=== PATIENT | male | born 1945 | race Caucasian/White ===

== ENCOUNTER 2023-09-03 15:01 | Outpatient (CLI) | payer MEDICARE, SELFPAY | END 2023-09-03 15:02 | disposition home or self-care (01) | PROVIDERS: PCP Family Medicine; Visit Provider Family Medicine | DX: Z00.00 Encounter for general adult medical examination without abnormal findings (principal); I10 Essential (primary) hypertension; E78.00 Pure hypercholesterolemia, unspecified; E03.9 Hypothyroidism, unspecified; N18.30 Chronic kidney disease, stage 3 unspecified; E11.9 Type 2 diabetes mellitus without complications | CPT/HCPCS: 80053; 80061; 82043; 82570; 84443 ==

== ENCOUNTER 2023-09-17 14:21 | Outpatient (CLI) | payer MEDICARE, SELFPAY | END 2023-09-17 14:22 | disposition home or self-care (01) | LOC: WOUND 14:21 | PROVIDERS: PCP Family Medicine; Visit Provider Nurse Practitioner Family | DX: E11.621 Type 2 diabetes mellitus with foot ulcer (principal); L97.512 Non-pressure chronic ulcer of other part of right foot with fat layer exposed; I83.018 Varicose veins of right lower extremity with ulcer other part of lower leg; L97.812 Non-pressure chronic ulcer of other part of right lower leg with fat layer exposed; L97.818 Non-pressure chronic ulcer of other part of right lower leg with other specified severity; I83.028 Varicose veins of left lower extremity with ulcer other part of lower leg; L97.828 Non-pressure chronic ulcer of other part of left lower leg with other specified severity; Z79.4 Long term (current) use of insulin; Z79.84 Long term (current) use of oral hypoglycemic drugs | CPT/HCPCS: 11042; 97602; 99213 ==

== ENCOUNTER 2023-09-20 11:29 | Outpatient (CLI) | payer MEDICARE, SELFPAY | END 2023-09-20 11:30 | disposition home or self-care (01) | LOC: WOUND 11:29 | PROVIDERS: PCP Family Medicine; Visit Provider Nurse Practitioner Family | DX: I87.333 Chronic venous hypertension (idiopathic) with ulcer and inflammation of bilateral lower extremity (principal); L97.818 Non-pressure chronic ulcer of other part of right lower leg with other specified severity; L97.828 Non-pressure chronic ulcer of other part of left lower leg with other specified severity | CPT/HCPCS: 29581 ==

== ENCOUNTER 2023-09-24 08:20 | Outpatient (CLI) | payer MEDICARE, SELFPAY | END 2023-09-24 08:21 | disposition home or self-care (01) | LOC: WOUND 08:20 | PROVIDERS: PCP Family Medicine; Visit Provider Nurse Practitioner Family | DX: E11.621 Type 2 diabetes mellitus with foot ulcer (principal); L97.512 Non-pressure chronic ulcer of other part of right foot with fat layer exposed; I87.333 Chronic venous hypertension (idiopathic) with ulcer and inflammation of bilateral lower extremity; L97.322 Non-pressure chronic ulcer of left ankle with fat layer exposed; L97.812 Non-pressure chronic ulcer of other part of right lower leg with fat layer exposed; Z79.4 Long term (current) use of insulin; Z79.84 Long term (current) use of oral hypoglycemic drugs | CPT/HCPCS: 11042 ==

== ENCOUNTER 2023-10-01 10:29 | Outpatient (CLI) | payer MEDICARE, SELFPAY | END 2023-10-01 10:30 | disposition home or self-care (01) | LOC: WOUND 10:29 | PROVIDERS: PCP Family Medicine; Visit Provider Nurse Practitioner Family | DX: E11.621 Type 2 diabetes mellitus with foot ulcer (principal); L97.512 Non-pressure chronic ulcer of other part of right foot with fat layer exposed; I87.333 Chronic venous hypertension (idiopathic) with ulcer and inflammation of bilateral lower extremity; L97.812 Non-pressure chronic ulcer of other part of right lower leg with fat layer exposed; L97.828 Non-pressure chronic ulcer of other part of left lower leg with other specified severity; L97.322 Non-pressure chronic ulcer of left ankle with fat layer exposed; L97.818 Non-pressure chronic ulcer of other part of right lower leg with other specified severity; Z79.4 Long term (current) use of insulin; Z79.84 Long term (current) use of oral hypoglycemic drugs | CPT/HCPCS: 11042; 97602 ==

== ENCOUNTER 2023-10-05 10:33 | Emergency (ER) | payer MEDICARE, SELFPAY ==
[2023-10-05] VITALS (19 sets, daily range): BP systolic 136–156; BP diastolic 60–69; PULSE 68–82; RESP 18; TEMP 37.1; O2SAT 94–99
--- NOTE | 2023-10-05 11:17 | CRLHL7_ITS ---
For Patients: As a result of the Century Cures Act, medical imaging exams and procedure reports are released immediately into your electronic medical record. You may view this report before your referring provider. If you have questions, please contact your health care provider. Examination: CTA chest - pulmonary embolism protocol Indication: Shortness of breath. COVID-19 positive. Technique: PE protocol chest CTA. 95 mL contrast. Coronal and sagittal reformations. 2D and 3D MIP images for post-processing were performed and interpreted on an independent scanner and 3D images were permanently archived. Comparison: None available Findings: No pulmonary embolism. Normal caliber main pulmonary artery. Normal heart size. Coronary artery calcifications. No pericardial effusion. Normal course and caliber of thoracic aorta. Multiple small mediastinal lymph nodes are noted which are generally not in enlarged by CT size criteria. A 1.1 cm right paratracheal lymph node maintains normal lymph node morphology with prominent fatty hilum. No axillary or supraclavicular lymphadenopathy.. Normal esophagus. Visualized portions of thyroid unremarkable. No pneumothorax or pleural effusion. Prominent interstitial opacities are noted most prominently in the lung bases likely pulmonary edema. No alveolar opacities. No pulmonary nodules. Limited arterial phase images of upper abdomen are unremarkable. No acute or aggressive appearing osseous lesions. Impression: 1. Bilateral interstitial pulmonary opacities, greatest in the lung bases. This is likely due to pulmonary edema. Atypical pneumonia could have this appearance in appropriate clinical context. 2. No pulmonary embolism. Please note that all CT scans at this facility use dose modulation, iterative reconstruction, and/or weight-based dosing when appropriate to reduce radiation dose to as low as reasonably achievable. Dictated by Willi Miller MD @ 10/05/2023 1:38:02 PM (Electronically Signed)
--- NOTE | 2023-10-05 11:48 | ED.GENADULT ---
HPI - General Adult General Date Seen: 10/05/23 Chief complaint: Weakness Stated complaint: COVID+, trouble breathing Time Seen by Provider: 10/05/23 11:00 Source: patient Mode of arrival: ambulatory Limitations: no limitations History of Present Illness HPI narrative: Patient is a 78-year-old male with a history of chronic kidney disease diabetes, paroxysmal AFib of rivaroxaban, presenting to the emergency department for weakness and shortness of breath. He states he started to feel weak 2 days ago and had episode of dizziness a cause in the fall down. His tried to stop him from falling but she was unable to. States he landed on his butt. Does not think he hit his head. Denies headaches, vision changes, numbness. Has not had any more episodes of dizziness since that 1 time. States he has had COVID twice before he has states the symptoms feel very similar. He has not needed to be hospitalized. Denies fevers, chest pain, abdominal pain, diarrhea, constipation. Does state he feels short of breath. He took 2 COVID test at home and both came back positive. He also states he has been very itchy the past 2 days and has been bruising where he has been itching. Patient also admits to falling 3 weeks ago but states that is due to him losing his balance when he was picking up a yeimy. He hurt his shoulder and ribs at that time but has had full range of motion of his shoulder. Related Data Home Medications Medication Instructions Recorded Confirmed allopurinol 100 mg tablet 100 mg PO QDAY 09/03/23 09/30/23 alprazolam 0.5 mg tablet 0.5 mg PO QDAY PRN 09/03/23 09/30/23 amiodarone 200 mg tablet 200 mg PO QDAY 09/03/23 09/30/23 cinnamon bark 500 mg capsule 500 mg PO QDAY 09/03/23 09/30/23 (Cinnamon) metformin 1,000 mg tablet 1,000 mg PO QDAY 09/03/23 09/30/23 [id number] 300 mcg-K 60 1 tab PO QDAY 09/03/23 09/30/23 mcg-lycop 600 mcg-lutein 300 mcg tablet (Centrum Silver Men) saw palmetto 450 mg capsule 450 mg PO QDAY 09/03/23 09/30/23 furosemide 20 mg tablet 40 mg PO 3XW 09/30/23 potassium chloride 20 mEq 20 meq PO QDAY 09/30/23 09/30/23 tablet,extended release Previous Rx's Medication Instructions Recorded atorvastatin 10 mg tablet 10 mg PO QDAY #90 tabs 09/04/23 gabapentin 600 mg tablet 600 mg PO TID #270 tabs 09/04/23 glipizide 5 mg tablet 5 mg PO BID #180 tabs 09/04/23 insulin glargine 100 unit/mL (3 20 unit (0.2 mL) subcut QDAY #15 mL 09/04/23 mL) subcutaneous pen (Lantus Solostar U-100 Insulin) levothyroxine 100 mcg tablet 100 mcg PO QDAY #90 tabs 09/04/23 (Synthroid) metoprolol succinate 100 mg 100 mg PO QDAY #90 tabs 09/04/23 tablet,extended release 24 hr rivaroxaban 20 mg tablet (Xarelto) 20 mg PO QDAY #90 tabs 09/04/23 tamsulosin 0.4 mg capsule 0.4 mg PO .QOD #90 caps 09/04/23 azithromycin 250 mg tablet See Rx Instructions PO .COMPLEX #6 10/05/23 tabs nirmatrelvir 300 mg (150 mg See Rx Instructions PO .COMPLEX 10/05/23 x2)-ritonavir 100 mg tablet,dose #30 ea pack (Paxlovid) Allergies Allergy/AdvReac Type Severity Reaction Status Date / Time finasteride Allergy Unknown Rash Verified 09/30/23 14:31 hydrochlorothiazide Allergy Unknown Unknown Verified 09/30/23 14:31 penicillin G Allergy Unknown Unknown Verified 09/30/23 14:31 Sulfa (Sulfonamide Allergy Unknown Unknown Verified 09/30/23 14:31 Antibiotics) tetracycline Allergy Unknown Unknown Verified 09/30/23 14:31 amlodipine AdvReac Unknown Unknown Verified 09/30/23 14:31 erythromycin base AdvReac Unknown Unknown Verified 09/30/23 14:31 hydrocodone AdvReac Unknown Disorientat Verified 09/30/23 14:31 ion lisinopril AdvReac Unknown Cough Verified 09/30/23 14:31 Review of Systems Status of ROS: Reports: 10 or more systems reviewed and unremarkable except as noted in History and below [facility] Medical History Normal nuclear stress test Chronic right shoulder pain ?M25.511 - Pain in right shoulder (ICD-10) ?G89.29 - Other chronic pain (ICD-10) [place] (obstructive sleep apnea) ?G47.33 - Obstructive sleep apnea (adult) (pediatric) (ICD-10) Acquired plantar keratoderma ?L85.1 - Acquired keratosis [keratoderma] palmaris et plantaris (ICD-10) Chronic low back pain ?M54.50 - Low back pain, unspecified (ICD-10) ?G89.29 - Other chronic pain (ICD-10) Diabetic neuropathy ?E11.40 - Type 2 diabetes mellitus with diabetic neuropathy, unspecified (ICD-10) Hypercholesterolemia ?E78.00 - Pure hypercholesterolemia, unspecified (ICD-10) Stasis dermatitis of both legs ?I87.2 - Venous insufficiency (chronic) (peripheral) (ICD-10) Large cavernous hemangioma ?D18.00 - Hemangioma unspecified site (ICD-10) Type 2 diabetes mellitus ?E11.9 - Type 2 diabetes mellitus without complications (ICD-10) Paroxysmal atrial fibrillation ?I48.0 - Paroxysmal atrial fibrillation (ICD-10) BPH (benign prostatic hyperplasia) ?N40.0 - Benign prostatic hyperplasia without lower urinary tract symptoms (ICD-10) Anticoagulated ?Z79.01 - terminal superintendent (current) use of anticoagulants (ICD-10) Essential hypertension ?I10 - Essential (primary) hypertension (ICD-10) CKD (chronic kidney disease) stage 3, GFR 30-59 ml/min ?N18.30 - Chronic kidney disease, stage 3 unspecified (ICD-10) Chronic pruritic rash in adult ?L29.8 - Other pruritus (ICD-10) Hypothyroidism ?E03.9 - Hypothyroidism, unspecified (ICD-10) Surgical History History of cardioversion (~01/2023) ?Z92.89 - Personal history of other medical treatment (ICD-10) History of cataract surgery ?Z98.49 - Cataract extraction status, unspecified eye (ICD-10) History of ventral hernia repair (1993) ?Z98.890 - Other specified postprocedural states (ICD-10) ?Z87.19 - Personal history of other diseases of the digestive system (ICD-10) History of bilateral total hip arthroplasty (~2014) ?Z96.643 - Presence of artificial hip joint, bilateral (ICD-10) History of repair of left rotator cuff (1996) ?Z98.890 - Other specified postprocedural states (ICD-10) History of varicose veins (01/22/23) ?Z86.79 - Personal history of other diseases of the circulatory system (ICD-10) History of foot surgery (1967) ?Z98.890 - Other specified postprocedural states (ICD-10) Family History Maternal Grandmother Stroke, Onset Age: 47 Uncle Prostate cancer, Onset Age: 74 Mother Liver disease Social History Narrative: , 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, 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 Lifetime nonsmoker 2 alcoholic drinks a week Does not exercise What is your current living situation?: I presently have a place to live Problems where you live: no known problems In the past 12 months, utilities in danger of being shut off: no In past 12 months, lack of transportation kept you from medical appts, meetings, work, or getting things needed for daily living: no In the past 12 mos, have been you worried that your food would run out before you had money to buy more?: never true In the past 12 mos, the food you bought just didn't last and you didn't have money to buy more?: never true How often does anyone, including family, friends and others, physically hurt you: never How often does anyone, including family, friends and others, insult or talk down to you: never How often does anyone, including family, friends and others, threaten you with harm: never How often does anyone, including family, friends and others, scream or curse at you: never Little interest or pleasure in doing things: not at all Feeling down, depressed, or hopeless: not at all Exam Narrative: Exam Narrative: Const: Well-nourished, Well-developed, in mild distress Eyes: PERRL, no conjunctival injection, and symmetrical lids HENT: Atraumatic external nose and ears. Moist mucous membranes. Neck: Symmetric, trachea midline, No thyromegaly. CVS: RRR, No murmurs or gallops. Peripheral pulses 2+ and equal in all extremities RESP: Unlabored respiratory effort. Clear to auscultation bilaterally. GI: Nontender/Nondistended, No rebound or guarding. MSK:Extremities w/o deformity, Normal Active ROM. Tenderness to right shoulder over the long head of the biceps Skin: Warm, Dry. No rashes or lesions. Neuro: Normal Muscle tone, No focal neurological deficits. Psych: Awake, Alert, & Oriented x3. Appropriate mood and affect. Const: Vital Signs, click to edit/add: Vital Signs - 24 hr 10/05/23 10:48 10/05/23 11:12 10/05/23 11:15 Temperature 98.8 F Pulse Rate 81 81 Pulse Rate [Pulse Oximeter] 82 Respiratory Rate 18 Blood Pressure Blood Pressure [Ri ght Upper Arm] 156/61 H Pulse Oximetry 99 98 98 Oxygen Delivery Me thod Room Air 10/05/23 11:30 10/05/23 11:45 10/05/23 12:00 Temperature Pulse Rate 77 73 71 Pulse Rate [Pulse Oximeter] Respiratory Rate 18 Blood Pressure Blood Pressure [Ri ght Upper Arm] Pulse Oximetry 97 95 98 Oxygen Delivery Me thod Room Air 10/05/23 12:15 10/05/23 12:20 10/05/23 12:31 Temperature Pulse Rate 73 Pulse Rate [Pulse Oximeter] Respiratory Rate 18 18 Blood Pressure 142/63 H 139/62 Blood Pressure [Ri ght Upper Arm] Pulse Oximetry 96 Oxygen Delivery Me thod Room Air Room Air 10/05/23 13:27 10/05/23 13:28 10/05/23 13:30 Temperature Pulse Rate 74 72 74 Pulse Rate [Pulse Oximeter] Respiratory Rate 18 Blood Pressure 136/60 Blood Pressure [Ri ght Upper Arm] Pulse Oximetry 97 96 96 Oxygen Delivery Me thod Room Air Course Vital Signs Vital signs: Initial Vital Signs Temperature 98.8 F 10/05/23 10:48 Temperature Source Temporal Artery Scan 10/05/23 10:48 Pulse Rate 82 10/05/23 10:48 Respiratory Rate 18 10/05/23 10:48 Blood Pressure 156/61 H 10/05/23 10:48 Blood Pressure Mean 92 10/05/23 10:48 Pulse Oximetry 99 10/05/23 10:48 Oxygen Delivery Method Room Air 10/05/23 10:48 Vital Signs Temperature 98.8 F 10/05/23 10:48 Pulse Rate 82 10/05/23 10:48 Respiratory Rate 18 10/05/23 10:48 Blood Pressure 156/61 H 10/05/23 10:48 Pulse Oximetry 99 10/05/23 10:48 Oxygen Delivery Method Room Air 10/05/23 10:48 Temperature 98.8 F 10/05/23 10:48 Pulse Rate 74 10/05/23 13:30 Respiratory Rate 18 10/05/23 13:28 Blood Pressure 136/60 10/05/23 13:28 Pulse Oximetry 96 10/05/23 13:30 Oxygen Delivery Method Room Air 10/05/23 13:28 Medical Decision Making MDM Narrative Medical decision making narrative: Patient is 78-year-old male presenting emergency department for shortness of breath and COVID. His symptoms might all be secondary to COVID but with his history there is concern for pulmonary embolism. I do not believe a D-dimer would be useful concerned he does have COVID routine the elevates the D-dimer. I plan on doing a CT of his chest and UA to look for signs of pneumonia cell would to start with a CTA. Patient has no history of heart disease but does have risk factors so I will check him out for acute coronary syndrome. Seems unlikely to be pneumothorax. CMP, CBC, troponin, EKG all ordered. Lab work all returned showing no concerning abnormalities. EKG showed no concerning findings. Vital signs stayed stable throughout his time emergency department. CTA of the chest showed likely pulmonary edema but cannot rule out atypical infiltrates for pneumonia. He has no history of heart failure wide with his otherwise appears seems most likely to be pulmonary edema but will treat him prophylactically with azithromycin for atypicals. Patient be discharged on paxlovid. Family is agreeable to this plan. Patient does take amiodarone, Xarelto, atorvastatin, tamsulosin and alprazolam. He can hold the atorvastatin and tamsulosin. The amiodarone and rivaroxaban and I for his paroxysmal AFib. I will have him take these doses had half dose or every other day whichever the family prefers Lab Data Labs: Lab Results 10/05/23 Range/Units 12:05 WBC 5.55 (4.50-11.00) K/uL RBC 3.36 L (4.30-5.90) m/uL Hgb 11.1 L (13.5-17.5) gm/dL Hct 33.5 L (37.0-53.0) % MCV 100 (80-100) fL MCH 33 (26-34) pg MCHC 33 (32-36) gm/dL RDW Coeff of [place] 12.8 (11.5-15.5) % Plt Count 255 (140-440) K/uL Neut % (Auto) 63.0 (42.0-72.0) % Lymph % (Auto) 13.9 L (20-44) % [place] % (Auto) 21.8 H (0.0-11.0) % Eos % (Auto) 0.5 (0.0-7.0) % Baso % (Auto) 0.4 (0.0-3.0) % Neut # (Auto) 3.50 (1.7-7.0) K/uL Lymph # (Auto) 0.80 L (0.90-2.90) K/uL [place] # (Auto) 1.20 H (0.00-0.90) K/UL Eos # (Auto) 0.03 (0.00-0.50) K/uL Baso # (Auto) 0.02 (0.00-0.30) K/uL Abs Immat Gran (auto) 0.02 (0.00-0.30) K/uL Imm/Tot Granulo (auto) 0.4 % Sodium 136 (135-149) mmol/L Potassium 4.2 (3.6-5.1) mmol/L Chloride 107 (96-114) mmol/L Carbon Dioxide 22 (20-32) mmol/L Anion Gap 7 (7-15) mEq/L BUN 28 (7-30) mg/dL Creatinine 1.8 H (0.5-1.5) mg/dL Estimated Creat Clear 35.44 Estimated GFR 38 ml/min Glucose 273 H (60-115) mg/dL Calcium 8.5 (8.4-10.6) mg/dL Total Bilirubin 0.3 (0.1-1.5) mg/dL AST 40 H (12-35) U/L ALT 21 (4-50) U/L Alkaline Phosphatase 110 (40-150) U/L Troponin I 0.04 (0.01-0.04) ng/mL Total Protein 6.4 (6.0-8.3) g/dL Albumin 3.2 L (3.3-5.0) g/dL ECG Data Attestation: I personally reviewed and interpreted this ECG as follows: Prior ECG tracings: not available for review Interpretation: Normal sinus rhythm with a rate of 73 beats per minute, right bundle branch block, normal intervals, normal axis, no ST or T-wave abnormalities. Discharge Plan Discharge Clinical Impression: COVID Patient Disposition: Home, Self-Care Condition: Stable Instructions: COVID-19 (Coronavirus Disease 2019) (ED) Additional Instructions: Do not take your atorvastatin or tamsulosin while you're taking Paxlovid. For the amiodarone and Xarelto you can take either half dose or every other day while you are taking Paxlovid. With the Xanax it can increase the amount of time it is in your body and strengths are recommend trying not to take this while on the paxlovid, but if he does take it try half the dose. CTs shows what appears to be a small amount of fluid in your lungs which is not overly concerning but we cannot definitively rule out infection so I will start you on azithromycin. Prescriptions: New Paxlovid 300 mg (150 mg x 2)-100 mg tablets,dose pack See Rx Instructions .ROUTE .COMPLEX Qty: 30 0RF Rx Instructions: take TWO 150 mg tablets of nirmatrelvir with ONE 100 mg tablet of ritonavir twice daily for 5 days azithromycin 250 mg tablet See Rx Instructions .ROUTE .COMPLEX Qty: 6 0RF Rx Instructions: For 250 mg dose pack: take 500 mg today (day 1), then 250 mg for 4 days (days 2-5) No Action allopurinol 100 mg tablet 100 mg PO QDAY alprazolam 0.5 mg tablet 0.5 mg PO QDAY PRN metformin 1,000 mg tablet 1,000 mg PO QDAY amiodarone 200 mg tablet 200 mg PO QDAY Centrum Silver Men [phone] mcg tablet 1 tab PO QDAY saw palmetto 450 mg capsule 450 mg PO QDAY Rx Instructions: give with food (meal/snack) cinnamon bark [Cinnamon] 500 mg capsule 500 mg PO QDAY potassium chloride 20 mEq tablet extended release 20 meq PO QDAY furosemide 20 mg tablet 40 mg PO 3XW insulin glargine [Lantus Solostar U-100 Insulin] 100 unit/mL (3 mL) insulin pen 20 unit subcut QDAY Qty: 15 3RF levothyroxine [Synthroid] 100 mcg tablet 100 mcg PO QDAY Qty: 90 3RF glipizide 5 mg tablet 5 mg PO BID Qty: 180 0RF gabapentin 600 mg tablet 600 mg PO TID Qty: 270 3RF atorvastatin 10 mg tablet 10 mg PO QDAY Qty: 90 3RF metoprolol succinate 100 mg tablet extended release 24 hr 100 mg PO QDAY Qty: 90 3RF Xarelto 20 mg tablet 20 mg PO QDAY Qty: 90 3RF Rx Instructions: must administer with evening meal tamsulosin 0.4 mg capsule 0.4 mg PO .QOD Qty: 90 1RF Follow Up/Referrals: Christin Kelsey MD [Primary Care Provider] - Stand Alone Forms: MyHealth Info Instructions
[2023-10-05 12:14] LABS: Basophils Absolute Auto 0.02 K/uL (0.00-0.30); Basophils Percent Auto 0.4 % (0.0-3.0); Eosinophils Absolute Auto 0.03 K/uL (0.00-0.50); Eosinophils Percent Auto 0.5 % (0.0-7.0); Hematocrit 33.5 % (37.0-53.0); Hemoglobin* 11.1 gm/dL (13.5-17.5); Immature Granulocytes Abs Auto 0.02 K/uL (0.00-0.30); Immature Granulocytes Pct Auto 0.4 %; Lymphocytes Percent Auto 13.9 % (20-44); Mean Corpuscular HGB Conc 33 gm/dL (32-36); Mean Corpuscular Hemoglobin 33 pg (26-34); Mean Corpuscular Volume 100 fL (80-100); Monocytes Percent Auto 21.8 % (0.0-11.0); Platelet Count* 255 K/uL (140-440); RDW Coefficient of Variation % 12.8 % (11.5-15.5); Red Blood Count 3.36 m/uL (4.30-5.90); White Blood Count* 5.55 K/uL (4.50-11.00)
[2023-10-05 12:16] LABS: Slide Review Reflex No
[2023-10-05 12:27] LABS: Albumin* 3.2 g/dL (3.3-5.0); Chloride* 107 mmol/L (96-114)
[2023-10-05 12:28] LABS: Potassium* 4.2 mmol/L (3.6-5.1); Sodium* 136 mmol/L (135-149)
[2023-10-05 12:30] LABS: Anion Gap 7 mEq/L (7-15); Aspartate Amino Transferase* 40 U/L (12-35); Bilirubin Total* 0.3 mg/dL (0.1-1.5); Carbon Dioxide* 22 mmol/L (20-32); Creatinine* 1.8 mg/dL (0.5-1.5); Est. Creatinine Clearance* 35.44; Estimated Glomerular Filt Rate 38 ml/min; Total Protein* 6.4 g/dL (6.0-8.3)
[2023-10-05 12:31] LABS: Alanine Aminotransferase* 21 U/L (4-50); Alkaline Phosphatase* 110 U/L (40-150); Blood Urea Nitrogen* 28 mg/dL (7-30); Calcium* 8.5 mg/dL (8.4-10.6); Glucose* 273 mg/dL (60-115)
[2023-10-05 12:42] LABS: Troponin I* 0.04 ng/mL (0.01-0.04)
--- NOTE | 2023-10-05 16:45 | ED.NURSE ---
Patient requested the prescriptions be phoned into [facility] and this was completed.
== END 2023-10-05 15:04 | disposition home or self-care (01) ==
PROVIDERS: Emergency Provider Student in an Organized Health Care Education/Training Program; PCP Family Medicine
DX: U07.1 COVID-19 (principal)
CPT/HCPCS: 36415; 71275; 80053; 84484; 85025; 93005; 95992; 99283; 99284; 99285; Q9967

== ENCOUNTER 2023-10-10 07:59 | Outpatient (CLI) | payer MEDICARE, SELFPAY | END 2023-10-10 08:00 | disposition home or self-care (01) | PROVIDERS: PCP Family Medicine; Visit Provider Nurse Practitioner Family | DX: E11.621 Type 2 diabetes mellitus with foot ulcer (principal); L97.512 Non-pressure chronic ulcer of other part of right foot with fat layer exposed; I87.333 Chronic venous hypertension (idiopathic) with ulcer and inflammation of bilateral lower extremity; L97.812 Non-pressure chronic ulcer of other part of right lower leg with fat layer exposed; L97.322 Non-pressure chronic ulcer of left ankle with fat layer exposed; Z79.4 Long term (current) use of insulin; Z79.84 Long term (current) use of oral hypoglycemic drugs | CPT/HCPCS: 11042; 97597 ==

== ENCOUNTER 2023-10-22 09:28 | Outpatient (CLI) | payer MEDICARE, SELFPAY | END 2023-10-22 09:29 | disposition home or self-care (01) | LOC: WOUND 09:28 | PROVIDERS: PCP Family Medicine; Visit Provider Physician Assistant | DX: E11.621 Type 2 diabetes mellitus with foot ulcer (principal); L97.512 Non-pressure chronic ulcer of other part of right foot with fat layer exposed; I87.333 Chronic venous hypertension (idiopathic) with ulcer and inflammation of bilateral lower extremity; L97.812 Non-pressure chronic ulcer of other part of right lower leg with fat layer exposed; L97.321 Non-pressure chronic ulcer of left ankle limited to breakdown of skin; Z79.4 Long term (current) use of insulin; Z79.84 Long term (current) use of oral hypoglycemic drugs | CPT/HCPCS: 97597 ==

== ENCOUNTER 2023-10-28 08:00 | Outpatient (CLI) | payer MEDICARE, SELFPAY ==
--- NOTE | 2023-10-28 08:15 | CRLHL7_ITS ---
For Patients: As a result of the Century Cures Act, medical imaging exams and procedure reports are released immediately into your electronic medical record. You may view this report before your referring provider. If you have questions, please contact your health care provider. INDICATION: Chronic kidney disease, stage IIIB. COMPARISON: None available. TECHNIQUE: Renal duplex ultrasound examination with 2D and spectral analysis and color Doppler imaging. FINDINGS: The right kidney measures 11.2 x 6.0 x 4.8 cm, and the left kidney measures 10.6 x 5.5 x 4.5 cm. Normal renal cortical thickness. No hydronephrosis. There is a cyst in the right kidney measuring 2 cm. There are two right-sided renal arteries, and one left seen. The peak systolic velocity was within normal limits (less than 200 cm/second). On the right, within artery labeled #1 the peak systolic velocity was 92.6 cm/second, and the artery labeled #2 has a peak systolic velocity of 118.2 cm/second. Within the left renal artery, the peak systolic velocity was recorded proximally, measuring 113.6 cm/second. Renal artery ratios were normal (less than 3.5), recorded at 1.24 on the right and 1.19 on the left with an aortic velocity recorded at 95.3 cm/second. Acceleration times were recorded in the main renal arteries at 0.1. Resistive indices increased bilaterally, recorded at 0.9, 0.8, and 0.7 on the right within the superior, mid, and inferior pole. On the left they were recorded at 0.8 uniformly. The bilateral renal veins were patent. IMPRESSION: No sonographic evidence for renal artery stenosis. Dictated by Wang Lopez MD @ 10/29/2023 6:05:14 PM (Electronically Signed)
== END 2023-10-28 08:01 | disposition home or self-care (01) ==
PROVIDERS: PCP Family Medicine; Visit Provider Internal Medicine Nephrology
DX: N18.32 Chronic kidney disease, stage 3b (principal); I10 Essential (primary) hypertension
CPT/HCPCS: 76775; 93975

== ENCOUNTER 2023-10-29 09:24 | Outpatient (CLI) | payer MEDICARE, SELFPAY | END 2023-10-29 09:25 | disposition home or self-care (01) | LOC: WOUND 09:24 | PROVIDERS: PCP Family Medicine; Visit Provider Nurse Practitioner Family | DX: I87.333 Chronic venous hypertension (idiopathic) with ulcer and inflammation of bilateral lower extremity (principal); L97.812 Non-pressure chronic ulcer of other part of right lower leg with fat layer exposed; L97.322 Non-pressure chronic ulcer of left ankle with fat layer exposed | CPT/HCPCS: 11042; 97597 ==

== ENCOUNTER 2023-11-05 09:30 | Outpatient (CLI) | payer MEDICARE, SELFPAY ==
--- OUTSIDE RECORDS SUMMARY | 2023-11-05 09:32 | XMS_ITS ---
Author Name Unknown Organization [facility] Address [address] [place] [address] Care Team Providers Care Embedded Software Architect Name Role Phone Unavailable Unavailable Unavailable Surgery Details Not on file Complications Check Surgery Details section. Procedure Estimated Blood Loss Check Surgery Details section. Procedure Findings Check Surgery Details section. Procedure Specimens Taken Check Surgery Details section.
--- OUTSIDE RECORDS SUMMARY | 2023-11-05 09:32 | XMS_ITS | Encounter Summary ---
Author Name Unknown Organization [facility] Address [address] [place] [address] Care Team Providers Care Pediatric Care Coordinator Name Role Phone Unavailable Primary Care Provider Unavailabl e Reason for Visit * Appointment Request (Routine) - Closed Specialty Diagnoses / Procedures Referred By Mireya garza Referred To Contact Nephrology and Hypertension Christin Kelsey M.D. [address] [place] [address] Referral ID Status Reason Start Date Expiration Date Visits Re quested Visits Authorized [id number] Closed 09/05/2023 09/04/2024 1 1 Encounter Details Date Type Department Care Team (Latest Contact Info) Description 09/30/2023 2:30 PM ELECTRICAL PLUMBING SUPERVISOR External Outreach Division of Nephrology and Hypertension in [place], [place] [address] [place] [address] Humberto Cho Jr., D.O. [address] [place] [address] Chronic Kidney Disease (CKD), Stage 3b Glomerular Filtration Rate (GFR) 30 To 44 (HCC) (Primary Dx); Hypertensive Chronic Kidney Disease (CKD) Stage 3b Glomerular Filtration Rate (GFR) 30 To 44 (HCC); Diabetes Mellitus Type 2 (HCC); Hyperparathyroidism Renal Secondary (HCC); Atrial Fibrillation Paroxysmal (HCC); Apnea Sleep Obstructive; Anticoagulant Therapy Social History Tobacco Use Types Packs/Day Years Used Date Smoking Tobacco: Never Assessed Nutrition Answer Date Recorded Nutrition: EVOO Fat Source Unknown 09/05 Nutrition: Servings of Fruits/Vegetables per Day Not on file 09/05/2023 Dental Answer Date Recorded Dental: Regular Dentist Unknown 09/05/20 Sex and Gender Information Value Date Recorded Sex Assigned at Not on file Gender Identity Not on file Sexual Orientation Not on file documented as of this encounter Last Filed Vital Signs Vital Sign Reading Time Taken Comments Blood Pressure 160/70 09/30/2023 2:41 PM ELECTRICAL PLUMBING SUPERVISOR Pulse 92 09/30/2023 2:41 PM ELECTRICAL PLUMBING SUPERVISOR Temperature - - Respiratory Rate - - Oxygen Saturation - - Inhaled Oxygen Concentration - - Weight 99.3 kg (218 lb 14.7 oz) 09/30/2023 2:41 PM ELECTRICAL PLUMBING SUPERVISOR Height 179 cm (5' 10.47) 09/30/2023 2:41 PM ELECTRICAL PLUMBING SUPERVISOR Body Mass Index 30.99 09/30/2023 2:41 PM ELECTRICAL PLUMBING SUPERVISOR documented in this encounter Progress Notes * Humberto Cho Jr., D.O. - 09/30/2023 2:30 PM CST Referring Provider: DR Low Roth SUBJECTIVE REASON FOR VISIT [place] [facility] Full consultation management regards elevated serum creatinine level, hypertension diabetes, proteinuria HISTORY OF PRESENT ILLNESS Mr. Damon is a 78 y.o. male who presents with a 20 year history of diabetes, hypertension and a noted and known history of CKD, who has just moved to [place] approximately 5 weeks ago. 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 He feels well in all respects, is struggling a bit with unpacking and setting up their new home here in [place]. He had a long-term physician for many years, and we are waiting some of the outside records to arrive. I appreciate his past medical history is also significant for paroxysmal atrial fibrillation, for which he is on amiodarone, beta blockade and is orally anticoagulated with Xarelto. He is history of gout, without recent flare on allopurinol, severe DJD, status post bilateral hip replacements, but no NSAID use. He has BPH but currently no issues with outlet obstruction, and is on Flomax and saw palmetto. He has never had renal masses that he is aware of, no gross hematuria, no stone disease, buthe is unaware of ever having had renal imaging. We will be orchestrating this. He is no familial history of renal diseases or disorders, and does not have issues with nocturia, urgency frequency, and has never had renal infections. He is unaware of ever having connective tissuedisorders, specifically unusual rashes, no history of cancer, no history of unexplained constitutional illnesses, rheumatic or scarlet fever in his youth. He has microalbuminuria on his most recent set of labs at 1090 milligrams/gram. He has no fevers nochills no bone pain, no issues with neuropathy, or speech/tongue issues. His blood pressure at home has been in the 140s over 70s and has been as such for many years. Developed a cough with lisinopril. Been struggling a bit with lower extremity wounds, these are on the background of weeping bilaterallower extremities which have been thought to be on the background of venous insufficiency. Uses furosemide 20 mg orally daily with a potassium supplement. His other antihypertensive agent is a beta parrish in the form of metoprolol 100 mg orally daily. He avoid sodium generally, only adding sodium to his eggs which she has rarely. He has been free of hypoglycemic events recently, but his hemoglobin A1c is well above target at 8.4% on the background of his moving home recently. Past medical history is extensive: 1. Diabetes mellitus type 2 2. Hypertension 3. CKD stage IIIB 4. Hyperuricemia and gout 5. Obstructive sleep apnea 6. Hyperlipidemia 7. Chronic venous stasis ulcers and lower extremity venous insufficiency 8. Hypothyroidism 9. Paroxysmal atrial fibrillation 10. Orally anticoagulated on Xarelto 11. BPH with obstruction 12. History of hypokalemia Current Outpatient Medications: allopurinol 100 mg oral capsule, 100 mg daily., Disp: , Rfl: ALPRAZolam (XANAX) 0.5 mg tablet, Take 1 tablet (0.5 mg total) by mouth at bedtime as needed for anxiety., Disp: , Rfl: amiodarone (PACERONE) 200 mg tablet, Take 1 tablet (200 mg total) by mouth daily., Disp: , Rfl: atorvastatin (LIPITOR) 10 mg tablet, Take 1 tablet (10 mg total) by mouth daily., Disp: , Rfl: furosemide (LASIX) 20 mg tablet, Take 1 tablet (20 mg total) by mouth as directed. 40 mg on MWF, 20mg other days, Disp: 130 tablet, Rfl: 3 gabapentin (NEURONTIN) 600 mg tablet, Take 1 tablet (600 mg total) by mouth 3 (three) times a day.,Disp: , Rfl: glipiZIDE (GLUCOTROL XL) 5 mg 24 hr tablet, Take 5 mg by mouth daily with breakfast., Disp: , Rfl: insulin glargine (Lantus Solostar U-100 Insulin) 100 unit/mL (3 mL) injection, Inject 20 Units under the skin at bedtime. Pharmacy select brand per patient insurance/preference., Disp: , Rfl: metFORMIN (GLUCOPHAGE) 1,000 mg tablet, Take 0.5 tablets (500 mg total) by mouth 2 (two) times a day with meals., Disp: , Rfl: metoprolol succinate (TOPROL-XL) 100 mg 24 hr tablet, Take 0.5 tablets (50 mg total) by mouth daily. Do not crush or chew., Disp: , Rfl: potassium chloride (KLORCON/K-TAB) 10 mEq ER tablet, Take 1 tablet (10 mEq total) by mouth as directed. Do not crush or chew. 2 on MWF, 1 rest of days, Disp: 130 tablet, Rfl: 3 rivaroxaban (XARELTO) 20 mg tablet, Take 1 tablet (20 mg total) by mouth daily with dinner., Disp: 90 tablet, Rfl: 3 tamsulosin (FLOMAX) 0.4 mg 24 hr capsule, Take 1 capsule (0.4 mg total) by mouth daily., Disp: , Rfl: REVIEW OF SYSTEMS All other systems reviewed and are negative. OBJECTIVE BP 160/70 Pulse 92 Ht 179 cm Wt 99.3 kg BMI 30.99 kg/m?? PHYSICAL EXAMINATION General: Awake alert oriented HEENT: BAHMAN, EOMI, Mucous membranes moist, no oral lesions Neck: No Masses, No Bruits Lungs: Clear to ascultation Heart: Regular Rate and Rhythm, No ectopy Murmurs or rubs, increased S1 Abdomen: Soft, Non-tender Extremities: Bilateral lower extremities with velcro compression devices and pitting right ankle edema below the devices Neuro: Cranial Nerves intact, Gait is normal, strength grossly normal Skin: no suspicious lesions identified, multiple ecchymoses Psychiatric: Normal affect DIAGNOSTICS Note serum creatinine 1.9 mg/dL, hemoglobin A1c 8.4%, hemoglobin 12.5 grams/deciliter microalbumin to creatinine ratio 1090 milligrams/gram ASSESSMENT / PLAN #1 Chronic Kidney Disease (CKD), Stage 3b Glomerular Filtration Rate (GFR) 30 To 44 (HCC) Certainly this is associated with diabetic and hypertension issues, and with his microalbuminuria is tempting to assume this to be diabetic nephropathy. We will need to investigate a bit further with a urinalysis beyond simple microalbumin assessment, as well as a renal ultrasound to check the architecture of his kidneys. Also outside records will becrucial in order that we can determine the trajectory of his creatinine over time. Going forward: 1. Renal ultrasound with Dopplers of his arteries 2. Urinalysis 3. Check paraprotein studies 4. Goal blood pressure less than 130s over 80s 5. Goal glycosylated hemoglobin less than 8% 6. No NSAIDs or Diallo 2 inhibitors 7. Stay adherent with his CPAP I will see him back in 2 months. #2 Hypertensive Chronic Kidney Disease (CKD) Stage 3b Glomerular Filtration Rate (GFR) 30 To 44 (HCC) He seems to be meeting goal correction values, I have encouraged him to monitor his pressure at home and bring these in in a written form. Also discussed adherence to CPAP regimen, increasing his furosemide slightly to: 1. Furosemide 40 mg on Fridays 2. Furosemide 20 mg on the remaining day of the week 3. He will increase his potassium supplements to 20 mEq on the days that he is using 40 mg of furosemide. #3 Diabetes Mellitus Type 2 (HCC) He will be working harder at his diet, and better glycemic control. #4 Hyperparathyroidism Renal Secondary (HCC) We will monitor PTH vitamin-D levels calcium and phosphorus. #5 Atrial Fibrillation Paroxysmal (HCC) Heart rate well controlled, his rhythm seemed normal clinically today, he is on oral anticoagulation. #6 Apnea Sleep Obstructive Encouraged adherence with his CPAP regimen #7 Anticoagulant Therapy Continue on his Xarelto Total time: 1 hour 5 minutes Counseling Time: 50 minutes Humberto Cho Jr., D.O. TRICAL PLUMBING SUPERVISOR documented in this encounter Plan of Treatment Not on file documented as of this encounter Visit Diagnoses Diagnosis Chronic Kidney Disease (CKD), Stage 3b Glomerular Filtration Rate (GFR) 30 To 44 (HCC)- Primary Hypertensive Chronic Kidney Disease (CKD) Stage 3b Glomerular Filtration Rate (GFR) 30 To 44 (HCC) Diabetes Mellitus Type 2 (HCC) Hyperparathyroidism Renal Secondary (HCC) Atrial Fibrillation Paroxysmal (HCC) Apnea Sleep Obstructive Anticoagulant Therapy documented in this encounter
--- OUTSIDE RECORDS SUMMARY | 2023-11-05 09:32 | XMS_ITS | Clinical Summary ---
Author Name Unknown Organization [facility] Address [address] [place] [address] Care Team Providers Care Supervisor Extrusion Name Role Phone Unavailable Primary Care Provider Unavailabl e Source Comments Patient records contain information from all sites at [facility]. For routine questions regarding patient records, call [phone] during business hours, M-F 8:00 AM - 5:00 PM Central Time. Record requests for emergency care only can be directed to [phone] at any time.[facility] Allergies Active Allergy Reactions Criticality Noted Date Comments Amlodipine Edema, suggestive of allergic reaction, i.e., lip, tongue, or throat swelling High 09/30/2023 Erythromycin Base Rash 09/30/2023 Finasteride Rash 09/30/2023 Lisinopril Cough 09/30/2023 Penicillin GI intolerance 09/30/2023 Sulfa (Sulfonamide Antibiotics) Rash 09/30/2023 Tetracycline Rash 09/30/2023 Medications Medication Sig Dispensed Refills Start Date End Date Status rivaroxaban (XARELTO) 20 mg tablet Take 1 tablet (20 mg total) by mouth daily with dinner. 90 tablet 3 09/30/2023 09/29/2024 Active furosemide (LASIX) 20 mg tablet Take 1 tablet (20 mg total) by mouth as directed. 40 mg on MWF, 20 mg other days 130 tablet 3 09/30/2023 09/29/2024 Active potassium chloride (KLORCON/K-TAB) 10 mEq ER tablet Take 1 tablet (10 mEq total) by mouth as directed. Do not crush or chew. 2 on MWF, 1 rest of days 130 tablet 3 09/30/2023 Active allopurinol 100 mg oral capsule 100 mg daily. 0 Active glipiZIDE (GLUCOTROL XL) 5 mg 24 hr tablet Take 5 mg by mouth daily with breakfast. 0 Active tamsulosin (FLOMAX) 0.4 mg 24 hr capsule Take 1 capsule (0.4 mg total) by mouth daily. 0 09/30/2023 Active metoprolol succinate (TOPROL-XL) 100 mg 24 hr tablet Take 0.5 tablets (50 mg total) by mouth daily. Do not crush or chew. 0 09/30/2023 09/29/2024 Active metFORMIN (GLUCOPHAGE) 1,000 mg tablet Take 0.5 tablets (500 mg total) by mouth 2 (two) times a day with meals. 0 09/30/2023 Active gabapentin (NEURONTIN) 600 mg tablet Take 1 tablet (600 mg total) by mouth 3 (three) times a day. 0 09/30/2023 Active amiodarone (PACERONE) 200 mg tablet Take 1 tablet (200 mg total) by mouth daily. 0 09/30/2023 Active atorvastatin (LIPITOR) 10 mg tablet Take 1 tablet (10 mg total) by mouth daily. 0 09/30/2023 Active ALPRAZolam (XANAX) 0.5 mg tablet Take 1 tablet (0.5 mg total) by mouth at bedtime as needed for anxiety. 0 09/30/2023 Active insulin glargine (Lantus Solostar U-100 Insulin) 100 unit/mL (3 mL) injection Inject 20 Units under the skin at bedtime. Pharmacy select brand per patient insurance/prefer ence. 0 09/30/2023 Active Active Problems Problem Noted Date Diagnosed Date Hypertensive Chronic Kidney Disease (CKD) Stage 3b Glomerular Filtration Rate (GFR) 30 To 44 09/30/2023 Chronic Kidney Disease (CKD) , Stage 3b Glomerular Filtration Rate (GFR) 30 To 44 09/30/2023 Diabetes Mellitus Type 2 09/30/2023 Proteinuria 09/30/2023 Hyperparathyroidism Renal Secondary 09/30/2023 Anemia 09/30/2023 Gout 09/30/2023 Apnea Sleep Obstructive 09/30/2023 Atrial Fibrillation Paroxysmal 09/30/2023 Anticoagulant Therapy 09/30/2023 Hypothyroidism Acquired 09/30/2023 Hyperplasia Prostate Benign Localized Without Ob struction 09/30/2023 Encounters Date Type Department Care Team Description 09/30/2023 2:30 PM PILLOWCASE MAKER External Outreach Division of Nephrology and Hypertension in [place], [place] [address] [place] [address] Humberto Cho Jr., D.O. Chronic Kidney Disease (CKD), Stage 3b Glomerular Filtration Rate (GFR) 30 To 44 (HCC) (Primary Dx); Hypertensive Chronic Kidney Disease (CKD) Stage 3b Glomerular Filtration Rate (GFR) 30 To 44 (HCC); Diabetes Mellitus Type 2 (HCC); Hyperparathyroidism Renal Secondary (HCC); Atrial Fibrillation Paroxysmal (HCC); Apnea Sleep Obstructive; Anticoagulant Therapy from Last 3 Months Social History Tobacco Use Types Packs/Day Years [...] on file Sexual Orientation Not on file Last Filed Vital Signs Vital Sign Reading Time Taken Comments Blood Pressure 160/70 09/30/2023 2:41 PM PILLOWCASE MAKER Pulse 92 09/30/2023 2:41 PM PILLOWCASE MAKER Temperature - - Respiratory Rate - - Oxygen Saturation - - Inhaled Oxygen Concentration - - Weight 99.3 kg (218 lb 14.7 oz) 09/30/2023 2:41 PM PILLOWCASE MAKER Height 179 cm (5' 10.47) 09/30/2023 2:41 PM PILLOWCASE MAKER Body Mass Index 30.99 09/30/2023 2:41 PM PILLOWCASE MAKER Plan of Treatment Health Maintenance Due Date Last Done Comments Creatinine Level (Kidney Fun ction Test) 1944 Diabetic Office Visit with Foot Exam 1944 Dilated Eye Exam 1944 Hemoglobin A1C 1944 Hepatitis C Screening 1944 Potassium Level 1944 Sodium Level 1944 Urine Albumin 1944 Zoster Vaccines (2 of 3) 06/05/2016 04/10/2016 COVID-19 Vaccine ( season) 2023 07/20/2022, 01/04/2021, 12/14/2020 Depression Screening (Annual PHQ-2) 10/21/2023 Fall Risk Screen (Annual) 10/21/2023 Office Visit for Blood Press ure Check / Re-check 12/30/2023 09/30/2023 DTaP,Tdap,and Td Vaccines (2 - Td or Tdap) 02/12/2026 02/13/2016 Pneumococcal vaccine (65+ years) Completed 08/14/20 17, 11/30/2014 Influenza Vaccine Completed 10/18/2023, 07/20/2022
--- OUTSIDE RECORDS SUMMARY | 2023-11-05 09:32 | XMS_ITS | Referral Summary ---
Author Name Unknown Organization [facility] Address [address] [place] [address] Care Team Providers Care Rail Loader Name Role Phone Unavailable Primary Care Provider Unavailabl e Source Comments Patient records contain information from all sites at [facility]. For routine questions regarding patient records, call [phone] during business hours, M-F 8:00 AM - 5:00 PM Central Time. Record requests for emergency care only can be directed to [phone] at any time.[facility] Encounters Date Type Department Care Team Description 09/30/2023 2:30 PM FISHING TOOL SUPERVISOR External Outreach Division of Nephrology and Hypertension in [place], [place] [address] [place] [address] Humberto Cho Jr., D.O. Chronic Kidney Disease (CKD), Stage 3b Glomerular Filtration Rate (GFR) 30 To 44 (HCC) (Primary Dx); Hypertensive Chronic Kidney Disease (CKD) Stage 3b Glomerular Filtration Rate (GFR) 30 To 44 (HCC); Diabetes Mellitus Type 2 (HCC); Hyperparathyroidism Renal Secondary (HCC); Atrial Fibrillation Paroxysmal (HCC); Apnea Sleep Obstructive; Anticoagulant Therapy from Last 3 Months Allergies Active Allergy Reactions Criticality Noted Date [...] Prostate Benign Localized Without Ob struction 09/30/2023 Social History Tobacco Use Types Packs/Day Years [...] Comments Blood Pressure 160/70 09/30/2023 2:41 PM FISHING TOOL SUPERVISOR Pulse 92 09/30/2023 2:41 PM FISHING TOOL SUPERVISOR Temperature - - Respiratory Rate - - Oxygen Saturation - - Inhaled Oxygen Concentration - - Weight 99.3 kg (218 lb 14.7 oz) 09/30/2023 2:41 PM FISHING TOOL SUPERVISOR Height 179 cm (5' 10.47) 09/30/2023 2:41 PM FISHING TOOL SUPERVISOR Body Mass Index 30.99 09/30/2023 2:41 PM FISHING TOOL SUPERVISOR Plan of Treatment Not on file
== END 2023-11-05 09:31 | disposition home or self-care (01) ==
PROVIDERS: PCP Family Medicine; Visit Provider Nurse Practitioner Family
DX: I87.333 Chronic venous hypertension (idiopathic) with ulcer and inflammation of bilateral lower extremity (principal); E11.622 Type 2 diabetes mellitus with other skin ulcer; L97.322 Non-pressure chronic ulcer of left ankle with fat layer exposed; L97.812 Non-pressure chronic ulcer of other part of right lower leg with fat layer exposed; Z79.4 Long term (current) use of insulin; Z79.84 Long term (current) use of oral hypoglycemic drugs
CPT/HCPCS: 11042; 97597

== ENCOUNTER 2023-11-12 09:29 | Outpatient (CLI) | payer MEDICARE, SELFPAY ==
--- OUTSIDE RECORDS SUMMARY | 2023-11-12 09:38 | XMS_ITS | Clinical Summary ---
Author Name Unknown Organization [facility] Address [address] [place] [address] Care Team Providers Care Advertising Account Executive Name Role Phone Unavailable Primary Care Provider Unavailabl e Source Comments Patient records contain information from all sites at [facility]. For routine questions regarding patient records, call [phone] during business hours, M-F 8:00 AM - 5:00 PM Central Time. Record requests for emergency care only can be directed to [phone] at any time.[facility] Allergies Active Allergy Reactions Criticality Noted Date [...] Department Care Team Description 09/30/2023 2:30 PM ELECTRIC RAZOR ASSEMBLER External Outreach Division of Nephrology and Hypertension in [place], [place] [address] [place] [address] Humberto Cho Jr., D.O. Chronic Kidney Disease [...] Comments Blood Pressure 160/70 09/30/2023 2:41 PM ELECTRIC RAZOR ASSEMBLER Pulse 92 09/30/2023 2:41 PM ELECTRIC RAZOR ASSEMBLER Temperature - - Respiratory Rate - - Oxygen Saturation - - Inhaled Oxygen Concentration - - Weight 99.3 kg (218 lb 14.7 oz) 09/30/2023 2:41 PM ELECTRIC RAZOR ASSEMBLER Height 179 cm (5' 10.47) 09/30/2023 2:41 PM ELECTRIC RAZOR ASSEMBLER Body Mass Index 30.99 09/30/2023 2:41 PM ELECTRIC RAZOR ASSEMBLER Plan of Treatment Health Maintenance Due Date [...]
--- OUTSIDE RECORDS SUMMARY | 2023-11-12 09:39 | XMS_ITS | Encounter Summary ---
Author Name Unknown Organization [facility] Address [address] [place] [address] Care Team Providers Care Installer Inspector Final Name Role Phone Unavailable Primary Care Provider Unavailabl e Reason for Visit * Appointment Request (Routine) - Closed Specialty Diagnoses / Procedures Referred By Mireya garza Referred To Contact Nephrology and Hypertension Christin Kelsey M.D. [address] [place] [address] Referral ID Status Reason Start Date Expiration Date Visits Re quested Visits Authorized [id number] Closed 09/05/2023 09/04/2024 1 1 Encounter Details Date Type Department Care Team (Latest Contact Info) Description 09/30/2023 2:30 PM DATA COLLECTION SPECIALIST External Outreach Division of Nephrology and Hypertension in [place], [place] [address] [place] [address] Humberto Cho Jr., D.O. [address] [place] [address] Chronic Kidney Disease (CKD), Stage 3b Glomerular [...] Comments Blood Pressure 160/70 09/30/2023 2:41 PM DATA COLLECTION SPECIALIST Pulse 92 09/30/2023 2:41 PM DATA COLLECTION SPECIALIST Temperature - - Respiratory Rate - - Oxygen Saturation - - Inhaled Oxygen Concentration - - Weight 99.3 kg (218 lb 14.7 oz) 09/30/2023 2:41 PM DATA COLLECTION SPECIALIST Height 179 cm (5' 10.47) 09/30/2023 2:41 PM DATA COLLECTION SPECIALIST Body Mass Index 30.99 09/30/2023 2:41 PM DATA COLLECTION SPECIALIST documented in this encounter Progress Notes * Humberto Cho Jr., D.O. - 09/30/2023 2:30 PM CST Referring Provider: DR Low Roth SUBJECTIVE REASON FOR VISIT [place] [facility] Full consultation management regards elevated serum creatinine level, hypertension diabetes, proteinuria HISTORY OF PRESENT ILLNESS Mr. Damon is a 78 y.o. male who presents with a 20 year history of diabetes, hypertension and a noted and known history of CKD, who has just moved to [place] approximately 5 weeks ago. 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 He feels well in all respects, is struggling a bit with unpacking and setting up their new home here in [place]. He had a long-term physician for many [...] Time: 50 minutes Humberto Cho Jr., D.O. COLLECTION SPECIALIST documented in this encounter Plan of Treatment [...]
--- OUTSIDE RECORDS SUMMARY | 2023-11-12 09:39 | XMS_ITS ---
Author Name Unknown Organization [facility] Address [address] [place] [address] Care Team Providers Care Parliamentary Counsel Name Role Phone Unavailable Unavailable Unavailable Surgery Details Not on file Complications Check Surgery Details section. Procedure Estimated Blood Loss Check Surgery Details section. Procedure Findings Check Surgery Details section. Procedure Specimens Taken Check Surgery Details section.
--- OUTSIDE RECORDS SUMMARY | 2023-11-12 09:39 | XMS_ITS | Referral Summary ---
Author Name Unknown Organization [facility] Address [address] [place] [address] Care Team Providers Care Machine Maintenance Technician Name Role Phone Unavailable Primary Care Provider Unavailabl e Source Comments Patient records contain information from all sites at [facility]. For routine questions regarding patient records, call [phone] during business hours, M-F 8:00 AM - 5:00 PM Central Time. Record requests for emergency care only can be directed to [phone] at any time.[facility] Encounters Date Type Department Care Team Description 09/30/2023 2:30 PM AIR BRAKE RIGGER External Outreach Division of Nephrology and Hypertension in [place], [place] [address] [place] [address] Humberto Cho Jr., D.O. Chronic Kidney Disease [...] Comments Blood Pressure 160/70 09/30/2023 2:41 PM AIR BRAKE RIGGER Pulse 92 09/30/2023 2:41 PM AIR BRAKE RIGGER Temperature - - Respiratory Rate - - Oxygen Saturation - - Inhaled Oxygen Concentration - - Weight 99.3 kg (218 lb 14.7 oz) 09/30/2023 2:41 PM AIR BRAKE RIGGER Height 179 cm (5' 10.47) 09/30/2023 2:41 PM AIR BRAKE RIGGER Body Mass Index 30.99 09/30/2023 2:41 PM AIR BRAKE RIGGER Plan of Treatment Not on file
== END 2023-11-12 09:30 | disposition home or self-care (01) ==
LOC: WOUND 09:30
PROVIDERS: PCP Family Medicine; Visit Provider Nurse Practitioner Family
DX: I87.333 Chronic venous hypertension (idiopathic) with ulcer and inflammation of bilateral lower extremity (principal); E11.622 Type 2 diabetes mellitus with other skin ulcer; L97.322 Non-pressure chronic ulcer of left ankle with fat layer exposed; L97.812 Non-pressure chronic ulcer of other part of right lower leg with fat layer exposed; E11.22 Type 2 diabetes mellitus with diabetic chronic kidney disease; I12.9 Hypertensive chronic kidney disease with stage 1 through stage 4 chronic kidney disease, or unspecified chronic kidney disease; N18.32 Chronic kidney disease, stage 3b; Z79.4 Long term (current) use of insulin; Z79.84 Long term (current) use of oral hypoglycemic drugs
CPT/HCPCS: 11042; 80069; 82043; 82306; 82310; 82570; 82728; 83520; 83540; 83550; 83970; 84165; 84550; 86140; 86334; 87086; 97597

== ENCOUNTER 2023-11-19 08:57 | Outpatient (CLI) | payer MEDICARE, SELFPAY ==
--- OUTSIDE RECORDS SUMMARY | 2023-11-19 09:17 | XMS_ITS | Clinical Summary ---
Author Name Unknown Organization [facility] Address [address] [place] [address] Care Team Providers Care Coal Screener Name Role Phone Unavailable Primary Care Provider Unavailabl e Source Comments Patient records contain information from all sites at [facility]. For routine questions regarding patient records, call [phone] during business hours, M-F 8:00 AM - 5:00 PM Central Time. Record requests for emergency care only can be directed to [phone] at any time.[facility] Allergies Active Allergy Reactions Criticality Noted Date [...] Encounters Date Type Department Care Team Description 11/18/2023 4:00 PM TRANSMITTER ENGINEER IN CHARGE External Outreach Division of Nephrology and Hypertension in [place], [place] [address] [place] [address] Humberto Cho Jr., D.O. Chronic Kidney Disease (CKD), Stage 3b Glomerular Filtration Rate (GFR) 30 To 44 (HCC) (Primary Dx); Hypertensive Chronic Kidney Disease (CKD) Stage 3b Glomerular Filtration Rate (GFR) 30 To 44 (HCC); Diabetes Mellitus Type 2 (HCC); Hyperparathyroidism Renal Secondary (HCC); Proteinuria; Atrial Fibrillation Paroxysmal (HCC); Apnea Sleep Obstructive 09/30/2023 2:30 PM TRANSMITTER ENGINEER IN CHARGE External Outreach Division of Nephrology and Hypertension in [place], [place] [address] [place] [address] Humberto Cho Jr., D.O. Chronic Kidney Disease [...] Date Recorded Dental: Regular Dentist Unknown 09/05/20 23 Sex and Gender Information Value Date Recorded Sex Assigned at Not on file Gender Identity Not on file Sexual Orientation Not on file Last Filed Vital Signs Vital Sign Reading Time Taken Comments Blood Pressure 140/84 11/18/2023 4:02 PM TRANSMITTER ENGINEER IN CHARGE Pulse 61 11/18/2023 4:02 PM TRANSMITTER ENGINEER IN CHARGE Temperature - - Respiratory Rate - - Oxygen Saturation - - Inhaled Oxygen Concentration - - Weight 95.3 kg (210 lb 1.6 oz) 11/18/2023 4:02 P M TRANSMITTER ENGINEER IN CHARGE Height 175.2 cm (5' 8.98) 11/18/2023 4:02 PM CS T Body Mass Index 31.05 11/18/2023 4:02 PM TRANSMITTER ENGINEER IN CHARGE Plan of Treatment Health Maintenance Due Date Last Done Comments Creatinine Level (Kidney Fun ction Test) 1944 Diabetic Office Visit with Foot Exam 1944 Dilated Eye Exam 1944 Hemoglobin A1C 1944 Hepatitis C Screening 1944 Potassium Level 1944 Sodium Level 1944 Urine Albumin 1944 Hepatitis B Vaccines (1 of 3 - Risk 3-dose series) 2004 Zoster Vaccines (2 of 3) 06/05/2016 04/10/2016 COVID-19 Vaccine (4 - season) 2023 07/20/2022, 01/04/2021, 12/14/2020 Depression Screening (Annual PHQ-2) 10/21/2023 Fall Risk Screen (Annual) 10/21/2023 Office Visit for Blood Press ure Check / Re-check 02/17/2024 11/18/2023 DTaP,Tdap,and Td Vaccines (2 - Td or Tdap) 02/12/2026 02/13/2016 Pneumococcal vaccine (65+ years) Completed 08/14/20, 11/30/2014 Influenza Vaccine Completed 10/18/2023, 07/20/2022
--- OUTSIDE RECORDS SUMMARY | 2023-11-19 09:17 | XMS_ITS ---
Author Name Unknown Organization [facility] Address [address] [place] [address] Care Team Providers Care Daycare Assistant Name Role Phone Unavailable Unavailable Unavailable Surgery Details Not on file Complications Check Surgery Details section. Procedure Estimated Blood Loss Check Surgery Details section. Procedure Findings Check Surgery Details section. Procedure Specimens Taken Check Surgery Details section.
--- OUTSIDE RECORDS SUMMARY | 2023-11-19 09:17 | XMS_ITS | Encounter Summary ---
Author Name Unknown Organization [facility] Address [address] [place] [address] Care Team Providers Care Toolroom Clerk Name Role Phone Unavailable Primary Care Provider Unavailabl e Reason for Visit * Appointment Request (Routine) - Closed Specialty Diagnoses / Procedures Referred By Contekaterina t Referred To Contact Nephrology and Hypertension Referral ID Status Reason Start Date Expiration Date Visits Re quested Visits Authorized [id number] Closed 11/08/2023 11/07/2024 1 1 Encounter Details Date Type Department Care Team (Latest Contact Info) Description 11/18/2023 4:00 PM UTILITY OPERATOR External Outreach Division of Nephrology and Hypertension in [place], [place] [address] [place] [address] Humberto Cho Jr., D.O. [address] [place] [address] Chronic Kidney Disease (CKD), Stage 3b Glomerular Filtration Rate (GFR) 30 To 44 (HCC) (Primary Dx); Hypertensive Chronic Kidney Disease (CKD) Stage 3b Glomerular Filtration Rate (GFR) 30 To 44 (HCC); Diabetes Mellitus Type 2 (HCC); Hyperparathyroidism Renal Secondary (HCC); Proteinuria; Atrial Fibrillation Paroxysmal (HCC); Apnea Sleep Obstructive Social History Tobacco Use Types Packs/Day Years [...] Comments Blood Pressure 140/84 11/18/2023 4:02 PM UTILITY OPERATOR Pulse 61 11/18/2023 4:02 PM UTILITY OPERATOR Temperature - - Respiratory Rate - - Oxygen Saturation - - Inhaled Oxygen Concentration - - Weight 95.3 kg (210 lb 1.6 oz) 11/18/2023 4:02 P M UTILITY OPERATOR Height 175.2 cm (5' 8.98) 11/18/2023 4:02 PM CS T Body Mass Index 31.05 11/18/2023 4:02 PM UTILITY OPERATOR documented in this encounter Plan of Treatment Not on file documented as of this encounter Visit Diagnoses Diagnosis Chronic Kidney Disease (CKD), Stage 3b Glomerular Filtration Rate (GFR) 30 To 44 (HCC)- Primary Hypertensive Chronic Kidney Disease (CKD) Stage 3b Glomerular Filtration Rate (GFR) 30 To 44 (HCC) Diabetes Mellitus Type 2 (HCC) Hyperparathyroidism Renal Secondary (HCC) Proteinuria Atrial Fibrillation Paroxysmal (HCC) Apnea Sleep Obstructive documented in this encounter
--- OUTSIDE RECORDS SUMMARY | 2023-11-19 09:17 | XMS_ITS | Referral Summary ---
Author Name Unknown Organization [facility] Address [address] [place] [address] Care Team Providers Care Oracle Ebs Architect Name Role Phone Unavailable Primary Care Provider Unavailabl e Source Comments Patient records contain information from all sites at [facility]. For routine questions regarding patient records, call [phone] during business hours, M-F 8:00 AM - 5:00 PM Central Time. Record requests for emergency care only can be directed to [phone] at any time.[facility] Encounters Date Type Department Care Team Description 11/18/2023 4:00 PM STEREOTYPE FINISHER External Outreach Division of Nephrology and Hypertension in [place], [place] [address] [place] [phone] Humberto Cho Jr., D.O. Chronic Kidney Disease (CKD), Stage 3b Glomerular Filtration Rate (GFR) 30 To 44 (HCC) (Primary Dx); Hypertensive Chronic Kidney Disease (CKD) Stage 3b Glomerular Filtration Rate (GFR) 30 To 44 (HCC); Diabetes Mellitus Type 2 (HCC); Hyperparathyroidism Renal Secondary (HCC); Proteinuria; Atrial Fibrillation Paroxysmal (HCC); Apnea Sleep Obstructive 09/30/2023 2:30 PM STEREOTYPE FINISHER External Outreach Division of Nephrology and Hypertension in [place], [place] [address] [place] [address] Humberto Cho Jr., D.O. Chronic Kidney Disease [...] Comments Blood Pressure 140/84 11/18/2023 4:02 PM STEREOTYPE FINISHER Pulse 61 11/18/2023 4:02 PM STEREOTYPE FINISHER Temperature - - Respiratory Rate - - Oxygen Saturation - - Inhaled Oxygen Concentration - - Weight 95.3 kg (210 lb 1.6 oz) 11/18/2023 4:02 P M STEREOTYPE FINISHER Height 175.2 cm (5' 8.98) 11/18/2023 4:02 PM CS T Body Mass Index 31.05 11/18/2023 4:02 PM STEREOTYPE FINISHER Plan of Treatment Not on file
--- OUTSIDE RECORDS SUMMARY | 2023-11-19 09:17 | XMS_ITS | Encounter Summary ---
Author Name Unknown Organization [facility] Address [address] [place] [address] Care Team Providers Care Manager Of International Name Role Phone Unavailable Primary Care Provider Unavailabl e Reason for Visit * Appointment Request (Routine) - Closed Specialty Diagnoses / Procedures Referred By Mireya garza Referred To Contact Nephrology and Hypertension Christin Kelsey M.D. [address] [place] [address] Referral ID Status Reason Start Date Expiration Date Visits Re quested Visits Authorized [id number] Closed 09/05/2023 09/04/2024 1 1 Encounter Details Date Type Department Care Team (Latest Contact Info) Description 09/30/2023 2:30 PM SOCIAL WORK MANAGER External Outreach Division of Nephrology and Hypertension in [place], [place] [address] [place] [address] Humberto Cho Jr., D.O. [address] [place] [address] Chronic Kidney Disease (CKD), Stage 3b Glomerular [...] Comments Blood Pressure 160/70 09/30/2023 2:41 PM SOCIAL WORK MANAGER Pulse 92 09/30/2023 2:41 PM SOCIAL WORK MANAGER Temperature - - Respiratory Rate - - Oxygen Saturation - - Inhaled Oxygen Concentration - - Weight 99.3 kg (218 lb 14.7 oz) 09/30/2023 2:41 PM SOCIAL WORK MANAGER Height 179 cm (5' 10.47) 09/30/2023 2:41 PM SOCIAL WORK MANAGER Body Mass Index 30.99 09/30/2023 2:41 PM SOCIAL WORK MANAGER documented in this encounter Progress Notes * Humberto Cho Jr., D.O. - 09/30/2023 2:30 PM CST Referring Provider: DR Low Roth SUBJECTIVE REASON FOR VISIT [place] out reach CKD [facility] Full consultation management regards elevated serum creatinine level, hypertension diabetes, proteinuria HISTORY OF PRESENT ILLNESS Mr. Damon is a 78 y.o. male who presents with a 20 year history of diabetes, hypertension and a noted and known history of CKD, who has just moved to [place] approximately 5 weeks ago. 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 He feels well in all respects, is struggling a bit with unpacking and setting up their new home here in [place]. He had a long-term physician for many [...] Time: 50 minutes Humberto Cho Jr., D.O. AL WORK MANAGER documented in this encounter Plan of Treatment [...]
== END 2023-11-19 08:58 | disposition home or self-care (01) ==
LOC: WOUND 08:57
PROVIDERS: PCP Family Medicine; Visit Provider Physician Assistant
DX: I87.333 Chronic venous hypertension (idiopathic) with ulcer and inflammation of bilateral lower extremity (principal); E11.622 Type 2 diabetes mellitus with other skin ulcer; L97.812 Non-pressure chronic ulcer of other part of right lower leg with fat layer exposed; L97.321 Non-pressure chronic ulcer of left ankle limited to breakdown of skin; Z79.4 Long term (current) use of insulin; Z79.84 Long term (current) use of oral hypoglycemic drugs
CPT/HCPCS: 97597

== ENCOUNTER 2023-11-26 09:28 | Outpatient (CLI) | payer MEDICARE, SELFPAY ==
--- OUTSIDE RECORDS SUMMARY | 2023-11-26 09:30 | XMS_ITS | Encounter Summary ---
Author Name Unknown Organization [facility] Address [address] [place] [address] Care Team Providers Care Asset Protection Professional Name Role Phone Unavailable Primary Care Provider Unavailabl e Reason for Visit * Appointment Request (Routine) - Closed Specialty Diagnoses / Procedures Referred By Contekaterina t Referred To Contact Nephrology and Hypertension Referral ID Status Reason Start Date Expiration Date Visits Re quested Visits Authorized [id number] Closed 11/08/2023 11/07/2024 1 1 Encounter Details Date Type Department Care Team (Latest Contact Info) Description 11/18/2023 4:00 PM CENTRAL SUPPLY TECH External Outreach Division of Nephrology and Hypertension in [place], [place] [address] [place] [address] Humberto Cho Jr., D.O. [address] [place] [address] Chronic Kidney Disease (CKD), Stage 3b Glomerular [...] Comments Blood Pressure 140/84 11/18/2023 4:02 PM CENTRAL SUPPLY TECH Pulse 61 11/18/2023 4:02 PM CENTRAL SUPPLY TECH Temperature - - Respiratory Rate - - Oxygen Saturation - - Inhaled Oxygen Concentration - - Weight 95.3 kg (210 lb 1.6 oz) 11/18/2023 4:02 P M CENTRAL SUPPLY TECH Height 175.2 cm (5' 8.98) 11/18/2023 4:02 PM CS T Body Mass Index 31.05 11/18/2023 4:02 PM CENTRAL SUPPLY TECH documented in this encounter Progress Notes * Humberto Cho Jr., D.Darya. - 11/18/2023 4:00 PM CST Referring Provider: No primary care provider on file. SUBJECTIVE REASON FOR VISIT [place] out reach CKD Follow-up regards CKD stage IIIB, with diabetes mellitus, hypertension atrial fibrillation HISTORY OF PRESENT ILLNESS Mr. Damon is a 78 y.o. male who presents with the above matters after moving to [facility] from [place]. We reviewed his testing. His renal architecture appears normal, he does have 2 right-sided renal arteries, no renal artery stenosis. While he does have an elevated kappa to light chain ratio is slightly elevated light chains, there is no distinct abnormal pattern with respect to his immunoelectrophoresis or serum protein el ectrophoresis. Note that he has a slight improvement in his serum creatinine to 1.6 mg/dL from his previous 1.8 mg/dL. He is fatigued, feels cold much of the time, and is complaining of right hip and low back pain. These are chronic issues, he is seen orthopedist in the past, and I have let him know that it would be a challenge to do surgery. I asked if he might bring this up with his primary care provider, regarding referral to the spine center. He is making some progress with his lower extremities, the weeping has essentially ceased on his left leg, his right leg is still weeping. He has a lesion on the right sherman which is stable. The lesion on his left lateral malleolus has almost closed. Appreciate that with the increased dose of furosemide, he is lost 12.2 lb since our last visit. He is recuperating also from another episode of COVID, presented to the emergency room on the 05 of October and was found to be COVID-19 positive. We discussed many issues today including his atrial fibrillation, refreshing his memory on the physiologic issues there, and matters respecting his renal dysfunction and diabetes, which is still lessthan optimally controlled. History reviewed. No pertinent past medical history. Current Outpatient Medications: allopurinol 100 mg oral [...] by mouth as directed. 40 mg on MW, 20mg other days, Disp: 130 tablet, Rfl: [...] systems reviewed and are negative. OBJECTIVE BP 140/84 Pulse 61 Ht 175.2 cm Wt 95.3 kg BMI 31.05 kg/m?? PHYSICAL EXAMINATION General: Awake alert oriented HEENT: BAHMAN, EOMI, Mucous membranes moist, no oral lesions Neck: No Masses, No Bruits Lungs: Clear to ascultation Heart: Regular Rate and Rhythm, No ectopy Murmurs or rubs Abdomen: Soft, Non-tender Extremities: No cyanosis, No clubbing: No edema Neuro: Cranial Nerves intact, Gait is normal, strength grossly normal Skin: no suspicious lesions identified Psychiatric: Normal affect DIAGNOSTICS Note hemoglobin A1c last checked in August at 8.4%, microalbumin to creatinine ratio 2000 milligrams/gram, no monoclonal protein abnormalities, hemoglobin 11.7 normal iron stores ASSESSMENT / PLAN #1 Chronic Kidney Disease (CKD), Stage 3b Glomerular Filtration Rate (GFR) 30 To 44 ([facility]) This is secondary to diabetic hypertensive and perhaps ischemic nephrosclerosis. Going forward: 1. Goal glycosylated hemoglobin above 6.5 but below 7.5% 2. Goal blood pressure less than 140s systolic 3. No NSAIDs or Diallo 2 inhibitors 4. Stay well hydrated 5. I will see him back in 6 months to review his progress. #2 Hypertensive Chronic Kidney Disease (CKD) Stage 3b Glomerular Filtration Rate (GFR) 30 To 44 ([facility]) Goal blood pressures as mentioned above, encouraged him to be quite careful with sodium intake, keeping his daily intake of sodium less than 3000 mg per day. Will continue on his CPAP He will continue to avoid alcohol He will continue to stay as active as possible given his degenerative joint issues and what sounds like sciatica. #3 Diabetes Mellitus Type 2 ([facility]) Glycemic control we will continue to improve as he settles in his new home, we discussed this matter. #4 Hyperparathyroidism Renal Secondary ([facility]) His PTH is 91, acceptable, given his renal dysfunction, note his serum calcium level is appropriateat 9.1. His vitamin-D levels are acceptable no need for changes to his regimen at this point. #5 Proteinuria This is albuminuria and secondary to his diabetes mellitus most likely. #6 Atrial Fibrillation Paroxysmal ([facility]) Encouraged him to stay on Xarelto, his amiodarone, and beta blockade. We discussed the pathophysiology of atrial fibrillation. #7 Apnea Sleep Obstructive Encouraged him to stay on his CPAP. #8 Severe right buttock and low back/proximal leg pain He is status post BETO on the right, and additionally has demonstrated foraminal stenosis on outsidestudies. He would likely benefit from a referral to the spine center. Total time: 50 minute Counseling Time: 40 minutes Humberto Cho Jr., D.O. RAL SUPPLY TECH documented in this encounter Plan of Treatment [...]
--- OUTSIDE RECORDS SUMMARY | 2023-11-26 09:30 | XMS_ITS | Referral Summary ---
Author Name Unknown Organization [facility] Address [address] [place] [address] Care Team Providers Care Coordinator Skill Training Program Name Role Phone Unavailable Primary Care Provider Unavailabl e Source Comments Patient records contain information from all sites at [facility]. For routine questions regarding patient records, call [phone] during business hours, M-F 8:00 AM - 5:00 PM Central Time. Record requests for emergency care only can be directed to [phone] at any time.[facility] Encounters Date Type Department Care Team Description 11/18/2023 4:00 PM ROTOR COIL TAPER External Outreach Division of Nephrology and Hypertension in [place], [place] [address] [place] [phone] Humberto Cho Jr., D.O. Chronic Kidney Disease (CKD), Stage 3b Glomerular Filtration Rate (GFR) 30 To 44 (HCC) (Primary Dx); Hypertensive Chronic Kidney Disease (CKD) Stage 3b Glomerular Filtration Rate (GFR) 30 To 44 (HCC); Diabetes Mellitus Type 2 (HCC); Hyperparathyroidism Renal Secondary (HCC); Proteinuria; Atrial Fibrillation Paroxysmal (HCC); Apnea Sleep Obstructive 09/30/2023 2:30 PM ROTOR COIL TAPER External Outreach Division of Nephrology and Hypertension in [place], [place] [address] [place] [address] Humberto Cho Jr., D.O. Chronic Kidney Disease [...] Comments Blood Pressure 140/84 11/18/2023 4:02 PM ROTOR COIL TAPER Pulse 61 11/18/2023 4:02 PM ROTOR COIL TAPER Temperature - - Respiratory Rate - - Oxygen Saturation - - Inhaled Oxygen Concentration - - Weight 95.3 kg (210 lb 1.6 oz) 11/18/2023 4:02 P M ROTOR COIL TAPER Height 175.2 cm (5' 8.98) 11/18/2023 4:02 PM CS T Body Mass Index 31.05 11/18/2023 4:02 PM ROTOR COIL TAPER Plan of Treatment Not on file
--- OUTSIDE RECORDS SUMMARY | 2023-11-26 09:30 | XMS_ITS | Encounter Summary ---
Author Name Unknown Organization [facility] Address [address] [place] [address] Care Team Providers Care Carton Forming Machine Adjuster Name Role Phone Unavailable Primary Care Provider Unavailabl e Reason for Visit * Appointment Request (Routine) - Closed Specialty Diagnoses / Procedures Referred By Mireya garza Referred To Contact Nephrology and Hypertension Christin Kelsey M.D. [address] [place] [address] Referral ID Status Reason Start Date Expiration Date Visits Re quested Visits Authorized [id number] Closed 09/05/2023 09/04/2024 1 1 Encounter Details Date Type Department Care Team (Latest Contact Info) Description 09/30/2023 2:30 PM DUMPSTER OPERATOR External Outreach Division of Nephrology and Hypertension in [place], [place] [address] [place] [address] Humberto Cho Jr., D.O. [address] [place] [address] Chronic Kidney Disease (CKD), Stage 3b Glomerular [...] Comments Blood Pressure 160/70 09/30/2023 2:41 PM DUMPSTER OPERATOR Pulse 92 09/30/2023 2:41 PM DUMPSTER OPERATOR Temperature - - Respiratory Rate - - Oxygen Saturation - - Inhaled Oxygen Concentration - - Weight 99.3 kg (218 lb 14.7 oz) 09/30/2023 2:41 PM DUMPSTER OPERATOR Height 179 cm (5' 10.47) 09/30/2023 2:41 PM DUMPSTER OPERATOR Body Mass Index 30.99 09/30/2023 2:41 PM DUMPSTER OPERATOR documented in this encounter Progress Notes * Humberto Cho Jr., D.O. - 09/30/2023 2:30 PM CST Referring Provider: DR Low Roth SUBJECTIVE REASON FOR VISIT [place] [facility] Full consultation management regards elevated serum creatinine level, hypertension diabetes, proteinuria HISTORY OF PRESENT ILLNESS Mr. Damon is a 78 y.o. male who presents with a 20 year history of diabetes, hypertension and a noted and known history of CKD, who has just moved to [place] approximately 5 weeks ago. 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 He feels well in all respects, is struggling a bit with unpacking and setting up their new home here in [place]. He had a long-term physician for many [...] Time: 50 minutes Humberto Cho Jr., D.O. STER OPERATOR documented in this encounter Plan of [...]
--- OUTSIDE RECORDS SUMMARY | 2023-11-26 09:30 | XMS_ITS ---
Author Name Unknown Organization [facility] Address [address] [place] [address] Care Team Providers Care Return Agent Airport Name Role Phone Unavailable Unavailable Unavailable Surgery Details Not on file Complications Check Surgery Details section. Procedure Estimated Blood Loss Check Surgery Details section. Procedure Findings Check Surgery Details section. Procedure Specimens Taken Check Surgery Details section.
--- OUTSIDE RECORDS SUMMARY | 2023-11-26 09:30 | XMS_ITS | Clinical Summary ---
Author Name Unknown Organization [facility] Address [address] [place] [address] Care Team Providers Care Pet Care Associate Name Role Phone Unavailable Primary Care Provider Unavailabl e Source Comments Patient records contain information from all sites at [facility]. For routine questions regarding patient records, call [phone] during business hours, M-F 8:00 AM - 5:00 PM Central Time. Record requests for emergency care only can be directed to [phone] at any time.[facility] Allergies Active Allergy Reactions Criticality Noted [...] Department Care Team Description 11/18/2023 4:00 PM ENTRY LEVEL ELECTRICAL ENGINEER External Outreach Division of Nephrology and Hypertension in [place], [place] [address] [place] [address] Humberto Cho Jr., D.O. Chronic Kidney Disease (CKD), Stage 3b Glomerular Filtration Rate (GFR) 30 To 44 (HCC) (Primary Dx); Hypertensive Chronic Kidney Disease (CKD) Stage 3b Glomerular Filtration Rate (GFR) 30 To 44 (HCC); Diabetes Mellitus Type 2 (HCC); Hyperparathyroidism Renal Secondary (HCC); Proteinuria; Atrial Fibrillation Paroxysmal (HCC); Apnea Sleep Obstructive 09/30/2023 2:30 PM ENTRY LEVEL ELECTRICAL ENGINEER External Outreach Division of Nephrology and Hypertension in [place], [place] [address] [place] [address] Humberto Cho Jr., D.O. Chronic Kidney Disease [...] Comments Blood Pressure 140/84 11/18/2023 4:02 PM ENTRY LEVEL ELECTRICAL ENGINEER Pulse 61 11/18/2023 4:02 PM ENTRY LEVEL ELECTRICAL ENGINEER Temperature - - Respiratory Rate - - Oxygen Saturation - - Inhaled Oxygen Concentration - - Weight 95.3 kg (210 lb 1.6 oz) 11/18/2023 4:02 P M ENTRY LEVEL ELECTRICAL ENGINEER Height 175.2 cm (5' 8.98) 11/18/2023 4:02 PM CS T Body Mass Index 31.05 11/18/2023 4:02 PM ENTRY LEVEL ELECTRICAL ENGINEER Plan of Treatment Health Maintenance Due Date [...] Completed 08/14/20, 11/30/2014 Influenza Vaccine Completed 10/18/2023, , 07/20/2022
== END 2023-11-26 09:29 | disposition home or self-care (01) ==
LOC: WOUND 09:28
PROVIDERS: PCP Family Medicine; Visit Provider Nurse Practitioner Family
DX: E11.622 Type 2 diabetes mellitus with other skin ulcer (principal); I87.331 Chronic venous hypertension (idiopathic) with ulcer and inflammation of right lower extremity; L97.812 Non-pressure chronic ulcer of other part of right lower leg with fat layer exposed; Z79.4 Long term (current) use of insulin; Z79.84 Long term (current) use of oral hypoglycemic drugs
CPT/HCPCS: 97597

== ENCOUNTER 2023-12-03 09:28 | Outpatient (CLI) | payer MEDICARE, SELFPAY ==
--- OUTSIDE RECORDS SUMMARY | 2023-12-03 09:30 | XMS_ITS ---
Author Name Unknown Organization [facility] Address [address] [place] [address] Care Team Providers Care Track Superintendent Name Role Phone Unavailable Unavailable Unavailable Surgery Details Not on file Complications Check Surgery Details section. Procedure Estimated Blood Loss Check Surgery Details section. Procedure Findings Check Surgery Details section. Procedure Specimens Taken Check Surgery Details section.
--- OUTSIDE RECORDS SUMMARY | 2023-12-03 09:30 | XMS_ITS | Clinical Summary ---
Author Name Unknown Organization [facility] Address [address] [place] [address] Care Team Providers Care Hearing Aid Fitter Name Role Phone Unavailable Primary Care Provider Unavailabl e Source Comments Patient records contain information from all sites at [facility]. For routine questions regarding patient records, call [phone] during business hours, M-F 8:00 AM - 5:00 PM Central Time. Record requests for emergency care only can be directed to [phone] at any time.[facility] Allergies Active Allergy Reactions Criticality Noted [...] Department Care Team Description 11/18/2023 4:00 PM FLOWER ARRANGER External Outreach Division of Nephrology and Hypertension in [place], [place] [address] [place] [address] Humberto Cho Jr., D.O. Chronic Kidney Disease (CKD), Stage 3b Glomerular Filtration Rate (GFR) 30 To 44 (HCC) (Primary Dx); Hypertensive Chronic Kidney Disease (CKD) Stage 3b Glomerular Filtration Rate (GFR) 30 To 44 (HCC); Diabetes Mellitus Type 2 (HCC); Hyperparathyroidism Renal Secondary (HCC); Proteinuria; Atrial Fibrillation Paroxysmal (HCC); Apnea Sleep Obstructive 09/30/2023 2:30 PM FLOWER ARRANGER External Outreach Division of Nephrology and Hypertension in [place], [place] [address] [place] [address] Humberto Cho Jr., D.O. Chronic Kidney Disease [...] Comments Blood Pressure 140/84 11/18/2023 4:02 PM FLOWER ARRANGER Pulse 61 11/18/2023 4:02 PM FLOWER ARRANGER Temperature - - Respiratory Rate - - Oxygen Saturation - - Inhaled Oxygen Concentration - - Weight 95.3 kg (210 lb 1.6 oz) 11/18/2023 4:02 P M FLOWER ARRANGER Height 175.2 cm (5' 8.98) 11/18/2023 4:02 PM CS T Body Mass Index 31.05 11/18/2023 4:02 PM FLOWER ARRANGER Plan of Treatment Health Maintenance Due Date [...]
--- OUTSIDE RECORDS SUMMARY | 2023-12-03 09:30 | XMS_ITS | Referral Summary ---
Author Name Unknown Organization [facility] Address [address] [place] [address] Care Team Providers Care Chairman & Ceo Name Role Phone Unavailable Primary Care Provider Unavailabl e Source Comments Patient records contain information from all sites at [facility]. For routine questions regarding patient records, call [phone] during business hours, M-F 8:00 AM - 5:00 PM Central Time. Record requests for emergency care only can be directed to [phone] at any time.[facility] Encounters Date Type Department Care Team Description 11/18/2023 4:00 PM BUDGET CONTROLLER External Outreach Division of Nephrology and Hypertension in [place], [place] [address] [place] [address] Humberto Cho Jr., D.O. Chronic Kidney Disease (CKD), Stage 3b Glomerular Filtration Rate (GFR) 30 To 44 (HCC) (Primary Dx); Hypertensive Chronic Kidney Disease (CKD) Stage 3b Glomerular Filtration Rate (GFR) 30 To 44 (HCC); Diabetes Mellitus Type 2 (HCC); Hyperparathyroidism Renal Secondary (HCC); Proteinuria; Atrial Fibrillation Paroxysmal (HCC); Apnea Sleep Obstructive 09/30/2023 2:30 PM BUDGET CONTROLLER External Outreach Division of Nephrology and Hypertension in [place], [place] [address] [place] [address] Humberto Cho Jr., D.O. Chronic Kidney Disease [...] Comments Blood Pressure 140/84 11/18/2023 4:02 PM BUDGET CONTROLLER Pulse 61 11/18/2023 4:02 PM BUDGET CONTROLLER Temperature - - Respiratory Rate - - Oxygen Saturation - - Inhaled Oxygen Concentration - - Weight 95.3 kg (210 lb 1.6 oz) 11/18/2023 4:02 P M BUDGET CONTROLLER Height 175.2 cm (5' 8.98) 11/18/2023 4:02 PM CS T Body Mass Index 31.05 11/18/2023 4:02 PM BUDGET CONTROLLER Plan of Treatment Not on file
--- OUTSIDE RECORDS SUMMARY | 2023-12-03 09:30 | XMS_ITS | Encounter Summary ---
Author Name Unknown Organization [facility] Address [address] [place] [address] Care Team Providers Care Newcomer Hostess Name Role Phone Unavailable Primary Care Provider Unavailabl e Reason for Visit * Appointment Request (Routine) - Closed Specialty Diagnoses / Procedures Referred By Mireya garza Referred To Contact Nephrology and Hypertension Christin Kelsey M.D. [address] [place] [address] Referral ID Status Reason Start Date Expiration Date Visits Re quested Visits Authorized [id number] Closed 09/05/2023 09/04/2024 1 1 Encounter Details Date Type Department Care Team (Latest Contact Info) Description 09/30/2023 2:30 PM FOOD VENDOR External Outreach Division of Nephrology and Hypertension in [place], [place] [address] [place] [address] Humberto Cho Jr., D.O. [address] [place] [address] Chronic Kidney Disease (CKD), Stage 3b Glomerular [...] Comments Blood Pressure 160/70 09/30/2023 2:41 PM FOOD VENDOR Pulse 92 09/30/2023 2:41 PM FOOD VENDOR Temperature - - Respiratory Rate - - Oxygen Saturation - - Inhaled Oxygen Concentration - - Weight 99.3 kg (218 lb 14.7 oz) 09/30/2023 2:41 PM FOOD VENDOR Height 179 cm (5' 10.47) 09/30/2023 2:41 PM FOOD VENDOR Body Mass Index 30.99 09/30/2023 2:41 PM FOOD VENDOR documented in this encounter Progress Notes * Humberto Cho Jr., D.O. - 09/30/2023 2:30 PM CST Referring Provider: DR Low Roth SUBJECTIVE REASON FOR VISIT [place] [facility] Full consultation management regards elevated serum creatinine level, hypertension diabetes, proteinuria HISTORY OF PRESENT ILLNESS Mr. Damon is a 78 y.o. male who presents with a 20 year history of diabetes, hypertension and a noted and known history of CKD, who has just moved to [place] approximately 5 weeks ago. 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 He feels well in all respects, is struggling a bit with unpacking and setting up their new home here in [place]. He had a long-term physician for many [...] Time: 50 minutes Humberto Cho Jr., D.O. VENDOR documented in this encounter Plan of Treatment [...]
--- OUTSIDE RECORDS SUMMARY | 2023-12-03 09:30 | XMS_ITS | Encounter Summary ---
Author Name Unknown Organization [facility] Address [address] [place] [address] Care Team Providers Care Cardiograph Operator Name Role Phone Unavailable Primary Care Provider Unavailabl e Reason for Visit * Appointment Request (Routine) - Closed Specialty Diagnoses / Procedures Referred By Contekaterina t Referred To Contact Nephrology and Hypertension Referral ID Status Reason Start Date Expiration Date Visits Re quested Visits Authorized [id number] Closed 11/08/2023 11/07/2024 1 1 Encounter Details Date Type Department Care Team (Latest Contact Info) Description 11/18/2023 4:00 PM CONFERENCE SPECIALIST External Outreach Division of Nephrology and Hypertension in [place], [place] [address] [place] [address] Humberto Cho Jr., D.O. [address] [place] [address] Chronic Kidney Disease (CKD), Stage 3b Glomerular [...] Comments Blood Pressure 140/84 11/18/2023 4:02 PM CONFERENCE SPECIALIST Pulse 61 11/18/2023 4:02 PM CONFERENCE SPECIALIST Temperature - - Respiratory Rate - - Oxygen Saturation - - Inhaled Oxygen Concentration - - Weight 95.3 kg (210 lb 1.6 oz) 11/18/2023 4:02 P M CONFERENCE SPECIALIST Height 175.2 cm (5' 8.98) 11/18/2023 4:02 PM CS T Body Mass Index 31.05 11/18/2023 4:02 PM CONFERENCE SPECIALIST documented in this encounter Progress Notes * Humberto Cho Jr., D.Darya. - 11/18/2023 4:00 PM CST Referring Provider: No primary care provider on file. SUBJECTIVE REASON FOR VISIT [place] out reach CKD Follow-up regards CKD stage IIIB, with diabetes mellitus, hypertension atrial fibrillation HISTORY OF PRESENT ILLNESS Mr. Damon is a 78 y.o. male who presents with the above matters after moving to [facility] from [place]. We reviewed his testing. His renal architecture [...] Glomerular Filtration Rate (GFR) 30 To 44 ([facility]) This is secondary to diabetic hypertensive and [...] Glomerular Filtration Rate (GFR) 30 To 44 ([facility]) Goal blood pressures as mentioned above, encouraged him to be quite careful with sodium intake, keeping his daily intake of sodium less than 3000 mg per day. Will continue on his CPAP He will continue to avoid alcohol He will continue to stay as active as possible given his degenerative joint issues and what sounds like sciatica. #3 Diabetes Mellitus Type 2 ([facility]) Glycemic control we will continue to improve as he settles in his new home, we discussed this matter. #4 Hyperparathyroidism Renal Secondary ([facility]) His PTH is 91, acceptable, given his renal dysfunction, note his serum calcium level is appropriateat 9.1. His vitamin-D levels are acceptable no need for changes to his regimen at this point. #5 Proteinuria This is albuminuria and secondary to his diabetes mellitus most likely. #6 Atrial Fibrillation Paroxysmal ([facility]) Encouraged him to stay on Xarelto, his [...] Time: 40 minutes Humberto Cho Jr., D.O. ERENCE SPECIALIST documented in this encounter Plan of [...]
== END 2023-12-03 09:29 | disposition home or self-care (01) ==
LOC: WOUND 09:28
PROVIDERS: PCP Family Medicine; Visit Provider Physician Assistant
DX: I87.331 Chronic venous hypertension (idiopathic) with ulcer and inflammation of right lower extremity (principal); E11.622 Type 2 diabetes mellitus with other skin ulcer; L97.812 Non-pressure chronic ulcer of other part of right lower leg with fat layer exposed; L97.322 Non-pressure chronic ulcer of left ankle with fat layer exposed; Z79.4 Long term (current) use of insulin; Z79.84 Long term (current) use of oral hypoglycemic drugs
CPT/HCPCS: 97597

== ENCOUNTER 2023-12-10 08:06 | Outpatient (CLI) | payer MEDICARE, SELFPAY ==
--- OUTSIDE RECORDS SUMMARY | 2023-12-10 08:08 | XMS_ITS | Clinical Summary ---
Author Name Unknown Organization [facility] Address [address] [place] [address] Care Team Providers Care Route Driver Coin Machines Name Role Phone Unavailable Primary Care Provider Unavailabl e Source Comments Patient records contain information from all sites at [facility]. For routine questions regarding patient records, call [phone] during business hours, M-F 8:00 AM - 5:00 PM Central Time. Record requests for emergency care only can be directed to [phone] at any time.[facility] Allergies Active Allergy Reactions Criticality Noted Date [...] Department Care Team Description 11/18/2023 4:00 PM COMPRESSED GAS TESTER External Outreach Division of Nephrology and Hypertension in [place], [place] [address] [place] [address] Humberto Cho Jr., D.O. Chronic Kidney Disease (CKD), Stage 3b Glomerular Filtration Rate (GFR) 30 To 44 (HCC) (Primary Dx); Hypertensive Chronic Kidney Disease (CKD) Stage 3b Glomerular Filtration Rate (GFR) 30 To 44 (HCC); Diabetes Mellitus Type 2 (HCC); Hyperparathyroidism Renal Secondary (HCC); Proteinuria; Atrial Fibrillation Paroxysmal (HCC); Apnea Sleep Obstructive 09/30/2023 2:30 PM COMPRESSED GAS TESTER External Outreach Division of Nephrology and Hypertension in [place], [place] [address] [place] [address] Humberto Cho Jr., D.O. Chronic Kidney Disease [...] Comments Blood Pressure 140/84 11/18/2023 4:02 PM COMPRESSED GAS TESTER Pulse 61 11/18/2023 4:02 PM COMPRESSED GAS TESTER Temperature - - Respiratory Rate - - Oxygen Saturation - - Inhaled Oxygen Concentration - - Weight 95.3 kg (210 lb 1.6 oz) 11/18/2023 4:02 P M COMPRESSED GAS TESTER Height 175.2 cm (5' 8.98) 11/18/2023 4:02 PM CS T Body Mass Index 31.05 11/18/2023 4:02 PM COMPRESSED GAS TESTER Plan of Treatment Health Maintenance Due Date [...]
--- OUTSIDE RECORDS SUMMARY | 2023-12-10 08:08 | XMS_ITS | Encounter Summary ---
Author Name Unknown Organization [facility] Address [address] [place] [address] Care Team Providers Care Door Repairer Bus Name Role Phone Unavailable Primary Care Provider Unavailabl e Reason for Visit * Appointment Request (Routine) - Closed Specialty Diagnoses / Procedures Referred By Mireya garza Referred To Contact Nephrology and Hypertension Christin Kelsey M.D. [address] [place] [address] Referral ID Status Reason Start Date Expiration Date Visits Re quested Visits Authorized [id number] Closed 09/05/2023 09/04/2024 1 1 Encounter Details Date Type Department Care Team (Latest Contact Info) Description 09/30/2023 2:30 PM PHYSICIAN External Outreach Division of Nephrology and Hypertension in [place], [place] [address] [place] [address] Humberto Cho Jr., D.O. [address] [place] [address] Chronic Kidney Disease (CKD), Stage 3b Glomerular [...] Comments Blood Pressure 160/70 09/30/2023 2:41 PM PHYSICIAN Pulse 92 09/30/2023 2:41 PM PHYSICIAN Temperature - - Respiratory Rate - - Oxygen Saturation - - Inhaled Oxygen Concentration - - Weight 99.3 kg (218 lb 14.7 oz) 09/30/2023 2:41 PM PHYSICIAN Height 179 cm (5' 10.47) 09/30/2023 2:41 PM PHYSICIAN Body Mass Index 30.99 09/30/2023 2:41 PM PHYSICIAN documented in this encounter Progress Notes * Humberto Cho Jr., D.O. - 09/30/2023 2:30 PM CST Referring Provider: DR Low Roth SUBJECTIVE REASON FOR VISIT [place] out reach [facility] Full consultation management regards elevated serum creatinine level, hypertension diabetes, proteinuria HISTORY OF PRESENT ILLNESS Mr. Damon is a 78 y.o. male who presents with a 20 year history of diabetes, hypertension and a noted and known history of CKD, who has just moved to [place] approximately 5 weeks ago. 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 He feels well in all respects, is struggling a bit with unpacking and setting up their new home here in [place]. He had a long-term physician for many [...] Time: 50 minutes Humberto Cho Jr., D.O. ICIAN documented in this encounter Plan of Treatment [...]
--- OUTSIDE RECORDS SUMMARY | 2023-12-10 08:08 | XMS_ITS | Encounter Summary ---
Author Name Unknown Organization [facility] Address [address] [place] [address] Care Team Providers Care Cloth Shrinking Supervisor Name Role Phone Unavailable Primary Care Provider Unavailabl e Reason for Visit * Appointment Request (Routine) - Closed Specialty Diagnoses / Procedures Referred By Contekaterina t Referred To Contact Nephrology and Hypertension Referral ID Status Reason Start Date Expiration Date Visits Re quested Visits Authorized [id number] Closed 11/08/2023 11/07/2024 1 1 Encounter Details Date Type Department Care Team (Latest Contact Info) Description 11/18/2023 4:00 PM CONTINUITY PERSON External Outreach Division of Nephrology and Hypertension in [place], [place] [address] [place] [address] Humberto Cho Jr., D.O. [address] [place] [address] Chronic Kidney Disease (CKD), Stage 3b Glomerular [...] Comments Blood Pressure 140/84 11/18/2023 4:02 PM CONTINUITY PERSON Pulse 61 11/18/2023 4:02 PM CONTINUITY PERSON Temperature - - Respiratory Rate - - Oxygen Saturation - - Inhaled Oxygen Concentration - - Weight 95.3 kg (210 lb 1.6 oz) 11/18/2023 4:02 P M CONTINUITY PERSON Height 175.2 cm (5' 8.98) 11/18/2023 4:02 PM CS T Body Mass Index 31.05 11/18/2023 4:02 PM CONTINUITY PERSON documented in this encounter Progress Notes * Humberto Cho Jr., D.Darya. - 11/18/2023 4:00 PM CST Referring Provider: No primary care provider on file. SUBJECTIVE REASON FOR VISIT [place] out reach CKD Follow-up regards CKD stage IIIB, with diabetes mellitus, hypertension atrial fibrillation HISTORY OF PRESENT ILLNESS Mr. Damon is a 78 y.o. male who presents with the above matters after moving to [facility] from [place]. We reviewed his testing. His renal architecture [...] Glomerular Filtration Rate (GFR) 30 To 44 ([facility]) This is secondary to diabetic hypertensive [...] Glomerular Filtration Rate (GFR) 30 To 44 ([facility]) Goal blood pressures as mentioned above, encouraged him to be quite careful with sodium intake, keeping his daily intake of sodium less than 3000 mg per day. Will continue on his CPAP He will continue to avoid alcohol He will continue to stay as active as possible given his degenerative joint issues and what sounds like sciatica. #3 Diabetes Mellitus Type 2 ([facility]) Glycemic control we will continue to improve as he settles in his new home, we discussed this matter. #4 Hyperparathyroidism Renal Secondary ([facility]) His PTH is 91, acceptable, given his renal dysfunction, note his serum calcium level is appropriateat 9.1. His vitamin-D levels are acceptable no need for changes to his regimen at this point. #5 Proteinuria This is albuminuria and secondary to his diabetes mellitus most likely. #6 Atrial Fibrillation Paroxysmal ([facility]) Encouraged him to stay on Xarelto, [...] Time: 40 minutes Humberto Cho Jr., D.O. INUITY PERSON documented in this encounter Plan of Treatment [...]
--- OUTSIDE RECORDS SUMMARY | 2023-12-10 08:08 | XMS_ITS ---
Author Name Unknown Organization [facility] Address [address] [place] [address] Care Team Providers Care Materials Scheduler Name Role Phone Unavailable Unavailable Unavailable Surgery Details Not on file Complications Check Surgery Details section. Procedure Estimated Blood Loss Check Surgery Details section. Procedure Findings Check Surgery Details section. Procedure Specimens Taken Check Surgery Details section.
--- OUTSIDE RECORDS SUMMARY | 2023-12-10 08:08 | XMS_ITS | Referral Summary ---
Author Name Unknown Organization [facility] Address [address] [place] [address] Care Team Providers Care Electrical Project Manager Name Role Phone Unavailable Primary Care Provider Unavailabl e Source Comments Patient records contain information from all sites at [facility]. For routine questions regarding patient records, call [phone] during business hours, M-F 8:00 AM - 5:00 PM Central Time. Record requests for emergency care only can be directed to [phone] at any time.[facility] Encounters Date Type Department Care Team Description 11/18/2023 4:00 PM REJECT OPENER External Outreach Division of Nephrology and Hypertension in [place], [place] [address] [place] [address] Humberto Cho Jr., D.O. Chronic Kidney Disease (CKD), Stage 3b Glomerular Filtration Rate (GFR) 30 To 44 (HCC) (Primary Dx); Hypertensive Chronic Kidney Disease (CKD) Stage 3b Glomerular Filtration Rate (GFR) 30 To 44 (HCC); Diabetes Mellitus Type 2 (HCC); Hyperparathyroidism Renal Secondary (HCC); Proteinuria; Atrial Fibrillation Paroxysmal (HCC); Apnea Sleep Obstructive 09/30/2023 2:30 PM REJECT OPENER External Outreach Division of Nephrology and Hypertension in [place], [place] [address] [place] [address] Humberto Cho Jr., D.O. Chronic Kidney Disease [...] Comments Blood Pressure 140/84 11/18/2023 4:02 PM REJECT OPENER Pulse 61 11/18/2023 4:02 PM REJECT OPENER Temperature - - Respiratory Rate - - Oxygen Saturation - - Inhaled Oxygen Concentration - - Weight 95.3 kg (210 lb 1.6 oz) 11/18/2023 4:02 P M REJECT OPENER Height 175.2 cm (5' 8.98) 11/18/2023 4:02 PM CS T Body Mass Index 31.05 11/18/2023 4:02 PM REJECT OPENER Plan of Treatment Not on file
== END 2023-12-10 08:07 | disposition home or self-care (01) ==
LOC: WOUND 08:06
PROVIDERS: PCP Family Medicine; Visit Provider Nurse Practitioner Family
DX: I87.311 Chronic venous hypertension (idiopathic) with ulcer of right lower extremity (principal); E11.622 Type 2 diabetes mellitus with other skin ulcer; L97.812 Non-pressure chronic ulcer of other part of right lower leg with fat layer exposed; Z79.4 Long term (current) use of insulin; Z79.84 Long term (current) use of oral hypoglycemic drugs
CPT/HCPCS: 97597

== ENCOUNTER 2023-12-17 09:32 | Outpatient (CLI) | payer MEDICARE, SELFPAY | END 2023-12-17 09:33 | disposition home or self-care (01) | LOC: WOUND 09:33 | PROVIDERS: PCP Family Medicine; Visit Provider Physician Assistant | DX: I87.331 Chronic venous hypertension (idiopathic) with ulcer and inflammation of right lower extremity (principal); E11.622 Type 2 diabetes mellitus with other skin ulcer; L97.812 Non-pressure chronic ulcer of other part of right lower leg with fat layer exposed; Z79.4 Long term (current) use of insulin; Z79.84 Long term (current) use of oral hypoglycemic drugs | CPT/HCPCS: 97597 ==

== ENCOUNTER 2023-12-24 09:29 | Outpatient (CLI) | payer MEDICARE, SELFPAY | END 2023-12-24 09:30 | disposition home or self-care (01) | LOC: WOUND 09:29 | PROVIDERS: PCP Family Medicine; Visit Provider Nurse Practitioner Family | DX: I87.311 Chronic venous hypertension (idiopathic) with ulcer of right lower extremity (principal); L97.812 Non-pressure chronic ulcer of other part of right lower leg with fat layer exposed | CPT/HCPCS: 97597 ==

== ENCOUNTER 2023-12-31 09:29 | Outpatient (CLI) | payer MEDICARE, SELFPAY | END 2023-12-31 09:30 | disposition home or self-care (01) | PROVIDERS: PCP Family Medicine; Visit Provider Nurse Practitioner Family | DX: I87.311 Chronic venous hypertension (idiopathic) with ulcer of right lower extremity (principal); E11.622 Type 2 diabetes mellitus with other skin ulcer; L97.812 Non-pressure chronic ulcer of other part of right lower leg with fat layer exposed; I89.0 Lymphedema, not elsewhere classified; Z79.4 Long term (current) use of insulin; Z79.84 Long term (current) use of oral hypoglycemic drugs | CPT/HCPCS: 97597; G0463 ==

== ENCOUNTER 2024-01-07 07:28 | Outpatient (CLI) | payer MEDICARE, SELFPAY | END 2024-01-07 07:29 | disposition home or self-care (01) | LOC: INJ CL 07:29 | PROVIDERS: PCP Family Medicine; Visit Provider Family Medicine | DX: M54.16 Radiculopathy, lumbar region (principal); M48.062 Spinal stenosis, lumbar region with neurogenic claudication | CPT/HCPCS: 64483; 97597; J1100; Q9966 ==

== ENCOUNTER 2024-01-07 09:08 | Outpatient (CLI) | payer MEDICARE, SELFPAY | END 2024-01-07 09:09 | disposition home or self-care (01) | LOC: WOUND 09:08 | PROVIDERS: PCP Family Medicine; Visit Provider Nurse Practitioner Family | DX: I87.331 Chronic venous hypertension (idiopathic) with ulcer and inflammation of right lower extremity (principal); E11.622 Type 2 diabetes mellitus with other skin ulcer; L97.812 Non-pressure chronic ulcer of other part of right lower leg with fat layer exposed; L97.212 Non-pressure chronic ulcer of right calf with fat layer exposed; Z79.4 Long term (current) use of insulin; Z79.84 Long term (current) use of oral hypoglycemic drugs | CPT/HCPCS: 97597 ==

== ENCOUNTER 2024-01-14 09:30 | Outpatient (CLI) | payer MEDICARE, SELFPAY | END 2024-01-14 09:31 | disposition home or self-care (01) | LOC: WOUND 09:30 | PROVIDERS: PCP Family Medicine; Visit Provider Physician Assistant | DX: I87.311 Chronic venous hypertension (idiopathic) with ulcer of right lower extremity (principal); E11.622 Type 2 diabetes mellitus with other skin ulcer; L97.812 Non-pressure chronic ulcer of other part of right lower leg with fat layer exposed; I89.0 Lymphedema, not elsewhere classified; Z79.4 Long term (current) use of insulin; Z79.84 Long term (current) use of oral hypoglycemic drugs | CPT/HCPCS: 97597 ==

== ENCOUNTER 2024-01-21 09:26 | Outpatient (CLI) | payer MEDICARE, SELFPAY | END 2024-01-21 09:27 | disposition home or self-care (01) | LOC: WOUND 09:26 | PROVIDERS: PCP Family Medicine; Visit Provider Nurse Practitioner Family | DX: I87.311 Chronic venous hypertension (idiopathic) with ulcer of right lower extremity (principal); E11.622 Type 2 diabetes mellitus with other skin ulcer; L97.812 Non-pressure chronic ulcer of other part of right lower leg with fat layer exposed; I89.0 Lymphedema, not elsewhere classified; Z79.4 Long term (current) use of insulin; Z79.84 Long term (current) use of oral hypoglycemic drugs | CPT/HCPCS: G0463 ==

== ENCOUNTER 2024-01-22 08:30 | Outpatient (RCR) | payer MEDICARE, SELFPAY ==
--- NOTE | 2024-01-08 13:26 | PT.OPEX ---
PT [facility] PT [facility] Outpatient Eval Start: 01/08/24 07:21 Freq: Status: Active Protocol: Document 01/08/24 07:22 CRP (Rec: 01/08/24 13:25 CRP [id number]) E-signed By Lorenzo Hannah PT Physical Therapy Outpatient Evaluation Insurance Information Recert Due Date 04/07/24 Insurance Name Medicare B Medical Diagnosis Low back pain Other chronic pain Referring MD Dr Kelsey Subjective Subjective Pt reports five years of low back pain and pain down R thigh to the knee. Has also had issues of numbness below both knees. The numbness has been going on for several years. Has weakness into both legs. Secondary to weakness and numbness he is also having issues with falling. Has fallen 3-4 times since Aug 12. The leg weakness has been progressing over the last year . Pt had an injection yesterday. Feels he has had significant improvement. Pt reports that back pain is not intense and the R thigh pain would tend to come on as sharp bursts of pain. When up standing and walking his weakness into the legs would increase. Current Work Status Retired Objective Other/Pertinent Objective Gait - shows path deviation. Inconsistent foot placement. Trunk ROM - flex min dec, bilat SB mod dec. Hip AROM flex to 95 deg bilat Knee ROM WNL bilat MMT - Hip flex R 3+/5, L 4-/5, Ext 4-/5 bilat, Abd 4-/5 bilat Functional Test Performed & Score Tinetti Score 19/28 which puts him at moderate risk for falls. Assessment Assessment/Impression Pt presents to the clinic with long standing issues of low back pain and low back related leg pain with weakness. Pts signs and sxs are consistent with DDD resulting in lumbar stenosis with LE symptoms. Pt shows decreased trunk ROM, decreased bilat hip ROM, pain with functional mobility, core /LE weakness and balance deficits placing him at moderate risk for falls. Skilled PT is necessary to incorporate ther ex, nm yosi, manual therapy and education to decrease pain and improve functional mobility. Primary Functional Limitations Standing sit to stand strength Walking Lifting Bending Plan of Care Rehabilitation Potential Good Physical Therapy Goals 1. Pt will be independent with HEP in 6 weeks. 2. Pt will go sit to stand without pain or need to push with arms in 8 weeks. 3. Pt will walk greater than 10 minutes without needing to sit in 12 weeks. Coordination/Communication With Referral Source Treatment Plan/Direct Interventions Joint Mobilization,Manual Therapy,Neuromuscular Re-ed, Self-Care/Home Management, Therapeutic Activities, Therapeutic Exercises Frequency/Duration 1-2x/wk for 12 weeks Patient Will Be Discharged From Therapy Completion of LTG(s),Skills Plateau,Independent w/HEP, Independently Progressing Evaluation Billing Untimed Code Treatment Minutes 30 Complexity Moderate Certification Information Initial Certification Date 01/08/24 Ending Certification Date 04/07/24 Provider Signature Shows Agreement With POC & Medical Necessity Physician Signature & Date Requested Please Sign/Date Here Physician Comment/Change : Physician NPI Number #
== END 2024-05-21 23:59 | disposition home or self-care (01) ==
PROVIDERS: PCP Family Medicine; Visit Provider Family Medicine
DX: M54.50 Low back pain, unspecified (principal); G89.29 Other chronic pain; Z51.89 Encounter for other specified aftercare
CPT/HCPCS: 72141; 97110; 97162

== ENCOUNTER 2024-01-27 08:06 | Outpatient (CLI) | payer MEDICARE, SELFPAY ==
--- OUTSIDE RECORDS SUMMARY | 2024-01-31 10:06 | XMS_ITS | Clinical Summary ---
Author Name Unknown Organization [facility] Address [address] [place] [address] Care Team Providers Care Accounting Officer Name Role Phone Unavailable Primary Care Provider Unavailabl e Source Comments Patient records contain information from all sites at [facility]. For routine questions regarding patient records, call [phone] during business hours, M-F 8:00 AM - 5:00 PM Central Time. Record requests for emergency care only can be directed to [phone] at any time.[facility] Allergies Active [...] Department Care Team Description 11/18/2023 4:00 PM COMFORT ADVISOR External Outreach Division of Nephrology and Hypertension in [place], [place] [address] [place] [address] Humberto Cho Jr., D.O. Chronic Kidney Disease (CKD), Stage 3b Glomerular Filtration Rate (GFR) 30 To 44 (HCC) (Primary Dx); Hypertensive Chronic Kidney Disease (CKD) Stage 3b Glomerular Filtration Rate (GFR) 30 To 44 (HCC); Diabetes Mellitus Type 2 (HCC); Hyperparathyroidism Renal Secondary (HCC); Proteinuria; Atrial Fibrillation Paroxysmal (HCC); Apnea Sleep Obstructive from Last 3 Months Social History Tobacco [...] Comments Blood Pressure 140/84 11/18/2023 4:02 PM COMFORT ADVISOR Pulse 61 11/18/2023 4:02 PM COMFORT ADVISOR Temperature - - Respiratory Rate - - Oxygen Saturation - - Inhaled Oxygen Concentration - - Weight 95.3 kg (210 lb 1.6 oz) 11/18/2023 4:02 P M COMFORT ADVISOR Height 175.2 cm (5' 8.98) 11/18/2023 4:02 PM CS T Body Mass Index 31.05 11/18/2023 4:02 PM COMFORT ADVISOR Plan of Treatment Health Maintenance Due Date [...] 08/14/20 17, 11/30/2014 Influenza Vaccine Completed 10/18/2023, , 07/20/2022
--- OUTSIDE RECORDS SUMMARY | 2024-01-31 10:06 | XMS_ITS | Clinical Summary ---
Author Name Unknown Organization [facility] Address [place], [place] [address] Care Team Providers Care Insurance Account Representative Name Role Phone Christin Kelsey MD Primary Care Provider + Encounters Date Type Department Care Team Description 01/30/2024 3:00 PM CDT Office Visit [facility] [address] [place] [address] Familia Cuellar MD Arrived 01/30/2024 [facility]phone [facility] [address] [place] [address] Dr Siddiqui [facility] [place] [address] Familia Cuellar MD Health Maintenance Update 01/07/2024 8:00 AM CDT Office Visit [facility] [address] [place] [address] Jb Tapia MD Procedure (Bilateral L5-S1 TFESI) 01/03/2024 Orders Only [facility] Staff, Other Clinical 1 scan: (1-Ord) [facility] 01/01/2024 Transcribe Orders [facility] [address] [place] [address] Jb Tapia MD 12/31/2023 Transcribe Orders [facility] [address] [place] [address] Erasmo Medina MD from Last 3 Months Social History Tobacco Use Types Packs/Day Years Used Date Smoking Tobacco: Never Assessed Social Connections Answer Date Recorded Frequency of Communication with Friends and Fami ly Not on file 01/07/2024 Sex and Gender Information Value Date Recorded Sex Assigned at Not on file Gender Identity Not on file Sexual Orientation Not on file Plan of Treatment Health Maintenance Due Date Last Done Comments Tdap 1955 Depression screening for age 12+ 1956 BMI (ht and wt on same day) for age 18+ 1962 Hepatitis C screening for age 18-79 1962 Tetanus booster 1964 Zoster (shingles) series for age 50+ (1 of 2) 06/03/19 94 Medicare Wellness for age 65+ 2009 Pneumococcal series for age 65+ (1 of 1 - PCV) 009 COVID-19 vaccine series ( - season) 3 Influenza for age 65+ 06/21/2024 Procedures Procedure Name Priority Date/Time Associated Diagnosis Comments AMB EPIDURAL STEROID INJECTION Routine 01/07/2024 12:00 AM CDT Lumbar stenosis with neurogenic claudication SCAN CORRESP-IMAGING 01/01/2024 12:14 PM CDT from Last 3 Months Results * AMB EPIDURAL STEROID INJECTION (01/07/2024 12:00 AM CDT) Jb Tapia MD NEUROLOGY ORD * SCAN CORRESP-IMAGING (01/01/2024 12:14 PM CDT) Anatomical Region Laterality Modality Other Narrative 01/01/2024 12:14 PM CDT Ordered by an unspecified provider. Other Clinical Staff OTHER from Last 3 Months Care Teams Insurance Account Representative Relationship Specialty Start Date End Date Hernberg, Christin Tita, MD [address] [place] [address] PCP - General Family Practice 11/14/23
--- OUTSIDE RECORDS SUMMARY | 2024-01-31 10:06 | XMS_ITS | Referral Summary ---
Author Name Unknown Organization [facility] Address [address] [place] [address] Care Team Providers Care Front End Specialist Name Role Phone Unavailable Primary Care Provider Unavailabl e Source Comments Patient records contain information from all sites at [facility]. For routine questions regarding patient records, call [phone] during business hours, M-F 8:00 AM - 5:00 PM Central Time. Record requests for emergency care only can be directed to [phone] at any time.[facility] Encounters Date Type Department Care Team Description 11/18/2023 4:00 PM TIN STACKER External Outreach Division of Nephrology and Hypertension in [place], [place] [address] [place] [address] Humberto Cho Jr., D.O. Chronic Kidney Disease (CKD), Stage 3b Glomerular Filtration Rate (GFR) 30 To 44 (HCC) (Primary Dx); Hypertensive Chronic Kidney Disease (CKD) Stage 3b Glomerular Filtration Rate (GFR) 30 To 44 (HCC); Diabetes Mellitus Type 2 (HCC); Hyperparathyroidism Renal Secondary (HCC); Proteinuria; Atrial Fibrillation Paroxysmal (HCC); Apnea Sleep Obstructive from Last 3 Months Allergies Active Allergy [...] Comments Blood Pressure 140/84 11/18/2023 4:02 PM TIN STACKER Pulse 61 11/18/2023 4:02 PM TIN STACKER Temperature - - Respiratory Rate - - Oxygen Saturation - - Inhaled Oxygen Concentration - - Weight 95.3 kg (210 lb 1.6 oz) 11/18/2023 4:02 P M TIN STACKER Height 175.2 cm (5' 8.98) 11/18/2023 4:02 PM CS T Body Mass Index 31.05 11/18/2023 4:02 PM TIN STACKER Plan of Treatment Not on file
--- OUTSIDE RECORDS SUMMARY | 2024-01-31 10:06 | XMS_ITS | Encounter Summary ---
Author Name Unknown Organization [facility] Address [address] [place] [address] Care Team Providers Care Poultry Service Technician Name Role Phone Unavailable Primary Care Provider Unavailabl e Reason for Visit * Appointment Request (Routine) - Closed Specialty Diagnoses / Procedures Referred By Contekaterina t Referred To Contact Nephrology and Hypertension Referral ID Status Reason Start Date Expiration Date Visits Re quested Visits Authorized [id number] Closed 11/08/2023 11/07/2024 1 1 Encounter Details Date Type Department Care Team (Latest Contact Info) Description 11/18/2023 4:00 PM DETECTIVE SUPERVISOR External Outreach Division of Nephrology and Hypertension in [place], [place] [address] [place] [address] Humberto Cho Jr., D.O. [address] [place] [address] Chronic Kidney Disease (CKD), Stage 3b Glomerular [...] Comments Blood Pressure 140/84 11/18/2023 4:02 PM DETECTIVE SUPERVISOR Pulse 61 11/18/2023 4:02 PM DETECTIVE SUPERVISOR Temperature - - Respiratory Rate - - Oxygen Saturation - - Inhaled Oxygen Concentration - - Weight 95.3 kg (210 lb 1.6 oz) 11/18/2023 4:02 P M DETECTIVE SUPERVISOR Height 175.2 cm (5' 8.98) 11/18/2023 4:02 PM CS T Body Mass Index 31.05 11/18/2023 4:02 PM DETECTIVE SUPERVISOR documented in this encounter Progress Notes * Humberto Cho Jr., D.Darya. - 11/18/2023 4:00 PM CST Referring Provider: No primary care provider on file. SUBJECTIVE REASON FOR VISIT [place] out reach CKD Follow-up regards CKD stage IIIB, with diabetes mellitus, hypertension atrial fibrillation HISTORY OF PRESENT ILLNESS Mr. Damon is a 78 y.o. male who presents with the above matters after moving to [facility] from [place]. We reviewed his testing. His renal architecture [...] Rate (GFR) 30 To 44 ([facility]) This is secondary to diabetic [...] Rate (GFR) 30 To 44 ([facility]) Goal blood pressures as mentioned [...] #3 Diabetes Mellitus Type 2 ([facility]) Glycemic control we will continue to improve as he settles in his new home, we discussed this matter. #4 Hyperparathyroidism Renal Secondary ([facility]) His PTH is 91, acceptable, given his renal dysfunction, note his serum calcium level is appropriateat 9.1. His vitamin-D levels are acceptable no need for changes to his regimen at this point. #5 Proteinuria This is albuminuria and secondary to his diabetes mellitus most likely. #6 Atrial Fibrillation Paroxysmal ([facility]) Encouraged him to stay on [...] Time: 40 minutes Humberto Cho Jr., D.O. CTIVE SUPERVISOR documented in this encounter Plan of [...]
--- OUTSIDE RECORDS SUMMARY | 2024-01-31 10:06 | XMS_ITS ---
Author Name Unknown Organization [facility] Address [address] [place] [address] Care Team Providers Care Power Plant Manager Name Role Phone Unavailable Unavailable Unavailable Surgery Details Not on file Complications Check Surgery Details section. Procedure Estimated Blood Loss Check Surgery Details section. Procedure Findings Check Surgery Details section. Procedure Specimens Taken Check Surgery Details section.
== END 2024-01-27 08:07 | disposition home or self-care (01) ==
LOC: NFLDREF 01-31 10:04
PROVIDERS: PCP Family Medicine; Referring Provider Family Medicine; Visit Provider Family Medicine
DX: E03.9 Hypothyroidism, unspecified (principal); E11.22 Type 2 diabetes mellitus with diabetic chronic kidney disease; N18.30 Chronic kidney disease, stage 3 unspecified
CPT/HCPCS: 80053; 84443

== ENCOUNTER 2024-03-10 10:30 | Outpatient (CLI) | payer MEDICARE, SELFPAY ==
--- OUTSIDE RECORDS SUMMARY | 2024-03-10 10:32 | XMS_ITS | Clinical Summary ---
Author Name Unknown Organization [facility] Address [address] [place] [address] Care Team Providers Care Vertical Punch Operator Name Role Phone Unavailable Primary Care Provider Unavailabl e Source Comments Patient records contain information from all sites at [facility]. For routine questions regarding patient records, call [phone] during business hours, M-F 8:00 AM - 5:00 PM Central Time. Record requests for emergency care only can be directed to [phone] at any time.[facility] Allergies Active Allergy Reactions Criticality Noted Date [...] 100 mg oral capsule 100 mg daily. Active glipiZIDE (GLUCOTROL XL) 5 mg 24 hr tablet Take 5 mg by mouth daily with breakfast. Active tamsulosin (FLOMAX) 0.4 mg 24 hr capsule Take 1 capsule (0.4 mg total) by mouth daily. 09/30/2023 Active metoprolol succinate (TOPROL-XL) 100 mg 24 hr tablet Take 0.5 tablets (50 mg total) by mouth daily. Do not crush or chew. 09/30/2023 09/29/2024 Active metFORMIN (GLUCOPHAGE) 1,000 mg tablet Take 0.5 tablets (500 mg total) by mouth 2 (two) times a day with meals. 09/30/2023 Active gabapentin (NEURONTIN) 600 mg tablet Take 1 tablet (600 mg total) by mouth 3 (three) times a day. 09/30/2023 Active amiodarone (PACERONE) 200 mg tablet Take 1 tablet (200 mg total) by mouth daily. 09/30/2023 Active atorvastatin (LIPITOR) 10 mg tablet Take 1 tablet (10 mg total) by mouth daily. 09/30/2023 Active ALPRAZolam (XANAX) 0.5 mg tablet Take 1 tablet (0.5 mg total) by mouth at bedtime as needed for anxiety. 09/30/2023 Active insulin glargine (Lantus Solostar U-100 Insulin) 100 unit/mL (3 mL) injection Inject 20 Units under the skin at bedtime. Pharmacy select brand per patient insurance/prefer ence. 09/30/2023 Active Active Problems Problem Noted Date [...] Comments Blood Pressure 140/84 11/18/2023 4:02 PM DECKHAND FISHING VESSEL Pulse 61 11/18/2023 4:02 PM DECKHAND FISHING VESSEL Temperature - - Respiratory Rate - - Oxygen Saturation - - Inhaled Oxygen Concentration - - Weight 95.3 kg (210 lb 1.6 oz) 11/18/2023 4:02 P M DECKHAND FISHING VESSEL Height 175.2 cm (5' 8.98) 11/18/2023 4:02 PM CS T Body Mass Index 31.05 11/18/2023 4:02 PM DECKHAND FISHING VESSEL Plan of Treatment Health Maintenance Due Date [...] of 3) 06/05/2016 04/10/2016 COVID-19 Vaccine ( - season) 2023 07/20/2022, 01/04/2021, 12/14/2020 Depression Screening (Annual PHQ-2) 10/21/2023 Fall Risk Screen (Annual) 10/21/2023 Office Visit for Blood Press ure Check / Re-check 02/17/2024 11/18/2023 DTaP,Tdap,and Td Vaccines (2 - Td or Tdap) 02/12/2026 02/13/2016 Pneumococcal vaccine (65+ years) Completed 08/14/20 17, 11/30/2014 Influenza Vaccine Completed 10/18/2023, , 07/20/2022
--- OUTSIDE RECORDS SUMMARY | 2024-03-10 10:32 | XMS_ITS | Referral Summary ---
Author Name Unknown Organization [facility] Address [address] [place] [address] Care Team Providers Care Qa Specialist Name Role Phone Unavailable Primary Care Provider Unavailabl e Source Comments Patient records contain information from all sites at [facility]. For routine questions regarding patient records, call [phone] during business hours, M-F 8:00 AM - 5:00 PM Central Time. Record requests for emergency care only can be directed to [phone] at any time.[facility] Allergies Active Allergy Reactions Criticality Noted Date [...] Comments Blood Pressure 140/84 11/18/2023 4:02 PM TIMBER MANAGEMENT TECHNICIAN Pulse 61 11/18/2023 4:02 PM TIMBER MANAGEMENT TECHNICIAN Temperature - - Respiratory Rate - - Oxygen Saturation - - Inhaled Oxygen Concentration - - Weight 95.3 kg (210 lb 1.6 oz) 11/18/2023 4:02 P M TIMBER MANAGEMENT TECHNICIAN Height 175.2 cm (5' 8.98) 11/18/2023 4:02 PM CS T Body Mass Index 31.05 11/18/2023 4:02 PM TIMBER MANAGEMENT TECHNICIAN Plan of Treatment Not on file
--- OUTSIDE RECORDS SUMMARY | 2024-03-10 10:32 | XMS_ITS | Clinical Summary ---
Author Name Unknown Organization [facility] Address [place], [place] [address] Care Team Providers Care Senior Boiler Operator Name Role Phone Christin Kelsey MD Primary Care Provider + Encounters Date Type Department Care Team Description 01/30/2024 3:00 PM CDT Office Visit [facility] [address] [place] [address] Familia Cuellar MD 01/30/[address] Siddiqui [address] [place] [address] Familia Cuellar MD Health Maintenance Update 01/07/2024 8:00 AM CDT Office Visit [facility] [address] [place] [address] Jb Tapia MD Procedure (Bilateral L5-S1 TFESI) 01/03/2024 Orders Only [facility] Staff, Other Clinical 1 scan: (1-Ord) [facility] 01/01/2024 Transcribe Orders [place] [address] [place] [address] Jb Tapia MD 12/31/[address] [facility] Medical Imaging [address] [place] [address] Erasmo Medina MD from Last 3 Months [...] OTHER from Last 3 Months Care Teams Senior Boiler Operator Relationship Specialty Start Date End Date Christin Kelsey MD [address] [place] [address] PCP - General Family Practice 11/14/23
--- OUTSIDE RECORDS SUMMARY | 2024-03-10 10:32 | XMS_ITS ---
Author Name Unknown Organization [facility] Address [address] [place] [address] Care Team Providers Care Occupational Therapy Assist Name Role Phone Unavailable Unavailable Unavailable Surgery Details Not on file Complications Check Surgery Details section. Procedure Estimated Blood Loss Check Surgery Details section. Procedure Findings Check Surgery Details section. Procedure Specimens Taken Check Surgery Details section.
== END 2024-03-10 10:31 | disposition home or self-care (01) ==
LOC: WOUND 10:30
PROVIDERS: PCP Family Medicine; Visit Provider Nurse Practitioner Family
DX: E11.622 Type 2 diabetes mellitus with other skin ulcer (principal); L97.218 Non-pressure chronic ulcer of right calf with other specified severity; I89.0 Lymphedema, not elsewhere classified; Z79.4 Long term (current) use of insulin; Z79.84 Long term (current) use of oral hypoglycemic drugs
CPT/HCPCS: G0463

== ENCOUNTER 2024-03-20 08:51 | Outpatient (CLI) | payer MEDICARE, SELFPAY ==
--- OUTSIDE RECORDS SUMMARY | 2024-03-20 08:53 | XMS_ITS | Referral Summary ---
Author Organization [facility] Address [address] [place] [address] Care Team Providers Care Technical System Analyst Name Role Phone Unavailable Primary Care Provider Unavailabl e Source Comments Patient records contain information from all sites at [facility]. For routine questions regarding patient records, call [phone] during business hours, M-F 8:00 AM - 5:00 PM Central Time. Record requests for emergency care only can be directed to [phone] at any time.[facility] Allergies Active Allergy Reactions Criticality [...] Comments Blood Pressure 140/84 11/18/2023 4:02 PM GIN POLE OPERATOR Pulse 61 11/18/2023 4:02 PM GIN POLE OPERATOR Temperature - - Respiratory Rate - - Oxygen Saturation - - Inhaled Oxygen Concentration - - Weight 95.3 kg (210 lb 1.6 oz) 11/18/2023 4:02 P M GIN POLE OPERATOR Height 175.2 cm (5' 8.98) 11/18/2023 4:02 PM CS T Body Mass Index 31.05 11/18/2023 4:02 PM GIN POLE OPERATOR Plan of Treatment Not on file
--- OUTSIDE RECORDS SUMMARY | 2024-03-20 08:53 | XMS_ITS | Clinical Summary ---
Author Organization [facility] Address [place], [place] [address] Care Team Providers Care Flattening Press Operator Name Role Phone Christin Kelsey MD Primary Care Provider + Encounters Date Type Department Care Team Description 01/30/2024 3:00 PM CDT Office Visit [facility] [address] [place] [address] Familia Cuellar MD 01/30/[address] Siddiqui [address] [place] [address] Familia Cuellar MD Health Maintenance Update 01/07/2024 8:00 AM CDT Office Visit [facility] [address] [place] [address] Jb Tapia MD Procedure (Bilateral L5-S1 TFESI) 01/03/2024 Orders Only [facility] Staff, Other Clinical 1 scan: (1-Ord) [facility] 01/01/2024 Transcribe Orders [facility] [address] [place] [address] Jb Tapia MD 12/31/2023 Transcribe Orders [facility] [address] [place] [address] Erasmo Medina MD from Last 3 Months Social History Tobacco Use Types Packs/Day Years Used Date Smoking Tobacco: Never Assessed Social Connections Answer Date Recorded Frequency of Communication with Friends and Fami ly Not on file 01/07/2024 Sex and Gender Information Value Date Recorded Sex Assigned at Not on file Gender Identity Not on file Sexual Orientation Not on file Plan of Treatment Upcoming Encounters Date Type Department Care Team (Late st Contact Info) Description 03/20/2024 9:00 AM CDT Ancillary Procedure [facility] & [address] [address] Health Maintenance Due Date Last Done Comments [...] PCV) 009 COVID-19 vaccine series ( - 2022- season) Influenza for age 65+ 06/21/2024 Procedures Procedure [...] OTHER from Last 3 Months Care Teams Flattening Press Operator Relationship Specialty Start Date End Date Christin Kelsey MD [address] [place] [address] PCP - General Family Practice 11/14/23
--- OUTSIDE RECORDS SUMMARY | 2024-03-20 08:53 | XMS_ITS ---
Author Organization [facility] Address [address] [place] [address] Care Team Providers Care Gastrointestinal Technician Name Role Phone Unavailable Unavailable Unavailable Surgery Details Not on file Complications Check Surgery Details section. Procedure Estimated Blood Loss Check Surgery Details section. Procedure Findings Check Surgery Details section. Procedure Specimens Taken Check Surgery Details section.
--- OUTSIDE RECORDS SUMMARY | 2024-03-20 08:53 | XMS_ITS | Clinical Summary ---
Author Organization [facility] Address [address] [place] [address] Care Team Providers Care Knotter Hand Name Role Phone Unavailable Primary Care Provider Unavailabl e Source Comments Patient records contain information from all sites at [facility]. For routine questions regarding patient records, call [phone] during business hours, M-F 8:00 AM - 5:00 PM Central Time. Record requests for emergency care only can be directed to [phone] at any time.[facility] Allergies Active Allergy Reactions Criticality Noted [...] Comments Blood Pressure 140/84 11/18/2023 4:[address] Pulse 61 11/18/2023 4:[address] Temperature - - Respiratory Rate - - Oxygen Saturation - - Inhaled Oxygen Concentration - - Weight 95.3 kg (210 lb 1.6 oz) 11/18/2023 4:02 P M MANA[address] HIG[address] Height 175.2 cm (5' 8.98) 11/18/2023 4:02 PM CS T Body Mass Index 31.05 11/18/2023 4:02 [address] Plan of Treatment Health Maintenance Due Date [...]
[2024-03-20] MEDS: PERFLUTREN LIPID MICROSPHERES 2 ML VIAL IV (09:45)
--- NOTE | 2024-03-20 09:50 | PC.NURSE ---
20G IV placed in left AC. Definity per EMAR. IV removed intact.
== END 2024-03-20 08:52 | disposition home or self-care (01) ==
LOC: RAD 08:52
PROVIDERS: PCP Family Medicine; Visit Provider Internal Medicine
DX: I48.0 Paroxysmal atrial fibrillation (principal); I51.7 Cardiomegaly; I35.1 Nonrheumatic aortic (valve) insufficiency; I34.0 Nonrheumatic mitral (valve) insufficiency
CPT/HCPCS: 93306; Q9957

== ENCOUNTER 2024-05-25 09:00 | Outpatient (CLI) | payer MEDICARE, SELFPAY ==
--- OUTSIDE RECORDS SUMMARY | 2024-05-26 14:47 | XMS_ITS | Encounter Summary ---
Author Organization [facility] Address [address] [place] [address] Care Team Providers Care Health Support Specialist Name Role Phone Unavailable Primary Care Provider Unavailabl e Reason for Referral * Outpatient (Routine) - Authorized Specialty Diagnoses / Procedures Referred By Contac t Referred To Contact Diagnoses Pain Low Back Unspecified Procedures DX Lumbar Spine 4+ Views Emerald Hand APRN, C.N.PLex, Maximo.N.P., M.S.N. [address] [place] [phone] [facility] Referral ID Status Reason Start Date Expiration Date V isits Requested Visits Authorized [id number] Authorized 05/14/2024 05/14/2025 1 1 * Outpatient (Routine) - Authorized Specialty Diagnoses / Procedures Referred By Contac t Referred To Contact Diagnoses Pain Low Back Unspecified Procedures DX Entire Spine Scoliosis 2-3 Views Emerald Hand APRN, C.N.P., D.N.P., M.S.N. [address] [place] [phone] [facility] Referral ID Status Reason Start Date Expiration Date V isits Requested Visits Authorized [id number] Authorized 05/14/2024 05/14/2025 1 1 Encounter Details Date Type Department Care Team (Late st Contact Info) Description 05/14/2024 Orders Only Department of Neurologic Surgery in [place], [place] [address] [place] [phone] Emerald Hand APRN, C.N.P., D.N.P., M.S.N. [address] [place] [phone] Pain Low Back Unspecified (Primary Dx) Social History Tobacco Use Types Packs/Day Years [...] on file documented as of this encounter Plan of Treatment Upcoming Encounters Date Type Department Care Team (Latest Contact Info) Description 08/03/2024 7:00 AM CDT Appointment Department of Radiology, [facility] in [place], [place] [address] [place] [address] Emerald Hand APRN, C.N.P., D.N.P., M.S.N. [address] [place] [phone] 08/03/2024 7:15 AM CDT Appointment Department of Radiology, [facility], in [place], [place] [address] [place] [address] Emerald Hand APRN, C.N.P., D.N.P., M.S.N. [address] [place] [phone] 08/03/2024 9:00 AM CDT Comprehensive Visit Department of Spine in [place], [place] [address] [place] [phone] Mike Quintero D.O. [address] [place] [phone] 08/03/2024 1:00 PM CDT Comprehensive Visit Department of Orthopedic Surgery in [place], [place] [address] [place] [phone] Oneal Garcia M.D. [address] [place] [phone] 08/04/2024 8:00 AM CDT Comprehensive Visit Division of Endocrinology in [place], [place] [address] [place] [phone] 08/04/2024 10:00 AM CDT Clinical Support Department of Nutrition and Diabetes Education in [place], [place] [address] [place] [phone] Tita Doherty M.S.N., R.N., [facility] [address] [place] [phone] Scheduled Orders Name Type Priority Associated Diagnoses Orde r Schedule DX Entire Spine Scoliosis 2-3 Views Imaging RAD - Routine (most inpatients and all outpatients) Pain Low Back Unspecified Expected: 05/14/2024 (Approximate), Expires: 05/14/2025 DX Lumbar Spine 4+ Views Imaging RAD - Routine (most inpatients and all outpatients) Pain Low Back Unspecified Expected: 05/14/2024 (Approximate), Expires: 05/14/2025 documented as of this encounter Visit Diagnoses Diagnosis Pain Low Back Unspecified- Primary documented in this encounter
--- OUTSIDE RECORDS SUMMARY | 2024-05-26 14:47 | XMS_ITS ---
Author Organization [facility] Address [address] [place] [address] Care Team Providers Care Bindery Operator Name Role Phone Unavailable Unavailable Unavailable Surgery Details Not on file Complications Check Surgery Details section. Procedure Estimated Blood Loss Check Surgery Details section. Procedure Findings Check Surgery Details section. Procedure Specimens Taken Check Surgery Details section.
--- OUTSIDE RECORDS SUMMARY | 2024-05-26 14:47 | XMS_ITS | Encounter Summary ---
Author Organization [facility] Address [address] [place] [address] Care Team Providers Care Child Watch Attendant Name Role Phone Unavailable Primary Care Provider Unavailabl e Encounter Details Date Type Department Care Team ( Contact Info) Description 04/28/2024 Clinical Communication Department of Spine in [place], [place] [address] [place] [phone] Prescheduling, Provider Social History Tobacco Use Types Packs/Day Years [...] on file documented as of this encounter Miscellaneous Notes * Telephone Encounter - Ofelia Bueno L.P.N. - 04/28/2024 12:23 PM CDT [facility] Question Set documented in this encounter Plan of Treatment Upcoming Encounters Date Type Department Care Team (Latest Contact Info) Description 08/03/2024 7:00 AM CDT Appointment Department of Radiology, [facility], in [place], [place] [address] [place] [phone] Emerald Hand APRN, C.N.P., D.N.P., M.S.N. [address] [place] [phone] 08/03/2024 7:15 AM CDT Appointment Department of Radiology, [facility], in [place], [place] [address] [place] [phone] Emerald Hand APRN, C.N.P., D.N.P., M.S.N. [address] [place] [phone] 08/03/2024 9:00 AM CDT Comprehensive Visit Department of Spine in [place], [place] [address] [place] [address] Mike Quintero D.O. [address] [place] [phone] 08/03/2024 1:00 PM CDT Comprehensive Visit Department of Orthopedic Surgery in [place], [place] [address] [place] [phone] Oneal Garcia M.D. [address] [place] [phone] 08/04/2024 8:00 AM CDT Comprehensive Visit Division of Endocrinology in [place], [place] [address] [place] [phone] 08/04/2024 10:00 AM CDT Clinical Support Department of Nutrition and Diabetes Education in [place], [place] [address] [place] [address] Tita Doherty M.S.N., R.N., [facility] [address] [place] [phone] documented as of this encounter Visit Diagnoses Not on filedocumented in this encounter
--- OUTSIDE RECORDS SUMMARY | 2024-05-26 14:47 | XMS_ITS | Clinical Summary ---
Author Organization [facility] Address [address] [place] [address] Care Team Providers Care Ethylene Plant Operator Name Role Phone Unavailable Primary Care Provider Unavailabl e Source Comments Patient records contain information from all sites at [facility]. For routine questions regarding patient records, call [phone] during business hours, M-F 8:00 AM - 5:00 PM Central Time. Record requests for emergency care only can be directed to [phone] at any time.[facility] Allergies Active Allergy Reactions Criticality Noted Date [...] daily with dinner. 90 tablet 3 09/30/2023 4 Active furosemide (LASIX) 20 mg tablet Take 1 tablet (20 mg total) by mouth as directed. 40 mg on MWF, 20 mg other days 130 tablet 3 09/30/2023 4 Active potassium chloride (KLORCON/K-TAB) 10 mEq ER [...] mg total) by mouth daily. 09/30/2023 Active gabapentin (NEURONTIN) 600 mg tablet [...] at bedtime. Pharmacy select brand per patient insurance/pre ference. 09/30/2023 Active metFORMIN (Glucophage) 1,000 mg tablet Take 0.5 tablets (500 mg total) by mouth 2 (two) times a day with meals. 90 tablet 3 05/05/2024 5 Active metoprolol succinate (Toprol XL) 50 mg 24 hr tablet Take 0.5 tablets (25 mg total) by mouth daily. Do not crush or chew. 05/11/2024 5 Active losartan (Cozaar) 25 mg tablet Take 1 tablet (25 mg total) by mouth daily. 90 tablet 3 05/11/2024 5 Active metoprolol succinate (TOPROL-XL) 100 mg 24 hr tablet Take 0.5 tablets (50 mg total) by mouth daily. Do not crush or chew. 09/30/2023 4 Discontinued metFORMIN (GLUCOPHAGE) 1,000 mg tablet Take 0.5 tablets (500 mg total) by mouth 2 (two) times a day with meals. 09/30/2023 4 Discontinued(Helen petra) Active Problems Problem Noted Date Diagnosed Date Pain Back Lumbar 05/11/2024 Hypertensive Chronic Kidney Disease With Stage 1 Through Stage 4 Chronic Kidney Disease, Or Unspecified Chronic Kidney Disease 09/30/2023 Chronic Kidney Disease (CKD) , Stage 3b Glomerular Filtration Rate (GFR) 30 To 44 09/30/2023 Diabetes Mellitus Type 2 09/30/2023 Proteinuria 09/30/2023 Hyperparathyroidism Renal Secondary 09/30/2023 Anemia 09/30/2023 Gout 09/30/2023 Apnea Sleep Obstructive 09/30/2023 Atrial Fibrillation Paroxysmal 09/30/2023 Anticoagulant Therapy 09/30/2023 Hypothyroidism Acquired 09/30/2023 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 Pain Low Back Unspecified (Primary Dx) 05/11/2024 2:30 PM CDT External Outreach Division of Nephrology and Hypertension in [place], [place] [address] [place] [address] Humberto Cho Jr., Maximo.O. Chronic Kidney Disease (CKD), Stage 3b Glomerular Filtration Rate (GFR) 30 To 44 (HCC) (Primary Dx); Hypertensive Chronic Kidney Disease (CKD) Stage 3b Glomerular Filtration Rate (GFR) 30 To 44; Diabetes Mellitus Type 2 (HCC); Atrial Fibrillation Paroxysmal (HCC); Hyperparathyroidism Renal Secondary (HCC); Apnea Sleep Obstructive; Pain Back Lumbar 05/06/2024 Clinical Communication Department of Spine in [place], [place] [address] [place] [address] Provider, Unknown 05/01/2024 Refill Division of Nephrology and Hypertension in [place], [place] [address] [place] [address] Humberto Cho Jr., D.O. Med Refill 04/28/2024 Clinical Communication Department of Spine in [place], [place] [address] [place] [address] Prescheduling, Provider 04/28/2024 Orders Only Division of Endocrinology in [place], [place] [address] [place] [address] [facility], Provider Type 2 diabetes mellitus from Last 3 Months Social History Tobacco [...] Sign Reading Time Taken Comments Blood Pressure 180/80 05/11/2024 3:21 PM CDT Pulse 52 05/11/2024 3:21 PM CDT Temperature - - Respiratory Rate - - Oxygen Saturation - - Inhaled Oxygen Concentration - - Weight 94.5 kg (208 lb 5.4 oz) 05/11/2024 3:21 P M CDT Height 175.2 cm (5' 8.98) 05/11/2024 3:21 PM CD T Body Mass Index 30.79 05/11/2024 3:21 PM CDT Plan of Treatment Upcoming Encounters Date Type Department Care Team (Latest Contact Info) Description 08/03/2024 7:00 AM CDT Appointment Department of Radiology, [facility] in [place], [place] [address] [place] [address] Emerald Hand APRN, C.N.P., D.N.P., M.S.N. [address] [place] [phone] 08/03/2024 7:15 AM CDT Appointment Department of Radiology, [facility], in [place], [place] [address] [place] [address] Emerald Hand APRN, C.N.P., D.N.P., M.S.N. [address] [place] [phone] 08/03/2024 9:00 AM CDT Comprehensive Visit Department of Spine in [place], [place] [address] [place] [phone] Mike Quintero D.O. [address] [place] [phone] 08/03/2024 1:00 PM CDT Comprehensive Visit Department of Orthopedic Surgery in [place], [place] [address] [place] [phone] Oneal Garcia M.D. [address] [place] [phone] 08/04/2024 8:00 AM CDT Comprehensive Visit Division of Endocrinology in [place], [place] [address] [place] [phone] 08/04/2024 10:00 AM CDT Clinical Support Department of Nutrition and Diabetes Education in [place], [place] [address] [place] [phone] Tita Doherty M.S.N., R.N., [facility] [address] [place] [phone] Health Maintenance Due Date Last Done Comments Creatinine Level (Kidney Fun ction Test) 1945 Diabetic Office Visit with F oot Exam 1945 Dilated Eye Exam 1945 Hemoglobin A1C 1945 Hepatitis C Screening 1945 Potassium Level 1945 Sodium Level 1945 Urine Albumin 1945 Hepatitis B Vaccines (1 of 3 - Risk 3-dose series) 2004 Zoster Vaccines (2 of 3) 06/05/2016 04/10/2016 COVID-19 Vaccine (4 - 2022-2 4 season) 2023 07/20/2022, 01/04/2021, 12/14/2020 Depression Screening (Annual PHQ-2) 10/21/2023 Fall Risk Screen (Annual) 10/21/2023 Influenza Vaccine (#1) 2024 3, 07/20/2022, 08/17/2020, Additional history exists Office Visit for Blood Press ure Check / Re-check 08/11/2024 05/11/2024 DTaP,Tdap,and Td Vaccines (2 - Td or Tdap) 02/12/2026 02/13/2016 Pneumococcal vaccine (65+ years) Completed 08/14/20 17, 11/30/2014 Procedures Procedure Name Priority Date/Time Associated Diagnosis Comments OUTSIDE MR NEURO Routine 04/13/2024 8:35 PM CDT OUTSIDE MR BODY Routine 04/13/2024 8:05 PM CDT from Last 3 Months Results * MR Lumbar WO(Unpaired)-Outside MR Neuro (04/13/2024 8:35 PM CDT) Narrative [facility]IM[facility] - 05/05/2024 2:51 PM CDT This order has been created and auto-finalized to support the import of outside images. If available, original interpretation can be found on the Media Tab in Chart Review, in Document Viewer, as an image in QREADS or as an Addendum. If a re-interpretation or overread is required please follow defined workflow.?? Provider Not In System IMG MRI PROCEDURE S Performing Organization Address [facility] de Phone Number [facility]IMS NA * MR Pelvis WO (Bone)(Unpaired)-Outside MR Body (04/13/2024 8:05 PM CDT) Narrative [facility] - 05/05/2024 2:51 PM CDT This order has been created and auto-finalized to support the import of outside images. If available, original interpretation can be found on the Media Tab in Chart Review, in Document Viewer, as an image in QREADS or as an Addendum. If a re-interpretation or overread is required please follow defined workflow.?? Provider Not In System IMG MRI PROCEDURE S Performing Organization Address [facility] Co de Phone Number [facility]IMS NA from Last 3 Months
--- OUTSIDE RECORDS SUMMARY | 2024-05-26 14:47 | XMS_ITS | Encounter Summary ---
Author Organization [facility] Address [address] [place] [address] Care Team Providers Care Venetian Blind Machine Operator Name Role Phone Unavailable Primary Care Provider Unavailabl e Reason for Visit * Reason Comments Med Refill Encounter Details Date Type Department Care Team ( Contact Info) Description 05/01/2024 Refill Division of Nephrology and Hypertension in [place], [place] [address] [place] [phone] Humberto Cho Jr., D.OLex [address] [place] [phone] Med Refill Social History Tobacco Use Types Packs/Day Years [...] 7:00 AM CDT Appointment Department of Radiology, [facility], in [place], [place] [address] [place] [phone] Emerald Hand, CHRISTELLE, C.N.P., D.N.P., M.S.N. [address] [place] [phone] 08/03/2024 7:15 AM CDT Appointment Department of Radiology, [facility], in [place], [place] [address] [place] [phone] Emerald Hand APRN, C.N.P., D.N.P., M.S.N. [address] [place] [phone] 08/03/2024 9:00 AM CDT Comprehensive Visit Department of Spine in [place], [place] [address] [place] [phone] Mike Quintero D.O. [address] [place] [phone] 08/03/2024 1:00 PM CDT Comprehensive Visit Department of Orthopedic Surgery in [place], [place] [address] [place] [phone] Oneal Garcia M.D. [address] [place] [phone] 08/04/2024 8:00 AM CDT Comprehensive Visit Division of Endocrinology in [place], [place] [address] [place] [phone] 08/04/2024 10:00 AM CDT Clinical Support Department of Nutrition and Diabetes Education in [place], [place] [address] [place] [phone] Tita Doherty M.S.N., R.N., [facility][NOTE 2] [address] [place] [phone] documented as of this encounter Visit Diagnoses Not on filedocumented in this encounter
--- OUTSIDE RECORDS SUMMARY | 2024-05-26 14:47 | XMS_ITS | Clinical Summary ---
Author Organization [facility] Address [place], [place] [address] Care Team Providers Care Field Horticultural Specialty Grower Name Role Phone Christin Kelsey MD Primary Care Provider + Encounters Date Type Department Care Team Description 05/15/2024 Transcribe Orders [facility] [address] [place] [address] Jb Tapia MD 05/14/2024 Telephone [facility] [place] [address] [facility] [address] [place] [phone] Carlos Marroquin MD Questions (APPOINTMENT ) 04/13/2024 Orders Only [facility] Scanner 1 scan: (1-Ord) CDI, LUMBAR SPINE WO CONTRAST, 04/13/2024 03/25/2024 [facility] [address] [place] [address] [address] [place] [address] Dom Armstrong MD Results 03/20/2024 9:00 AM CDT Ancillary Procedure [facility] [address] [place] [address] from Last 3 Months Social History Tobacco [...] Care Team (Late st Contact Info) Description 05/27/2024 11:00 AM CDT Office Visit [facility] [address] [place] [phone] Carlos Marroquin MD [address] [facility] [place] [address] 06/05/2024 7:45 AM CDT Procedure Only [facility] [address] [place] [address] Jb Tapia MD [address] [place] [address] Health Maintenance Due Date Last Done Comments [...] Procedure Name Priority Date/Time Associated Diagnosis Comments SCAN-MRI INTERPRETATION 04/13/2024 12:00 AM CDT ECHO TTE COMPLETE W CONTRAST Routine 03/20/2024 9:58 AM CDT Paroxysmal atrial fibrillation (HC) from Last 3 Months Results * SCAN-MRI INTERPRETATION (04/13/2024 12:00 AM CDT) Anatomical Region Laterality Modality Other Scanner OTHER * ECHO TTE COMPLETE W CONTRAST (03/20/2024 9:58 AM CDT) AORTIC VALVE MEAN PG 6 mmHg EJECTION FRACTION 71 % LVEDD 4.4 cm Anatomical Region Laterality Modality Ultrasound 03/20/2024 8:59 AM CDT Narrative 03/20/2024 11:40 AM CDT ECHOCARDIOGRAM GUDELIA BRAGG ? Accession#: ?? [id number] : ?1945 78 years Study Date: ?? 03/20/2024 8:59:03 AM Gender: M ?BP: ? 176/76 mmHg Height: 180.00 cm ?BSA: ?2.10 m? ? ? Weight: 90.00 kg ? Tech: ? MJW ? Referring MD: DOM ARMSTRONG Site: ? [facility] Reading Location: Mobile-OP Patient Location: Outpatient. Procedure: 2D w/ Contrast, Color Doppler and Spectral Doppler. Indication for study: Paroxysmal A Fib Cardiac Rhythm: Regular.Study quality: Fair. Imaging limitations: This study was subject to imaging limitations due to a prominent lung artifact. Final Impressions: 1. Normal left ventricular size, mildly increased wall thickness, normal global systolic function, calculated EF of 71 %. 2. Right ventricular cavity size is normal, global systolic RV function is normal. 3. Severely enlarged left atrium. 4. The aortic valve is sclerotic, no stenosis and trivial regurgitation. 5. The mitral valve is sclerotic and moderate mitral annular calcification (posterior), trace mitral regurgitation. 6. The aortic sinus is dilated with a maximal diameter of 4.0 cm. 7. No pericardial effusion. Chamber Sizes and Function Normal left ventricular size, mildly increased wall thickness, normal global systolic function, calculated EF of 71 %. Left atrial size is severely enlarged. Right ventricular cavity size is normal, global systolic RV function is normal. RV wall thickness is normal. The right atrium is normal. Right atrial volume index is 23 ml/m? ? ?. Right atrial area is 18 cm? ? ?. The pulmonary artery is of normal size and origin. The sinus of Valsalva is dilated. The ascending aorta is normal sized. Valves, RV Pressures and Diastolic Function The aortic valve is sclerotic, no stenosis and trivial regurgitation. The mitral valve is sclerotic and moderate mitral annular calcification (posterior), trace mitral regurgitation. Diastolic function assessment not performed. The tricuspid valve is normal in structure. Tricuspid regurgitation is trace regurgitation. The pulmonic valve is normal. Trace pulmonary regurgitation. Masses, Effusion, Shunts There is no pericardial effusion. The inferior vena cava is normal sized, respiratory size variation greater than 50%. Interatrial septum is not well visualized. MEASUREMENTS AND CALCULATIONS 2-D Measurements and LV Function: LVID (d) 4.4 cm Planimetered EF 71 % LVID (s) 3.2 cm LV FS% (2D) ? 27 % IVS (d) ??1.4 cm LVOT diameter ?? 2.5 cm LVPW (d) 1.4 cm HR ?72 bpm Ao Sinus 4.0 cm LA Vol index ?66 ml/m2 Asc Ao ?? 3.3 cm RA Vol index ?23 ml/m2 LA ? 4.0 cm RA area ? 18 cm?RV Max 4C (d) ?? 3.4 cm Diastology: Mitral ?Tissue Doppler E Peak 1.4 m/s ??e', Septum ? 0.05 m/s A Peak 1.1 m/s ??e', Lateral ?0.05 m/s E/A ?1.2 ?E/e' Average ?? 26.48 DT ? 243 msec Aortic Valve: Vmax ? 1.6 m/s ??KIERAN (V) ?? 4.00 cm? ? ? VTI ?0.32 m ?? KIERAN (I) ?? 4.37 cm? ? ? LVOT V max 1.3 m/s ??Max PG ?10 mmHg LVOT VTI ?? 0.28 m ?? Mean PG ?? 6 mmHg SV ? 140 ml ?? Dim Index 0.86 SV index ?? 67 ml/m? ? ? CO ?10.1 l/min ?CI ?4.8 l/min/m? ? ? Mitral Valve: MVA ? 3.1 cm? ? ? MV P 1/2 ??70 msec MV Mean G 3 mmHg MV VTI ?0.39 m Tricuspid Valve and estimated PA pressures: TAPSE 2.4 cm . This study was interpreted by an [facility] accredited facility. CC: [facility] ([facility]) [facility]. ??Final ?? Procedure Note Riana Diaz, [facility] - 03/20/2024 ECHOCARDIOGRAM GUDELIA BRAGG : 1945 78 years Study Date: 03/20/2024 8:59:03 AM Gender: M BP: 176/76 mmHg Height: 180.00 cm BSA: 2.10 m? ? ? Weight: 90.00 kg Tech: ANGELA Referring MD: DOM ARMSTRONG Site: [facility] Reading Location: Mobile-OP Patient Location: Outpatient. Procedure: 2D w/ Contrast, Color Doppler and Spectral Doppler. Indication for study: Paroxysmal A Fib Cardiac Rhythm: Regular.Study quality: Fair. Imaging limitations: This study was subject to imaging limitations due toa prominent lung artifact. Final Impressions: 1. Normal left ventricular size, mildly increased wall thickness, normalglobal systolic function, calculated EF of 71 %. 2. Right ventricular cavity size is normal, global systolic RV functionis normal. 3. Severely enlarged left atrium. 4. The aortic valve is sclerotic, no stenosis and trivialregurgitation. 5. The mitral valve is sclerotic and moderate mitral annularcalcification (posterior), trace mitral regurgitation. 6. The aortic sinus is dilated with a maximal diameter of 4.0 cm. 7. No pericardial effusion. Chamber Sizes and Function Normal left ventricular size, mildly increased wall thickness, normalglobal systolic function, calculated EF of 71 %. Left atrial size isseverely enlarged. Right ventricular cavity size is normal, globalsystolic RV function is normal. RV wall thickness is normal. The rightatrium is normal. Right atrial volume index is 23 ml/m? ? ?. Right atrialarea is 18 cm? ? ?. The pulmonary artery is of normal size and origin. Thesinus of Valsalva is dilated. The ascending aorta is normal sized. Valves, RV Pressures and Diastolic Function The aortic valve is sclerotic, no stenosis and trivial regurgitation. Themitral valve is sclerotic and moderate mitral annular calcification(posterior), trace mitral regurgitation. Diastolic function assessment notperformed. The tricuspid valve is normal in structure. Tricuspidregurgitation is trace regurgitation. The pulmonic valve is normal. Tracepulmonary regurgitation. Masses, Effusion, Shunts There is no pericardial effusion. The inferior vena cava is normal sized,respiratory size variation greater than 50%. Interatrial septum is notwell visualized. MEASUREMENTS AND CALCULATIONS 2-D Measurements and LV Function: LVID (d) 4.4 cm Planimetered EF 71 % LVID (s) 3.2 cm LV FS% (2D) 27 % IVS (d) 1.4 cm LVOT diameter 2.5 cm LVPW (d) 1.4 cm HR 72 bpm Ao Sinus 4.0 cm LA Vol index 66 ml/m2 Asc Ao 3.3 cm RA Vol index 23 ml/m2 LA 4.0 cm RA area 18 cm? ? ? RV Max 4C (d) 3.4 cm Diastology: Mitral Tissue Doppler E Peak 1.4 m/s e', Septum 0.05 m/s A Peak 1.1 m/s e', Lateral 0.05 m/s E/A 1.2 E/e' Average 26.48 DT 243 msec Aortic Valve: Vmax 1.6 m/s KIERAN (V) 4.00 cm? ? ? VTI 0.32 m KIERAN (I) 4.37 cm? ? ? LVOT V max 1.3 m/s Max PG 10 mmHg LVOT VTI 0.28 m Mean PG 6 mmHg SV 140 ml Dim Index 0.86 SV index 67 ml/m? ? ? CO 10.1 l/min CI 4.8 l/min/m? ? ? Mitral Valve: MVA 3.1 cm? ? ? MV P 1/2 70 msec MV Mean G 3 mmHg MV VTI 0.39 m Tricuspid Valve and estimated PA pressures: TAPSE 2.4 cm . This study was interpreted by an [facility] accredited facility. CC: [facility] (med records) [facility]. Final Dom Armstrong MD ECHO ORD from Last 3 Months Care Teams Field Horticultural Specialty Grower Relationship Specialty Start Date End Date Christin Kelsey MD [address] [facility] [place] [address] PCP - General Family Practice 11/14/23
--- OUTSIDE RECORDS SUMMARY | 2024-05-26 14:47 | XMS_ITS | Referral Summary ---
Author Organization [facility] Address [address] [place] [address] Care Team Providers Care Specimen Accessioner Name Role Phone Unavailable Primary Care Provider Unavailabl e Source Comments Patient records contain information from all sites at [facility]. For routine questions regarding patient records, call [phone] during business hours, M-F 8:00 AM - 5:00 PM Central Time. Record requests for emergency care only can be directed to [phone] at any time.[facility] Encounters Date Type Department Care Team Description 05/14/2024 Orders Only Department of Neurologic Surgery in [place], [place] [address] [place] [phone] Emerald Hand, CHRISTELLE, C.N.P., D.N.P., M.S.N. Pain Low Back Unspecified (Primary Dx) 05/11/2024 2:30 PM CDT External Outreach Division of Nephrology and Hypertension in [place], [place] [address] [place] [phone] Humberto Cho Jr., D.O. Chronic Kidney Disease (CKD), Stage 3b Glomerular Filtration Rate (GFR) 30 To 44 (HCC) (Primary Dx); Hypertensive Chronic Kidney Disease (CKD) Stage 3b Glomerular Filtration Rate (GFR) 30 To 44; Diabetes Mellitus Type 2 (HCC); Atrial Fibrillation Paroxysmal (HCC); Hyperparathyroidism Renal Secondary (HCC); Apnea Sleep Obstructive; Pain Back Lumbar 05/06/2024 Clinical Communication Department of Spine in [place], [place] [address] [place] [phone] Provider, Unknown 05/01/2024 Refill Division of Nephrology and Hypertension in [place], [place] [address] [place] [phone] Humberto Cho Jr., SkyeO. Med Refill 04/28/2024 Clinical Communication Department of Spine in [place], [place] [address] [place] [phone] Prescheduling, Provider 04/28/2024 Orders Only Division of Endocrinology in [place], [place] [address] [place] [phone] [facility], Provider Type 2 diabetes mellitus from Last 3 Months Allergies Active Allergy [...] a day with meals. 09/30/2023 4 Discontinued(Helen lambert) Active Problems Problem Noted Date Diagnosed Date [...] 7:00 AM CDT Appointment Department of Radiology, [facility] in [place], [place] [address] [place] [phone] Emerald Hand APRN, C.N.P., D.N.P., M.S.N. [address] [place] [phone] 08/03/2024 7:15 AM CDT Appointment Department of Radiology, [facility], in [place], [place] [address] [place] [address] Emerald Hand APRN, C.N.P., D.N.P., M.S.N. [address] [place] [phone] 08/03/2024 9:00 AM CDT Comprehensive Visit Department of Spine in [place], [place] [address] [place] [phone] Mike Quintero D.O. [address] [place] [phone] 08/03/2024 1:00 PM CDT Comprehensive Visit Department of Orthopedic Surgery in [place], [place] [address] [place] [phone] Oneal Garcia M.D. [address] [place] [phone] 08/04/2024 8:00 AM CDT Comprehensive Visit Division of Endocrinology in [place], [place] [address] [place] [phone] 08/04/2024 10:00 AM CDT Clinical Support Department of Nutrition and Diabetes Education in [place], [place] [address] [place] [phone] Tita Doherty M.S.N., R.N., [facility][NOTE 3] [address] [place] [phone] Procedures Procedure Name Priority Date/Time Associated Diagnosis [...] Not In System IMG MRI PROCEDURE S IIMS NA * MR Pelvis WO (Bone)(Unpaired)-Outside [...] Not In System IMG MRI PROCEDURE S IIMS NA from Last 3 Months
--- OUTSIDE RECORDS SUMMARY | 2024-05-26 14:47 | XMS_ITS | Encounter Summary ---
Author Organization [facility] Address [address] [place] [address] Care Team Providers Care Laborer [employer] Name Role Phone Unavailable Primary Care Provider Unavailabl e Encounter Details Date Type Department Care Team (Late st Contact Info) Description 04/28/2024 Orders Only Division of Endocrinology in [place], [place] [address] [place] [phone] [facility], Provider Type 2 diabetes mellitus Social History Tobacco Use Types Packs/Day Years [...] 7:00 AM CDT Appointment Department of Radiology, [facility], in [place], [place] [address] [place] [phone] Emerald Hand APRN, C.N.P., D.N.P., M.S.N. [address] [place] [phone] 08/03/2024 7:15 AM CDT Appointment Department of Radiology, [facility], in [place], [place] [address] [place] [phone] Emerald Hand APRN, C.N.P., D.N.P., M.S.N. [address] [place] [phone] 08/03/2024 9:00 AM CDT Comprehensive Visit Department of Spine in [place], [place] [address] [place] [phone] Mike Quintero D.O. [address] [place] [phone] 08/03/2024 1:00 PM CDT Comprehensive Visit Department of Orthopedic Surgery in [place], [place] [address] [place] [address] Oneal Garcia M.D. [address] [place] [phone] 08/04/2024 8:00 AM CDT Comprehensive Visit Division of Endocrinology in [place], [place] [address] [place] [address] 08/04/2024 10:00 AM CDT Clinical Support Department of Nutrition and Diabetes Education in [place], [place] [address] [place] [phone] Tita Doherty M.S.N., R.N., [facility] [address] [place] [phone] documented as of this encounter Visit Diagnoses Diagnosis Type 2 diabetes mellitus documented in this encounter
--- OUTSIDE RECORDS SUMMARY | 2024-05-26 14:47 | XMS_ITS | Encounter Summary ---
Author Organization [facility] Address [address] [place] [address] Care Team Providers Care High Risk Case Manager Name Role Phone Unavailable Primary Care Provider Unavailabl e Reason for Visit * Appointment Request (Routine) - Closed Specialty Diagnoses / Procedures Referred By Mireya garza Referred To Contact Nephrology and Hypertension Referral ID Status Reason Start Date Expiration Date Visits Re quested Visits Authorized [id number] Closed 04/03/2024 04/03/2025 1 1 Encounter Details Date Type Department Care Team (Latest Contact Info) Description 05/11/2024 2:30 PM CDT External Outreach Division of Nephrology and Hypertension in [place], [place] [address] [place] [address] Humberto Cho Jr., D.O. [address] [place] [phone] Chronic Kidney Disease (CKD), Stage 3b Glomerular Filtration Rate (GFR) 30 To 44 (HCC) (Primary Dx); Hypertensive Chronic Kidney Disease (CKD) Stage 3b Glomerular Filtration Rate (GFR) 30 To 44; Diabetes Mellitus Type 2 (HCC); Atrial Fibrillation Paroxysmal (HCC); Hyperparathyroidism Renal Secondary (HCC); Apnea Sleep Obstructive; Pain Back Lumbar Social History Tobacco Use Types Packs/Day Years [...] Mass Index 30.79 05/11/2024 3:21 PM CDT documented in this encounter Progress Notes * Humberto Cho Jr., D.O. - 05/11/2024 2:30 PM CDT Referring Provider: Dr. Castillo SUBJECTIVE REASON FOR VISIT [place] out reach CKD Clinic Follow-up regards CKD, on the background of nephrosclerosis. HISTORY OF PRESENT ILLNESS Mr. Damon is a 78 y.o. male who presents with CKD Reverend returns. He has been visiting with several specialists, including radiation oncology, and Dermatology. Since our last visit his lower extremity edema has abated he no longer has the upper extremity rash. Appreciate his blood pressures are well above target, with blood pressures today in clinic in the 200 systolic over 80s without change despite and 1/2 hour plus visit. He is not checking his blood pressures regularly at home and I encouraged him to do so. He has not had any lower extremity swellingno chest pain no shortness of breath no cerebrovascular symptoms. Appreciate the given his bradycardia his metoprolol was decreased, he is insisting that he is now down to 25 mg per day. The chart seems to suggest that he is on 50 mg per day. He does not recall an allergic reaction to losartan, but does recall an adverse response to lisinopril. I note that his hydrochlorothiazide was stopped, and a loop diuretic was substituted, on the background of what he felt was an allergic reaction to the hydrochlorothiazide. It is unclear at this point whether he is actually taking his potassium supplements or not, but his chemistries appear acceptable. He is somewhat fatigued of seeing physicians right now, but generally is doing relatively well, I note that his creatinine has improved to 1.7 mg/dL. He is quite frustrated by his low back pain, which keeps him awake at night. He needs to sleep onlyin 1 position, on his right shoulder and this is extremely painful for him as well. He is catching his foot in fact describes a fall when he was unable to lift his foot and caught it on the sidewalk.He is being evaluated for spine center appointment. The pain is quite severe, has not impact his bowel or bladder function, does increase with cough and strain. He was seeing a spine center in the [facility] who mentioned that he has spondylolisthesis, and severe spinal stenosis. Past medical history is significant for hypertension, CKD, severe DJD, diabetes mellitus type 2 Current Outpatient Medications: metoprolol succinate (Toprol XL) 50 mg 24 hr tablet, Take 0.5 tablets (25 mg total) by mouth daily.Do not crush or chew., Disp: , Rfl: allopurinol 100 mg oral capsule, 100 mg [...] brand per patient insurance/preference., Disp: , Rfl: losartan (Cozaar) 25 mg tablet, Take 1 tablet (25 mg total) by mouth daily., Disp: 90 tablet, Rfl: 3 metFORMIN (Glucophage) 1,000 mg tablet, Take 0.5 tablets (500 mg total) by mouth 2 (two) times a day with meals., Disp: 90 tablet, Rfl: 3 potassium chloride (KLORCON/K-TAB) 10 mEq ER tablet, [...] systems reviewed and are negative. OBJECTIVE BP (!) 180/80 Pulse (!) 52 Ht 175.2 cm Wt 94.5 kg BMI 30.79 kg/m?? PHYSICAL EXAMINATION General: Awake alert oriented [...] suspicious lesions identified Psychiatric: Normal affect DIAGNOSTICS Creatinine 1.7 mg/dL February 25 12/10/2023 ASSESSMENT / PLAN #1 Chronic Kidney Disease (CKD), Stage 3b Glomerular Filtration Rate (GFR) 30 To 44 ([facility]) His GFR has remained relatively stable, and seems to be on the background of hypertensive and diabetic nephrosclerosis. Going forward: 1. Goal blood pressures less than 130s over 80s 2. Towards this, I have asked him to check his blood pressure at home. 3. I will arrange for him to initiate losartan 25 mg orally daily, I have sent this prescription in, I will make sure we check blood work in 2 weeks here in [place], to evaluate any change in his serum creatinine 4. Low-sodium diet less than 2000 mg sodium per day 5. No NSAIDs or Diallo 2 inhibitors 6. Goal glycosylated hemoglobin less than 8% 7. Return to clinic in 6 months. #2 Hypertensive Chronic Kidney Disease (CKD) Stage 3b Glomerular Filtration Rate (GFR) 30 To 44 Goal blood pressures have certainly not been achieved, I will be adding losartan back to his regimen. He has had interactions in the past with certain medications, as well as allergies and rash. I am concerned regards the effect to effective circulating volume, and the potential for decrease in renal reserve with losartan and we will arrange for renal panel in 2 weeks following the initiation of losartan. Otherwise: 1. Low-salt diet less than 2000 mg sodium per day 2. No NSAIDs or Diallo 2 inhibitors 3. Continue to focus on pain management. #3 Diabetes Mellitus Type 2 (HCC) His glycosylated hemoglobin 6 0.9% I congratulated him. #4 Atrial Fibrillation Paroxysmal (HCC) He continues on beta blockade, with a heart rate in the 50s, and antiplatelet therapy. #5 Hyperparathyroidism Renal Secondary (HCC) PTH is acceptable #6 Apnea Sleep Obstructive He is adherent to his regimen #7 Pain Back Lumbar He has been told that his spinal stenosis and I am encouraging him to continue pursuing a spine center appointment he may benefit from surgery. Total time: 45 minutes Counseling Time: 30 minutes Humberto Cho Jr., D.O. documented in this encounter Plan of Treatment Upcoming Encounters Date Type Department Care Team (Latest Contact Info) Description 08/03/2024 7:00 AM CDT Appointment Department of Radiology, [facility], in [place], [place] [address] [place] [phone] Emerald Hand APRN, C.N.P., Maximo.N.P., M.S.N. [address] [place] [phone] 08/03/2024 7:15 AM CDT Appointment Department of Radiology, [facility], in [place], [place] [address] [place] [phone] Emerald Hand APRN, C.N.P., D.N.P., M.S.N. [address] [place] [phone] 08/03/2024 9:00 AM CDT Comprehensive Visit Department of Spine in [place], [place] [address] [place] [phone] Mike Quintero D.O. [address] [place] [phone] 08/03/2024 1:00 PM CDT Comprehensive Visit Department of Orthopedic Surgery in [place], [place] [address] [place] [phone] Oneal Garcia M.D. [address] [place] [phone] 08/04/2024 8:00 AM CDT Comprehensive Visit Division of Endocrinology in [place], [place] [address] [place] [phone] 08/04/2024 10:00 AM CDT Clinical Support Department of Nutrition and Diabetes Education in [place], [place] [address] [place] [phone] Tita Doherty M.S.N., R.N., [facility] [address] [place] [phone] documented as of this encounter Visit Diagnoses Diagnosis Chronic Kidney Disease (CKD), Stage 3b Glomerular Filtration Rate (GFR) 30 To 44 (HCC)- Primary Hypertensive Chronic Kidney Disease (CKD) Stage 3b Glomerular Filtration Rate (GFR) 30 To 44 Diabetes Mellitus Type 2 (HCC) Atrial Fibrillation Paroxysmal (HCC) Hyperparathyroidism Renal Secondary (HCC) Apnea Sleep Obstructive Pain Back Lumbar documented in this encounter
--- OUTSIDE RECORDS SUMMARY | 2024-05-26 14:47 | XMS_ITS | Encounter Summary ---
Author Organization [facility] Address [address] [place] [address] Care Team Providers Care Residential Program Worker Name Role Phone Unavailable Primary Care Provider Unavailabl e Encounter Details Date Type Department Care Team (Late st Contact Info) Description 05/06/2024 Clinical Communication Department of Spine in [place], [place] [address] [place] [phone] Provider, Unknown Social History Tobacco Use Types Packs/Day Years [...] 7:00 AM CDT Appointment Department of Radiology, [facility], in [place], [place] [address] [place] [phone] Emerald Hand APRN, C.N.P., D.N.P., M.S.N. [address] [place] [phone] 08/03/2024 7:15 AM CDT Appointment Department of Radiology, [facility], in [place], [place] [address] [place] [phone] Emerlad Hand APRN, C.N.P., D.N.P., M.S.N. [address] [place] [phone] 08/03/2024 9:00 AM CDT Comprehensive Visit Department of Spine in [place], [place] [address] [place] [address] Mike Quintero D.O. [address] [place] [phone] 08/03/2024 1:00 PM CDT Comprehensive Visit Department of Orthopedic Surgery in [place], [place] [address] [place] [address] Oneal Garcia M.D. [address] [place] [phone] 08/04/2024 8:00 AM CDT Comprehensive Visit Division of Endocrinology in [place], [place] [address] [place] [address] 08/04/2024 10:00 AM CDT Clinical Support Department of Nutrition and Diabetes Education in [place], [place] [address] [place] [address] Tita Doherty M.S.N., R.N., [facility] [address] [place] [phone] documented as of this encounter Visit Diagnoses Not on filedocumented in this encounter
== END 2024-05-25 09:01 | disposition home or self-care (01) ==
LOC: NFLDREF 05-26 14:43
PROVIDERS: PCP Family Medicine; Referring Provider Family Medicine; Visit Provider Internal Medicine Nephrology
DX: N18.32 Chronic kidney disease, stage 3b (principal)
CPT/HCPCS: 80069

== ENCOUNTER 2024-07-23 14:34 | Outpatient (CLI) | payer MEDICARE, SELFPAY ==
--- OUTSIDE RECORDS SUMMARY | 2024-07-23 14:38 | XMS_ITS ---
Author Organization [facility] Address [address] [place] [address] Care Team Providers Care Air [employer] Professionals Name Role Phone Unavailable Unavailable Unavailable Surgery Details Not on file Complications Check Surgery Details section. Procedure Estimated Blood Loss Check Surgery Details section. Procedure Findings Check Surgery Details section. Procedure Specimens Taken Check Surgery Details section.
--- OUTSIDE RECORDS SUMMARY | 2024-07-23 14:38 | XMS_ITS | Encounter Summary ---
Author Organization [facility] Address [address] [place] [phone] Care Team Providers Care Steam Hand Name Role Phone Unavailable Primary Care Provider Unavailabl e Encounter Details Date Type Department Care Team (Latest Contact Info) Description 07/22/2024 11:45 AM CDT Clinical Communication Virtual Review in [place], [place] 200 [place] [address] Social History Tobacco Use Types Packs/Day Years Used Date Smoking Tobacco: Never Smokeless Tobacco: Never Dental Answer Date Recorded Dental: Regular Dentist Unknown 09/05/20 23 Sex and Gender Information Value Date Recorded Sex Assigned at Not on file Gender Identity Not on file Sexual Orientation Not on file documented as of this encounter Plan of Treatment Upcoming Encounters Date Type Department Care Team (Latest Contact Info) Description 08/03/2024 7:00 AM CDT Appointment Department of Radiology, [facility], in [place], [place] [address] [place] [phone] Emerald Hand APRN, C.N.P., D.N.P., M.S.N. 08/03/2024 7:15 AM CDT Appointment Department of Radiology, [facility], in [place], [place] [address] [place] [phone] Emerald Hand APRN, C.N.P., D.N.P., M.S.N. 08/03/2024 9:00 AM CDT Comprehensive Visit Department of Spine in [address] [phone] Mike Quintero D.O. [address] [place] [phone] 08/03/2024 1:00 PM CDT Comprehensive Visit Department of Orthopedic Surgery in [place], [place] [address] [place] [phone] Oneal Garcia M.D. [address] [place] [phone] 08/04/2024 8:00 AM CDT Comprehensive Visit Division of Endocrinology in [place], [place] [address] [place] [phone] 08/04/2024 10:00 AM CDT Clinical Support Department of Nutrition and Diabetes Education in [place], [place] [address] [place] [phone] Tita Doherty M.S.N., R.N., [facility] [address] [place] [phone] documented as of this encounter Visit Diagnoses Not on filedocumented in this encounter
--- OUTSIDE RECORDS SUMMARY | 2024-07-23 14:38 | XMS_ITS | Clinical Summary ---
Author Organization [facility] Address [address] [place] [address] Care Team Providers Care Electrical Transmission Engineer Name Role Phone Unavailable Primary Care Provider Unavailabl e Source Comments Patient records contain information from all sites at [facility]. For routine questions regarding patient records, call [phone] during business hours, M-F 8:00 AM - 5:00 PM Central Time. Record requests for emergency care only can be directed to [phone] at any time.[facility] Allergies Active Allergy Reactions Criticality Noted Date Comments Amlodipine Edema, suggestive of allergic reaction, i.e., lip, tongue, or throat swelling,Edema (Reselect Reaction),Other (see comments) High 09/30/2023 Bumetanide Rash 07/21/2024 Erythromycin Base Rash,Other (see comments) 08/2023 Finasteride Rash 09/30/2023 Furosemide Rash 07/21/2024 Hydrocodone Other (see comments) 12/11/2023 Lisinopril Cough 09/30/2023 Sulfa (Sulfonamide Antibiotics) Rash,Other (see comments) 09/30/2023 Tetracycline Rash,Other (see comments) 09/30/20 23 Medications Medication Sig Dispensed Refills Start Date End Date Status rivaroxaban (XARELTO) 20 mg tablet Take 1 tablet (20 mg total) by mouth daily with dinner. 90 tablet 3 09/30/2023 Active potassium chloride (KLORCON/K-TAB) 10 mEq ER [...] at bedtime. Pharmacy select brand per patient insurance/prefere nce. 09/30/2023 Active Additional Information Patient taking differently:20 Units subcutaneousDaily, Pharmacy select brand per patient insurance/preference., Reported on 07/22/2024 metFORMIN (Glucophage) 1,000 mg tablet Take 0.5 tablets (500 mg total) by mouth 2 (two) times a day with meals. 90 tablet 3 05/05/2024 Active metoprolol succinate (Toprol XL) 50 mg 24 hr tablet Take 0.5 tablets (25 mg total) by mouth daily. Do not crush or chew. 05/11/2024 Active losartan (Cozaar) 25 mg tablet Take 1 tablet (25 mg total) by mouth daily. 90 tablet 3 05/11/2024 5 Active allopurinoL (Zyloprim) 100 mg tablet Take 100 mg by mouth daily. 04/15/2024 Active Accu-Chek Barbara Plus test strp use to test once daily 06/27/2024 Active levothyroxine 100 mcg tablet Take 100 mcg by mouth daily. Active cinnamon bark 500 mg capsule Take 500 mg by mouth daily. 09/03/2023 Active jh-zhh-xshet-K1- lycopen-lutein (Centrum Silver Men) 305-07-488-300 mcg tablet Take 1 tablet by mouth daily. 09/03/2023 Active furosemide (LASIX) 20 mg tablet Take 1 tablet (20 mg total) by mouth as directed. 40 mg on MWF, 20 mg other days 130 tablet 3 09/30/2023 4 Discontinue d(Alternate therapy) Active Problems Problem Noted Date Diagnosed Date [...] Encounters Date Type Department Care Team Description 07/22/2024 11:45 AM CDT Clinical Communication Virtual Review in [place], [place] [address] [place] [address] 07/21/2024 Documentation Division of Nephrology and Hypertension in [place], [place] [address] [place] [phone] Humberto Cho Jr., D.O. 07/21/2024 Orders Only Division of Nephrology and Hypertension in [place], [place] [address] [place] [phone] Humberto Cho Jr., D.O. 05/14/2024 Orders Only Department of Neurologic Surgery in [place], [place] [address] [place] [phone] Emerald Hand APRN, C.N.P., D.N.P., M.S.N. Pain Low Back Unspecified (Primary Dx) 05/11/2024 2:30 PM CDT External Outreach Division of Nephrology and Hypertension in [place], [place] [address] [place] [phone] Humberto Cho Jr., D.O. Chronic Kidney Disease (CKD), Stage 3b Glomerular Filtration Rate (GFR) 30 To 44 (HCC) (Primary Dx); Hypertensive Chronic Kidney Disease (CKD) Stage 3b Glomerular Filtration Rate (GFR) 30 To 44; Diabetes Mellitus Type 2 (HCC); Atrial Fibrillation Paroxysmal (HCC); Hyperparathyroidism Renal Secondary (HCC); Apnea Sleep Obstructive; Pain Back Lumbar 05/06/2024 Clinical Communication Department of Spine in [place], [place] [address] [place] [address] Provider, Unknown 05/01/2024 Refill Division of Nephrology and Hypertension in [place], [place] [address] [place] [phone] Humberto Cho Jr., D.OLex Med Refill 04/28/2024 Clinical Communication Department of Spine in [place], [place] [address] [place] [phone] Prescheduling, Provider 04/28/2024 Orders Only Division of Endocrinology in [place], [place] [address] [place] [phone] [facility], Provider, M.B., Ph.D. Type 2 diabetes mellitus from Last 3 [...] AM CDT Appointment Department of Radiology, [facility], in [place], [place] [address] [place] [address] Emerald Hand APRN, C.N.Jacquelyn, Maximo.N.P., M.S.N. 08/03/2024 7:15 AM CDT Appointment Department of Radiology, [facility], in [place], [place] [address] [place] [address] Emerald Hand APRN, C.N.Jacquelyn, Maximo.N.P., M.S.N. 08/03/2024 9:00 AM CDT Comprehensive Visit Department of Spine in [place], [place] [address] [place] [phone] Mike Quintero D.O. [address] [place] [phone] 08/03/2024 1:00 PM CDT Comprehensive Visit Department of Orthopedic Surgery in [place], [place] [address] [place] [phone] Oneal Garica M.D. [address] [place] [phone] 08/04/2024 8:00 AM CDT Comprehensive Visit Division of Endocrinology in [place], [place] [address] [place] [phone] 08/04/2024 10:00 AM CDT Clinical Support Department of Nutrition and Diabetes Education in [place], [place] [address] [place] [phone] Tita Doherty M.S.N., R.N., [facility] [address] [place] [phone] Health Maintenance Due Date Last Done Comments Creatinine Level (Kidney Fun ction Test) 1944 Diabetic Office Visit with F oot Exam 1944 Dilated Eye Exam 1944 Hemoglobin A1C 1944 Potassium Level 1944 Sodium Level 1944 Thyroid Stimulating Hormone (TSH) test for thyroid function 1944 Urine Albumin 1944 Hepatitis B Vaccines (1 of 3 - Risk 3-dose series) 2004 Zoster Vaccines (2 of 3) 06/05/2016 04/10/2016 RSV vaccine - (32-3 6 weeks) or 60+ years (1 - 1-dose 75+ series) 2019 Depression Screening (Annual PHQ-2) 10/21/2023 Fall Risk Screen (Annual) 10/21/2023 COVID-19 Vaccine (4 - 2023-2 5 season) 2024 07/20/2022, 01/04/2021, 12/14/2020 Influenza Vaccine (#1) 2024 , 07/20/2022, 08/17/2020, Additional history exists Office Visit for Blood Press ure Check / Re-check 08/11/2024 05/11/2024 DTaP,Tdap,and Td Vaccines (2 - Td or Tdap) 02/12/2026 02/13/2016 Pneumococcal vaccine (65+ years) Completed 08/14/20 17, 11/30/2014 Medical Devices Implanted Type Area Family Resource Management Professor Device Identifier Shelf Expiration Date Model / Serial / Lot Hip Implant Hip Implant Bilateral : Hip
--- OUTSIDE RECORDS SUMMARY | 2024-07-23 14:38 | XMS_ITS | Referral Summary ---
Author Organization [facility] Address [address] [place] [address] Care Team Providers Care Dietary Aid Name Role Phone Unavailable Primary Care Provider Unavailabl e Source Comments Patient records contain information from all sites at [facility]. For routine questions regarding patient records, call [phone] during business hours, M-F 8:00 AM - 5:00 PM Central Time. Record requests for emergency care only can be directed to [phone] at any time.[facility] Encounters Date Type Department Care Team Description 07/22/2024 11:45 AM CDT Clinical Communication Virtual Review in [place], [place] 200 [place] [address] 07/21/2024 Documentation Division of Nephrology and Hypertension in [place], [place] [address] [place] [phone] Humberto Cho Jr., D.O. 07/21/2024 Orders Only Division of Nephrology and Hypertension in [address] [phone] Humberto Cho Jr., D.O. 05/14/2024 Orders Only Department of Neurologic Surgery in [address] [phone] Emerald Hand APRN, C.N.P., D.N.P., M.S.N. Pain Low Back Unspecified (Primary Dx) 05/11/2024 2:30 PM CDT External Outreach Division of Nephrology and Hypertension in [place], [place] [address] [place] [phone] Humberto Cho Jr., D.O. Chronic Kidney Disease (CKD), Stage 3b Glomerular Filtration Rate (GFR) 30 To 44 (HCC) (Primary Dx); Hypertensive Chronic Kidney Disease (CKD) Stage 3b Glomerular Filtration Rate (GFR) 30 To 44; Diabetes Mellitus Type 2 (HCC); Atrial Fibrillation Paroxysmal (HCC); Hyperparathyroidism Renal Secondary (HCC); Apnea Sleep Obstructive; Pain Back Lumbar 05/06/2024 Clinical Communication Department of Spine in [place], [place] [address] [place] [address] Provider, Unknown 05/01/2024 Refill Division of Nephrology and Hypertension in [place], [place] [address] [place] [address] Humberto Cho Jr., D.O. Med Refill 04/28/2024 Clinical Communication Department of Spine in [place], [place] [address] [place] [phone] Prescheduling, Provider 04/28/2024 Orders Only Division of Endocrinology in [place], [place] [address] [place] [address] [facility], Provider, MAyush., Ph.D. Type 2 diabetes mellitus from Last [...] dinner. 90 tablet 3 09/30/2023 4 Active potassium chloride [...] 500 mg by mouth daily. 09/03/2023 Active bf-ghl-sazgk-K1- lycopen-lutein (Centrum Silver Men) 167-36-862-300 mcg tablet Take 1 tablet by mouth daily. 09/03/2023 Active furosemide (LASIX) 20 mg tablet Take 1 tablet (20 mg total) by mouth as directed. 40 mg on MWF, 20 mg other days 130 tablet 3 09/30/2023 Discontinue d(Alternate therapy) Active Problems Problem Noted [...] 7:00 AM CDT Appointment Department of Radiology, [facility], in [place], [place] [address] [place] [address] Emerald Hand APRN, C.NSamantha, Maximo.N.P., M.S.N. 08/03/2024 7:15 AM CDT Appointment Department of Radiology, [facility], in [place], [place] [address] [place] [address] Emerald Hand APRN, C.N.P., Maximo.N.P., M.S.N. 08/03/2024 9:00 AM CDT Comprehensive Visit Department of Spine in [place], [place] [address] [place] [phone] Mike Quintero D.O. [address] [place] [phone] 08/03/2024 1:00 PM CDT Comprehensive Visit Department of Orthopedic Surgery in [place], [place] [address] [place] [phone] Oneal Garcia M.D. [address] [place] [phone] 08/04/2024 8:00 AM CDT Comprehensive Visit Division of Endocrinology in [place], [place] [address] [place] [phone] 08/04/2024 10:00 AM CDT Clinical Support Department of Nutrition and Diabetes Education in [place], [place] [address] [place] [phone] Tita Doherty M.S.N., R.N., [facility] [address] [place] [phone] Medical Devices Implanted Type Area Cloth Bolt Bander Device Identifier Shelf Expiration Date Model / Serial / Lot Hip Implant Hip Implant Bilateral : Hip
--- OUTSIDE RECORDS SUMMARY | 2024-07-23 14:38 | XMS_ITS | Encounter Summary ---
Author Organization [facility] Address [address] [place] [address] Care Team Providers Care Commissary Officer Name Role Phone Unavailable Primary Care Provider Unavailabl e Encounter Details Date Type Department Care Team (Late st Contact Info) Description 07/21/2024 Documentation Division of Nephrology and Hypertension in [place], [place] [address] [place] [address] Humberto Cho Jr., D.O. [address] [place] [address] Social History Tobacco Use Types Packs/Day Years Used Date Smoking Tobacco: Never Assessed Dental Answer Date Recorded Dental: Regular Dentist Unknown 09/05/20 23 Sex and Gender Information Value Date Recorded Sex Assigned at Not on file Gender Identity Not on file Sexual Orientation Not on file documented as of this encounter Progress Notes * Humberto Cho Jr., D.O. - 07/21/2024 10:50 AM CDT Care coordination- email from [facility] Thanks Please ask him to stop the diuretic (Bumetanide). As all diuretics available have small ammounts ofsulfa (except ethacrinic acid- which is not avalable), it seems we will not be able to use these. I'll need to see him, I hope there is upcomming appt.? One consideration to puit in the chart is to consider aldactone 25 mg per day. I will need to see him prior to this being sent in. Thanks RCA documented in this encounter Plan of Treatment Upcoming Encounters Date Type Department Care Team (Latest Contact Info) Description 08/03/2024 7:00 AM CDT Appointment Department of Radiology, [facility], in [place], [place] [address] [place] [phone] Emerald Hand APRN, C.NSamantha, Maximo.N.P., M.S.N. 08/03/2024 7:15 AM CDT Appointment Department of Radiology, [facility], in [place], [place] [address] [place] [phone] Emerald Hand APRN, C.N.Santiago., Maximo.N.P., M.S.N. 08/03/2024 9:00 AM CDT Comprehensive Visit Department of Spine in [place], [place] [address] [place] [phone] Mike Quintero D.O. [address] [place] [phone] 08/03/2024 1:00 PM CDT Comprehensive Visit Department of Orthopedic Surgery in [place], [place] [address] [place] [address] Oneal Garcia M.D. [address] [place] [phone] 08/04/2024 8:00 AM CDT Comprehensive Visit Division of Endocrinology in [place], [place] [address] [place] [phone] 08/04/2024 10:00 AM CDT Clinical Support Department of Nutrition and Diabetes Education in [place], [place] [address] [place] [phone] Tita Doherty M.S.N., R.N., [facility] [address] [place] [phone] documented as of this encounter Visit Diagnoses Not on filedocumented in this encounter
--- OUTSIDE RECORDS SUMMARY | 2024-07-23 14:38 | XMS_ITS | Clinical Summary ---
Author Organization [facility] Address [place], [place] [address] Care Team Providers Care Sewer Pipe Sorter Name Role Phone Christin Kelsey MD Primary Care Provider + Allergies Active Allergy Reactions Criticality Noted Date Comments Amlodipine Edema High 09/30/2023 Erythromycin Base Rash 09/30/2023 Finasteride Rash 09/30/2023 Lisinopril Cough 09/30/2023 Penicillins GI Upset 09/30/2023 Sulfa (Sulfonamide Antibiotics) Rash 09/20 Tetracycline Rash 09/30/2023 Medications Medication Sig Dispensed Refills Start Date End Date Status allopurinoL (ZYLOPRIM) 100 mg tablet Take 100 mg by mouth once daily. 04/15/2024 Active ALPRAZolam (XANAX) 0.5 mg tablet Take 0.5 mg by mouth once daily if needed. 09/30/2023 Active amiodarone (CORDARONE) 200 mg tablet Take 200 mg by mouth once daily. Active atorvastatin (LIPITOR) 10 mg tablet Take 10 mg by mouth once daily. Active gabapentin (NEURONTIN) 600 mg tablet TAKE 1 TABLET BY MOUTH THREE TIMES A DAY Active glipiZIDE (GLUCOTROL) 5 mg tablet Take 5 mg by mouth. 04/27/2024 Activ e Lantus Solostar U-100 Insulin 100 unit/mL (3 mL) pen INJECT 22 UNIT (0.22 ML) SUBCUTANEOUSLY EVERY DAY Active levothyroxine (SYNTHROID) 100 mcg tablet Take 100 mcg by mouth once daily. 10/22/2023 Active losartan (COZAAR) 25 mg tablet Take 25 mg by mouth. 05/11/2024 05/11/2025 Ac tive metFORMIN (GLUCOPHAGE) 1,000 mg tablet Take 500 mg by mouth. 05/05/2024 Active metoprolol succinate (TOPROL XL) 50 mg sustained-release tablet Take 25 mg by mouth. 05/11/2024 05/11/2025 Acti ve BD Lalita 2nd Gen Pen Needle 32 gauge x 5/32 (disposable insulin pen needle) USE TO ADMINISTER INSULIN DAILY 03/10/2024 Active BD Insulin Pen Needle UF 31 gauge x 5/16 (disposable insulin pen needle) USE DIRECTED ONCE A DAY 08/21/2023 Active Xarelto 20 mg tablet TAKE ONE TABLET BY MOUTH DAILY WITH DINNER Active tamsulosin (FLOMAX) 0.4 mg capsule Take 0.4 mg by mouth. Act zeferino Active Problems No known active problems Encounters Date Type Department Care Team Description 06/05/2024 7:45 AM CDT Procedure Only [facility] [address] [place] [address] Jb Tapia MD Procedure (USGI for Rt Hip by Jose Wyatt... 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) 05/27/2024 Travel 05/15/2024 Transcribe Orders [facility] [address] [place] [address] Jb Tapia MD 05/14/2024 Telephone [facility] [address] [facility] [address] [place] [phone] Carlos Marroquin MD Questions (APPOINTMENT ) from Last 3 Months Social History Tobacco Use Types Packs/Day Years Used Date Smoking Tobacco: Never Smokeless Tobacco: Never Tobacco Cessation:Counseling Given: Yes Social Connections Answer Date Recorded Frequency of Communication with Friends and Fami ly Not on file 01/07/2024 Sex and Gender Information Value Date Recorded Sex Assigned at Not on file Gender Identity Not on file Sexual Orientation Not on file Obstetrics History Last Filed Vital Signs Vital Sign Reading Time Taken Comments Blood Pressure 191/62 06/05/2024 7:59 AM CDT Pulse 56 06/05/2024 7:59 AM CDT Temperature 36.5 ??C (97.7 ??F) 06/05/2024 7:59 AM CD T Respiratory Rate - - Oxygen Saturation 99% 06/05/2024 7:59 AM CDT Inhaled Oxygen Concentration - - Weight - - Height - - Body Mass Index - - Plan of Treatment Health Maintenance Due Date Last Done Comments Tdap 1955 Depression screening for age 12+ 1956 BMI (ht and wt on same day) for age 18+ 1962 Tetanus booster 1964 Zoster (shingles) series for age 50+ (1 of 2) 06/03/19 94 Medicare Wellness for age 65+ 2009 Pneumococcal series for age 65+ (1 of 1 - PCV) 009 RSV vaccine for adults or pr egnancy (1 - 1-dose 75+ series) 2019 COVID-19 vaccine series ( season) 4 Influenza for age 65+ 06/21/2024 Procedures Procedure Name Priority Date/Time Associated Diagnosis Comments BEDSIDE US STUDY ARCHIVE Routine 06/05/2024 11:09 AM CDT Trochanteric bursitis of right hip XR PELVIS 1 VIEW AP AND HIP 2 VIEW BILATERAL Routine 05/27/2024 11:34 AM CDT Right hip pain from Last 3 Months Results * BEDSIDE US STUDY ARCHIVE (06/05/2024 11:09 AM CDT) Narrative Margaret Gamble - 06/05/2024 11:09 AM CDT The patient was seen for ultrasound guided injection by Dr. Jb Tapia. Ultrasound was not used for diagnostic purposes, but to guide the needle placement and document the position of the injection. ?? See patient's EPIC encounter for the detail of the procedure; see MAKAYLA for saved images of the injection. Jb Tapia MD PROCEDURE ORD * XR PELVIS 1 VIEW AP AND HIP 2 VIEW BILATERAL (05/27/2024 11:34 AM CDT) Anatomical Region Laterality Modality HIPS, HIPL, HIPR, Pelvis Compute d Radiography Impressions 05/31/2024 8:47 AM CDT Stable bilateral total hip arthroplasty without complication (DOS: 1999, 2003) All services were personally performed by Carlos Marroquin MD. Documentation performed by Trinidad Mckoy, MS, LAT, ATC based on my observation of services performed and provider statements to me. Carlos Marroquin MD 05/27/2024 Narrative 05/31/2024 8:47 AM CDT This radiology exam was performed at [place] and interpreted by Carlos Marroquin MD HISTORY: A 78 y.o. year - old male with history of bilateral total hip arthroplasty TECHNIQUE: Three views of the bilateral hip were obtained today including: low AP pelvis, AP bilateral hip with marker ball, and frog leg lateral views. FINDINGS: Bilateral total hip arthroplasty in acceptable alignment. No change in position as compared to previous films with no obvious evidence of loosening. Good jainism of leg length, hip center and offset. No evidence of acute fracture or dislocation. Carlos ROBERTSONIN G from Last 3 Months Care Teams Sewer Pipe Sorter Relationship Specialty Start Date End Date Christin Kelsey MD [address] [facility] [place] [address] PCP - General Family Practice 11/14/23
--- OUTSIDE RECORDS SUMMARY | 2024-07-23 14:39 | XMS_ITS | Encounter Summary ---
Author Organization [facility] Address [address] [place] [address] Care Team Providers Care Automotive Parts Counter Person Name Role Phone Unavailable Primary Care Provider Unavailabl e Encounter Details Date Type Department Care Team (Late st Contact Info) Description 04/28/2024 Clinical Communication Department of Spine in [place], [place] [address] [place] [phone] Prescheduling, Provider Social History Tobacco Use Types [...] 7:00 AM CDT Appointment Department of Radiology, [facility], in [place], [place] [address] [place] [phone] Emerald Hand, CHRISTELLE, C.N.P., D.N.P., M.S.N. 08/03/2024 7:15 AM CDT Appointment Department of Radiology, [facility], in [place], [place] [address] [place] [phone] Emerald Hand APRN, C.NLexP., Maximo.N.P., M.S.N. 08/03/2024 9:00 AM CDT Comprehensive Visit Department of Spine in [place], [place] [address] [place] [phone] Mike Quintero D.O. [address] [place] [phone] 08/03/2024 1:00 PM CDT Comprehensive Visit Department of Orthopedic Surgery in [place], [place] [address] [place] [phone] Oneal Garcia M.D. [address] [place] [phone] 08/04/2024 8:00 AM CDT Comprehensive Visit Division of Endocrinology in [place], [place] [address] [place] [phone] 08/04/2024 10:00 AM CDT Clinical Support Department of Nutrition and Diabetes Education in [place], [place] [address] [place] [phone] Tita Doherty M.S.N., R.N., [facility] [address] [place] [phone] documented as of this encounter Visit Diagnoses Not on filedocumented in this encounter
--- OUTSIDE RECORDS SUMMARY | 2024-07-23 14:39 | XMS_ITS | Encounter Summary ---
Author Organization [facility] Address [address] [place] [address] Care Team Providers Care Alberene Stone Setter Name Role Phone Unavailable Primary Care Provider Unavailabl e Encounter Details Date Type Department Care Team (Late st Contact Info) Description 05/06/2024 Clinical Communication Department of Spine in [place], [place] [address] [place] [phone] Provider, Unknown Social History Tobacco Use Types [...] 7:00 AM CDT Appointment Department of Radiology, [facility] in [place], [place] [address] [place] [phone] Emerald Hand APRN, C.N.P., D.N.P., M.S.N. 08/03/2024 7:15 AM CDT Appointment Department of Radiology, [facility], in [place], [place] [address] [place] [phone] Emerald Hand APRN, C.N.P., D.N.P., M.S.N. 08/03/2024 9:00 AM CDT Comprehensive Visit Department of Spine in [place], [place] [address] [place] [phone] Mike Quintero D.O. [address] [place] [phone] 08/03/2024 1:00 PM CDT Comprehensive Visit Department of Orthopedic Surgery in [place], [place] [address] [place] [address] Oneal Garcia M.D. [address] [place] [phone] 08/04/2024 8:00 AM CDT Comprehensive Visit Division of Endocrinology in [place], [place] [address] [place] [phone] 08/04/2024 10:00 AM CDT Clinical Support Department of Nutrition and Diabetes Education in [place], [place] [address] [place] [phone] Tita Doherty M.S.N., R.N., [facility] [address] [place] [phone] documented as of this encounter Visit Diagnoses Not on filedocumented in this encounter
--- OUTSIDE RECORDS SUMMARY | 2024-07-23 14:39 | XMS_ITS | Encounter Summary ---
Author Organization [facility] Address [address] [place] [address] Care Team Providers Care Manager Environmental Name Role Phone Unavailable Primary Care Provider Unavailabl e Reason for Visit * Reason Comments Med Refill Encounter Details Date Type Department Care Team (Late Contact Info) Description 05/01/2024 Refill Division of Nephrology and Hypertension in [place], [place] [address] [place] [phone] Humberto Cho Jr., D.O. [address] [place] [phone] Med Refill Social History Tobacco Use Types [...] 7:00 AM CDT Appointment Department of Radiology, [facility], in [place], [place] [address] [place] [phone] Emerald Hand APRN, C.N.P., D.N.P., M.S.N. 08/03/2024 7:15 AM CDT Appointment Department of Radiology, [facility], in [place], [place] [address] [place] [phone] Emerald Hand APRN, C.N.P., D.N.P., M.S.N. 08/03/2024 9:00 AM CDT Comprehensive Visit Department of Spine in [place], [place] [address] [place] [phone] Mike Quintero D.O. [address] [place] [address] [phone] 08/03/2024 1:00 PM CDT Comprehensive Visit Department of Orthopedic Surgery in [place], [place] [address] [place] [phone] Oneal Garcia M.D. [address] [place] [phone] 08/04/2024 8:00 AM CDT Comprehensive Visit Division of Endocrinology in [place], [place] [address] [place] [phone] 08/04/2024 10:00 AM CDT Clinical Support Department of Nutrition and Diabetes Education in [place], [place] [address] [place] [phone] Tita Doherty M.S.N., R.N., [facility] [address] [place] [address] [phone] documented as of this encounter Visit Diagnoses Not on filedocumented in this encounter
--- OUTSIDE RECORDS SUMMARY | 2024-07-23 14:39 | XMS_ITS | Encounter Summary ---
Author Organization [facility] Address [address] [place] [address] Care Team Providers Care Dry House Attendant Name Role Phone Unavailable Primary Care Provider Unavailabl e Encounter Details Date Type Department Care Team (Late st Contact Info) Description 04/28/2024 Orders Only Division of Endocrinology in [place], [place] [address] [place] [phone] [facility], Provider, MLulú, Ph.D. Type 2 diabetes mellitus Social History Tobacco [...] 7:00 AM CDT Appointment Department of Radiology, [facility], in [place], [place] [address] [place] [address] Emerald Hand APRN, C.N.P., D.N.P., M.S.N. 08/03/2024 7:15 AM CDT Appointment Department of Radiology, [facility], in [place], [place] [address] [place] [address] Emerald Hand APRN, C.N.P., D.N.P., M.S.N. 08/03/2024 9:00 AM CDT Comprehensive Visit Department of Spine in [place], [place] [address] [place] [address] Mike Quintero D.O. [address] [place] [address] 08/03/2024 1:00 PM CDT Comprehensive Visit Department of Orthopedic Surgery in [place], [place] [address] [place] [phone] Oneal Garcia M.D. [address] [place] [address] 08/04/2024 8:00 AM CDT Comprehensive Visit Division of Endocrinology in [place], [place] [address] [place] [phone] 08/04/2024 10:00 AM CDT Clinical Support Department of Nutrition and Diabetes Education in [place], [place] [address] [place] [phone] Tita Doherty M.S.N., R.N., [facility] [address] [place] [phone] documented as of this encounter Visit Diagnoses Diagnosis Type 2 diabetes mellitus documented in this encounter
--- OUTSIDE RECORDS SUMMARY | 2024-07-23 14:39 | XMS_ITS | Encounter Summary ---
Author Organization [facility] Address [address] [place] [address] Care Team Providers Care Machine Molder Name Role Phone Unavailable Primary Care Provider Unavailabl e Encounter Details Date Type Department Care Team (Late st Contact Info) Description 07/21/2024 Orders Only Division of Nephrology and Hypertension in [place], [place] [address] [place] [phone] Humberto Cho Jr., D.OLex [address] [place] [phone] Social History Tobacco Use Types Packs/Day Years [...] 7:00 AM CDT Appointment Department of Radiology, [facility], in [place], [place] [address] [place] [phone] Emerald Hand APRN, C.N.P., D.N.P., M.S.N. 08/03/2024 7:15 AM CDT Appointment Department of Radiology, [facility], in [place], [place] [address] [place] [phone] Emerald Hand APRN, C.N.P., D.N.P., M.S.N. 08/03/2024 9:00 AM CDT Comprehensive Visit Department of Spine in [place], [place] [address] [place] [phone] Mike Quintero D.O. [address] [place] [phone] 08/03/2024 1:00 PM CDT Comprehensive Visit Department of Orthopedic Surgery in [place], [place] [address] [place] [phone] Oneal Garcia M.D. [address] [place] [phone] 08/04/2024 8:00 AM CDT Comprehensive Visit Division of Endocrinology in [place], [place] [address] [place] [phone] 08/04/2024 10:00 AM CDT Clinical Support Department of Nutrition and Diabetes Education in [place], [place] [address] [place] [phone] Tita Doherty M.S.N., R.N., [facility][NOTE 3] [address] [place] [phone] documented as of this encounter Visit Diagnoses Not on filedocumented in this encounter
--- OUTSIDE RECORDS SUMMARY | 2024-07-23 14:39 | XMS_ITS | Encounter Summary ---
Author Organization [facility] Address [address] [place] [address] Care Team Providers Care Paper Sorter And Counter Name Role Phone Unavailable Primary Care Provider Unavailabl e Reason for Visit * Appointment Request (Routine) - Closed Specialty Diagnoses / Procedures Referred By Mireya garza Referred To Contact Nephrology and Hypertension Referral ID Status Reason Start Date Expiration Date Visits Re quested Visits Authorized [id number] Closed 04/03/2024 04/03/2025 1 1 Encounter Details Date Type Department Care Team (Latest Contact Info) Description 05/11/2024 2:30 PM CDT External Outreach Division of Nephrology and Hypertension in [place], [place] [address] [place] [address] Humberto Cho Jr., D.O. [address] [place] [phone] Chronic Kidney Disease (CKD), Stage 3b Glomerular [...] Provider: Dr. Castillo SUBJECTIVE REASON FOR VISIT [place] out reach CKD Clinic Follow-up regards CKD, [...] was seeing a spine center in the [facility] who mentioned that he has spondylolisthesis, and [...] Psychiatric: Normal affect DIAGNOSTICS Creatinine 1.7 mg/dL Feb 26 2024 ASSESSMENT / PLAN #1 Chronic Kidney Disease (CKD), Stage 3b Glomerular Filtration Rate (GFR) 30 To 44 (HCC) His GFR has remained relatively stable, and [...] blood work in 2 weeks here in [place], to evaluate any change in his serum [...] Mellitus Type 2 (HCC) His glycosylated hemoglobin 6.9% I congratulated him. #4 Atrial Fibrillation Paroxysmal [...] 7:00 AM CDT Appointment Department of Radiology, [facility], in [place], [place] [address] [place] [address] Emerald Hand APRN, Elliott.N.P., D.N.P., M.S.N. 08/03/2024 7:15 AM CDT Appointment Department of Radiology, [facility], in [place], [place] [address] [place] [address] Emerald Hand APRN C.N.P., D.N.P., M.S.N. 08/03/2024 9:00 AM CDT Comprehensive Visit Department of Spine in [place], [place] [address] [place] [phone] Mike Quintero D.O. [address] [place] [phone] 08/03/2024 1:00 PM CDT Comprehensive Visit Department of Orthopedic Surgery in [place], [place] [address] [place] [address] Oneal Garcia M.D. [address] [place] [address] 08/04/2024 8:00 AM CDT Comprehensive Visit Division of Endocrinology in [place], [place] [address] [place] [phone] 08/04/2024 10:00 AM CDT Clinical Support Department of Nutrition and Diabetes Education in [place], [place] [address] [place] [address] Tita Doherty M.S.N., R.N., [facility] [address] [place] [phone] documented as of this encounter Visit Diagnoses [...]
--- OUTSIDE RECORDS SUMMARY | 2024-07-23 14:39 | XMS_ITS | Encounter Summary ---
Author Organization [facility] Address [address] [place] [address] Care Team Providers Care Geology Technician Name Role Phone Unavailable Primary Care Provider Unavailabl e Reason for Referral * Outpatient (Routine) - Authorized Specialty Diagnoses / Procedures Referred By Contac t Referred To Contact Diagnoses Pain Low Back Unspecified Procedures DX Lumbar Spine 4+ Views Emerald Hand APRN, C.N.PLex, D.N.P., M.S.N. [facility] Referral ID Status Reason Start Date Expiration Date V isits Requested Visits Authorized [id number] Authorized 05/14/2024 05/14/2025 1 1 * Outpatient (Routine) - Authorized Specialty Diagnoses / Procedures Referred By Contac t Referred To Contact Diagnoses Pain Low Back Unspecified Procedures DX Entire Spine Scoliosis 2-3 Views Emerald Hand APRN C.N.P., D.N.P., M.S.N. [facility] Referral ID Status Reason Start Date Expiration Date V isits Requested Visits Authorized [id number] Authorized 05/14/2024 05/14/2025 1 1 Encounter Details Date Type Department Care Team (Late st Contact Info) Description 05/14/2024 Orders Only Department of Neurologic Surgery in [place], [place] [address] [place] [phone] Emerald Hand APRN, C.N.Jacquelyn, Maximo.N.P., M.S.N. Pain Low Back Unspecified (Primary Dx) Social [...] 7:00 AM CDT Appointment Department of Radiology, [facility] in [place], [place] [address] [place] [phone] Emerald Hand APRN, C.N.Jacquelyn, Maximo.N.P., M.S.N. 08/03/2024 7:15 AM CDT Appointment Department of Radiology, [facility], in [address] [phone] Emerald Hand APRN, C.N.Santiago., Maximo.N.P., M.S.N. 08/03/2024 9:00 AM CDT Comprehensive Visit Department of Spine in [address] [phone] Mike Quintero D.O. [address] [place] [phone] 08/03/2024 1:00 PM CDT Comprehensive Visit Department of Orthopedic Surgery in [address] [phone] Oneal Garcia M.D. [address] [place] [phone] 08/04/2024 8:00 AM CDT Comprehensive Visit Division of Endocrinology in [place], [place] [address] [place] [address] 08/04/2024 10:00 AM CDT Clinical Support Department of Nutrition and Diabetes Education in [place], [place] [address] [place] [address] Tita Doherty M.SUrsula., R.N., [facility] [address] [place] [address] Scheduled Orders Name Type Priority Associated Diagnoses [...]
== END 2024-07-23 14:35 | disposition home or self-care (01) ==
PROVIDERS: PCP Family Medicine; Visit Provider Family Medicine
DX: L03.90 Cellulitis, unspecified (principal); N18.32 Chronic kidney disease, stage 3b; E03.9 Hypothyroidism, unspecified; I10 Essential (primary) hypertension; R60.0 Localized edema; Z79.01 Long term (current) use of anticoagulants
CPT/HCPCS: 80053; 84439; 84443

== ENCOUNTER 2024-07-27 08:18 | Outpatient (CLI) | payer MEDICARE, SELFPAY ==
--- OUTSIDE RECORDS SUMMARY | 2024-07-27 08:22 | XMS_ITS | Clinical Summary ---
Author Organization [facility] Address [address] [place] [address] Care Team Providers Care Entry Level Mechanical Engineer Name Role Phone Unavailable Primary Care Provider Unavailabl e Source Comments Patient records contain information from all sites at [facility]. For routine questions regarding patient records, call [phone] during business hours, M-F 8:00 AM - 5:00 PM Central Time. Record requests for emergency care only can be directed to [phone] at any time.[facility] Allergies Active Allergy Reactions Criticality Noted [...] 500 mg by mouth daily. 09/03/2023 Active ni-sxy-sydqq-K1- lycopen-lutein (Centrum Silver Men) 571-89-310-300 mcg tablet Take 1 tablet by mouth [...] AM CDT Clinical Communication Virtual Review in [place], [place] [address] [place] [address] 07/21/2024 Documentation Division of Nephrology and Hypertension in [place], [place] [address] [place] [phone] Humberto Cho Jr., D.O. 07/21/2024 Orders Only Division of Nephrology and Hypertension in [place], [place] [address] [place] [phone] Humberto Cho Jr., D.O. 05/14/2024 Orders Only Department of Neurologic Surgery in [place], [place] [address] [place] [phone] Emerald Hand APRN, C.N.P., D.N.P., M.S.N. Pain Low Back Unspecified (Primary Dx) 05/11/2024 2:30 PM CDT External Outreach Division of Nephrology and Hypertension in [place], [place] [address] [place] [phone] Humberto Cho Jr., D.O. Chronic Kidney Disease (CKD), Stage 3b Glomerular Filtration Rate (GFR) 30 To 44 (HCC) (Primary Dx); Hypertensive Chronic Kidney Disease (CKD) Stage 3b Glomerular Filtration Rate (GFR) 30 To 44; Diabetes Mellitus Type 2 (HCC); Atrial Fibrillation Paroxysmal (HCC); Hyperparathyroidism Renal Secondary (HCC); Apnea Sleep Obstructive; Pain Back Lumbar 05/06/2024 Clinical Communication Department of Spine in [place], [place] [address] [place] [address] Provider, Unknown 05/01/2024 Refill Division of Nephrology and Hypertension in [place], [place] [address] [place] [phone] Humberto Cho Jr., D.OLex Med Refill 04/28/2024 Clinical Communication Department of Spine in [place], [place] [address] [place] [phone] Prescheduling, Provider 04/28/2024 Orders Only Division of Endocrinology in [place], [place] [address] [place] [phone] [facility], Provider, M.B., Ph.D. Type 2 diabetes mellitus [...] 7:00 AM CDT Appointment Department of Radiology, [facility], in [place], [place] [address] [place] [address] Emerald Hand APRN, C.N.Jacquelyn, Maximo.N.P., M.S.N. 08/03/2024 7:15 AM CDT Appointment Department of Radiology, [facility], in [place], [place] [address] [place] [address] Emerald Hand APRN, C.N.Jacquelyn, Maximo.N.P., M.S.N. 08/03/2024 9:00 AM CDT Comprehensive Visit Department of Spine in [place], [place] [address] [place] [phone] Mike Quintero D.O. [address] [place] [phone] 08/03/2024 1:00 PM CDT Comprehensive Visit Department of Orthopedic Surgery in [place], [place] [address] [place] [phone] Oneal Garcia M.D. [address] [place] [phone] 08/04/2024 8:00 AM CDT Comprehensive Visit Division of Endocrinology in [place], [place] [address] [place] [phone] 08/04/2024 10:00 AM CDT Clinical Support Department of Nutrition and Diabetes Education in [place], [place] [address] [place] [phone] Tita Doherty M.S.N., R.N., [facility] [address] [place] [phone] Health Maintenance Due Date Last Done Comments [...] 17, 11/30/2014 Medical Devices Implanted Type Area Thermo Processor Device Identifier Shelf Expiration Date Model / Serial / Lot Hip Implant Hip Implant Bilateral : Hip
--- OUTSIDE RECORDS SUMMARY | 2024-07-27 08:22 | XMS_ITS | Clinical Summary ---
Author Organization [employer] [facility] Address [place], [place] [address] Care Team Providers Care Typecasting Machine Operator Name Role Phone Christin Kelsey MD [...] Description 06/05/2024 7:45 AM CDT Procedure Only [facility] [address] [place] [address] Jb Tapia MD Procedure (USGI for Rt Hip by Jose Wyatt... 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 [address] [place] [phone] Carlos Marroquin MD Questions (APPOINTMENT ) from [...] CDT This radiology exam was performed at [place] and interpreted by Carlos Marroquin MD HISTORY: [...] with no obvious evidence of loosening. Good anabaptist of leg length, hip center and offset. No evidence of acute fracture or dislocation. Carlos ROBERTSONIN G from Last 3 Months Care Teams Typecasting Machine Operator Relationship Specialty Start Date End Date Christin Kelsey MD [address] [facility] [place] [address] PCP - General Family Practice 11/14/23
--- OUTSIDE RECORDS SUMMARY | 2024-07-27 08:23 | XMS_ITS | Encounter Summary ---
Author Organization [facility] Address [address] [place] [address] Care Team Providers Care Director Broadcast Name Role Phone Unavailable Primary Care Provider Unavailabl e Encounter Details Date Type Department Care Team (Late st Contact Info) Description 05/06/2024 Clinical Communication Department of Spine in [place], [place] [address] [place] [phone] Provider, Unknown Social History Tobacco Use Types [...] 7:00 AM CDT Appointment Department of Radiology, [facility] in [place], [place] [address] [place] [phone] Emerald Hand APRN, C.N.P., D.N.P., M.S.N. 08/03/2024 7:15 AM CDT Appointment Department of Radiology, [facility], in [place], [place] [address] [place] [phone] Emerald Hand APRN, C.N.P., D.N.P., M.S.N. 08/03/2024 9:00 AM CDT Comprehensive Visit Department of Spine in [place], [place] [address] [place] [phone] Mike Quintero D.O. [address] [place] [address] 08/03/2024 1:00 PM CDT Comprehensive Visit Department of Orthopedic Surgery in [place], [place] [address] [place] [address] Oneal Garcia M.D. [address] [place] [phone] 08/04/2024 8:00 AM CDT Comprehensive Visit Division of Endocrinology in [place], [place] [address] [place] [address] 08/04/2024 10:00 AM CDT Clinical Support Department of Nutrition and Diabetes Education in [place], [place] [address] [place] [phone] Tita Doherty M.S.N., R.N., [facility] [address] [place] [phone] documented as of this encounter Visit Diagnoses Not on filedocumented in this encounter
--- OUTSIDE RECORDS SUMMARY | 2024-07-27 08:23 | XMS_ITS | Encounter Summary ---
Author Organization [facility] Address [address] [place] [address] Care Team Providers Care Library Specialist Name Role Phone Unavailable Primary Care Provider Unavailabl e Reason for Visit * Appointment Request (Routine) - Closed Specialty Diagnoses / Procedures Referred By Mireya garza Referred To Contact Nephrology and Hypertension Referral ID Status Reason Start Date Expiration Date Visits Re quested Visits Authorized [id number] Closed 04/03/2024 04/03/2025 1 1 Encounter Details Date Type Department Care Team (Latest Contact Info) Description 05/11/2024 2:30 PM CDT External Outreach Division of Nephrology and Hypertension in [place], [place] [address] [place] [address] Humberto Cho Jr., D.O. [address] [place] [phone] Chronic Kidney Disease (CKD), Stage 3b Glomerular [...] Provider: Dr. Castillo SUBJECTIVE REASON FOR VISIT [place] out reach CKD Clinic Follow-up regards CKD, [...] was seeing a spine center in the [facility] who mentioned that he has spondylolisthesis, and [...] blood work in 2 weeks here in [place], to evaluate any change in his serum [...] 7:00 AM CDT Appointment Department of Radiology, [facility], in [place], [place] [address] [place] [address] Emerald Hand APRN, Elliott.N.P., D.N.P., M.S.N. 08/03/2024 7:15 AM CDT Appointment Department of Radiology, [facility], in [place], [place] [address] [place] [address] Emerald Hand APRN C.N.P., D.N.P., M.S.N. 08/03/2024 9:00 AM CDT Comprehensive Visit Department of Spine in [place], [place] [address] [place] [phone] Mike Quintero D.O. [address] [place] [phone] 08/03/2024 1:00 PM CDT Comprehensive Visit Department of Orthopedic Surgery in [place], [place] [address] [place] [address] Oneal Garcia M.D. [address] [place] [address] 08/04/2024 8:00 AM CDT Comprehensive Visit Division of Endocrinology in [place], [place] [address] [place] [phone] 08/04/2024 10:00 AM CDT Clinical Support Department of Nutrition and Diabetes Education in [place], [place] [address] [place] [address] Tita Doherty M.S.N., R.N., [facility] [address] [place] [phone] documented as of this encounter Visit Diagnoses [...]
--- OUTSIDE RECORDS SUMMARY | 2024-07-27 08:23 | XMS_ITS | Referral Summary ---
Author Organization [facility] Address [address] [place] [address] Care Team Providers Care Human Resource Assistant Name Role Phone Unavailable Primary Care Provider Unavailabl e Source Comments Patient records contain information from all sites at [facility]. For routine questions regarding patient records, call [phone] during business hours, M-F 8:00 AM - 5:00 PM Central Time. Record requests for emergency care only can be directed to [phone] at any time.[facility] Encounters Date Type Department Care Team Description 07/22/2024 11:45 AM CDT Clinical Communication Virtual Review in [place], [place] 200 [place] [address] 07/21/2024 Documentation Division of Nephrology and Hypertension in [place], [place] [address] [place] [phone] Humberto Cho Jr., D.O. 07/21/2024 Orders Only Division of Nephrology and Hypertension in [address] [phone] Humberto Cho Jr., D.O. 05/14/2024 Orders Only Department of Neurologic Surgery in [address] [phone] Emerald Hand APRN, C.N.P., D.N.P., M.S.N. Pain Low Back Unspecified (Primary Dx) 05/11/2024 2:30 PM CDT External Outreach Division of Nephrology and Hypertension in [place], [place] [address] [place] [phone] Humberto Cho Jr., D.O. Chronic Kidney Disease (CKD), Stage 3b Glomerular Filtration Rate (GFR) 30 To 44 (HCC) (Primary Dx); Hypertensive Chronic Kidney Disease (CKD) Stage 3b Glomerular Filtration Rate (GFR) 30 To 44; Diabetes Mellitus Type 2 (HCC); Atrial Fibrillation Paroxysmal (HCC); Hyperparathyroidism Renal Secondary (HCC); Apnea Sleep Obstructive; Pain Back Lumbar 05/06/2024 Clinical Communication Department of Spine in [place], [place] [address] [place] [address] Provider, Unknown 05/01/2024 Refill Division of Nephrology and Hypertension in [place], [place] [address] [place] [address] Humberto Cho Jr., D.O. Med Refill 04/28/2024 Clinical Communication Department of Spine in [place], [place] [address] [place] [address] Prescheduling, Provider 04/28/2024 Orders Only Division of Endocrinology in [place], [place] [address] [place] [address] [facility], Provider, MAyush., Ph.D. Type 2 diabetes mellitus [...] 500 mg by mouth daily. 09/03/2023 Active td-ezf-epiuw-K1- lycopen-lutein (Centrum Silver Men) 116-31-105-300 mcg tablet Take 1 tablet by mouth [...] 7:00 AM CDT Appointment Department of Radiology, [facility], in [place], [place] [address] [place] [address] Emerald Hand APRN, C.NSamantha, Maximo.N.P., M.S.N. 08/03/2024 7:15 AM CDT Appointment Department of Radiology, [facility], in [place], [place] [address] [place] [address] Emerald Hadn APRN, C.N.P., Maximo.N.P., M.S.N. 08/03/2024 9:00 AM CDT Comprehensive Visit Department of Spine in [place], [place] [address] [place] [phone] Mike Quintero D.O. [address] [place] [phone] 08/03/2024 1:00 PM CDT Comprehensive Visit Department of Orthopedic Surgery in [place], [place] [address] [place] [phone] Oneal Garcia M.D. [address] [place] [phone] 08/04/2024 8:00 AM CDT Comprehensive Visit Division of Endocrinology in [place], [place] [address] [place] [phone] 08/04/2024 10:00 AM CDT Clinical Support Department of Nutrition and Diabetes Education in [place], [place] [address] [place] [phone] Tita Doherty M.S.N., R.N., [facility] [address] [place] [phone] Medical Devices Implanted Type Area Paint Supervisor Device Identifier Shelf Expiration Date Model / Serial / Lot Hip Implant Hip Implant Bilateral : Hip
--- OUTSIDE RECORDS SUMMARY | 2024-07-27 08:23 | XMS_ITS | Encounter Summary ---
Author Organization [facility] Address [address] [place] [address] Care Team Providers Care Childcare Director Name Role Phone Unavailable Primary Care Provider Unavailabl e Encounter Details Date Type Department Care Team (Late st Contact Info) Description 04/28/2024 Clinical Communication Department of Spine in [place], [place] [address] [place] [phone] Prescheduling, Provider Social History Tobacco Use Types [...] 7:00 AM CDT Appointment Department of Radiology, [facility], in [place], [place] [address] [place] [phone] Emerald Hand, CHRISTELLE, C.N.P., D.N.P., M.S.N. 08/03/2024 7:15 AM CDT Appointment Department of Radiology, [facility], in [place], [place] [address] [place] [phone] Emerald Hand APRN, C.NLexP., Maximo.N.P., M.S.N. 08/03/2024 9:00 AM CDT Comprehensive Visit Department of Spine in [place], [place] [address] [place] [phone] Mike Quintero D.O. [address] [place] [phone] 08/03/2024 1:00 PM CDT Comprehensive Visit Department of Orthopedic Surgery in [place], [place] [address] [place] [phone] Oneal Garcia M.D. [address] [place] [phone] 08/04/2024 8:00 AM CDT Comprehensive Visit Division of Endocrinology in [place], [place] [address] [place] [phone] 08/04/2024 10:00 AM CDT Clinical Support Department of Nutrition and Diabetes Education in [place], [place] [address] [place] [phone] Tita Doherty M.S.N., R.N., [facility] [address] [place] [phone] documented as of this encounter Visit Diagnoses Not on filedocumented in this encounter
--- OUTSIDE RECORDS SUMMARY | 2024-07-27 08:23 | XMS_ITS | Encounter Summary ---
Author Organization [facility] Address [address] [place] [address] Care Team Providers Care Ruby Developer Name Role Phone Unavailable Primary Care Provider Unavailabl e Encounter Details Date Type Department Care Team (Late st Contact Info) Description 07/21/2024 Orders Only Division of Nephrology and Hypertension in [place], [place] [address] [place] [phone] Humberto Cho Jr., D.OLex [address] [place] [phone] Social History Tobacco Use Types Packs/Day Years [...] 7:00 AM CDT Appointment Department of Radiology, [facility], in [place], [place] [address] [place] [phone] Emerald Hand APRN, C.N.P., D.N.P., M.S.N. 08/03/2024 7:15 AM CDT Appointment Department of Radiology, [facility], in [place], [place] [address] [place] [phone] Emerald Hand APRN, C.N.P., D.N.P., M.S.N. 08/03/2024 9:00 AM CDT Comprehensive Visit Department of Spine in [place], [place] [address] [place] [phone] Mike Quintero D.O. [address] [place] [phone] 08/03/2024 1:00 PM CDT Comprehensive Visit Department of Orthopedic Surgery in [place], [place] [address] [place] [phone] Oneal Garcia M.D. [address] [place] [phone] 08/04/2024 8:00 AM CDT Comprehensive Visit Division of Endocrinology in [place], [place] [address] [place] [phone] 08/04/2024 10:00 AM CDT Clinical Support Department of Nutrition and Diabetes Education in [place], [place] [address] [place] [phone] Tita Doherty M.S.N., R.N., [facility] [address] [place] [phone] documented as of this encounter Visit Diagnoses Not on filedocumented in this encounter
--- OUTSIDE RECORDS SUMMARY | 2024-07-27 08:23 | XMS_ITS | Encounter Summary ---
Author Organization [facility] Address [address] [place] [address] Care Team Providers Care Full Time Babysitter Name Role Phone Unavailable Primary Care Provider Unavailabl e Encounter Details Date Type Department Care Team (Latest Contact Info) Description 07/22/2024 11:45 AM CDT Clinical Communication Virtual Review in [place], [place] 200 [place] [address] Social History Tobacco Use Types Packs/Day Years [...] 7:00 AM CDT Appointment Department of Radiology, [facility], in [place], [place] [address] [place] [phone] Emerald Hand APRN, C.N.P., D.N.P., M.S.N. 08/03/2024 7:15 AM CDT Appointment Department of Radiology, [facility], in [place], [place] [address] [place] [phone] Emerald Hand APRN, C.N.P., D.N.P., M.S.N. 08/03/2024 9:00 AM CDT Comprehensive Visit Department of Spine in [address] [phone] Mike Quintero D.O. [address] [place] [phone] 08/03/2024 1:00 PM CDT Comprehensive Visit Department of Orthopedic Surgery in [place], [place] [address] [place] [phone] Oneal Garcia M.D. [address] [place] [phone] 08/04/2024 8:00 AM CDT Comprehensive Visit Division of Endocrinology in [place], [place] [address] [place] [phone] 08/04/2024 10:00 AM CDT Clinical Support Department of Nutrition and Diabetes Education in [place], [place] [address] [place] [phone] Tita Doherty M.S.N., R.N., [facility] [address] [place] [phone] documented as of this encounter Visit Diagnoses Not on filedocumented in this encounter
--- OUTSIDE RECORDS SUMMARY | 2024-07-27 08:23 | XMS_ITS | Encounter Summary ---
Author Organization [facility] Address [address] [place] [address] Care Team Providers Care Chip Loft Worker Name Role Phone Unavailable Primary Care Provider Unavailabl e Reason for Visit * Reason Comments Med Refill Encounter Details Date Type Department Care Team (Late Contact Info) Description 05/01/2024 Refill Division of Nephrology and Hypertension in [place], [place] [address] [place] [phone] Humberto Cho Jr., D.O. [address] [place] [phone] Med Refill Social History Tobacco Use Types [...] 7:00 AM CDT Appointment Department of Radiology, [facility], in [place], [place] [address] [place] [phone] Emerald Hand APRN, C.N.P., D.N.P., M.S.N. 08/03/2024 7:15 AM CDT Appointment Department of Radiology, [facility], in [place], [place] [address] [place] [phone] Emerald Hand APRN, C.N.P., D.N.P., M.S.N. 08/03/2024 9:00 AM CDT Comprehensive Visit Department of Spine in [place], [place] [address] [place] [phone] Mike Quintero D.O. [address] [place] [phone] 08/03/2024 1:00 PM CDT Comprehensive Visit Department of Orthopedic Surgery in [place], [place] [address] [place] [phone] Oneal Garcia M.D. [address] [place] [phone] 08/04/2024 8:00 AM CDT Comprehensive Visit Division of Endocrinology in [place], [place] [address] [place] [phone] 08/04/2024 10:00 AM CDT Clinical Support Department of Nutrition and Diabetes Education in [place], [place] [address] [place] [phone] Tita Doherty M.S.N., R.N., [facility] [address] [place] [phone] documented as of this encounter Visit Diagnoses Not on filedocumented in this encounter
--- OUTSIDE RECORDS SUMMARY | 2024-07-27 08:23 | XMS_ITS | Encounter Summary ---
Author Organization [facility] Address [address] [place] [address] Care Team Providers Care Ramp Manager Name Role Phone Unavailable Primary Care Provider Unavailabl e Reason for Referral * Outpatient (Routine) - Authorized Specialty Diagnoses / Procedures Referred By Contac t Referred To Contact Diagnoses Pain Low Back Unspecified Procedures DX Lumbar Spine 4+ Views Emerald Hand APRN, C.N.P., D.N.P., M.S.N. [facility] Referral ID Status Reason Start Date Expiration Date V isits Requested Visits Authorized [id number] Authorized 05/14/2024 05/14/2025 1 1 * Outpatient (Routine) - Authorized Specialty Diagnoses / Procedures Referred By Contac t Referred To Contact Diagnoses Pain Low Back Unspecified Procedures DX Entire Spine Scoliosis 2-3 Views Emerald Hand APRN C.N.P., D.N.P., M.S.N. [facility] Referral ID Status Reason Start Date Expiration Date V isits Requested Visits Authorized [id number] Authorized 05/14/2024 05/14/2025 1 1 Encounter Details Date Type Department Care Team (Late st Contact Info) Description 05/14/2024 Orders Only Department of Neurologic Surgery in [place], [place] [address] [place] [phone] Emerald Hand APRN, C.N.Jacquelyn, Maximo.N.P., M.S.N. Pain [...] 7:00 AM CDT Appointment Department of Radiology, [facility] in [place], [place] [address] [place] [phone] Emerald Hand APRN, C.N.Jacquelyn, Maximo.N.P., M.S.N. 08/03/2024 7:15 AM CDT Appointment Department of Radiology, [facility], in [address] [phone] Emerald Hand APRN, C.N.Santiago., Maximo.N.P., M.S.N. 08/03/2024 9:00 AM CDT Comprehensive Visit Department of Spine in [address] [phone] Mike Quintero D.O. [address] [place] [phone] 08/03/2024 1:00 PM CDT Comprehensive Visit Department of Orthopedic Surgery in [address] [phone] Oneal Garcia M.D. [address] [place] [phone] 08/04/2024 8:00 AM CDT Comprehensive Visit Division of Endocrinology in [place], [place] [address] [place] [phone] 08/04/2024 10:00 AM CDT Clinical Support Department of Nutrition and Diabetes Education in [place], [place] [address] [place] [address] Tita Doherty M.SUrsula., R.N., [facility] [address] [place] [address] Scheduled Orders Name Type Priority Associated Diagnoses [...]
--- OUTSIDE RECORDS SUMMARY | 2024-07-27 08:23 | XMS_ITS | Encounter Summary ---
Author Organization [facility] Address [address] [place] [address] Care Team Providers Care Buncher Hand Name Role Phone Unavailable Primary Care Provider Unavailabl e Encounter Details Date Type Department Care Team (Late st Contact Info) Description 07/21/2024 Documentation Division of Nephrology and Hypertension in [place], [place] [address] [place] [address] Humberto Cho Jr., D.O. [address] [place] [address] Social History Tobacco Use Types Packs/Day Years [...] 10:50 AM CDT Care coordination- email from [facility] Thanks Please ask him to [...] 7:00 AM CDT Appointment Department of Radiology, [facility], in [place], [place] [address] [place] [phone] Emerald Hand APRN, C.NSamantha, Maximo.N.P., M.S.N. 08/03/2024 7:15 AM CDT Appointment Department of Radiology, [facility], in [place], [place] [address] [place] [phone] Emerald Hand APRN, C.N.Santiago., Maximo.N.P., M.S.N. 08/03/2024 9:00 AM CDT Comprehensive Visit Department of Spine in [place], [place] [address] [place] [phone] Mike Quintero D.O. [address] [place] [phone] 08/03/2024 1:00 PM CDT Comprehensive Visit Department of Orthopedic Surgery in [place], [place] [address] [place] [phone] Oneal Garcia M.D. [address] [place] [phone] 08/04/2024 8:00 AM CDT Comprehensive Visit Division of Endocrinology in [place], [place] [address] [place] [phone] 08/04/2024 10:00 AM CDT Clinical Support Department of Nutrition and Diabetes Education in [place], [place] [address] [place] [phone] Tita Doherty M.S.N., R.N., [facility] [address] [place] [phone] documented as of this encounter Visit Diagnoses Not on filedocumented in this encounter
--- OUTSIDE RECORDS SUMMARY | 2024-07-27 08:23 | XMS_ITS ---
Author Organization [facility] Address [address] [place] [address] Care Team Providers Care Senior Naval Parachutist Name Role Phone Unavailable Unavailable Unavailable Surgery Details Not on file Complications Check Surgery Details section. Procedure Estimated Blood Loss Check Surgery Details section. Procedure Findings Check Surgery Details section. Procedure Specimens Taken Check Surgery Details section.
--- OUTSIDE RECORDS SUMMARY | 2024-07-27 08:23 | XMS_ITS | Encounter Summary ---
Author Organization [facility] Address [address] [place] [address] Care Team Providers Care Title Checker Name Role Phone Unavailable Primary Care Provider Unavailabl e Encounter Details Date Type Department Care Team (Late st Contact Info) Description 04/28/2024 Orders Only Division of Endocrinology in [place], [place] [address] [place] [phone] [facility], Provider, MLulú, Ph.D. Type 2 diabetes mellitus [...] 7:00 AM CDT Appointment Department of Radiology, [facility], in [place], [place] [address] [place] [address] Emerald Hand APRN, C.N.P., D.N.P., M.S.N. 08/03/2024 7:15 AM CDT Appointment Department of Radiology, [facility], in [place], [place] [address] [place] [address] Emerald Hand APRN, C.N.P., D.N.P., M.S.N. 08/03/2024 9:00 AM CDT Comprehensive Visit Department of Spine in [place], [place] [address] [place] [address] Mike Quintero D.O. [address] [place] [phone] 08/03/2024 1:00 PM CDT Comprehensive Visit Department of Orthopedic Surgery in [place], [place] [address] [place] [phone] Oneal Garcia M.D. [address] [place] [address] 08/04/2024 8:00 AM CDT Comprehensive Visit Division of Endocrinology in [place], [place] [address] [place] [phone] 08/04/2024 10:00 AM CDT Clinical Support Department of Nutrition and Diabetes Education in [place], [place] [address] [place] [phone] Tita Doherty M.S.N., R.N., [facility] [address] [place] [phone] documented as of this encounter Visit Diagnoses Diagnosis Type 2 diabetes mellitus documented in this encounter
== END 2024-07-27 08:19 | disposition home or self-care (01) ==
LOC: WOUND 08:18
PROVIDERS: PCP Family Medicine; Visit Provider Nurse Practitioner Family
DX: I87.333 Chronic venous hypertension (idiopathic) with ulcer and inflammation of bilateral lower extremity (principal); L97.822 Non-pressure chronic ulcer of other part of left lower leg with fat layer exposed; L97.312 Non-pressure chronic ulcer of right ankle with fat layer exposed; I89.0 Lymphedema, not elsewhere classified; E11.9 Type 2 diabetes mellitus without complications; Z79.4 Long term (current) use of insulin; Z79.84 Long term (current) use of oral hypoglycemic drugs
CPT/HCPCS: 11042; G0463

== ENCOUNTER 2024-08-10 12:43 | Outpatient (CLI) | payer MEDICARE, SELFPAY ==
--- OUTSIDE RECORDS SUMMARY | 2024-08-10 12:45 | XMS_ITS ---
Author Organization [facility] Address [address] [place] [address] Care Team Providers Care Picture Hanger Name Role Phone Unavailable Unavailable Unavailable Surgery Details Not on file Complications Check Surgery Details section. Procedure Estimated Blood Loss Check Surgery Details section. Procedure Findings Check Surgery Details section. Procedure Specimens Taken Check Surgery Details section.
--- OUTSIDE RECORDS SUMMARY | 2024-08-10 12:45 | XMS_ITS | Clinical Summary ---
Author Organization [facility] Address [address] [place] [address] Care Team Providers Care Plaster Model And Mold Maker Name Role Phone Unavailable Primary Care Provider Unavailabl e Source Comments Patient records contain information from all sites at [facility]. For routine questions regarding patient records, call [phone] during business hours, M-F 8:00 AM - 5:00 PM Central Time. Record requests for emergency care only can be directed to [phone] at any time.[facility] Allergies Active Allergy Reactions Criticality Noted [...] Tetracycline Rash,Other (see comments) 09/30/20 23 Medications rivaroxaban (XARELTO) 20 mg tablet Take 1 tablet (20 mg total) by mouth daily with dinner. 90 tablet 3 3 09/29/20 24 Active potassium chloride (KLORCON/K-TAB ) 10 mEq ER tablet Take 1 tablet (10 mEq total) by mouth as directed. Do not crush or chew. 2 on MWF, 1 rest of days 130 tablet 3 12/11/202 3 Active allopurinol 100 mg oral capsule 100 mg daily. Active glipiZIDE (GLUCOTROL XL) 5 mg 24 hr tablet Take 5 mg by mouth daily with breakfast. Active tamsulosin (FLOMAX) 0.4 mg 24 hr capsule Take 1 capsule (0.4 mg total) by mouth daily. 3 Active gabapentin (NEURONTIN) 600 mg tablet Take 1 tablet (600 mg total) by mouth 3 (three) times a day. 3 Active amiodarone (PACERONE) 200 mg tablet Take 1 tablet (200 mg total) by mouth daily. 3 Active atorvastatin (LIPITOR) 10 mg tablet Take 1 tablet (10 mg total) by mouth daily. 3 Active ALPRAZolam (XANAX) 0.5 mg tablet Take 1 tablet (0.5 mg total) by mouth at bedtime as needed for anxiety. 3 Active insulin glargine (Lantus Solostar U-100 Insulin) 100 unit/mL (3 mL) injection Inject 20 Units under the skin at bedtime. Pharmacy select brand per patient insurance/prefe rence. 3 Active Additional Information Patient taking differently:20 Units subcutaneousDaily, Pharmacy select brand per patient insurance/preference., Reported on 08/07/2024 metFORMIN (Glucophage) 1,000 mg tablet Take 0.5 tablets (500 mg total) by mouth 2 (two) times a day with meals. 90 tablet 3 4 05/05/20 25 Active metoprolol succinate (Toprol XL) 50 mg 24 hr tablet Take 0.5 tablets (25 mg total) by mouth daily. Do not crush or chew. 4 05/11/20 25 Active losartan (Cozaar) 25 mg tablet Take 1 tablet (25 mg total) by mouth daily. 90 tablet 3 4 05/11/20 25 Active allopurinoL (Zyloprim) 100 mg tablet Take 100 mg by mouth daily. 4 Active Accu-Chek Barbara Plus test strp use to test once daily 4 Active levothyroxine 100 mcg tablet Take 100 mcg by mouth daily. Active cinnamon bark 500 mg capsule Take 500 mg by mouth daily. 3 Active pr-ujy-cucgn-K 9-npspkkr-pbpw in (Centrum Silver Men) 149-41-239-300 mcg tablet Take 1 tablet by mouth daily. 3 Active furosemide (LASIX) 20 mg tablet Take 1 tablet (20 mg total) by mouth as directed. 40 mg on MWF, 20 mg other days 130 tablet 3 3 07/21/20 24 Discontin ued(Alter jc therapy) Active Problems Problem Noted Date Diagnosed [...] Encounters Date Type Department Care Team Description 08/07/2024 1:19 PM CDT - 08/07/2024 11:59 PM CDT Hospital Encounter Department of Radiology, [facility], in [place], [place] [address] [place] [address] Mic Ambrocio M.D. Tiegs-Heiden, Christin A, M.D. Spondylolisthesis Lumbar Region Discharge Disposition: Home or Self Care 08/04/2024 4:30 PM CDT External Outreach Division of Nephrology and Hypertension in [place], [place] [address] [place] [address] Humberto Cho Jr., D.O. Chronic Kidney Disease (CKD), Stage 3b Glomerular Filtration Rate (GFR) 30 To 44 (HCC) (Primary Dx); Hypertensive Chronic Kidney Disease With Stage 1 Through Stage 4 Chronic Kidney Disease, Or Unspecified Chronic Kidney Disease; Diabetes Mellitus Type 2 (HCC); Apnea Sleep Obstructive; Hyperparathyroidism Renal Secondary (HCC); Gout; Hypothyroidism Acquired; Anticoagulant Therapy; Atrial Fibrillation Paroxysmal (HCC); Pain Back Lumbar 08/04/2024 9:30 AM CDT Comprehensive Visit Division of Endocrinology in [place], [place] [address] [place] [phone] Aniket Goldberg M.B.BSofia Diabetes Mellitus Type 2 (HCC) (Primary Dx) 08/04/2024 Orders Only Department of Orthopedic Surgery in [place], [place] [address] [place] [phone] Oneal Garcia M.D. Spondylolisthesis Lumbar Region (Primary Dx); Stenosis Spinal Lumbar With Neurogenic Claudication; Radiculopathy Lumbar; Preoperative Exam 08/03/2024 1:00 PM CDT Comprehensive Visit Department of Orthopedic Surgery in [place], [place] [address] [place] [phone] Oneal Garcia M.D. Spondylolisthesis Lumbar Region (Primary Dx) 08/03/2024 9:00 AM CDT Comprehensive Visit Department of Spine in [place], [place] [address] [place] [phone] Mike Quintero D.O. Spondylolisthesis Lumbar Region (Primary Dx); Stenosis Spinal Lumbar With Neurogenic Claudication; Radiculopathy Lumbar; Pain In Right Lower Leg; Facet Syndrome; Pain Sacroiliac 08/03/2024 6:30 AM CDT - 08/03/2024 11:59 PM CDT Hospital Encounter Department of Radiology, [place], [place] [address] [place] [phone] Emerald Hand APRN, C.N.P., D.N.P., M.S.N. Pain Low Back Unspecified Discharge Disposition: Home or Self Care 08/03/2024 6:30 AM CDT - 08/03/2024 11:59 PM CDT Hospital Encounter Department of Radiology, [facility], in [place], [place] [address] [place] [phone] Emerald Hand APRN, C.N.P., D.N.P., M.S.N. Pain Low Back Unspecified Discharge Disposition: Home or Self Care 08/03/2024 Orders Only Preoperative Evaluation Center in [place], [place] [address] [place] [address] Aishwarya Macias MPAS, P.A.-C. Preanesthetic Medical Exam (Primary Dx); Diabetes Mellitus Type 2 With Diabetic Chronic Kidney Disease (HCC) 07/30/2024 Orders Only Division of Endocrinology in [place], [place] [address] [place] [phone] [facility] Type 2 diabetes mellitus 07/22/2024 11:45 AM CDT Clinical Communication Virtual Review in [place], [place] [address] [place] [address] 07/21/2024 Documentation Division of Nephrology and Hypertension in [address] [phone] Humberto Cho Jr., D.O. 07/21/2024 Orders Only Division of Nephrology and Hypertension in [place], [place] [address] [place] [phone] Humberto Cho Jr., D.O. 05/14/2024 Orders Only Department of Neurologic Surgery in [place], [place] [address] [place] [phone] Emerald Hand APRN, C.N.P., D.N.P., M.S.N. Pain Low Back Unspecified (Primary Dx) 05/11/2024 2:30 PM CDT External Outreach Division of Nephrology and Hypertension in [place], [place] [address] [place] [phone] Humberto Cho Jr., D.O. Chronic Kidney Disease (CKD), Stage 3b Glomerular Filtration Rate (GFR) 30 To 44 (HCC) (Primary Dx); Hypertensive Chronic Kidney Disease (CKD) Stage 3b Glomerular Filtration Rate (GFR) 30 To 44; Diabetes Mellitus Type 2 (HCC); Atrial Fibrillation Paroxysmal (HCC); Hyperparathyroidism Renal Secondary (HCC); Apnea Sleep Obstructive; Pain Back Lumbar from Last 3 Months Social History Tobacco Use Types Packs/Day Years Used Date Smoking Tobacco: Never Smokeless Tobacco: Never [facility] Utilities Answer Date Recorded In the past 12 months has th e [employer], [employer], oil, or water [employer] threatened to shut off services in your home? No 07/30/2024 Exercise Vital Sign Answer Date Recorde d On average, how many days pe r week do you engage in moderate to strenuous exercise (like a brisk walk)? 0 days 07/30/2024 On average, how many minutes do you engage in exercise at this level? 0 min 07/30/2024 Hunger Vital Sign Answer Date Recorded Within the past 12 months, y ou worried that your food would run out before you got the money to buy more. Never true 07/30/20 Within the past 12 months, t he food you bought just didn't last and you didn't have money to get more. Never true 07/30/2024 PRAPARE - Transportation Answer Date Re corded In the past 12 months, has l ack of transportation kept you from medical appointments or from getting medications? No 07/21 In the past 12 months, has l ack of transportation kept you from meetings, work, or from getting things needed for daily living? No 07/30/2024 Nutrition Answer Date Recorded On average, how many serving s of fruits and vegetables do you eat per day (serving size is equal to 1 cup or approximately the size of a tennis ball)? 0-2 07/30/2024 Dental Answer Date Recorded Dental: Regular Dentist No 07/30/20 Employment Answer Date Recorded Employment status Retired 07/30/2024 Housing Stability Answer Date Recorded What is your living situation today? I have a [facility] place to live 07/30/2024 Sex and Gender Information Value Date Recorded Sex Assigned at Male 07/30/2024 1:05 PM CDT Legal Sex Male 8:38 AM ALUMINA REFINERY OPERATOR Gender Identity Male 07/30/2024 1:05 PM CDT Sexual Orientation Straight 07/30/2024 1: 05 PM CDT Last Filed Vital Signs Vital Sign Reading Time Taken Comments Blood Pressure 157/66 08/07/2024 2:38 PM CDT Pulse 62 08/07/2024 2:38 PM CDT Temperature 36.4 ??C (97.5 ??F) 08/07/2024 1:51 PM CD T Respiratory Rate - - Oxygen Saturation 100% 08/07/2024 2:38 PM CDT Inhaled Oxygen Concentration - - Weight 97.9 kg (215 lb 13.3 oz) 08/04/2024 4:30 PM CDT Height 175 cm (5' 8.9) 08/04/2024 4:30 PM CDT Body Mass Index 31.97 08/04/2024 4:30 PM CDT Plan of Treatment Upcoming Encounters Date Type Department Care Team (Latest Contact Info) Description 10/16/2024 9:15 AM ALUMINA REFINERY OPERATOR Clinical Communication Virtual Review in [place], [place] [address] [place] [phone] 10/16/2024 11:00 AM ALUMINA REFINERY OPERATOR Virtual Visit Department of Social Work in [place], [place] [address] [place] [phone] Oneal Garcia M.D. [address] [place] [phone] 10/20/2024 8:00 AM ALUMINA REFINERY OPERATOR Appointment Department of Radiology[address] [phone] Oneal Garcia M.D. [address] [place] [phone] 10/20/2024 9:00 AM ALUMINA REFINERY OPERATOR [facility] [address] [phone] Oneal Garcia M.D. [address] [place] [phone] 10/20/2024 10:15 AM ALUMINA REFINERY OPERATOR Appointment Department of Radiology, [facility] in [address] [phone] Oneal Garcia M.D. [address] [place] [phone] 10/20/2024 10:40 AM ALUMINA REFINERY OPERATOR Lab Department of Laboratory Medicine and Pathology, [facility], in [place], [place] [address] [place] [phone] Oneal Garcia M.D. [address] [place] [phone] 10/20/2024 12:20 PM ALUMINA REFINERY OPERATOR Ancillary Procedure Department of Cardiovascular Medicine in [place], [place] [address] [place] [phone] Aishwarya Macias MPAS, P.A.-CLex [address] [place] [phone] 10/20/2024 1:00 PM ALUMINA REFINERY OPERATOR Comprehensive Visit Preoperative Evaluation Center in [place], [place] [address] [place] [phone] Mic Ambrocio M.D. [address] [place] [phone] 10/20/2024 2:00 PM ALUMINA REFINERY OPERATOR Office Visit Department of Orthopedic Surgery in [place], [place] [address] [place] [phone] Oneal Garcia M.D. [address] [place] [phone] Erin Cunningham, RLexNLex 10/22/2024 7:50 AM ALUMINA REFINERY OPERATOR Hospital Encounter Post Anesthesia Care Unit in [place] [id number] [place] [phone] nOeal Garcia M.D. [address] [place] [phone] 10/22/2024 7:50 AM ALUMINA REFINERY OPERATOR - 10/22/2024 2:52 PM ALUMINA REFINERY OPERATOR Surgery RST ROMB MAIN OR [facility] [place] [phone] Oneal Garcia M.D. [address] [place] [phone] DECOMPRESSION POSTERIOR LUMBAR AND INSTRUMENTED FUSION L4-L5 Scheduled Procedures Name Priority Associated Diagnoses Date/Ti me DECOMPRESSION POSTERIOR LUMBAR AND INSTRUMENTED FUSION Stenosis Spinal Lumbar With Neurogenic Claudication 10/22/2024 7:50 AM ALUMINA REFINERY OPERATOR Health Maintenance Due Date Last Done Comments [...] series) 2019 Depression Screening (Annual PHQ-2) 10/21/2023 COVID-19 Vaccine (4 - 2023-2 5 season) 2024 07/20/2022, 01/04/2021, 12/14/2020 Office Visit for Blood Press ure Check / Re-check 11/04/2024 08/04/2024 DTaP,Tdap,and Td Vaccines (2 - Td or Tdap) 02/12/2026 02/13/2016 Pneumococcal vaccine (65+ years) Completed 08/14/20 17, 11/30/2014 Influenza Vaccine Completed 07/23/2024, , 07/20/2022, Additional history exists Fall Risk Screen (Annual) Completed 08/07/2024 Medical Devices Implanted Type Area Eyeglass Assembler Device Identifier Shelf Expiration Date Model / Serial / Lot Hip Implant Hip Implant Bilateral : Hip Procedures Procedure Name Priority Date/Time Associated Diagnosis Comments FL LUMBAR SPINE TRANSFORAMINAL EPIDURAL INJECTION RIGHT RAD - Routine (most inpatients and all outpatients) 08/07/2024 2:34 PM CDT Spondylolisthesis Lumbar Region DX LUMBAR SPINE 4+ VIEWS RAD - Routine (most inpatients and all outpatients) 08/03/2024 7:28 AM CDT Pain Low Back Unspecified DX ENTIRE SPINE SCOLIOSIS 2-3 VIEWS RAD - Routine (most inpatients and all outpatients) 08/03/2024 7:28 AM CDT Pain Low Back Unspecified from Last 3 Months Results * FL Lumbar Spine Transforaminal Epidural Injection Right (08/07/2024 2:34 PM CDT) Impressions [id number] - 08/07/2024 2:45 PM CDT Fluoroscopically-guided right L4 transforaminal epidural steroid injection. NR Narrative [id number] - 08/07/2024 2:45 PM CDT EXAM: FL LUMBAR SPINE TRANSFORAMINAL EPIDURAL INJECTION RIGHT PROCEDURE: ??Fluoroscopically-guided Right L4 Transforaminal Epidural Steroid Injection Pain Score: Pre-procedural pain was rated: ??7/10 ?? Post-procedural pain was rated: ??3/10 ?? Medications: Steroid: 10 mg dexamethasone Local anesthetic: ??20 mg 2% lidocaine INDICATION: ??The patient reports the current pain syndrome to be of >1 year duration and presents today for a new injection. DIAGNOSIS: Spinal stenosis, lumbar region with neurogenic claudication. TECHNIQUE: The patient's pain pattern and imaging findings were reviewed including MRI lumbar spine 04/13/2024. He has a history of low back and bilateral lower extremity pain, worst in the right buttock. MRI demonstrates advanced spinal canal stenosis at L4-5. Prior epidural steroid injections have had mixed success. Right L4 transforaminal epidural steroid injection was requested and performed today. He held his Xarelto for the procedure. ?? Using usual sterile technique, fluoroscopic guidance, and local anesthesia, a 5 inch 25-gauge spinal needle was advanced into the neural foramen using an infraneural approach. With final needle tip position, a small amount of iodinated contrast confirmed equal peripheral and central epidural flow without intrathecal uptake and with anteroposterior distribution which was not specifically assessed. Transient vascular uptake was not observed with final needle position. A test dose of preservative free lidocaine was administered. Following 2 minutes, there were no central neurologic changes. Dexamethasone was deposited in this location. The needle was cleared with lidocaine and removed. The patient experienced no complication. PREPROCEDURE: ??Patient seen and evaluated. Allergies, pertinent medications, and history reviewed. Discussed risks (including, but not limited to, bleeding, infection, nerve injury, and paralysis), benefits, alternatives for procedure, and obtained informed consent. The side and site of the procedure were marked, when applicable, at the time of consent. Patient understands information and questions answered. Immediately prior to starting the procedure, in the presence of the assisting personnel, procedural pause was conducted to verify correct patient identity and verification of procedure to be performed, and as applicable, correct side and site, correct patient position, availability of implants, special equipment, or special requirements, and all image and specimen identification data. The roles and responsibilities of care team members, residents, and fellows were discussed. Procedure Note Mackenzie Norman M.D. - 08/07/2024 EXAM: FL LUMBAR SPINE TRANSFORAMINAL EPIDURAL INJECTION RIGHT PROCEDURE: Fluoroscopically-guided Right L4 Transforaminal EpiduralSteroid Injection Pain Score: Pre-procedural pain was rated: 7/10 Post-procedural pain was rated: 3/10 Medications: Steroid: 10 mg dexamethasone Local anesthetic: 20 mg 2% lidocaine INDICATION: The patient reports the current pain syndrome to be of >1year duration and presents today for a new injection. DIAGNOSIS: Spinal stenosis, lumbar region with neurogenic claudication. TECHNIQUE: The patient's pain pattern and imaging [facility]. He has a history of low back and bilaterallower extremity pain, worst in the right buttock. MRI demonstratesadvanced spinal canal stenosis at L4-5. Prior epidural steroid injections have had mixed success. Right [id number] epidural steroid injection was requested and performedtoday. He held his Xarelto for the procedure. Using usual sterile technique, fluoroscopic guidance, and localanesthesia, a 5 inch 25-gauge spinal needle was advanced into the neuralforamen using an infraneural approach. With final needle tip position, asmall amount of iodinated contrast confirmed equal peripheral and central epidural flow without intrathecal uptake andwith anteroposterior distribution which was not specifically assessed.Transient vascular uptake was not observed with final needle position. Atest dose of preservative free lidocaine was administered. Following 2 minutes, there were no centralneurologic changes. Dexamethasone was deposited in this location. Theneedle was cleared with lidocaine and removed. The patient experienced nocomplication. PREPROCEDURE: Patient seen and evaluated. Allergies, pertinentmedications, and history reviewed. Discussed risks (including, but notlimited to, bleeding, infection, nerve injury, and paralysis), benefits,alternatives for procedure, and obtained informed consent. The side and site of the procedure were marked, whenapplicable, at the time of consent. Patient understands information andquestions answered. Immediately prior to starting the procedure, in thepresence of the assisting personnel, procedural pause was conducted to verify correct patient identity andverification of procedure to be performed, and as applicable, correct sideand site, correct patient position, availability of implants, specialequipment, or special requirements, and all image and specimen identification data. The roles andresponsibilities of care team members, residents, and fellows werediscussed. IMPRESSION: Fluoroscopically-guided right L4 transforaminal epidural steroidinjection. NR us Mic Ambrocio M.D. IMG FLUOROSCOPY PROCEDURES Fi nal Result [id number] NA * DX Lumbar Spine 4+ Views (08/03/2024 7:28 AM CDT) Anatomical Region Laterality Modality Lumbar Spine, Musculoskeleta l RST LOS, Neuroradiology ARZ LOS, Muskuloskeletal FLA LOS N/A Digital Radiography Impressions 08/03/2024 7:52 AM CDT Advanced lumbar spondylosis with multilevel degenerative disk disease, marginal hypertrophic change, and degenerative facet arthritis. Low-grade anterolisthesis of L4 on L5. No instability on flexion and extension. Anterior wedging L1. 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 Bilateral THAs. Extensive arterial calcifications. Full-length standing view of the entire spine obtained for scoliosis evaluation. Moderate-advanced thoracic spondylosis. PO left rotator cuff repair. Narrative 08/03/2024 7:52 AM CDT EXAM: ??DX ENTIRE SPINE SCOLIOSIS 2-3 VIEWS, DX LUMBAR SPINE 4+ VIEWS Procedure Note Andrés Hernandez M.D. - 08/03/2024 EXAM: DX ENTIRE SPINE SCOLIOSIS 2-3 VIEWS, DX LUMBAR SPINE 4+ VIEWS IMPRESSION: Advanced lumbar spondylosis with multilevel degenerative disk disease,marginal hypertrophic change, and degenerative facet arthritis. Low-gradeanterolisthesis of L4 on L5. No instability on flexion and extension.Anterior wedging L1. 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 BilateralTHAs. Extensive arterial calcifications. Full-length standing view of theentire spine obtained for scoliosis evaluation. Moderate-advanced thoracicspondylosis. PO left rotator cuff repair. us Emerald Hand APRN, C. N.P., D.N.P., M.S.N. IMG DIAGNOSTIC IMAGING PROCEDURES Final Result * DX Entire Spine Scoliosis 2-3 Views (08/03/2024 7:28 AM CDT) Anatomical Region Laterality Modality Spine, Musculoskeletal RST L OS, Neuroradiology ARZ LOS, Muskuloskeletal FLA LOS N/A Digital Radiography Impressions 08/03/2024 7:52 AM CDT Advanced lumbar spondylosis with multilevel degenerative disk disease, marginal hypertrophic change, and degenerative facet arthritis. Low-grade anterolisthesis of L4 on L5. No instability on flexion and extension. Anterior wedging L1. 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 Bilateral THAs. Extensive arterial calcifications. Full-length standing view of the entire spine obtained for scoliosis evaluation. Moderate-advanced thoracic spondylosis. PO left rotator cuff repair. Narrative 08/03/2024 7:52 AM CDT EXAM: ??DX ENTIRE SPINE SCOLIOSIS 2-3 VIEWS, DX LUMBAR SPINE 4+ VIEWS Procedure Note Andrés Hernandez M.D. - 08/03/2024 EXAM: DX ENTIRE SPINE SCOLIOSIS 2-3 VIEWS, DX LUMBAR SPINE 4+ VIEWS IMPRESSION: Advanced lumbar spondylosis with multilevel degenerative disk disease,marginal hypertrophic change, and degenerative facet arthritis. Low-gradeanterolisthesis of L4 on L5. No instability on flexion and extension.Anterior wedging L1. 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 BilateralTHAs. Extensive arterial calcifications. Full-length standing view of theentire spine obtained for scoliosis evaluation. Moderate-advanced thoracicspondylosis. PO left rotator cuff repair. us Emerald Elliott Hand APRN, C. N.P., D.N.P., M.S.N. IMG DIAGNOSTIC IMAGING PROCEDURES Final Result from Last [address] [facility] MEDICARE
--- OUTSIDE RECORDS SUMMARY | 2024-08-10 12:45 | XMS_ITS | Clinical Summary ---
Author Organization [employer] [facility] Address [place], [place] [address] Care Team Providers Care Speech And Language Tutor Name Role Phone Christin Kelsey MD Primary [...] Description 06/05/2024 7:45 AM CDT Procedure Only [facility] [address] [place] [address] Jb Tapia MD Procedure (USGI for Rt Hip by Jose Wyatt... 06/05/2024 Travel 05/27/2024 11:25 AM CDT Ancillary Procedure [facility] [address] [place] [address] [phone] 05/27/2024 11:00 AM CDT Office Visit [facility] [address] [place] [phone] Carlos Marroquin MD Hip Pain/problem (SOFTWARE INTERN-right hip pain) 05/27/2024 Travel 05/15/[address] [facility] [address] [place] [address] Jb Tapia MD 05/14/2024 Telephone [facility] Orthopedics - Joint Replacement [facility] [address] [facility] [address] [place] [phone] Carlos Marroquin MD Questions (APPOINTMENT ) from [...] CDT This radiology exam was performed at [place] and interpreted by Carlos Marroquin MD HISTORY: [...] with no obvious evidence of loosening. Good sabianism of leg length, hip center and offset. No evidence of acute fracture or dislocation. Carlos ROBERTSONIN G from Last 3 Months Care Teams Speech And Language Tutor Relationship Specialty Start Date End Date Christin Kelsey MD [address] [facility] [place] [address] PCP - General Family Practice 11/14/23
--- OUTSIDE RECORDS SUMMARY | 2024-08-10 12:45 | XMS_ITS | Referral Summary ---
Author Organization [facility] Address [address] [place] [address] Care Team Providers Care Director Of Advertising Sales Name Role Phone Unavailable Primary Care Provider Unavailabl e Source Comments Patient records contain information from all sites at [facility]. For routine questions regarding patient records, call [phone] during business hours, M-F 8:00 AM - 5:00 PM Central Time. Record requests for emergency care only can be directed to [phone] at any time.[facility] Encounters Date Type Department Care Team Description 08/07/2024 1:19 PM CDT - 08/07/2024 11:59 PM CDT Hospital Encounter Department of Radiology, [facility], in [place], [place] [address] [place] [phone] Mic Ambrocio M.D. Tiegs-Heiden, Christin A, M.D. Spondylolisthesis Lumbar Region Discharge Disposition: Home or Self Care 08/04/2024 Orders Only Department of Orthopedic Surgery in [place], [place] [address] [place] [address] [phone] Oneal Garcia M.D. Spondylolisthesis Lumbar Region (Primary Dx); Stenosis Spinal Lumbar With Neurogenic Claudication; Radiculopathy Lumbar; Preoperative Exam 08/04/2024 4:30 PM CDT External Outreach Division of Nephrology and Hypertension in [place], [place] [address] [place] [phone] Humberto Cho Jr., D.O. Chronic Kidney Disease [...] CDT Comprehensive Visit Division of Endocrinology in [place], [place] [address] [place] [phone] Aniket Goldberg M.B.B.S. Diabetes Mellitus Type 2 (HCC) (Primary Dx) 08/03/2024 Orders Only Preoperative Evaluation Center in [place], [place] [address] [place] [phone] Aishwarya Macias MPAS, P.A.-C. Preanesthetic Medical Exam (Primary Dx); Diabetes Mellitus Type 2 With Diabetic Chronic Kidney Disease (HCC) 08/03/2024 6:30 AM CDT - 08/03/2024 11:59 PM CDT Hospital Encounter Department of Radiology, [facility] in [place], [place] [address] [place] [phone] Emerald Hand APRN, C.N.P., D.N.P., M.S.N. Pain Low Back Unspecified Discharge Disposition: Home or Self Care 08/03/2024 6:30 AM CDT - 08/03/2024 11:59 PM CDT Hospital Encounter Department of Radiology, [facility] in [place], [place] [address] [place] [phone] Emerald Hand APRN C.N.P., D.N.P., M.S.N. Pain Low Back Unspecified Discharge Disposition: Home or Self Care 08/03/2024 1:00 PM CDT Comprehensive Visit Department of Orthopedic Surgery in [address] [phone] Oneal Garcia M.D. Spondylolisthesis Lumbar Region (Primary Dx) 08/03/2024 9:00 AM CDT Comprehensive Visit Department of Spine in [place], [place] [address] [place] [phone] Mike Quintero D.O. Spondylolisthesis Lumbar Region (Primary Dx); Stenosis Spinal Lumbar With Neurogenic Claudication; Radiculopathy Lumbar; Pain In Right Lower Leg; Facet Syndrome; Pain Sacroiliac 07/30/2024 Orders Only Division of Endocrinology in [place], [place] [address] [place] [phone] [facility] Type 2 diabetes mellitus 07/22/2024 11:45 AM CDT Clinical Communication Virtual Review in [place], [place] [address] [place] [phone] 07/21/2024 Documentation Division of Nephrology and Hypertension in [place], [place] [address] [place] [phone] Humberto Cho Jr., D.O. 07/21/2024 Orders Only Division of Nephrology and Hypertension in [place], [place] [address] [place] [phone] Humberto Cho Jr., D.O. 05/14/2024 Orders Only Department of Neurologic Surgery in [place], [place] [address] [place] [phone] Emerald Hand, CHRISTELLE, C.N.P., D.N.P., M.S.N. Pain Low Back Unspecified (Primary Dx) 05/11/2024 2:30 PM CDT External Outreach Division of Nephrology and Hypertension in [place], [place] [address] [place] [phone] Humberto Cho Jr., D.O. Chronic Kidney Disease (CKD), Stage 3b Glomerular Filtration Rate (GFR) 30 To 44 (HCC) (Primary Dx); Hypertensive Chronic Kidney Disease (CKD) Stage 3b Glomerular Filtration Rate (GFR) 30 To 44; Diabetes Mellitus Type 2 (HCC); Atrial Fibrillation Paroxysmal (HCC); Hyperparathyroidism Renal Secondary (HCC); Apnea Sleep Obstructive; Pain Back Lumbar from Last 3 Months Allergies Active Allergy [...] 1 rest of days 130 tablet 3 3 Active allopurinol 100 mg oral capsule [...] 500 mg by mouth daily. 3 Active oj-wit-oxcmk-K 2-caibezj-gdtr in (Centrum Silver Men) 608-12-608-300 mcg tablet Take 1 tablet by mouth [...] Date Smoking Tobacco: Never Smokeless Tobacco: Never [facility] Utilities Answer Date Recorded In the past 12 months has th e [employer], [employer], oil, or water [employer] threatened to shut off services in your [...] your living situation today? I have a [facility] place to live 07/30/2024 Sex and Gender Information Value Date Recorded Sex Assigned at Male 07/30/2024 1:05 PM CDT Legal Sex Male 8:38 AM INTERNAL COMMUNICATIONS INTERN Gender Identity Male 07/30/2024 1:05 PM CDT [...] (Latest Contact Info) Description 10/16/2024 9:15 AM INTERNAL COMMUNICATIONS INTERN Clinical Communication Virtual Review in [place], [place] 200 [place] [address] 10/16/2024 11:00 AM INTERNAL COMMUNICATIONS INTERN Virtual Visit Department of Social Work in [place], [place] [address] [place] [phone] Oneal Garcia M.D. [address] [place] [phone] 10/20/2024 8:00 AM INTERNAL COMMUNICATIONS INTERN Appointment Department of Radiology[address] [phone] Oneal aGrcia M.D. [address] [place] [phone] 10/20/2024 9:00 AM INTERNAL COMMUNICATIONS INTERN [facility] [address] [phone] Oneal Garcia M.D. [address] [place] [phone] 10/20/2024 10:15 AM INTERNAL COMMUNICATIONS INTERN Appointment Department of Radiology, [facility] in [address] [phone] Oneal Garcia M.D. [address] [place] [phone] 10/20/2024 10:40 AM INTERNAL COMMUNICATIONS INTERN Lab Department of Laboratory Medicine and Pathology, [facility], in [place], [place] [address] [place] [phone] Oneal Garcia M.D. [address] [place] [phone] 10/20/2024 12:20 PM INTERNAL COMMUNICATIONS INTERN Ancillary Procedure Department of Cardiovascular Medicine in [place], [place] [address] [place] [phone] Aishwarya Macias MPAS, P.A.-CLex [address] [place] [phone] 10/20/2024 1:00 PM INTERNAL COMMUNICATIONS INTERN Comprehensive Visit Preoperative Evaluation Center in [place], [place] [address] [place] [phone] Mic Ambrocio M.D. [address] [place] [phone] 10/20/2024 2:00 PM INTERNAL COMMUNICATIONS INTERN Office Visit Department of Orthopedic Surgery in [place], [place] [address] [place] [phone] Oneal Garcia M.D. [address] [place] [phone] Erin Cunningham, RLexNLex 10/22/2024 7:50 AM INTERNAL COMMUNICATIONS INTERN Hospital Encounter Post Anesthesia Care Unit in [place] [id number] [place] [phone] Oneal Garcia M.D. [address] [place] [phone] 10/22/2024 7:50 AM INTERNAL COMMUNICATIONS INTERN - 10/22/2024 2:52 PM INTERNAL COMMUNICATIONS INTERN Surgery RST ROMB MAIN OR [facility] [place] [phone] Oneal Garcia M.D. [address] [place] [phone] DECOMPRESSION POSTERIOR LUMBAR AND INSTRUMENTED FUSION L4-L5 Scheduled Procedures Name Priority Associated Diagnoses Date/Ti me DECOMPRESSION POSTERIOR LUMBAR AND INSTRUMENTED FUSION Stenosis Spinal Lumbar With Neurogenic Claudication 10/22/2024 7:50 AM INTERNAL COMMUNICATIONS INTERN Medical Devices Implanted Type Area [employer] Device Identifier Shelf Expiration Date Model / [...] Injection Right (08/07/2024 2:34 PM CDT) Impressions [id number] - 08/07/2024 2:45 PM CDT Fluoroscopically-guided right L4 transforaminal epidural steroid injection. NR Narrative [id number] - 08/07/2024 2:45 PM CDT EXAM: FL [...] pain [facility]. He has a history of low back and bilaterallower extremity pain, worst in the right buttock. MRI demonstratesadvanced spinal canal stenosis at L4-5. Prior epidural steroid injections have had mixed success. Right [id number] epidural steroid injection was requested and performedtoday. [...] M.D. IMG FLUOROSCOPY PROCEDURES Fi nal Result [id number] NA * DX Lumbar Spine 4+ Views [...] Moderate-advanced thoracicspondylosis. PO left rotator cuff repair. Emerald Hand APRN, C. N.P., D.N.P., M.S.N. IMG DIAGNOSTIC IMAGING PROCEDURES Final Result * DX Entire Spine Scoliosis 2-3 Views (08/03/2024 7:28 AM CDT) Anatomical Region Laterality Modality Spine, Musculoskeletal RST L OS, Neuroradiology [facility], Muskuloskeletal FLA LOS N/A Digital Radiography Impressions [...] Moderate-advanced thoracicspondylosis. PO left rotator cuff repair. Emerald Hand APRN, C. N.P., D.N.P., M.S.N. IMG DIAGNOSTIC IMAGING PROCEDURES Final Result from Last 3 Months Insurance [facility]
--- OUTSIDE RECORDS SUMMARY | 2024-08-10 12:46 | XMS_ITS | Encounter Summary ---
Author Organization [facility] Address [address] [place] [address] Care Team Providers Care Paint Brush Maker Name Role Phone Unavailable Primary Care Provider Unavailabl e Reason for Referral * Outpatient (Routine) - Authorized Specialty Diagnoses / Procedures Referred By Mireya garza Referred To Contact Diagnoses Preanesthetic Medical Exam Procedures ECG 12 Lead Aishwarya Macias MPAS, P.A.-CLex [address] [place] [phone] Phone: tel: fax: [facility] Referral ID Status Reason Start Date Expiration Date V isits Requested Visits Authorized [id number] Authorized 08/03/2024 08/03/2025 1 1 Encounter Details Date Type Department Care Team (Late st Contact Info) Description 08/03/2024 Orders Only Preoperative Evaluation Center in [place], [place] [address] [place] [phone] Aishwarya Macias MPAS, P.A.-CLex [address] [place] [phone] Preanesthetic Medical Exam (Primary Dx); Diabetes Mellitus Type 2 With Diabetic Chronic Kidney Disease (HCC) Social History Tobacco Use Types Packs/Day Years Used Date Smoking Tobacco: Never Smokeless Tobacco: Never [facility] Utilities Answer Date Recorded In the past 12 months has e [employer], gas, oil, or water [employer] threatened to shut off services in your [...] money to buy more. Never true 07/30/20 24 Within the past 12 months, t he [...] your living situation today? I have a [facility] place to live 07/30/2024 Sex and Gender Information Value Date Recorded Sex Assigned at Male 07/30/2024 1:05 PM CDT Legal Sex Male 8:38 AM BOAT FUELER Gender Identity Male 07/30/2024 1:05 PM CDT Sexual Orientation Straight 07/30/2024 1: 05 PM CDT documented as of this encounter Plan of Treatment Upcoming Encounters Date Type Department Care Team (Latest Contact Info) Description 10/16/2024 9:15 AM BOAT FUELER Clinical Communication Virtual Review in [place], [place] [address] [place] [address] 10/16/2024 11:00 AM BOAT FUELER Virtual Visit Department of Social Work in [place], [place] [address] [place] [phone] Oneal Garcia M.D. [address] [place] [phone] 10/20/2024 8:00 AM BOAT FUELER [facility] [place], [place] [address] [place] [phone] Oneal Garcia M.D. [address] [place] [phone] 10/20/2024 9:00 AM BOAT FUELER [facility] [place] [place] [address] [place] [phone] Oneal Garcia M.D. [address] [place] [phone] 10/20/2024 10:15 AM BOAT FUELER Appointment Department of Radiology, [facility] in [place], [place] [address] [place] [phone] Oneal Garcia M.D. [address] [place] [phone] 10/20/2024 10:40 AM BOAT FUELER Lab Department of Laboratory Medicine and Pathology, [facility] in [place], [place] [address] [place] [phone] Oneal Garcia M.D. [address] [place] [phone] 10/20/2024 12:20 PM BOAT FUELER Ancillary Procedure Department of Cardiovascular Medicine in [place], [place] [address] [place] [phone] Aishwarya Macias, KYLEES, P.A.-C. [address] [place] [phone] 10/20/2024 1:00 PM BOAT FUELER Comprehensive Visit Preoperative Evaluation Center in [place], [place] [address] [place] [phone] Mic Ambrocio M.D. [address] [place] [phone] 10/20/2024 2:00 PM BOAT FUELER Office Visit Department of Orthopedic Surgery in [place], [place] [address] [place] [phone] Oneal Garcia M.D. [address] [place] [phone] Erin Cunningham, RVianca 10/22/2024 7:50 AM BOAT FUELER Hospital Encounter Post Anesthesia Care Unit in [place], [place] [address] [place] [phone] Oneal Garcia M.D. [address] [place] [phone] 10/22/2024 7:50 AM BOAT FUELER - 10/22/2024 2:52 PM BOAT FUELER Surgery RST ROMB MAIN OR [address] [place] [phone] Oneal Garcia M.D. [address] [place] [phone] DECOMPRESSION POSTERIOR LUMBAR AND INSTRUMENTED FUSION L4-L5 Scheduled Orders Name Type Priority Associated Diagnoses Orde r Schedule CBC with Differential, Blood Lab Routine Preanesthetic Medical Exam Expected: 08/03/2024, Expires: 08/03/2025 Basic Metabolic Panel Lab Routine Preanesthetic Medical Exam Expected: 08/03/2024, Expires: 11/03/2025 Hemoglobin A1c Lab Routine Preanesthetic Medical Exam Diabetes Mellitus Type 2 With Diabetic Chronic Kidney Disease (HCC) Expected: 08/03/2024, Expires: 11/03/2025 ECG 12 Lead ECG Routine Preanesthetic Medical Exam Expected: 08/03/2024 (Approximate), Expires: 11/03/2025 Scheduled Procedures Name Priority Associated Diagnoses Date/Ti me DECOMPRESSION POSTERIOR LUMBAR AND INSTRUMENTED FUSION Stenosis Spinal Lumbar With Neurogenic Claudication 10/22/2024 7:50 AM BOAT FUELER documented as of this encounter Visit Diagnoses Diagnosis Preanesthetic Medical Exam- Primary 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
--- OUTSIDE RECORDS SUMMARY | 2024-08-10 12:46 | XMS_ITS | Encounter Summary ---
Author Organization [facility] Address [address] [place] [address] Care Team Providers Care Microelectronics Engineer Name Role Phone Unavailable Primary Care Provider Unavailabl e Reason for Referral * Specialty Diagnoses / Procedures Referred By Contac t Referred To Contact Diagnoses Type 2 diabetes mellitus Toya Watson MD [facility] Referral ID Status Reason Start Date Expiration Date Visits Re quested Visits Authorized Encounter Details Date Type Department Care Team (Late st Contact Info) Description 07/30/2024 Orders Only Division of Endocrinology in [place], [place] [address] [place] [address] [facility] Type 2 diabetes mellitus Social History Tobacco Use Types Packs/Day Years Used Date Smoking Tobacco: Never Smokeless Tobacco: Never C Utilities Answer Date Recorded In the past 12 months has [facility] [employer], gas, oil, or water company threatened to shut off services in your [...] Date Recorded Dental: Regular Dentist No 07/30/20 24 Employment Answer Date Recorded Employment status Retired 07/30/2024 Housing Stability Answer Date Recorded What is your living situation today? I have a [facility] place to live 07/30/2024 Sex and Gender Information Value Date Recorded Sex Assigned at Male 07/30/2024 1:05 PM CDT Legal Sex Male 8:38 AM PREASSEMBLER [employer]ED [employer]ARD Gender Identity Male 07/30/2024 1:05 PM CDT Sexual Orientation Straight 07/30/2024 1: 05 PM CDT documented as of this encounter Plan of Treatment Upcoming Encounters Date Type Department Care Team (Latest Contact Info) Description 10/16/2024 9:15 AM PREASSEMBLER PRINTED CIRCUIT BOARD Clinical Communication Virtual Review in [place], [place] 200 [place] [phone] 10/16/2024 11:00 AM PREASSEMBLER PR[employer]ED [employer] BOARD Virtual Visit Department of Social Work in [place], [place] [address] [place] [phone] Oneal Garcia M.D. [address] [place] [phone] 10/20/2024 8:00 AM PREASSEMBLER PRINTED CIRCUIT BOARD Appointment Department of Radiology, [facility], in [place], [place] [address] [place] [phone] Oneal Garcia M.D. [address] [place] [phone] 10/20/2024 9:00 AM PREASSEMBLER PRINTED CIRCUIT BOARD Appointment Department of Radiology, [facility] in [place], [place] [address] [place] [phone] Oneal Garcia M.D. [address] [place] [phone] 10/20/2024 10:15 AM PREASSEMBLER PRINTED CIRCUIT BOARD Appointment Department of Radiology, [facility] in [place], [place] [address] [place] [phone] Oneal Garcia M.D. [address] [place] [phone] 10/20/2024 10:40 AM PREASSEMBLER PRINTED CIRCUIT BOARD Lab Department of Laboratory Medicine and Pathology, [facility] in [place], [place] [address] [place] [phone] Oneal Garcia M.D. [address] [place] [phone] 10/20/2024 12:20 PM PREASSEMBLER PRINTED CIRCUIT BOARD Ancillary Procedure Department of Cardiovascular Medicine in [address] [phone] Aishwarya Macias MPAS, P.A.-CLex [address] [place] [phone] 10/20/2024 1:00 PM PREASSEMBLER PR[employer]ED CIRCUIT BOARD Comprehensive Visit Preoperative Evaluation Center in [place], [place] [address] [place] [phone] Mic Ambrocio M.D. [address] [place] [phone] 10/20/2024 2:00 PM PREASSEMBLER PR[employer]ED [employer] BOARD Office Visit Department of Orthopedic Surgery in [address] [phone] Oneal Garcia M.D. [address] [place] [phone] Erin Cunningham R.N. 10/22/2024 7:50 AM PREASSEMBLER PRINTED CIRCUIT BOARD Hospital Encounter Post Anesthesia Care Unit in [place], [place] [address] [place] [phone] Oneal Garcia M.D. [address] [place] [phone] 10/22/2024 7:50 AM PREASSEMBLER PRINTED CIRCUIT BOARD - 10/22/2024 2:52 PM PREASSEMBLER PRINTED CIRCUIT BOARD Surgery RST ROMB MAIN OR [address] [place] [phone] Oneal Garcia M.D. [address] [place] [phone] DECOMPRESSION POSTERIOR LUMBAR AND INSTRUMENTED FUSION L4-L5 Scheduled Procedures Name Priority Associated Diagnoses Date/Ti me DECOMPRESSION POSTERIOR LUMBAR AND INSTRUMENTED FUSION Stenosis Spinal Lumbar With Neurogenic Claudication 10/22/2024 7:50 AM PREASSEMBLER PRINTED CIRCUIT BOARD Scheduled Referrals Name Type Priority Associated Diagnoses Orde r Schedule Nutrition - nursing educator visit (clinic) Outpatient Referral Routine Type 2 diabetes mellitus Expected: 07/30/2024 (Approximate), Expires: 07/30/2025 documented as of this encounter Visit Diagnoses Diagnosis Type 2 diabetes mellitus Stenosis Spinal Lumbar With Neurogenic Claudication documented in this encounter
--- OUTSIDE RECORDS SUMMARY | 2024-08-10 12:46 | XMS_ITS | Encounter Summary ---
Author Organization [facility] Address [address] [place] [address] Care Team Providers Care Civil Engineering Director Name Role Phone Unavailable Primary Care Provider Unavailabl e Reason for Referral * Outpatient (Routine) - Closed Specialty Diagnoses / Procedures Referred By Contac t Referred To Contact Diagnoses Pain Low Back Unspecified Procedures DX Entire Spine Scoliosis 2-3 Views Emerald Hand APRN C.N.P., D.N.P., M.S.N. Phone: tel: fax: [facility] Referral ID Status Reason Start Date Expiration Date Visits Re quested Visits Authorized [id number] Closed 05/14/2024 05/14/2025 1 1 Reason for Visit * Outpatient (Routine) - Closed Specialty Diagnoses / Procedures Referred By Contac t Referred To Contact Diagnoses Pain Low Back Unspecified Procedures DX Entire Spine Scoliosis 2-3 Views Emerald Hand APRN, C.N.P., D.N.P., M.S.N. Phone: tel: fax: [facility] Referral ID Status Reason Start Date Expiration Date Visits Re quested Visits Authorized [id number] Closed 05/14/2024 05/14/2025 1 1 Encounter Details Date Type Department Care Team (Latest Contact Info) Description 08/03/2024 6:30 AM CDT - 08/03/2024 11:59 PM CDT Hospital Encounter Department of Radiology, [facility], in [place], [place] [address] [place] [phone] Emerald Hand APRN, C.N.P., D.N.P., M.S.N. [address] [place] [phone] Pain Low Back Unspecified Discharge Disposition: Home or Self Care Social History Tobacco Use Types Packs/Day Years Used Date Smoking Tobacco: Never Smokeless Tobacco: Never [facility] Utilities Answer Date Recorded In the past 12 months has th e electric, gas, oil, or water company threatened to [...] your living situation today? I have a st h[facility]ctor place to live 07/30/2024 Sex and Gender Information Value Date Recorded Sex Assigned at Male 07/30/2024 1:05 PM CDT Legal Sex Male 8:38 AM LOAD OUT WORKER Gender Identity Male 07/30/2024 1:05 PM CDT Sexual Orientation Straight 07/30/2024 1: 05 PM CDT documented as of this encounter Medications at Time of Discharge insulin glargine (Lantus Solostar U-100 Insulin) 100 unit/mL (3 mL) injection Inject 20 Units under the skin at bedtime. Pharmacy select brand per patient insurance/pref erence. 09/30/2023 metFORMIN (Glucophage) 1,000 mg tablet Take 0.5 tablets (500 mg total) by mouth 2 (two) times a day with meals. 90 tablet 3 05/05/2024 05/05/2025 Accu-Chek Barbara Plus test strp use to test once daily 06/27/2024 allopurinoL (Zyloprim) 100 mg tablet Take 100 mg by mouth daily. 04/15/2024 allopurinol 100 mg oral capsule 100 mg daily. ALPRAZolam (XANAX) 0.5 mg tablet Take 1 tablet (0.5 mg total) by mouth at bedtime as needed for anxiety. 09/30/2023 amiodarone (PACERONE) 200 mg tablet Take 1 tablet (200 mg total) by mouth daily. 09/30/2023 atorvastatin (LIPITOR) 10 mg tablet Take 1 tablet (10 mg total) by mouth daily. 09/30/2023 cinnamon bark 500 mg capsule Take 500 mg by mouth daily. 09/03/2023 gabapentin (NEURONTIN) 600 mg tablet Take 1 tablet (600 mg total) by mouth 3 (three) times a day. 09/30/2023 glipiZIDE (GLUCOTROL XL) 5 mg 24 hr tablet Take 5 mg by mouth daily with breakfast. levothyroxine 100 mcg tablet Take 100 mcg by mouth daily. losartan (Cozaar) 25 mg tablet Take 1 tablet (25 mg total) by mouth daily. 90 tablet 3 05/11/2024 05/11/2025 metoprolol succinate (Toprol XL) 50 mg 24 hr tablet Take 0.5 tablets (25 mg total) by mouth daily. Do not crush or chew. 05/11/2024 05/11/2025 pn-aqs-vuiov-K1- lycopen-lutein (Centrum Silver Men) 153-42-302-300 mcg tablet Take 1 tablet by mouth daily. 09/03/2023 potassium chloride (KLORCON/K-TAB) 10 mEq ER tablet Take 1 tablet (10 mEq total) by mouth as directed. Do not crush or chew. 2 on MWF, 1 rest of days 130 tablet 3 09/30/2023 rivaroxaban (XARELTO) 20 mg tablet Take 1 tablet (20 mg total) by mouth daily with dinner. 90 tablet 3 09/30/2023 09/29/2024 tamsulosin (FLOMAX) 0.4 mg 24 hr capsule Take 1 capsule (0.4 mg total) by mouth daily. 09/30/2023 documented as of this encounter Plan of Treatment Upcoming Encounters Date Type Department Care Team (Latest Contact Info) Description 10/16/2024 9:15 AM LOAD OUT WORKER Clinical Communication Virtual Review in [place], [place] [address] [place] [address] 10/16/2024 11:00 AM LOAD OUT WORKER Virtual Visit Department of Social Work in [address] [phone] Oneal Garcia M.D. [address] [place] [phone] 10/20/2024 8:00 AM LOAD OUT WORKER Appointment Department of Radiology, [facility] in [place], [place] [address] [place] [phone] Oneal Garcia M.D. [address] [place] [phone] 10/20/2024 9:00 AM LOAD OUT WORKER Appointment Department of Radiology, [facility] in [place], [place] [address] [place] [phone] Oneal Garcia M.D. [address] [place] [phone] 10/20/2024 10:15 AM LOAD OUT WORKER Appointment Department of Radiology, [facility] in [place], [place] [address] [place] [phone] Oneal Garcia M.D. [address] [place] [phone] 10/20/2024 10:40 AM LOAD OUT WORKER Lab Department of Laboratory Medicine and Pathology, [facility] in [place], [place] [address] [place] [phone] Oneal Garcia M.D. [address] [place] [phone] 10/20/2024 12:20 PM LOAD OUT WORKER Ancillary Procedure Department of Cardiovascular Medicine in [place], [place] [address] [place] [phone] Aishwarya Macias MPAS, P.A.-C. [address] [place] [phone] 10/20/2024 1:00 PM LOAD OUT WORKER Comprehensive Visit Preoperative Evaluation Center in [place], [place] [address] [place] [phone] Mic Ambrocio M.D. [address] [place] [phone] 10/20/2024 2:00 PM LOAD OUT WORKER Office Visit Department of Orthopedic Surgery in [place], [place] [address] [place] [phone] Oneal Garcia M.D. [address] [place] [phone] Erin Cunningham RVianca 10/22/2024 7:50 AM LOAD OUT WORKER Hospital Encounter Post Anesthesia Care Unit in [place], [place] [address] [place] [phone] Oneal Garcia M.D. [address] [place] [phone] 10/22/2024 7:50 AM LOAD OUT WORKER - 10/22/2024 2:52 PM LOAD OUT WORKER Surgery [facility] [address] [place] [phone] Oneal Garcia M.D. [address] [place] [phone] DECOMPRESSION POSTERIOR LUMBAR AND INSTRUMENTED FUSION L4-L5 Scheduled Procedures Name Priority Associated Diagnoses Date/Ti me DECOMPRESSION POSTERIOR LUMBAR AND INSTRUMENTED FUSION Stenosis Spinal Lumbar With Neurogenic Claudication 10/22/2024 7:50 AM LOAD OUT WORKER documented as of this encounter Procedures Procedure Name Priority Date/Time Associated Diagnosis Comments DX ENTIRE SPINE SCOLIOSIS 2-3 VIEWS RAD - Routine (most inpatients and all outpatients) 08/03/2024 7:28 AM CDT Pain Low Back Unspecified documented in this encounter Results * DX Entire Spine Scoliosis 2-3 Views [...] M.S.N. IMG DIAGNOSTIC IMAGING PROCEDURES Final Result documented in this encounter Visit Diagnoses Diagnosis Pain Low Back Unspecified Stenosis Spinal Lumbar With Neurogenic Claudication documented in this encounter
--- OUTSIDE RECORDS SUMMARY | 2024-08-10 12:46 | XMS_ITS | Encounter Summary ---
Author Organization [facility] Address [address] [place] [phone] Care Team Providers Care Pattern Assembler Name Role Phone Unavailable Primary Care Provider Unavailabl e Encounter Details Date Type Department Care Team (Latest Contact Info) Description 07/22/2024 11:45 AM CDT Clinical Communication Virtual Review in [address] [phone] Social History Tobacco Use Types Packs/Day Years Used Date Smoking Tobacco: Never Smokeless Tobacco: Never Dental Answer Date Recorded Dental: Regular Dentist Unknown 09/05/20 23 Sex and Gender Information Value Date Recorded Sex Assigned at Male 07/30/2024 1:05 PM CDT Legal Sex Male 8:38 AM FREIGHT LOADING SUPERVISOR Gender Identity Male 07/30/2024 1:05 PM CDT Sexual Orientation Straight 07/30/2024 1: 05 PM CDT documented as of this encounter Plan of Treatment Upcoming Encounters Date Type Department Care Team (Latest Contact Info) Description 10/16/2024 9:15 AM FREIGHT LOADING SUPERVISOR Clinical Communication Virtual Review in [address] [phone] 10/16/2024 11:00 AM FREIGHT LOADING SUPERVISOR Virtual Visit Department of Social Work in [address] [phone] Oneal Garcia M.D. [address] [place] [phone] 10/20/2024 8:00 AM FREIGHT LOADING SUPERVISOR Appointment Department of Radiology, [facility] in [place], [place] [address] [place] [phone] Oneal Garcia M.D. [address] [place] [phone] 10/20/2024 9:00 AM FREIGHT LOADING SUPERVISOR Appointment Department of Radiology, [facility] in [place], [place] [address] [place] [phone] Oneal Garcia M.D. [address] [place] [phone] 10/20/2024 10:15 AM FREIGHT LOADING SUPERVISOR Appointment Department of Radiology, [facility] in [place], [place] [address] [place] [phone] Oneal Garcia M.D. [address] [place] [phone] 10/20/2024 10:40 AM FREIGHT LOADING SUPERVISOR Lab Department of Laboratory Medicine and Pathology, [facility] in [place], [place] [address] [place] [phone] Oneal Garcia M.D. [address] [place] [phone] 10/20/2024 12:20 PM FREIGHT LOADING SUPERVISOR Ancillary Procedure Department of Cardiovascular Medicine in [place], [place] [address] [place] [phone] Aishwarya Macias MPAS, P.A.-C. [address] [place] [phone] 10/20/2024 1:00 PM FREIGHT LOADING SUPERVISOR Comprehensive Visit Preoperative Evaluation Center in [place], [place] [address] [place] [phone] Mic Ambrocio M.D. [address] [place] [phone] 10/20/2024 2:00 PM FREIGHT LOADING SUPERVISOR Office Visit Department of Orthopedic Surgery in [place], [place] [address] [place] [phone] Oneal Garcia M.D. [address] [place] [phone] Erin Cunningham R.N. 10/22/2024 7:50 AM FREIGHT LOADING SUPERVISOR Hospital Encounter Post Anesthesia Care Unit in [place], [place] [address] [place] [phone] Oneal Garcia M.D. [address] [place] [phone] 10/22/2024 7:50 AM FREIGHT LOADING SUPERVISOR - 10/22/2024 2:52 PM FREIGHT LOADING SUPERVISOR Surgery [facility] [address] [place] [phone] Oneal Garcia M.D. [address] [place] [phone] DECOMPRESSION POSTERIOR LUMBAR AND INSTRUMENTED FUSION L4-L5 Scheduled Procedures Name Priority Associated Diagnoses Date/Ti me DECOMPRESSION POSTERIOR LUMBAR AND INSTRUMENTED FUSION Stenosis Spinal Lumbar With Neurogenic Claudication 10/22/2024 7:50 AM FREIGHT LOADING SUPERVISOR documented as of this encounter Visit Diagnoses Not on filedocumented in this encounter
--- OUTSIDE RECORDS SUMMARY | 2024-08-10 12:46 | XMS_ITS | Encounter Summary ---
Author Organization [facility] Address [address] [place] [address] Care Team Providers Care Pin Drafter Name Role Phone Unavailable Primary Care Provider Unavailabl e Reason for Referral * Outpatient (Routine) - Authorized Specialty Diagnoses / Procedures Referred By Contac t Referred To Contact Anesthesiology Diagnoses Spondylolisthesis Lumbar Region Mic Ambrocio M.D. [address] [place] [address] Phone: tel: fax: [facility] Referral ID Status Reason Start Date Expiration Date V isits Requested Visits Authorized [id number] Authorized 08/03/2024 02/02/2026 1 1 * Outpatient (Routine) - Closed Specialty Diagnoses / Procedures Referred By Contac t Referred To Contact Diagnoses Spondylolisthesis Lumbar Region Procedures FL Lumbar Spine Transforaminal Epidural Injection Right Mic Ambrocio M.D. [address] [place] [address] Phone: tel: fax: [facility] Referral ID Status Reason Start Date Expiration Date Visits Re quested Visits Authorized [id number] Closed 08/03/2024 08/03/2025 1 1 Reason for Visit * Appointment Request (Routine) - Closed Specialty Diagnoses / Procedures Referred By Contac t Referred To Contact Spine Diagnoses Stenosis Spinal Lumbar Referral ID Status Reason Start Date Expiration Date Visits Re quested Visits Authorized [id number] Closed 04/25/2024 04/25/2025 2 2 Encounter Details Date Type Department Care Team (Latest Contact Info) Description 08/03/2024 1:00 PM CDT Comprehensive Visit Department of Orthopedic Surgery in [place], [place] [address] [place] [phone] Oneal Garcia M.D. [address] [place] [phone] Spondylolisthesis Lumbar Region (Primary Dx) Social History Tobacco Use Types Packs/Day Years Used Date Smoking Tobacco: Never Smokeless Tobacco: Never [facility] Utilities Answer Date Recorded In the [...] your living situation today? I have a héctor place to live 07/30/2024 Sex and Gender Information Value Date Recorded Sex Assigned at Male 07/30/2024 1:05 PM CDT Legal Sex Male 8:38 AM GARNETT MACHINE OPERATOR Gender Identity Male 07/30/2024 1:05 PM CDT Sexual Orientation Straight 07/30/2024 1: 05 PM CDT documented as of this encounter Consult Notes * Oneal Garcia M.D. - 08/03/2024 1:00 PM CDT SUBJECTIVE REASON FOR CONSULT Low back and right greater than left lower extremity pain with numbness, tingling, and weakness. HISTORY OF PRESENT ILLNESS Mr. Damon is a delightful 79-year-old gentleman who reports longstanding low back and right greater than left lower extremity pain with numbness, tingling, and weakness. He reports his symptoms have been progressive over the last 4 years with pain radiating predominantly down the buttocks and posterior thighs. He reports that 80% of the symptoms are in the lower extremities. It seems to be worse with prolonged standing or walking. He has tried comprehensive nonoperative treatment for this including physical therapy, anti-inflammatory medications, Tylenol and epidural injections. He denies any myelopathic symptoms or red flag symptoms associated with this. MEDICAL HISTORY Notable for type 2 diabetes with neuropathy. He also has a history of atrial fibrillation, [place]. He has not had any previous spine surgery. He is on Xarelto. 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 OBJECTIVE PHYSICAL EXAMINATION Musculoskeletal: Patient ambulates with a slightly antalgic gait. He has difficulty with both heel and toe gait. He has moderate tenderness over the lumbosacral spine. He has negative straight leg raise. Negative hip irritability bilaterally. Manual motor strength testing, he has 4/5 weakness in bilateral iliopsoas. He does have 4- weakness in bilateral tibialis anterior and EHL. He has decreasedsensation in the L4-5 distribution bilaterally. He has palpable pulses in all 4 extremities. No long tract signs. DIAGNOSTICS On review of the patient's imaging including x-rays and MRI scan of the lumbar spine, the patient does have grade 1 spondylolisthesis at L4-5. Associated with this, he has severe tricompartmental stenosis at the L4-5 segment associated with a right-sided disk osteophyte complex causing advanced compression of the right traversing L5 nerve root. He has minimal stenosis proximal and distal to thesesegments. ASSESSMENT / PLAN #1 Low back and right greater than left lower extremity pain with numbness, tingling, and weakness #2 Progressive neurogenic claudication #3 Advanced stenosis L4-5 with grade 1 spondylolisthesis At this time, I had a long discussion with the patient regarding options for treatment including continued nonoperative measures versus an operative intervention. I did discuss with him if he were toconsider an operative intervention in my hands this would entail an L4-5 decompression and fusion. He is interested in proceeding. We will look to set up a surgical date and plan to see him back for a preoperative visit. He would like to be on the cancellation list as well. We will add him to this as well. All questions were answered. Oneal Garcia M.D. CT CT Job ID: [id number] documented in this encounter Plan of Treatment Upcoming Encounters Date Type Department Care Team (Latest Contact Info) Description 10/16/2024 9:15 AM GARNETT MACHINE OPERATOR Clinical Communication Virtual Review in [address] [phone] 10/16/2024 11:00 AM GARNETT MACHINE OPERATOR Virtual Visit Department of Social Work in [address] [phone] Oneal Garcia M.D. [address] [place] [phone] 10/20/2024 8:00 AM GARNETT MACHINE OPERATOR Appointment Department of Radiology, [facility], in [address] [phone] Oneal Garcia M.D. [address] [place] [phone] 10/20/2024 9:00 AM GARNETT MACHINE OPERATOR Appointment Department of Radiology, [facility] in [place], [place] [address] [place] [phone] Oneal Garcia M.D. [address] [place] [phone] 10/20/2024 10:15 AM GARNETT MACHINE OPERATOR Appointment Department of Radiology, [facility] in [place], [place] [address] [place] [phone] Oneal Garcia M.D. [address] [place] [phone] 10/20/2024 10:40 AM GARNETT MACHINE OPERATOR Lab Department of Laboratory Medicine and Pathology, [facility] in [place], [place] [address] [place] [phone] Oneal Garcia M.D. [address] [place] [phone] 10/20/2024 12:20 PM GARNETT MACHINE OPERATOR Ancillary Procedure Department of Cardiovascular Medicine in [address] [phone] Aishwarya Macias MPAS, P.A.-CLex [address] [place] [phone] 10/20/2024 1:00 PM GARNETT MACHINE OPERATOR Comprehensive Visit Preoperative Evaluation Center in [place], [place] [address] [place] [phone] Mic Ambrocio M.D. [address] [place] [phone] 10/20/2024 2:00 PM GARNETT MACHINE OPERATOR Office Visit Department of Orthopedic Surgery in [address] [phone] Oneal Garcia M.D. [address] [place] [phone] Erin Cunningham R.N. 10/22/2024 7:50 AM GARNETT MACHINE OPERATOR Hospital Encounter Post Anesthesia Care Unit in [place], [place] [address] [place] [phone] Oneal Garcia M.D. [address] [place] [phone] 10/22/2024 7:50 AM GARNETT MACHINE OPERATOR - 10/22/2024 2:52 PM GARNETT MACHINE OPERATOR Surgery [facility] OR [address] [place] [phone] Oneal Garcia M.D. [address] [place] [phone] DECOMPRESSION POSTERIOR LUMBAR AND INSTRUMENTED FUSION L4-L5 Scheduled Procedures Name Priority Associated Diagnoses Date/Ti me DECOMPRESSION POSTERIOR LUMBAR AND INSTRUMENTED FUSION Stenosis Spinal Lumbar With Neurogenic Claudication 10/22/2024 7:50 AM GARNETT MACHINE OPERATOR Scheduled Referrals Name Type Priority Associated Diagnoses Order Schedule Preoperative Evaluation EMI consult (clinic) Outpatient Referral Routine Spondylolisthesis Lumbar Region Expected: 08/03/2024, Expires: 11/03/2025 documented as of this encounter Results * FL Lumbar Spine Transforaminal Epidural Injection Right (08/07/2024 2:34 PM CDT) Impressions [id number] - 08/07/2024 2:45 PM CDT Fluoroscopically-guided right L4 transforaminal epidural steroid injection. NR Narrative [id number] - 08/07/2024 2:45 PM CDT EXAM: FL [...] pain pattern and imaging findings were reviewed includingMCLAREN CARO REGION lumbar spine 04/13/2024. He has a history of low back and bilaterallower extremity pain, worst in the right buttock. MRI demonstratesadvanced spinal canal stenosis at L4-5. Prior epidural steroid injections have had mixed success. Right [id number] epidural steroid injection was requested and performedtoday. [...] M.D. IMG FLUOROSCOPY PROCEDURES Fi nal Result Performing Organization Address City/State/[facility] Co de Phone Number [id number] NA documented in this encounter Visit Diagnoses Diagnosis Spondylolisthesis Lumbar Region- Primary Spondylolisthesis Lumbar Region Stenosis Spinal Lumbar With Neurogenic Claudication documented in this encounter
--- OUTSIDE RECORDS SUMMARY | 2024-08-10 12:46 | XMS_ITS | Encounter Summary ---
Author Organization [facility] Address [address] [place] [address] Care Team Providers Care Medical Office Technician Name Role Phone Unavailable Primary Care Provider Unavailabl e Reason for Referral * Outpatient (Routine) - Authorized Specialty Diagnoses / Procedures Referred By Contac t Referred To Contact Social Work Diagnoses Spondylolisthesis Lumbar Region Stenosis Spinal Lumbar With Neurogenic Claudication Radiculopathy Lumbar Preoperative Exam Oneal Garcia M.D. [address] [place] [address] Phone: tel: fax: [facility] Referral ID Status Reason Start Date Expiration Date V isits Requested Visits Authorized [id number] Authorized 08/04/2024 02/03/2026 1 1 * Outpatient (Routine) - Authorized Specialty Diagnoses / Procedures Referred By Contac t Referred To Contact Orthopedic Surgery Oneal Garcia M.D. [address] [place] [phone] Phone: tel: fax: [facility] Referral ID Status Reason Start Date Expiration Date V isits Requested Visits Authorized [id number] Authorized 08/04/2024 02/03/2026 1 1 Scheduling Instructions Okay to schedule with Erin Cunningham RN * Outpatient (Routine) - Authorized Specialty Diagnoses / Procedures Referred By Contac t Referred To Contact Diagnoses Spondylolisthesis Lumbar Region Stenosis Spinal Lumbar With Neurogenic Claudication Radiculopathy Lumbar Preoperative Exam Procedures ORS Fitter Oneal Garcia M.D. [address] [place] [phone] Phone: tel: fax: [facility] Referral ID Status Reason Start Date Expiration Date V isits Requested Visits Authorized [id number] Authorized 08/04/2024 08/04/2025 1 1 * MRI/CAT/PET Scan (Routine) - Authorized Specialty Diagnoses / Procedures Referred By Contac t Referred To Contact Radiology Diagnoses Spondylolisthesis Lumbar Region Stenosis Spinal Lumbar With Neurogenic Claudication Radiculopathy Lumbar Preoperative Exam Procedures MR Lumbar Spine without IV Contrast Oneal Garcia M.D. [address] [place] [phone] Phone: tel: fax: [facility] Referral ID Status Reason Start Date Expiration Date V isits Requested Visits Authorized [id number] Authorized 08/04/2024 08/04/2025 1 1 * MRI/CAT/PET Scan (Routine) - Authorized Specialty Diagnoses / Procedures Referred By Contac t Referred To Contact Radiology Diagnoses Spondylolisthesis Lumbar Region Stenosis Spinal Lumbar With Neurogenic Claudication Radiculopathy Lumbar Preoperative Exam Procedures CT Lumbar Spine without IV Contrast Oneal Garcia M.D. [address] [place] [phone] Phone: tel: fax: [facility] Referral ID Status Reason Start Date Expiration Date V isits Requested Visits Authorized [id number] Authorized 08/04/2024 08/04/2025 1 1 * Outpatient (Routine) - Authorized Specialty Diagnoses / Procedures Referred By Mireya t Referred To Contact Diagnoses Spondylolisthesis Lumbar Region Stenosis Spinal Lumbar With Neurogenic Claudication Radiculopathy Lumbar Preoperative Exam Procedures BMD Bone Density Spine Hips Oneal Garcia M.D. [address] [place] [address] Phone: tel: fax: [facility] Referral ID Status Reason Start Date Expiration Date V isits Requested Visits Authorized [id number] Authorized 08/04/2024 08/04/2025 1 1 Encounter Details Date Type Department Care Team (Latest Contact Info) Description 08/04/2024 Orders Only Department of Orthopedic Surgery in [place], [place] [address] [place] [phone] Oneal Garcia M.D. [address] [place] [phone] Spondylolisthesis Lumbar Region (Primary Dx); Stenosis Spinal Lumbar With Neurogenic Claudication; Radiculopathy Lumbar; Preoperative Exam Social History Tobacco Use Types Packs/Day Years Used Date Smoking Tobacco: Never Smokeless Tobacco: Never [employer] Utilities Answer Date Recorded In the past 12 months has th e [employer], gas, oil, or water [employer] threatened to shut off services in your [...] your living situation today? I have a [facility] place to live 07/30/2024 Sex and Gender Information Value Date Recorded Sex Assigned at Male 07/30/2024 1:05 PM CDT Legal Sex Male 8:38 AM FRAME GATE MORTISER OPERATOR Gender Identity Male 07/30/2024 1:05 PM CDT Sexual Orientation Straight 07/30/2024 1: 05 PM CDT documented as of this encounter Plan of Treatment Upcoming Encounters Date Type Department Care Team (Latest Contact Info) Description 10/16/2024 9:15 AM FRAME GATE MORTISER OPERATOR Clinical Communication Virtual Review in [place], [place] 200 [place] [phone] 10/16/2024 11:00 AM FRAME GATE MORTISER OPERATOR Virtual Visit Department of Social Work in [place], [place] [address] [place] [phone] Oneal Garcia M.D. [address] [place] [phone] 10/20/2024 8:00 AM FRAME GATE MORTISER OPERATOR Appointment Department of Radiology, [facility] in [place], [place] [address] [place] [phone] Oneal Garcia M.D. [address] [place] [phone] 10/20/2024 9:00 AM FRAME GATE MORTISER OPERATOR Appointment Department of Radiology, [facility] in [place], [place] [address] [place] [phone] Oneal Garcia M.D. [address] [place] [phone] 10/20/2024 10:15 AM FRAME GATE MORTISER OPERATOR Appointment Department of Radiology, [facility], in [place], [place] [address] [place] [address] Oneal Garcia M.D. [address] [place] [phone] 10/20/2024 10:40 AM FRAME GATE MORTISER OPERATOR Lab Department of Laboratory Medicine and Pathology, [facility] in [place], [place] [address] [place] [address] Oneal Garcia M.D. [address] [place] [phone] 10/20/2024 12:20 PM FRAME GATE MORTISER OPERATOR Ancillary Procedure Department of Cardiovascular Medicine in [place], [place] [address] [place] [phone] Aishwarya Macias MPAS, P.A.-C. [address] [place] [phone] 10/20/2024 1:00 PM FRAME GATE MORTISER OPERATOR Comprehensive Visit Preoperative Evaluation Center in [place], [place] [address] [place] [phone] Mic Ambrocio M.D. [address] [place] [phone] 10/20/2024 2:00 PM FRAME GATE MORTISER OPERATOR Office Visit Department of Orthopedic Surgery in [place], [place] [address] [place] [phone] Oneal Garcia M.D. [address] [place] [phone] Erin Cunningham R.N. 10/22/2024 7:50 AM FRAME GATE MORTISER OPERATOR Hospital Encounter Post Anesthesia Care Unit in [place], [place] [address] [place] [phone] Oneal Garcia M.D. [address] [place] [phone] 10/22/2024 7:50 AM FRAME GATE MORTISER OPERATOR - 10/22/2024 2:52 PM FRAME GATE MORTISER OPERATOR Surgery [facility] MAIN OR [address] [place] [phone] Oneal Garcia M.D. [address] [place] [phone] DECOMPRESSION POSTERIOR LUMBAR AND INSTRUMENTED FUSION L4-L5 Scheduled Orders Name Type Priority Associated Diagnoses Order Schedule Basic Metabolic Panel Lab Routine Spondylolisthesis Lumbar Region Stenosis Spinal Lumbar With Neurogenic Claudication Radiculopathy Lumbar Preoperative Exam Expected: 10/20/2024, Expires: 08/04/2025 BMD Bone Density Spine Hips Imaging RAD - Routine (most inpatients and all outpatients) Spondylolisthesis Lumbar Region Stenosis Spinal Lumbar With Neurogenic Claudication Radiculopathy Lumbar Preoperative Exam Expected: 10/20/2024, Expires: 08/04/2025 CBC with Differential, Blood Lab Routine Spondylolisthesis Lumbar Region Stenosis Spinal Lumbar With Neurogenic Claudication Radiculopathy Lumbar Preoperative Exam Expected: 10/20/2024, Expires: 08/04/2025 CT Lumbar Spine without IV Contrast Imaging RAD - Routine (most inpatients and all outpatients) Spondylolisthesis Lumbar Region Stenosis Spinal Lumbar With Neurogenic Claudication Radiculopathy Lumbar Preoperative Exam Expected: 10/20/2024, Expires: 08/04/2025 MR Lumbar Spine without IV Contrast Imaging RAD - Routine (most inpatients and all outpatients) Spondylolisthesis Lumbar Region Stenosis Spinal Lumbar With Neurogenic Claudication Radiculopathy Lumbar Preoperative Exam Expected: 10/20/2024, Expires: 08/04/2025 ORS Fitter Procedures Routine Spondylolisthesis Lumbar Region Stenosis Spinal Lumbar With Neurogenic Claudication Radiculopathy Lumbar Preoperative Exam Expected: 10/20/2024, Expires: 08/04/2025 25-Hydroxyvitamin D2 and D3 Lab Routine Spondylolisthesis Lumbar Region Stenosis Spinal Lumbar With Neurogenic Claudication Radiculopathy Lumbar Preoperative Exam Expected: 10/20/2024, Expires: 08/04/2025 Type and Screen (with Reflex Antibody ID) Lab Routine Spondylolisthesis Lumbar Region Stenosis Spinal Lumbar With Neurogenic Claudication Radiculopathy Lumbar Preoperative Exam Expected: 10/20/2024, Expires: 08/04/2025 Hemoglobin A1c Lab Routine Spondylolisthesis Lumbar Region Stenosis Spinal Lumbar With Neurogenic Claudication Radiculopathy Lumbar Preoperative Exam Expected: 10/20/2024, Expires: 08/04/2025 Prothrombin Time (PT) Lab Routine Spondylolisthesis Lumbar Region Stenosis Spinal Lumbar With Neurogenic Claudication Radiculopathy Lumbar Preoperative Exam Expected: 10/20/2024, Expires: 11/04/2025 Scheduled Procedures Name Priority Associated Diagnoses Date/Ti me DECOMPRESSION POSTERIOR LUMBAR AND INSTRUMENTED FUSION Stenosis Spinal Lumbar With Neurogenic Claudication 10/22/2024 7:50 AM FRAME GATE MORTISER OPERATOR Scheduled Referrals Name Type Priority Associated Diagnoses Order Schedule Orthopedic Surgery Pre Op (clinic) Outpatient Referral Routine Expected: 10/20/2024, Expires: 08/04/2025 Social Work - General consult (clinic) Outpatient Referral Routine Spondylolisthesis Lumbar Region Stenosis Spinal Lumbar With Neurogenic Claudication Radiculopathy Lumbar Preoperative Exam Expected: 10/20/2024, Expires: 08/04/2025 documented as of this encounter Visit Diagnoses Diagnosis Spondylolisthesis Lumbar Region- Primary Stenosis Spinal Lumbar With Neurogenic Claudication Radiculopathy Lumbar Preoperative Exam Stenosis Spinal Lumbar With Neurogenic Claudication documented in this encounter
--- OUTSIDE RECORDS SUMMARY | 2024-08-10 12:46 | XMS_ITS | Encounter Summary ---
Author Organization [facility] Address [address] [place] [address] Care Team Providers Care Helicopter Pilot Name Role Phone Unavailable Primary Care Provider Unavailabl e Encounter Details Date Type Department Care Team (Late st Contact Info) Description 07/21/2024 Orders Only Division of Nephrology and Hypertension in [place], [place] [address] [place] [phone] Humberto Cho Jr., D.O. [address] [place] [phone] Social History Tobacco Use Types Packs/Day Years Used Date Smoking Tobacco: Never Assessed Dental Answer Date Recorded Dental: Regular Dentist Unknown 09/05/20 23 Sex and Gender Information Value Date Recorded Sex Assigned at Male 07/30/2024 1:05 PM CDT Legal Sex Male 8:38 AM HARVEST CREW SUPERVISOR Gender Identity Male 07/30/2024 1:05 PM CDT Sexual Orientation Straight 07/30/2024 1: 05 PM CDT documented as of this encounter Plan of Treatment Upcoming Encounters Date Type Department Care Team (Latest Contact Info) Description 10/16/2024 9:15 AM HARVEST CREW SUPERVISOR Clinical Communication Virtual Review in [place], [place] 200 [place] [phone] 10/16/2024 11:00 AM HARVEST CREW SUPERVISOR Virtual Visit Department of Social Work in [place], [place] [address] [place] [phone] Oneal Garcia M.D. [address] [place] [phone] 10/20/2024 8:00 AM HARVEST CREW SUPERVISOR Appointment Department of Radiology, [facility] in [place], [place] [address] [place] [phone] Oneal Garcia M.D. [address] [place] [phone] 10/20/2024 9:00 AM HARVEST CREW SUPERVISOR Appointment Department of Radiology, [facility] in [place], [place] [address] [place] [phone] Oenal Garcia M.D. [address] [place] [phone] 10/20/2024 10:15 AM HARVEST CREW SUPERVISOR Appointment Department of Radiology, [facility] in [place], [place] [address] [place] [phone] Oneal Garcia M.D. [address] [place] [phone] 10/20/2024 10:40 AM HARVEST CREW SUPERVISOR Lab Department of Laboratory Medicine and Pathology, [facility] in [place], [place] [address] [place] [phone] Oneal Garcia M.D. [address] [place] [phone] 10/20/2024 12:20 PM HARVEST CREW SUPERVISOR Ancillary Procedure Department of Cardiovascular Medicine in [place], [place] [address] [place] [phone] Aishwarya Macais, KYLEES, P.A.-C. [address] [place] [phone] 10/20/2024 1:00 PM HARVEST CREW SUPERVISOR Comprehensive Visit Preoperative Evaluation Center in [place], [place] [address] [place] [phone] Mic Ambrocio M.D. [address] [place] [phone] 10/20/2024 2:00 PM HARVEST CREW SUPERVISOR Office Visit Department of Orthopedic Surgery in [place], [place] [address] [place] [phone] Oneal Garcia M.D. [address] [place] [phone] Erin Cunningham R.N. 10/22/2024 7:50 AM HARVEST CREW SUPERVISOR Hospital Encounter Post Anesthesia Care Unit in [place] [id number] [place] [phone] Oneal Garcia M.D. [address] [place] [phone] 10/22/2024 7:50 AM HARVEST CREW SUPERVISOR - 10/22/2024 2:52 PM HARVEST CREW SUPERVISOR Surgery [facility] MAIN OR [address] [place] [phone] Oneal Garcia M.D. [address] [place] [phone] DECOMPRESSION POSTERIOR LUMBAR AND INSTRUMENTED FUSION L4-L5 Scheduled Procedures Name Priority Associated Diagnoses Date/Ti me DECOMPRESSION POSTERIOR LUMBAR AND INSTRUMENTED FUSION Stenosis Spinal Lumbar With Neurogenic Claudication 10/22/2024 7:50 AM HARVEST CREW SUPERVISOR documented as of this encounter Visit Diagnoses Not on filedocumented in this encounter
--- OUTSIDE RECORDS SUMMARY | 2024-08-10 12:46 | XMS_ITS | Encounter Summary ---
Author Organization [facility] Address [address] [place] [address] Care Team Providers Care Aircraft Refueller Name Role Phone Unavailable Primary Care Provider Unavailabl e Reason for Visit * Appointment Request (Routine) - Closed Specialty Diagnoses / Procedures Referred By Contekaterina t Referred To Contact Spine Diagnoses Stenosis Spinal Lumbar Referral ID Status Reason Start Date Expiration Date Visits Re quested Visits Authorized [id number] Closed 04/25/2024 04/25/2025 2 2 Encounter Details Date Type Department Care Team (Latest Contact Info) Description 08/03/2024 9:00 AM CDT Comprehensive Visit Department of Spine in [place], [place] [address] [place] [address] Mike Quintero D.O. [address] [place] [address] Spondylolisthesis Lumbar Region (Primary Dx); Stenosis Spinal Lumbar With Neurogenic Claudication; Radiculopathy Lumbar; Pain In Right Lower Leg; Facet Syndrome; Pain Sacroiliac Social History Tobacco Use Types Packs/Day Years Used Date Smoking Tobacco: Never Smokeless Tobacco: Never [facility] Utilities Answer Date Recorded In the past 12 months has e electric, gas, oil, or water company [...] your living situation today? I have a [facility] to live 07/30/2024 Sex and Gender Information Value Date Recorded Sex Assigned at Male 07/30/2024 1:05 PM CDT Legal Sex Male 8:38 AM QUARRY EQUIPMENT OPERATOR Gender Identity Male 07/30/2024 1:05 PM CDT Sexual Orientation Straight 07/30/2024 1: 05 PM CDT documented as of this encounter Progress Notes * Candice Lobo, RLexN. - 08/03/2024 9:00 AM CDT SPINE CENTER RN RECORD REVIEW The following information was collected from an outside medical record review without direct conversation with the patient. Past Medical History Height: Ht Readings from Last 1 Encounters: 05/11/24 175.2 cm Weight: Wt Readings from Last 1 Encounters: 05/11/24 94.5 kg BMI: BMI Readings from Last 1 Encounters: 05/11/24 30.79 kg/m?? Does the patient have any other medical diagnoses/chronic conditions? Yes, describe: CKD Spinal stenosis Hyperlipidemia KAROLINA Paroxysmal atrial fibrillation DCCV ~01/2023 Has the patient ever used any tobacco products, including e-cigarettes? No Does the patient currently use any tobacco products, including e-cigarettes? No Does the patient take any anticoagulation/blood thinners? Yes, describe: Xarelto Does the patient have any implanted devices? (i.e. spinal cord stimulator, dorsal root ganglion stimulator, peripheral nerve stimulator, intrathecal pump, cardiac pacemaker, cardiac defibrillator, deep brain stimulator) No Has the patient had an organ transplant? No Has the patient ever had cancer? No Spine Related Past Medical History 06/28/23 Mr. Mike Damon is a 76yr year old male who presents for evaluation of buttock pain and here to establish care. 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 He was getting care from a pain clinic near [facility] where they were performing bilateral SI joint injections, bilateral ischial tuberosity injections and occasional piriformis injections. Presently vast majority of his pain is across the low back and buttock with radiation into the mid buttock and right posterior thigh. He gets this pain with ambulation and long periods of standing and bending. He has not been participating in physical therapy. He is a diabetic who does check his sugars regularly. Previous injections: 09/07/21 Bilateral SIJ injections 09/11/21 Bilateral subacromial injections 08/22/22 L4-5 LAURENT. Has the patient had advanced imaging of the spine within the past 12 months? Yes, Imaging Includes:MRI Are the images uploaded to [employer]? Yes Has the patient had any previous non-spine surgeries? No Has the patient had any previous spine surgery? No. Current Pain Symptoms Have any of the following treatments been tried for this specific spine problem? Physical Therapy (number of sessions?): No Acupuncture: Not Available Medications: Yes, specifically: gabapentin Injections (type, dates) Bilateral L5-S1 TFESI--01/11, Right GTB Injection.02/11 Spinal Cord Stimulation: Not Available Dorsal Root Ganglion Stimulation: Not Available Peripheral Nerve Stimulation: Not Available Intrathecal Pump: Not Available documented in this encounter Consult Notes * Mike Quintero D.O. - 08/03/2024 9:00 AM CDT SUBJECTIVE REQUESTING PROVIDER No ref. provider found REASON FOR CONSULT Chronic low back and right leg pain HISTORY OF PRESENT ILLNESS Mr. Mike Damon is a pleasant 79 y.o. male who presents today for evaluation of chronic lowback and right leg pain. He has a past medical history of atrial fibrillation on Xarelto status post cardioversion, type 2 diabetes with peripheral neuropathy, chronic kidney disease and obstructive sleep apnea. Symptoms started roughly 4 years ago with his worst pain in his back and down his rightleg to his ankle. Roughly 50% of the pain is in his back and 50% down his leg. He also has had episode of the left leg pain which resolved. Describes the pain as dull, achiness and sharp. Currently rates his pain at 3/10 in severity and at its worst 8/10. Symptoms are worse with any activity and better with sitting. Does get weakness due to pain where he feels like his right leg is going to give out. He has had 4 falls in the last 6 months. He does use a walker for ambulation. Denies any footdrop. Denies any change in bowel or bladder, fever, chills, nausea or vomiting. Does have history of skin cancer. Denies any saddle anesthesia. Patient has had physical therapy which had variable benefit. He does do the exercises frequently taught to him. Medications include gabapentin with variable benefit. He was on Xarelto and no aspirin use. Did recently get treated for a skin infection in his legs. Patient was had multiple injections including bilateral L5-S1 transforaminal epidural steroid injection in December with minimal benefit. Other injections include L4-L5 epidural as well as SI joint injections and ischial bursa injections. Patient has not had any spine surgeries. He was had both hips replaced. 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 Denies smoking and occasional alcohol use. Denies allergies to iodine or contrast. Functionally he is ext remely limited due his to his pain and has a low quality of life. She was met with a pain provider closer to his home who discuss spinal cord stimulator if he does not go forward with surgery. The following portions of the patient's history were reviewed as appropriate: allergies, current medications, family history, medical history, social history, surgical history and problem list. REVIEW OF SYSTEMS I have briefly reviewed the Review of Systems as noted on the Health history form. I am only responding to those symptoms which are directly relevant to the specific indication for my consultation. Irecommend that the patient follow up with their primary or referring provider to pursue any other symptoms which may be of concern. OBJECTIVE There were no vitals taken for this visit. PHYSICAL EXAM General: Well-developed, well-nourished individual in no acute distress. Mental: Appropriate mood and affect. Grossly oriented with coherent speech and thought processing. Vessels: No lower extremity edema bilaterally. Skin: There are no dermatomal rashes. Lungs: Breathing is comfortable and regular. No dyspnea noted during examination. Musculoskeletal: Spine: Spine range of motion is limited with extension of the lumbar spine area, he is forward flexed. Palpation: There is positive tenderness in the bilateral SI joints and lower lumbar facet joints Joint ROM: Within functional limits throughout. Provocative Maneuvers: Lumbar: Positive lumbar quadrant tests bilaterally. No radiating pain with lumbar extension. Hip: Stinchfield test reproduce pain in the SI joint area right side worse than the left. Neuro: Gait: Gait is short. Patient had difficulty standing on his toes in his heels Balance: Tandem gait is not tested due to stability. Romberg test is positive. Strength: Full and symmetric in the upper and lower extremities. Sensation: Normal to light touch in the upper extremities, decreased light touch sensation in stocking-glove distribution from his ankles down to his feet bilaterally. Reflexes: Decreased and symmetric in the upper and lower extremities bilaterally. Branden's is negative. Plantar responses downgoing bilaterally. SLR: Straight leg raise is positive in the right lower extremity.. DIAGNOSTICS Did review imaging of the lumbar spine including x-rays and MRI. Does have significant spondylolisthesis at L4-L5 with both foraminal and central stenosis which is severe. ASSESSMENT / PLAN #1 Spondylolisthesis Lumbar Region #2 Stenosis Spinal Lumbar With Neurogenic Claudication #3 Radiculopathy Lumbar #4 Pain In Right Lower Leg #5 Facet Syndrome #6 Pain Sacroiliac I discussed with the patient different treatment options at this time. Also I did review previous notes as well as imaging of the lumbar spine. Patient does have severe central foraminal stenosis at the L4-L5 area with spondylolisthesis. Other pain generators include lumbar facet joint pain and SI joint pain. Patient was had extensive conservative treatment including physical therapy, medications for pain including gabapentin and multiple injection treatment including bilateral L5-S1 transforaminal epidural steroid injection in December with no benefit. Patient is wanting a more definitive treatment option as his quality of life is significantly affected. He is scheduled to meet with Dr. Garcia, spine surgeon, later today; he has not met with any other spine surgeons. If the patient does not go forward with surgery, would recommend continue daily stretching, strengthening conditioning exercises. Also recommend he continue with his current medications for pain as tolerated as long as they are helpful. Other considerations for pain medications include duloxetine or buprenorphine which could be discuss with his primary care provider or pain medicine provider closer to his home. Recommend ice or heat 20-30 minutes up to 3 times a day as needed. He has met with apain medicine provider close to his home and had injections done; they have discussed spinal cord stimulator trial if he does not go forward with spine surgery. If he wishes to have a 2nd opinion regarding spinal cord stimulator I would be happy to put an order to be done in the pain Medicine Clinic at [facility]. Red flags include progressive weakness or change in bowel or bladder; if he experiences either these he was instructed to seek medical care immediately. Patient agrees with the current plan and answered all his questions. EDUCATION We discussed the diagnosis and treatment plan in detail. The patient expressed understanding of thecontent. No apparent learning barriers were identified; learning preferences include listening. Signed by: Mike Quintero D.O. 08/03/2024 9:37 AM CDT documented in this encounter Plan of Treatment Upcoming Encounters Date Type Department Care Team (Latest Contact Info) Description 10/16/2024 9:15 AM QUARRY EQUIPMENT OPERATOR Clinical Communication Virtual Review in [place], [place] [address] [place] [phone] 10/16/2024 11:00 AM QUARRY EQUIPMENT OPERATOR Virtual Visit Department of Social Work in [address] [phone] Oneal Garcia M.D. [address] [place] [phone] 10/20/2024 8:00 AM QUARRY EQUIPMENT OPERATOR Appointment Department of Radiology, [facility], in [address] [phone] Oneal Garcia M.D. [address] [place] [phone] 10/20/2024 9:00 AM QUARRY EQUIPMENT OPERATOR Appointment Department of Radiology, [facility] in [place], [place] [address] [place] [address] Oneal Garcia M.D. [address] [place] [phone] 10/20/2024 10:15 AM QUARRY EQUIPMENT OPERATOR Appointment Department of Radiology, [facility] in [place], [place] [address] [place] [phone] Oneal Garcia M.D. [address] [place] [phone] 10/20/2024 10:40 AM QUARRY EQUIPMENT OPERATOR Lab Department of Laboratory Medicine and Pathology, [facility] in [place], [place] [address] [place] [phone] Oneal Garcia M.D. [address] [place] [phone] 10/20/2024 12:20 PM QUARRY EQUIPMENT OPERATOR Ancillary Procedure Department of Cardiovascular Medicine in [place], [place] [address] [place] [phone] Aishwarya Macias MPAS, P.A.-C. [address] [place] [phone] 10/20/2024 1:00 PM QUARRY EQUIPMENT OPERATOR Comprehensive Visit Preoperative Evaluation Center in [place], [place] [address] [place] [phone] Mic Ambrocio M.D. [address] [place] [phone] 10/20/2024 2:00 PM QUARRY EQUIPMENT OPERATOR Office Visit Department of Orthopedic Surgery in [place], [place] [address] [place] [phone] Oneal Garcia M.D. [address] [place] [phone] Erin Cunningham R.N. 10/22/2024 7:50 AM QUARRY EQUIPMENT OPERATOR Hospital Encounter Post Anesthesia Care Unit in [place], [place] [address] [place] [phone] Oneal Garcia M.D. [address] [place] [phone] 10/22/2024 7:50 AM QUARRY EQUIPMENT OPERATOR - 10/22/2024 2:52 PM QUARRY EQUIPMENT OPERATOR Surgery [facility] OR [address] [place] [phone] Oneal Garcia M.D. [address] [place] [phone] DECOMPRESSION POSTERIOR LUMBAR AND INSTRUMENTED FUSION L4-L5 Scheduled Procedures Name Priority Associated Diagnoses Date/Ti me DECOMPRESSION POSTERIOR LUMBAR AND INSTRUMENTED FUSION Stenosis Spinal Lumbar With Neurogenic Claudication 10/22/2024 7:50 AM QUARRY EQUIPMENT OPERATOR documented as of this encounter Visit Diagnoses Diagnosis Spondylolisthesis Lumbar Region- Primary Stenosis Spinal Lumbar With Neurogenic Claudication Radiculopathy Lumbar Pain In Right Lower Leg Facet Syndrome Pain Sacroiliac Stenosis Spinal Lumbar With Neurogenic Claudication documented in this encounter
--- OUTSIDE RECORDS SUMMARY | 2024-08-10 12:46 | XMS_ITS | Encounter Summary ---
Author Organization [facility] Address [address] [place] [address] Care Team Providers Care Ic Designer Gate Arrays Name Role Phone Unavailable Primary Care Provider Unavailabl e Encounter Details Date Type Department Care Team (Late st Contact Info) Description 07/21/2024 Documentation Division of Nephrology and Hypertension in [place], [place] [address] [place] [address] Humberto Cho Jr., D.O. 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 - 07/21/2024 10:50 AM CDT Care coordination- email from [facility] Thanks Please ask him to [...] (Latest Contact Info) Description 10/16/2024 9:15 AM STRUCTURAL STEEL IRONWORKER Clinical Communication Virtual Review in [address] [phone] 10/16/2024 11:00 AM STRUCTURAL STEEL IRONWORKER Virtual Visit Department of Social Work in [address] [phone] Oneal Garcia M.D. [address] [place] [phone] 10/20/2024 8:00 AM STRUCTURAL STEEL IRONWORKER Appointment Department of Radiology[address] [phone] Oneal Garcia M.D. [address] [place] [phone] 10/20/2024 9:00 AM STRUCTURAL STEEL IRONWORKER [facility] [address] [phone] Oneal Garcia M.D. [address] [place] [phone] 10/20/2024 10:15 AM STRUCTURAL STEEL IRONWORKER Appointment Department of Radiology, [address] [phone] Oneal Garcia M.D. [address] [place] [phone] 10/20/2024 10:40 AM STRUCTURAL STEEL IRONWORKER Lab Department of Laboratory Medicine and Pathology, [facility] in [place], [place] [address] [place] [phone] Oneal Garcia M.D. [address] [place] [phone] 10/20/2024 12:20 PM STRUCTURAL STEEL IRONWORKER Ancillary Procedure Department of Cardiovascular Medicine in [place], [place] [address] [place] [phone] Aishwarya Macias MPAS, P.A.-C. [address] [place] [phone] 10/20/2024 1:00 PM STRUCTURAL STEEL IRONWORKER Comprehensive Visit Preoperative Evaluation Center in [place], [place] [address] [place] [phone] Mic Ambrocio M.D. [address] [place] [phone] 10/20/2024 2:00 PM STRUCTURAL STEEL IRONWORKER Office Visit Department of Orthopedic Surgery in [place], [place] [address] [place] [phone] Oneal Garcia M.D. [address] [place] [phone] Erin Cunningham, RLexNLex 10/22/2024 7:50 AM STRUCTURAL STEEL IRONWORKER Hospital Encounter Post Anesthesia Care Unit in [place], [place] [address] [place] [phone] Oneal Garcia M.D. [address] [place] [phone] 10/22/2024 7:50 AM STRUCTURAL STEEL IRONWORKER - 10/22/2024 2:52 PM STRUCTURAL STEEL IRONWORKER Surgery [facility] [address] [place] [phone] Oneal Garcia M.D. [address] [place] [address] DECOMPRESSION POSTERIOR LUMBAR AND INSTRUMENTED FUSION L4-L5 Scheduled Procedures Name Priority Associated Diagnoses Date/Ti me DECOMPRESSION POSTERIOR LUMBAR AND INSTRUMENTED FUSION Stenosis Spinal Lumbar With Neurogenic Claudication 10/22/2024 7:50 AM STRUCTURAL STEEL IRONWORKER documented as of this encounter Visit Diagnoses Not on filedocumented in this encounter
--- OUTSIDE RECORDS SUMMARY | 2024-08-10 12:46 | XMS_ITS | Encounter Summary ---
Author Organization [facility] Address [address] [place] [address] Care Team Providers Care Housing Relocation Name Role Phone Unavailable Primary Care Provider Unavailabl e Reason for Referral * Outpatient (Routine) - Closed Specialty Diagnoses / Procedures Referred By Contac t Referred To Contact Diagnoses Pain Low Back Unspecified Procedures DX Lumbar Spine 4+ Views Emerald Hand APRN C.N.P., Maximo.N.P., M.S.N. Phone: tel: fax: [facility] Referral ID Status Reason Start Date Expiration Date Visits Re quested Visits Authorized [id number] Closed 05/14/2024 05/14/2025 1 1 * Outpatient (Routine) - Closed Specialty Diagnoses / Procedures Referred By Contac t Referred To Contact Diagnoses Pain Low Back Unspecified Procedures DX Entire Spine Scoliosis 2-3 Views Emerald Hand APRN, C.N.P., D.N.P., M.S.N. Phone: tel: fax: [facility] Referral ID Status Reason Start Date Expiration Date Visits Re quested Visits Authorized [id number] Closed 05/14/2024 05/14/2025 1 1 Encounter Details Date Type Department Care Team (Late st Contact Info) Description 05/14/2024 Orders Only Department of Neurologic Surgery in [address] [phone] Emerald Hand APRN, C.N.P., Maximo.N.P., M.S.N. 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 [address] [place] [phone] 10/20/2024 8:00 AM SHEET METAL WORK FURNACE INSTALLER Appointment Department of Radiology, [facility], in [address] [phone] Oneal Garcia M.D. [address] [place] [phone] 10/20/2024 9:00 AM SHEET METAL WORK FURNACE INSTALLER Appointment Department of Radiology, [facility] in [place], [place] [address] [place] [phone] Oneal Garcia M.D. [address] [place] [phone] 10/20/2024 10:15 AM SHEET METAL WORK FURNACE INSTALLER Appointment Department of Radiology, [facility] in [place], [place] [address] [place] [phone] Oneal Garcia M.D. [address] [place] [phone] 10/20/2024 10:40 AM SHEET METAL WORK FURNACE INSTALLER Lab Department of Laboratory Medicine and Pathology, [facility] in [place], [place] [address] [place] [phone] Oneal Garcia M.D. [address] [place] [phone] 10/20/2024 12:20 PM SHEET METAL WORK FURNACE INSTALLER Ancillary Procedure Department of Cardiovascular Medicine in [place], [place] [address] [place] [phone] Aishwarya Macias MPAS, P.A.-C. [address] [place] [phone] 10/20/2024 1:00 PM SHEET METAL WORK FURNACE INSTALLER Comprehensive Visit Preoperative Evaluation Center in [place], [place] [address] [place] [phone] Mic Ambrocio M.D. [address] [place] [phone] 10/20/2024 2:00 PM SHEET METAL WORK FURNACE INSTALLER Office Visit Department of Orthopedic Surgery in [place], [place] [address] [place] [phone] Oneal Garcia M.D. [address] [place] [phone] Erin Cunningham R.N. 10/22/2024 7:50 AM SHEET METAL WORK FURNACE INSTALLER Hospital Encounter Post Anesthesia Care Unit in [place], [place] [address] [place] [phone] Oneal Garcia M.D. [address] [place] [phone] 10/22/2024 7:50 AM SHEET METAL WORK FURNACE INSTALLER - 10/22/2024 2:52 PM SHEET METAL WORK FURNACE INSTALLER Surgery [facility] OR [address] [place] [phone] Oneal Garcia M.D. [address] [place] [phone] DECOMPRESSION POSTERIOR LUMBAR AND INSTRUMENTED FUSION L4-L5 Scheduled Procedures Name Priority Associated Diagnoses Date/Ti me DECOMPRESSION POSTERIOR LUMBAR AND INSTRUMENTED FUSION Stenosis Spinal Lumbar With Neurogenic Claudication 10/22/2024 7:50 AM SHEET METAL WORK FURNACE INSTALLER documented as of this encounter Results * DX Lumbar Spine 4+ Views (08/03/2024 [...] Diagnoses Diagnosis Pain Low Back Unspecified- Primary Pain Low Back Unspecified Pain Low Back Unspecified Stenosis Spinal Lumbar With Neurogenic Claudication documented in this encounter
--- OUTSIDE RECORDS SUMMARY | 2024-08-10 12:46 | XMS_ITS | Encounter Summary ---
Author Organization [facility] Address [address] [place] [address] Care Team Providers Care Curtain Stretcher Name Role Phone Unavailable Primary Care Provider Unavailabl e Reason for Referral * Outpatient (Routine) - Closed Specialty Diagnoses / Procedures Referred By Contac t Referred To Contact Diagnoses Pain Low Back Unspecified Procedures DX Lumbar Spine 4+ Views Emerald Hand APRN C.N.P., Maximo.N.P., M.S.N. Phone: tel: fax: [facility] Referral ID Status Reason Start Date Expiration Date Visits Re quested Visits Authorized [id number] Closed 05/14/2024 05/14/2025 1 1 Reason for Visit * Outpatient (Routine) - Closed Specialty Diagnoses / Procedures Referred By Contac t Referred To Contact Diagnoses Pain Low Back Unspecified Procedures DX Lumbar Spine 4+ Views Emerald Hand APRN C.N.P., D.N.P., M.S.N. Phone: tel: fax: [facility] Referral ID Status Reason Start Date Expiration Date Visits Re quested Visits Authorized [id number] Closed 05/14/2024 05/14/2025 1 1 Encounter Details Date Type Department Care Team (Latest Contact Info) Description 08/03/2024 6:30 AM CDT - 08/03/2024 11:59 PM CDT Hospital Encounter Department of Radiology, [facility], in [place], [place] [address] [place] [phone] Emerald Hand APRN, C.N.P., Mario.P., M.S.N. [address] [place] [phone] Pain Low Back Unspecified Discharge Disposition: Home or Self Care Social History Tobacco Use Types Packs/Day Years Used Date Smoking Tobacco: Never Smokeless Tobacco: Never [facility] Utilities Answer Date Recorded In [...] your living situation today? I have a [facility] to live 07/30/2024 Sex and Gender Information Value Date Recorded Sex Assigned at Male 07/30/2024 1:05 PM CDT Legal Sex Male 8:38 AM PET CARETAKER Gender Identity Male 07/30/2024 1:05 PM CDT [...] Do not crush or chew. 05/11/2024 05/11/2025 jr-[id number]- lycopen-lutein (Centrum Silver Men) [phone] mcg tablet Take 1 tablet by mouth [...] (Latest Contact Info) Description 10/16/2024 9:15 AM PET CARETAKER Clinical Communication Virtual Review in [place], [place] [address] [place] [phone] 10/16/2024 11:00 AM PET CARETAKER Virtual Visit Department of Social Work in [place], [place] [address] [place] [phone] Oneal Garcia M.D. [address] [place] [phone] 10/20/2024 8:00 AM PET CARETAKER Appointment Department of Radiology, [facility] in [place], [place] [address] [place] [phone] Oneal Garcia M.D. [address] [place] [phone] 10/20/2024 9:00 AM PET CARETAKER Appointment Department of Radiology, [facility] in [place], [place] [address] [place] [phone] Oneal Garcia M.D. [address] [place] [phone] 10/20/2024 10:15 AM PET CARETAKER Appointment Department of Radiology, [facility], in [place], [place] [address] [place] [phone] Oneal Garcia M.D. [address] [place] [phone] 10/20/2024 10:40 AM PET CARETAKER Lab Department of Laboratory Medicine and Pathology, [facility] in [place], [place] [address] [place] [phone] Oneal Garcia M.D. [address] [place] [phone] 10/20/2024 12:20 PM PET CARETAKER Ancillary Procedure Department of Cardiovascular Medicine in [place], [place] [address] [place] [phone] Aishwarya Macias MPAS, P.A.-CLex [address] [place] [phone] 10/20/2024 1:00 PM PET CARETAKER Comprehensive Visit Preoperative Evaluation Center in [place], [place] [address] [place] [phone] Mic Ambrocio M.D. [address] [place] [phone] 10/20/2024 2:00 PM PET CARETAKER Office Visit Department of Orthopedic Surgery in [place], [place] [address] [place] [phone] Oneal Garcia M.D. [address] [place] [phone] Erin Cunningham RVianca 10/22/2024 7:50 AM PET CARETAKER Hospital Encounter Post Anesthesia Care Unit in [place], [place] [address] [place] [phone] Oneal Garcia M.D. [address] [place] [phone] 10/22/2024 7:50 AM PET CARETAKER - 10/22/2024 2:52 PM PET CARETAKER Surgery [facility]IN OR [address] [place] [phone] Oneal Garcia M.D. [address] [place] [phone] DECOMPRESSION POSTERIOR LUMBAR AND INSTRUMENTED FUSION L4-L5 Scheduled Procedures Name Priority Associated Diagnoses Date/Ti me DECOMPRESSION POSTERIOR LUMBAR AND INSTRUMENTED FUSION Stenosis Spinal Lumbar With Neurogenic Claudication 10/22/2024 7:50 AM PET CARETAKER documented as of this encounter Procedures Procedure Name Priority Date/Time Associated Diagnosis Comments DX LUMBAR SPINE 4+ VIEWS RAD - Routine (most inpatients and all outpatients) 08/03/2024 7:28 AM CDT Pain Low Back Unspecified documented in this encounter Results * DX Lumbar Spine [...]
--- OUTSIDE RECORDS SUMMARY | 2024-08-10 12:46 | XMS_ITS | Encounter Summary ---
Author Organization [facility] Address [address] [place] [address] Care Team Providers Care Vacuum Pan Operator Name Role Phone Unavailable Primary Care Provider Unavailabl e Reason for Referral * Outpatient (Routine) - Closed Specialty Diagnoses / Procedures Referred By Contac t Referred To Contact Diagnoses Spondylolisthesis Lumbar Region Procedures FL Lumbar Spine Transforaminal Epidural Injection Right Mic Ambrocio M.D. [address] [place] [address] Phone: tel: fax: [facility] Referral ID Status Reason Start Date Expiration Date Visits Re quested Visits Authorized [id number] Closed 08/03/2024 08/03/2025 1 1 Reason for Visit * Outpatient (Routine) - Closed Specialty Diagnoses / Procedures Referred By Contac t Referred To Contact Diagnoses Spondylolisthesis Lumbar Region Procedures FL Lumbar Spine Transforaminal Epidural Injection Right Mic Ambrocio M.D. [address] [place] [address] Phone: tel: fax: [facility] Referral ID Status Reason Start Date Expiration Date Visits Re quested Visits Authorized [id number] Closed 08/03/2024 08/03/2025 1 1 Encounter Details Date Type Department Care Team (Latest Contact Info) Description 08/07/2024 1:19 PM CDT - 08/07/2024 11:59 PM CDT Hospital Encounter Department of Radiology, [facility] in [place], [place] [address] [place] [phone] Mic Ambrocio M.D. [address] [place] [phone] Mackenzie Norman M.D. [address] [place] [phone] Spondylolisthesis Lumbar Region Discharge Disposition: Home or Self Care Social History Tobacco Use Types Packs/Day Years Used Date Smoking Tobacco: Never Smokeless Tobacco: Never [facility] Utilities Answer Date Recorded In [...] your living situation today? I have a [facility] place to live 07/30/2024 Sex and Gender Information Value Date Recorded Sex Assigned at Male 07/30/2024 1:05 PM CDT Legal Sex Male 8:38 AM PROFILE TRIMMER Gender Identity Male 07/30/2024 1:05 PM CDT Sexual Orientation Straight 07/30/2024 1: 05 PM CDT documented as of this encounter Last Filed [...] - - Body Mass Index - - documented in this encounter Medications at Time of Discharge [...] Do not crush or chew. 05/11/2024 05/11/2025 ig-aah-[id number]-K1- lycopen-lutein (Centrum Silver Men) [phone] mcg tablet Take 1 tablet by mouth [...] (Latest Contact Info) Description 10/16/2024 9:15 AM PROFILE TRIMMER Clinical Communication Virtual Review in [place], [place] [address] [place] [address] 10/16/2024 11:00 AM PROFILE TRIMMER Virtual Visit Department of Social Work in [place], [place] [address] [place] [phone] Oneal Garcia M.D. [address] [place] [phone] 10/20/2024 8:00 AM PROFILE TRIMMER Appointment Department of Radiology, [facility], in [place], [place] [address] [place] [phone] Oneal Garcia M.D. [address] [place] [phone] 10/20/2024 9:00 AM PROFILE TRIMMER Appointment Department of Radiology, [facility] in [place], [place] [address] [place] [phone] Oneal Garcia M.D. [address] [place] [phone] 10/20/2024 10:15 AM PROFILE TRIMMER Appointment Department of Radiology, [facility] in [place], [place] [address] [place] [phone] Oneal Garcia M.D. [address] [place] [phone] 10/20/2024 10:40 AM PROFILE TRIMMER Lab Department of Laboratory Medicine and Pathology, [facility] in [place], [place] [address] [place] [phone] Oneal Garcia M.D. [address] [place] [phone] 10/20/2024 12:20 PM PROFILE TRIMMER Ancillary Procedure Department of Cardiovascular Medicine in [place], [place] [address] [place] [phone] Aishwarya Macias MPAS, P.A.-C. [address] [place] [phone] 10/20/2024 1:00 PM PROFILE TRIMMER Comprehensive Visit Preoperative Evaluation Center in [place], [place] [address] [place] [phone] Mic Ambrocio M.D. [address] [place] [phone] 10/20/2024 2:00 PM PROFILE TRIMMER Office Visit Department of Orthopedic Surgery in [place], [place] [address] [place] [phone] Oneal Garcia M.D. [address] [place] [phone] Erin Cunningham R.N. 10/22/2024 7:50 AM PROFILE TRIMMER Hospital Encounter Post Anesthesia Care Unit in [place], [place] [address] [place] [phone] Oneal Garcia M.D. [address] [place] [phone] 10/22/2024 7:50 AM PROFILE TRIMMER - 10/22/2024 2:52 PM PROFILE TRIMMER Surgery [facility] OR [address] [place] [phone] Oneal Garcia M.D. [address] [place] [phone] DECOMPRESSION POSTERIOR LUMBAR AND INSTRUMENTED FUSION L4-L5 Scheduled Procedures Name Priority Associated Diagnoses Date/Ti me DECOMPRESSION POSTERIOR LUMBAR AND INSTRUMENTED FUSION Stenosis Spinal Lumbar With Neurogenic Claudication 10/22/2024 7:50 AM PROFILE TRIMMER documented as of this encounter Procedures Procedure Name Priority Date/Time Associated Diagnosis Comments FL LUMBAR SPINE TRANSFORAMINAL EPIDURAL INJECTION RIGHT RAD - Routine (most inpatients and all outpatients) 08/07/2024 2:34 PM CDT Spondylolisthesi s Lumbar Region documented in this encounter Results * FL Lumbar Spine Transforaminal Epidural Injection Right (08/07/2024 2:34 PM CDT) Impressions [id number] - 08/07/2024 2:45 PM CDT Fluoroscopically-guided right L4 transforaminal epidural steroid injection. NR Narrative [id number] - 08/07/2024 2:45 PM CDT EXAM: FL [...] pain [facility]. He has a history of low back and bilaterallower extremity pain, worst in the right buttock. MRI demonstratesadvanced spinal canal stenosis at L4-5. Prior epidural steroid injections have had mixed success. Right [id number] epidural steroid injection was requested and performedtoday. [...] M.D. IMG FLUOROSCOPY PROCEDURES Fi nal Result [id number] NA documented in this encounter Visit Diagnoses Diagnosis Spondylolisthesis Lumbar Region Stenosis Spinal Lumbar With Neurogenic Claudication documented in this encounter Administered Medications Inactive Administered Medications - up to 3 most recent administrations Medication Order MAR Action Action Date Dose Rate Site dexAMETHasone injection (Decadron) As needed, Starting on Sat08/07/24 at 1433, Intra-Op Given 08/07/2024 2:33 PM CDT 10 mg Back iohexoL 300 mg iodine/mL solution (Omnipaque) As needed, Starting on Sat08/07/24 at 1430, Intra-Op Given 08/07/2024 2:30 PM CDT 1 mL Back lidocaine (PF) 20 mg/mL (2 %) injection (Xylocaine) As needed, Starting on Sat08/07/24 at 1431, Intra-Op Given 08/07/2024 2:31 PM CDT 1 mL Back lidocaine 10 mg/mL (1 %) injection (Xylocaine) As needed, Starting on Sat08/07/24 at 1425, Intra-Op Given 08/07/2024 2:25 PM CDT 3 mL Back documented in this encounter
--- OUTSIDE RECORDS SUMMARY | 2024-08-10 12:46 | XMS_ITS | Encounter Summary ---
Author Organization [facility] Address [address] [place] [address] Care Team Providers Care Death Surveys Coder Name Role Phone Unavailable Primary Care Provider Unavailabl e Reason for Visit * Appointment Request (Routine) - Closed Specialty Diagnoses / Procedures Referred By Mireya garza Referred To Contact Nephrology and Hypertension Referral ID Status Reason Start Date Expiration Date Visits Re quested Visits Authorized [id number] Closed 07/31/2024 07/31/2025 1 1 Encounter Details Date Type Department Care Team (Latest Contact Info) Description 08/04/2024 4:30 PM CDT External Outreach Division of Nephrology and Hypertension in [place], [place] [address] [place] [address] Humberto Cho Jr., D.O. [address] [place] [phone] Chronic Kidney Disease (CKD), Stage 3b Glomerular Filtration Rate (GFR) 30 To 44 (HCC) (Primary Dx); Hypertensive Chronic Kidney Disease With Stage 1 Through Stage 4 Chronic Kidney Disease, Or Unspecified Chronic Kidney Disease; Diabetes Mellitus Type 2 (HCC); Apnea Sleep Obstructive; Hyperparathyroidism Renal Secondary (HCC); Gout; Hypothyroidism Acquired; Anticoagulant Therapy; Atrial Fibrillation Paroxysmal (HCC); Pain Back Lumbar Social History Tobacco Use Types Packs/Day Years Used Date Smoking Tobacco: Never Smokeless Tobacco: Never [facility] Utilities Answer Date Recorded In the [...] your living situation today? I have a [facility] place to live 07/30/2024 Sex and Gender Information Value Date Recorded Sex Assigned at Male 07/30/2024 1:05 PM CDT Legal Sex Male 8:[address] M[address] OPERATOR Gender Identity Male 07/30/2024 1:05 PM CDT Sexual Orientation Straight 07/30/2024 1: 05 PM CDT documented as of this encounter Last Filed Vital Signs Vital Sign Reading Time Taken Comments Blood Pressure 146/72 08/04/2024 4:30 PM CDT Pulse 64 08/04/2024 4:30 PM CDT Temperature - - Respiratory Rate - - Oxygen Saturation - - Inhaled Oxygen Concentration - - Weight 97.9 kg (215 lb 13.3 oz) 08/04/2024 4:30 PM CDT Height 175 cm (5' 8.9) 08/04/2024 4:30 PM CDT Body Mass Index 31.97 08/04/2024 4:30 PM CDT documented in this encounter Progress Notes * Humberto Cho Jr., D.O. - 08/04/2024 4:30 PM CDT Referring Provider DR Low Roth IM SUBJECTIVE REASON FOR VISIT [facility] Follow-up regards CKD, diabetes mellitus, hypertension HISTORY OF PRESENT ILLNESS Mr. Damon is a 79 y.o. 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 I appreciate he is back from a 2 day visit down to [place] where he saw the [facility], endocrinology, and orthopedic surgery, and tentatively we will be scheduled for November 09, 2024 decompressive surgery. He has not had hypoglycemic events recently. He had a complete battery of testing done at [facility] on 07/23/2024, and note his creatinine level to be stable at 1.9 mg/dL. This is similar to his value a September 03, 2023 when it was also 1.9 mg/dL. Appreciate his hemoglobin A1c at 7.6%, which has been steady and improved from last year when it was 8.4% in August of 2023. He has not had orthostatic issues. Checks his blood pressures at home and often has readings in [id number] over 70s, but recently has not been checking these quite as frequently. We have struggled withdiuretic therapy, he has been on numerous different diuretics which have universally led to a rash.We discussed that all the diuretics with the exception of ethacrynic acid have a sulfa moiety contai alex within them, and that he likely has a true sulfa allergy. He states he is being careful with sodium, but his and he acknowledged that they do we many foods which are high in sodium, and he does add sodium to certain foods. Wearing compressive socks, as well as often wearing velcro compression and uses pneumatic compression in his legs. I note that otherwise his antihypertensive regimen has been quite steady with losartan 25 mg orallydaily, along with metoprolol 25 mg orally daily. He has not had dyspnea at rest. He has not had any PND nor orthopnea, no chest pain. Does not have any open wounds. He is extremely frustrated with the pain in his low back, he needs to use a walker, is unable to ambulate without excruciating pain. He is somewhat comfortable at rest but is quite frustrated to be stuck without options. I note that there was some tentative plans for possible injection, with the earliest surgical schedule being available in October. Appreciate that he underwent previous right hip surgery many years ago which was complicated by prolonged sedation. A more recent left hip surgery done under spinal anesthesia with local augmentationof analgesia allowed him to leave the hospital the next day. He has not had any other complicationsfrom general anesthesia in the past. Past medical history: 1. Hypertension 2. Diabetes mellitus type 2 3. Severe DJD of the spine 4. Secondary renal hyperparathyroidism 5. Paroxysmal atrial fibrillation 6. Obstructive sleep apnea-adherent to his CPAP regimen 7. Hyperlipidemia 8. History of oral anticoagulation 9. Acquired hypothyroidism-euthyroid Current Outpatient Medications: Accu-Chek Barbara Plus test strp, use to test once daily, Disp: , Rfl: allopurinoL (Zyloprim) 100 mg tablet, Take 100 mg by mouth daily., Disp: , Rfl: allopurinol 100 mg oral [...] total) by mouth daily., Disp: , Rfl: cinnamon bark 500 mg capsule, Take 500 mg by mouth daily., Disp: , Rfl: gabapentin (NEURONTIN) 600 mg tablet, Take 1 tablet (600 mg total) by mouth 3 (three) times a day.,Disp: , Rfl: glipiZIDE (GLUCOTROL XL) 5 mg 24 hr tablet, Take 5 mg by mouth daily with breakfast., Disp: , Rfl: insulin glargine (Lantus Solostar U-100 Insulin) 100 unit/mL (3 mL) injection, Inject 20 Units under the skin at bedtime. Pharmacy select brand per patient insurance/preference. (Patient taking differently: Inject 20 Units under the skin daily. Pharmacy select brand per patient insurance/preference.), Disp: , Rfl: levothyroxine 100 mcg tablet, Take 100 mcg by mouth daily., Disp: , Rfl: losartan (Cozaar) 25 mg tablet, Take 1 tablet (25 mg total) by mouth daily., Disp: 90 tablet, Rfl: 3 metFORMIN (Glucophage) 1,000 mg tablet, Take 0.5 tablets (500 mg total) by mouth 2 (two) times a day with meals., Disp: 90 tablet, Rfl: 3 metoprolol succinate (Toprol XL) 50 mg 24 hr tablet, Take 0.5 tablets (25 mg total) by mouth daily.Do not crush or chew., Disp: , Rfl: rl-skk-jkwod-W8-cuuaryw-lbofps (Centrum Silver Men) 396-07-497-300 mcg tablet, Take 1 tablet by mouth daily., Disp: , Rfl: potassium chloride (KLORCON/K-TAB) 10 [...] systems reviewed and are negative. OBJECTIVE BP 146/72 Pulse 64 Ht 175 cm Wt 97.9 kg BMI 31.97 kg/m?? PHYSICAL EXAMINATION General: Awake, alert, oriented. HEENT: BAHMAN, EOMI, mucous membranes moist, no oral lesions. Neck: No masses, no bruits. Lungs: Velcro like crackles throughout Heart: Regular rate and rhythm. No ectopy, murmurs, or rubs. Abdomen: Soft, non-tender. Extremities: No cyanosis, no clubbing, has 1 to 2+ pitting edema above his compressive socks at hisknees bilaterally Neuro: Cranial nerves intact. Gait is very antalgic and he is using a walker, strength is diminished, I note that he need to use a chair to help him arise up out of the chair. Skin: No suspicious lesions identified. Thin skin with atrophy and multiple ecchymoses Psychiatric: Normal affect. DIAGNOSTICS Note hemoglobin 13.1 white count 13.2 K, normal platelet count, chemistries normal serum creatinine1.9 mg/dL BUN 32 hemoglobin A1c 7.6% normal liver function testing, TSH 5.1 T4 1.1-normal, urine studies last drawn November 09, 2023 microalbumin to creatinine ratio 2440 milligrams/gram ASSESSMENT / PLAN #1 Chronic Kidney Disease (CKD), Stage 3b Glomerular Filtration Rate (GFR) 30 To 44 (HCC) This is on the background of diabetic hypertensive and ischemic nephrosclerosis. His creatinine hasremained gratifyingly stable and from his renal perspective we are safe to proceed with definitive surgical procedures. Going forward: 1. Goal blood pressures less than 140s over 90s, I have asked him to resume checking his blood pressure at least once per week. We certainly have room to increase his losartan and metoprolol if necessary. We have struggled with respect to diuretic use due to his allergy to the diuretics. 2. I have asked him to limit his sodium strictly to less than 2500 mg sodium per day 3. Goal glycosylated hemoglobin less than 8% which he has achieved I congratulated him, we will continue on his oral hypoglycemic agents. 4. No NSAIDs or Diallo 2 inhibitors 5. I will have him back to Nephrology Clinic in October of 2024 6. Should get at least 30 oz of water per day, his thirst is minimal in the wintertime. #2 Hypertensive Chronic Kidney Disease With Stage 1 Through Stage 4 Chronic Kidney Disease, Or Unspecified Chronic Kidney Disease His goal blood pressures of likely been achieved, but we will be important to have his blood pressures log at home. It would be optimal we could utilize a diuretic as he does have some mild lower extremity swelling. He should continue on his CPAP #3 Diabetes Mellitus Type 2 (HCC) Glycemic control is acceptable, we will continue with the current regimen. He would likely be optimized with the use of an SG LT 2 inhibitor although we will hold off for now given all the other changes and his inability to get around. A GLP 1 agonist could also be considered, although these are often cost prohibitive. We will consider these going forward. #4 Apnea Sleep Obstructive He is adherent to his regimen he will continue with his CPAP. #5 Hyperparathyroidism Renal Secondary (HCC) I am satisfied with the calcium and phosphorus. #6 Gout No recent flares fortunately. He needs to avoid high purine foods, and this is another issue with respect to his diuretic use which would be better augmented with sodium restriction compressive garments and lower extremity elevation. #7 Hypothyroidism Acquired He is euthyroid on replacement. #8 Anticoagulant Therapy Orally anticoagulated with a direct anticoagulant. #9 Atrial Fibrillation Paroxysmal (HCC) Heart rate seems well controlled he is on beta blockade and anticoagulation. #10 Pain Back Lumbar Appreciate the input from the multiple specialists who visited with him. Total time: 55 minutes Counseling Time: 40 minutes Humberto Cho Jr., D.O. documented in this encounter Plan of Treatment Upcoming Encounters Date Type Department Care Team (Latest Contact Info) Description 10/16/2024 9:[address] MIXER OPERATOR Clinical Communication Virtual Review in [address] [phone] 10/16/2024 11:[address] MIXER OPERATOR Virtual Visit Department of Social Work in [address] [phone] Oneal Garcia M.D. [address] [place] [phone] 10/20/2024 8:[address] MIXER OPERATOR Appointment Department of Radiology, [address] [phone] Oneal Garcia M.D. [address] [place] [phone] 10/20/2024 9:[address] MIXER OPERATOR Appointment Department of Radiology, [facility] in [address] [phone] Oneal Garcia M.D. [address] [place] [phone] 10/20/2024 10:[address] MIXER OPERATOR Appointment Department of Radiology, [facility] in [address] [phone] Oneal Garcia M.D. [address] [place] [phone] 10/20/2024 10:[address] MIXER OPERATOR Lab Department of Laboratory Medicine and Pathology, [facility], in [place], [place] [address] [place] [phone] Oneal Garcia M.D. [address] [place] [phone] 10/20/2024 12:[address] MIXER OPERATOR Ancillary Procedure Department of Cardiovascular Medicine in [place], [place] [address] [place] [phone] Aishwarya Macias MPAS, P.A.-CLex [address] [place] [phone] 10/20/2024 1:[address] MIXER OPERATOR Comprehensive Visit Preoperative Evaluation Center in [place], [place] [address] [place] [address] Mic Ambrocio M.D. [address] [place] [phone] 10/20/2024 2:[address] MIXER OPERATOR Office Visit Department of Orthopedic Surgery in [place], [place] [address] [place] [phone] Oneal Garcia M.D. [address] [place] [phone] Erin Cunningham, RLexNLex 10/22/2024 7:[address] MIXER OPERATOR Hospital Encounter Post Anesthesia Care Unit in [place], [place] [address] [place] [phone] Oneal Garcia M.D. [address] [place] [phone] 10/22/2024 7:[address] MIXER OPERATOR - 10/22/2024 2:[address] MIXER OPERATOR Surgery [facility] [address] [place] [address] Oneal Garcia M.D. [address] [place] [address] DECOMPRESSION POSTERIOR LUMBAR AND INSTRUMENTED FUSION L4-L5 Scheduled Procedures Name Priority Associated Diagnoses Date/Ti me DECOMPRESSION POSTERIOR LUMBAR AND INSTRUMENTED FUSION Stenosis Spinal Lumbar With Neurogenic Claudication 10/22/2024 7:[address] MIXER OPERATOR documented as of this encounter Visit Diagnoses Diagnosis Chronic Kidney Disease (CKD), Stage 3b Glomerular Filtration Rate (GFR) 30 To 44 (HCC)- Primary Hypertensive Chronic Kidney Disease With Stage 1 Through Stage 4 Chronic Kidney Disease, Or Unspecified Chronic Kidney Disease Diabetes Mellitus Type 2 (HCC) Apnea Sleep Obstructive Hyperparathyroidism Renal Secondary (HCC) Gout Hypothyroidism Acquired Anticoagulant Therapy Atrial Fibrillation Paroxysmal (HCC) Pain Back Lumbar Stenosis Spinal Lumbar With Neurogenic Claudication documented in this encounter
--- OUTSIDE RECORDS SUMMARY | 2024-08-10 12:46 | XMS_ITS | Encounter Summary ---
Author Organization [facility] Address [address] [place] [address] Care Team Providers Care Sludge Filtration Operator Name Role Phone Unavailable Primary Care Provider Unavailabl e Reason for Visit * Appointment Request (Routine) - Closed Specialty Diagnoses / Procedures Referred By Mireya garza Referred To Contact Nephrology and Hypertension Referral ID Status Reason Start Date Expiration Date Visits Re quested Visits Authorized [id number] Closed 04/03/2024 04/03/2025 1 1 Encounter Details Date Type Department Care Team (Latest Contact Info) Description 05/11/2024 2:30 PM CDT External Outreach Division of Nephrology and Hypertension in [place], [place] [address] [place] [address] Humberto Cho Jr., D.O. [address] [place] [phone] Chronic Kidney Disease (CKD), Stage 3b Glomerular [...] PM CDT Legal Sex Male 8:38 AM AND TAXI INSTRUCTOR BUS TROLLEY Gender Identity Male 07/30/2024 1:05 PM CDT [...] Provider: Dr. Castillo SUBJECTIVE REASON FOR VISIT [facility] out reach CKD Clinic Follow-up regards CKD, [...] was seeing a spine center in the [facility] who mentioned that he has spondylolisthesis, [...] blood work in 2 weeks here in [place], to evaluate any change in his serum [...] (Latest Contact Info) Description 10/16/2024 9:15 AM AND TAXI INSTRUCTOR BUS TROLLEY Clinical Communication Virtual Review in [place], [place] 200 [place] [phone] 10/16/2024 11:00 AM AND TAXI INSTRUCTOR BUS TROLLEY Virtual Visit Department of Social Work in [place], [place] [address] [place] [phone] Oneal Garcia M.D. [address] [place] [phone] 10/20/2024 8:00 AM AND TAXI INSTRUCTOR BUS TROLLEY Appointment Department of Radiology, [facility], in [place], [place] [address] [place] [phone] Oneal Garcia M.D. [address] [place] [phone] 10/20/2024 9:00 AM AND TAXI INSTRUCTOR BUS TROLLEY Appointment Department of Radiology, [facility] in [place], [place] [address] [place] [phone] Oneal Garcia M.D. [address] [place] [phone] 10/20/2024 10:15 AM AND TAXI INSTRUCTOR BUS TROLLEY Appointment Department of Radiology, [facility] in [place], [place] [address] [place] [phone] Oneal Garcia M.D. [address] [place] [phone] 10/20/2024 10:40 AM AND TAXI INSTRUCTOR BUS TROLLEY Lab Department of Laboratory Medicine and Pathology, [facility] in [place], [place] [address] [place] [phone] Onela Garcia M.D. [address] [place] [phone] 10/20/2024 12:20 PM AND TAXI INSTRUCTOR BUS TROLLEY Ancillary Procedure Department of Cardiovascular Medicine in [address] [phone] Aishwarya Macias MPAS, P.A.-C. [address] [place] [phone] 10/20/2024 1:00 PM AND TAXI INSTRUCTOR BUS TROLLEY Comprehensive Visit Preoperative Evaluation Center in [place], [place] [address] [place] [phone] Mic Ambrocio M.D. [address] [place] [phone] 10/20/2024 2:00 PM AND TAXI INSTRUCTOR BUS TROLLEY Office Visit Department of Orthopedic Surgery in [place], [place] [address] [place] [phone] Oneal Garcia M.D. [address] [place] [phone] Erin Cunningham R.N. 10/22/2024 7:50 AM AND TAXI INSTRUCTOR BUS TROLLEY Hospital Encounter Post Anesthesia Care Unit in [place], [place] [address] [place] [phone] Oneal Garcia M.D. [address] [place] [phone] 10/22/2024 7:50 AM AND TAXI INSTRUCTOR BUS TROLLEY - 10/22/2024 2:52 PM AND TAXI INSTRUCTOR BUS TROLLEY Surgery [facility] [place] [phone] Oneal Garcia M.D. [address] [place] [phone] DECOMPRESSION POSTERIOR LUMBAR AND INSTRUMENTED FUSION L4-L5 Scheduled Procedures Name Priority Associated Diagnoses Date/Ti me DECOMPRESSION POSTERIOR LUMBAR AND INSTRUMENTED FUSION Stenosis Spinal Lumbar With Neurogenic Claudication 10/22/2024 7:50 AM AND TAXI INSTRUCTOR BUS TROLLEY documented as of this encounter Visit Diagnoses Diagnosis Chronic Kidney Disease (CKD), Stage 3b Glomerular Filtration Rate (GFR) 30 To 44 (HCC)- Primary Hypertensive Chronic Kidney Disease (CKD) Stage 3b Glomerular Filtration Rate (GFR) 30 To 44 Diabetes Mellitus Type 2 (HCC) Atrial Fibrillation Paroxysmal (HCC) Hyperparathyroidism Renal Secondary (HCC) Apnea Sleep Obstructive Pain Back Lumbar Stenosis Spinal Lumbar With Neurogenic Claudication documented in this encounter
--- OUTSIDE RECORDS SUMMARY | 2024-08-10 12:46 | XMS_ITS | Encounter Summary ---
Author Organization [facility] Address [address] [place] [address] Care Team Providers Care Hob Grinder Name Role Phone Unavailable Primary Care Provider Unavailabl e Reason for Visit * Appointment Request (Routine) - Closed Specialty Diagnoses / Procedures Referred By Mireya garza Referred To Contact Endocrinology Referral ID Status Reason Start Date Expiration Date Visits Re quested Visits Authorized [id number] Closed 05/26/2024 05/26/2025 1 1 Encounter Details Date Type Department Care Team (Latest Contact Info) Description 08/04/2024 9:30 AM CDT Comprehensive Visit Division of Endocrinology in [place], [place] [address] [place] [address] Aniket Goldberg M.B.B.S. [address] [place] [address] Diabetes Mellitus Type 2 (HCC) (Primary Dx) Social History Tobacco Use Types Packs/Day Years Used Date Smoking Tobacco: Never Smokeless Tobacco: Never [facility] Utilities Answer Date Recorded In [...] your living situation today? I have a [facility] place to live 07/30/2024 Sex and Gender Information Value Date Recorded Sex Assigned at Male 07/30/2024 1:05 PM CDT Legal Sex Male 8:38 AM SENIOR PRODUCT DEVELOPMENT SCIENTIST Gender Identity Male 07/30/2024 1:05 PM CDT Sexual Orientation Straight 07/30/2024 1: 05 PM CDT documented as of this encounter Last Filed Vital Signs Vital Sign Reading Time Taken Comments Blood Pressure 201/83 08/04/2024 9:[address] Pulse 64 08/04/2024 9:28 AM CDT Temperature - - Respiratory Rate - - Oxygen Saturation - - Inhaled Oxygen Concentration - - Weight 96.8 kg (213 lb 6.5 oz) 08/04/2024 9:28 A M CDT Height 178.2 cm (5' 10.16) 08/04/2024 9:28 AM C DT Body Mass Index 30.48 08/04/2024 9:28 AM CDT documented in this encounter Consult Notes * Aniket Goldberg M.B.B.S. - 08/04/2024 9:30 AM CDT [facility] Endocrinology, Diabetes, and Nutrition Metabolism Clinic Date of Visit: 08/04/2024 Supervising air quality consultant: Dr. Beard SUBJECTIVE Chief Complaint: Type 2 Diabetes History of Present Illness Mike Damon is a 79 y.o. male with PMH of Atrial Fibrillation, gout, hyperlipidemia, type 2daibetes, hypertension, amiodarone induced hypothyroidism, L4-L5 spinal stenosis who presents for evaluation of type 2 diabetes. He states he was initially diagnosed with type 2 diabetes about 20-25 years ago after being found to have elevated blood sugars. He was started on metformin and glipizideat that time and states his blood sugars were relatively under good control until late last year when he was found to have an elevated A1c. He was started on glargine at that time. He is currently taking metformin 500 mg b.i.d., glipizide 5 mg, glargine 22 units q.a.m.. He monitors his blood sugars once a day using a glucometer and states his blood sugars typically range between 75-120, but states that on the days after his steroid injections for his back pain he does notice that the blood sugars can trend upwards to mid 200s. He denies any recent low blood sugar readings or episodes suggestive of hypoglycemia. - Weight: He states he has lost about 5-10 lb in the last couple of months - Diet: Typically eats 2 meals a day; breakfast at around 9:00 a.m. and has a bolus cereal with some eggs and dinner at around 6 or 7:00 p.m. and usually has meat or salad - Exercise: Does not typically exercise due to chronic back pain Macrovascular complications Smoking history: Denies Microvascular complications Last dilated eye exam performed About 2 months ago and found to be normal Last Albumin/Cr ratio performed unsure Last monofilament exam performed with PCP recently and found to have mild neuropathy Comorbidities - Hypertension: Blood pressure today 201/83 - Dyslipidemia: Unsure Pertinent medications Pertinent results: The ASCVD Risk score (Samson DK, et al., 2019) failed to calculate for the following reasons: The 2019 ASCVD risk score is only valid for ages 40 to 79 The following portions of the patient's history were also reviewed and updated as appropriate: . OBJECTIVE Vitals: 08/04/24 0928 BP: (!) 201/83 Pulse: 64 Estimated body mass index is 30.48 kg/m?? as calculated from the following: Height as of this encounter: 178.2 cm. Weight as of this encounter: 96.8 kg. General: Well-appearing and in no acute distress Neuro: Alert and oriented to person, place, time, and situation. Pulses: Dorsalis pedis pulses 2+ bilaterally Psych: Normal mood and affect ASSESSMENT / PLAN #Type 2 Diabetes -Currently taking metformin 500 mg b.i.d., glipizide 5 mg, glargine 22 units q.a.m -Latest A1c reportedly 6.9% in 05/13 -Patient reports having recent bloodwork done earlier this month however unfortunately we do not currently have access to these results. Discussed with the patient that having this data would help usmake better recommendations on how to treat his diabetes moving forward -Patient reports his blood sugars typically range between 70s to 120s and he has noticed that he has had multiple days with blood sugars lower than 100 despite this he denies having any overt hypoglycemic readings or episodes. We discussed that given his age we would recommend an A1c target of around 7-7.5% and fasting blood sugars between 100-140 in order to prevent episodes of hypoglycemia. -We would recommend that if his A1c continues to be on the lower side to discontinue glipizide 5 mgfor now -We discussed that given his comorbidities such as chronic kidney disease; he would benefit from alternative agents such as GLP 1 agonist or SGLT2 inhibitors and that by starting these medications wecould potentially cut down on his insulin dose requirements and hopefully get him off of it completely. -We recommended to continue with his current regimen for now and after his planned surgery in October 2024 to consider adding these alternative agents and cutting down on insulin with local PCP #Hypertension -Currently on Losartan 25mg #Hyperlipidemia -Currently on atorvastatin 10mg Recommendations -Follow up on recent bloodwork -Continue current regimen of metformin 500 mg b.i.d., glipizide 5 mg, glargine 22 units q.a.m; however strongly consider discontinuing glipizide if recent A1c found to be <7% -Follow up with local PCP to consider adjusting diabetes regimen to focus on alternative agents such GLP 1 agonist or SGLT2 inhibitors for added renal and cardiac benefit in attempt to cut down on insulin requirements after scheduled surgery in 11/14 Total of 45 minutes spent on patient care including counseling and chart review Patient's care discussed with Dr. Beard. Signed: Annmarie Urrutia. Endocrinology fellow * Janelle Beard M.B.B.S., MSelene. - 08/04/2024 9:30 AM CDT I saw and evaluated the patient, participating in the johnson portions of the service. I reviewed Dr. Goldberg's note. I agree with his findings and plan. In brief, patient with type 2 diabetes mellitus of longstanding duration, with CKD, with initiationof basal insulin in 2022. Currently on metformin 500 mg b.i.d., glipizide 5 mg daily and glargine 22 units. Monitoring once daily in the morning with reported blood sugars between 75-120 without symptomatic hypoglycemia. His labs are currently not available to us for review. He reportedly completedblood work on Saturday and desires to avoid any repeat testing. He also works closely with a supervisor calibration with suboptimal hypertension control. ASSESSMENT/PLAN 1. Main goal with diabetes management would be to aim for hemoglobin A1c close to 7% with avoidanceof hypoglycemia. If his hemoglobin A1c indicates tight control, with reported tight blood sugars in the morning, would recommend discontinuation of low-dose glipizide. 2. We also discussed about non insulin options that could potentially replace glargine, such as incretin based pharmacotherapy with semaglutide or Tirzepatide, that can help with weight management with renal protective effects. SGLT2 inhibitors could also be an additional option but glycemic lowering effect in isolation might be limited to replace the glargine. These medications have to be carefully initiated with close monitoring with caution to prevent dehydration/prerenal worsening of renal function. 3. We have also encouraged to increase the number of monitoring to twice daily and incorporate somepre meal testing later in the day and alternate pre lunch, pre evening meal or bedtime with goal between 100-150 mg/dL. 4. Patient will share the lab reports when he returns for a visit with the dietitian later this week, when final recommendations can be provided. Otherwise he can work with his primary care provider on implementing potential pharmacotherapy change with need for close monitoring. 5. Optimizing hypertension management is johnson to prevention of renal progression. documented in this encounter Plan of Treatment Upcoming Encounters Date Type Department Care Team (Latest Contact Info) Description 10/16/2024 9:15 AM SENIOR PRODUCT DEVELOPMENT SCIENTIST Clinical Communication Virtual Review in [place], [place] [address] [place] [address] 10/16/2024 11:00 AM SENIOR PRODUCT DEVELOPMENT SCIENTIST Virtual Visit Department of Social Work in [place], [place] [address] [place] [phone] Oneal Garcia M.D. [address] [place] [phone] 10/20/2024 8:00 AM SENIOR PRODUCT DEVELOPMENT SCIENTIST [facility] [place] [place] [address] [place] [phone] Oneal Garcia M.D. [address] [place] [phone] 10/20/2024 9:00 AM SENIOR PRODUCT DEVELOPMENT SCIENTIST Appointment Department of Radiology[address] [phone] Oneal Garcia M.D. [address] [place] [phone] 10/20/2024 10:15 AM SENIOR PRODUCT DEVELOPMENT SCIENTIST Appointment Department of Radiology, [place], [place] [address] [place] [phone] Oneal Garcia M.D. [address] [place] [phone] 10/20/2024 10:40 AM SENIOR PRODUCT DEVELOPMENT SCIENTIST Lab Department of Laboratory Medicine and Pathology, [facility] in [place], [place] [address] [place] [phone] Oneal Garcia M.D. [address] [place] [phone] 10/20/2024 12:20 PM SENIOR PRODUCT DEVELOPMENT SCIENTIST Ancillary Procedure Department of Cardiovascular Medicine in [place], [place] [address] [place] [phone] Aishwarya Macias MPAS, P.A.-CLex [address] [place] [phone] 10/20/2024 1:00 PM SENIOR PRODUCT DEVELOPMENT SCIENTIST Comprehensive Visit Preoperative Evaluation Center in [place], [place] [address] [place] [phone] Mic Ambrocio M.D. [address] [place] [phone] 10/20/2024 2:00 PM SENIOR PRODUCT DEVELOPMENT SCIENTIST Office Visit Department of Orthopedic Surgery in [place], [place] [address] [place] [phone] Oneal Garcia M.D. [address] [place] [phone] Erin Cunningham, RLexNLex 10/22/2024 7:50 AM SENIOR PRODUCT DEVELOPMENT SCIENTIST Hospital Encounter Post Anesthesia Care Unit in [place] [id number] [place] [phone] Oneal Garcia M.D. [address] [place] [phone] 10/22/2024 7:50 AM SENIOR PRODUCT DEVELOPMENT SCIENTIST - 10/22/2024 2:52 PM SENIOR PRODUCT DEVELOPMENT SCIENTIST Surgery [facility] [address] [place] [phone] Oneal Garcia M.D. [address] [place] [address] DECOMPRESSION POSTERIOR LUMBAR AND INSTRUMENTED FUSION L4-L5 Scheduled Procedures Name Priority Associated Diagnoses Date/Ti me DECOMPRESSION POSTERIOR LUMBAR AND INSTRUMENTED FUSION Stenosis Spinal Lumbar With Neurogenic Claudication 10/22/2024 7:50 AM SENIOR PRODUCT DEVELOPMENT SCIENTIST documented as of this encounter Visit Diagnoses Diagnosis Diabetes Mellitus Type 2 (HCC)- Primary Stenosis Spinal Lumbar With Neurogenic Claudication documented in this encounter
--- OUTSIDE RECORDS SUMMARY | 2024-08-10 12:47 | XMS_ITS | Encounter Summary ---
Author Organization [facility] Address [address] [place] [address] Care Team Providers Care Roll Sheeting Cutter Name Role Phone Unavailable Primary Care Provider Unavailabl e Reason for Visit * Reason Comments Med Refill Encounter Details Date Type Department Care Team (Late st Contact Info) Description 05/01/2024 Refill Division of Nephrology and Hypertension in [place], [place] [address] [place] [phone] Humberto Cho Jr., D.O. [address] [place] [phone] Med Refill Social History Tobacco Use Types Packs/Day Years Used Date Smoking Tobacco: Never Assessed Dental Answer Date Recorded Dental: Regular Dentist Unknown 09/05/20 23 Sex and Gender Information Value Date Recorded Sex Assigned at Male 07/30/2024 1:05 PM CDT Legal Sex Male 8:38 AM SHOE STITCHER ODD Gender Identity Male 07/30/2024 1:05 PM CDT Sexual Orientation Straight 07/30/2024 1: 05 PM CDT documented as of this encounter Plan of Treatment Upcoming Encounters Date Type Department Care Team (Latest Contact Info) Description 10/16/2024 9:15 AM SHOE STITCHER ODD Clinical Communication Virtual Review in [place], [place] 200 [place] [phone] 10/16/2024 11:00 AM SHOE STITCHER ODD Virtual Visit Department of Social Work in [place], [place] [address] [place] [phone] Oneal Garcia M.D. [address] [place] [phone] 10/20/2024 8:00 AM SHOE STITCHER ODD Appointment Department of Radiology, [facility] in [place], [place] [address] [place] [phone] Oneal Garcia M.D. [address] [place] [phone] 10/20/2024 9:00 AM SHOE STITCHER ODD [facility] [place] [place] [address] [place] [phone] Oneal Garcia M.D. [address] [place] [phone] 10/20/2024 10:15 AM SHOE STITCHER ODD Appointment Department of Radiology, [facility] in [place], [place] [address] [place] [phone] Oneal Garcia M.D. [address] [place] [phone] 10/20/2024 10:40 AM SHOE STITCHER ODD Lab Department of Laboratory Medicine and Pathology, [facility] in [place], [place] [address] [place] [phone] Oneal Garcia M.D. [address] [place] [phone] 10/20/2024 12:20 PM SHOE STITCHER ODD Ancillary Procedure Department of Cardiovascular Medicine in [place], [place] [address] [place] [phone] Aishwarya Macias MPAS, P.A.-C. [address] [place] [phone] 10/20/2024 1:00 PM SHOE STITCHER ODD Comprehensive Visit Preoperative Evaluation Center in [place], [place] [address] [place] [phone] Mic Ambrocio M.D. [address] [place] [phone] 10/20/2024 2:00 PM SHOE STITCHER ODD Office Visit Department of Orthopedic Surgery in [place], [place] [address] [place] [phone] Oneal Garcia M.D. [address] [place] [phone] Erin Cunningham, RLexNLex 10/22/2024 7:50 AM SHOE STITCHER ODD Hospital Encounter Post Anesthesia Care Unit in [place], [place] [address] [place] [phone] Oneal Garcia M.D. [address] [place] [phone] 10/22/2024 7:50 AM SHOE STITCHER ODD - 10/22/2024 2:52 PM SHOE STITCHER ODD Surgery [facility] [address] [place] [phone] Oneal Garcia M.D. [address] [place] [phone] DECOMPRESSION POSTERIOR LUMBAR AND INSTRUMENTED FUSION L4-L5 Scheduled Procedures Name Priority Associated Diagnoses Date/Ti or DECOMPRESSION POSTERIOR LUMBAR AND INSTRUMENTED FUSION Stenosis Spinal Lumbar With Neurogenic Claudication 10/22/2024 7:50 AM SHOE STITCHER ODD documented as of this encounter Visit Diagnoses Not on filedocumented in this encounter
--- OUTSIDE RECORDS SUMMARY | 2024-08-10 12:47 | XMS_ITS | Encounter Summary ---
Author Organization [facility] Address [address] [place] [address] Care Team Providers Care Parquet Floor Layer Name Role Phone Unavailable Primary Care Provider Unavailabl e Encounter Details Date Type Department Care Team (Late st Contact Info) Description 05/06/2024 Clinical Communication Department of Spine in [place], [place] [address] [place] [phone] Provider, Unknown Social History Tobacco Use Types Packs/Day Years Used Date Smoking Tobacco: Never Assessed Dental Answer Date Recorded Dental: Regular Dentist Unknown 09/05/20 23 Sex and Gender Information Value Date Recorded Sex Assigned at Male 07/30/2024 1:05 PM CDT Legal Sex Male 8:38 AM PER DIEM Gender Identity Male 07/30/2024 1:05 PM CDT Sexual Orientation Straight 07/30/2024 1: 05 PM CDT documented as of this encounter Plan of Treatment Upcoming Encounters Date Type Department Care Team (Latest Contact Info) Description 10/16/2024 9:15 AM PER DIEM Clinical Communication Virtual Review in [place], [place] [address] [place] [phone] 10/16/2024 11:00 AM PER DIEM Virtual Visit Department of Social Work in [place], [place] [address] [place] [phone] Oneal Garcia M.D. [address] [place] [phone] 10/20/2024 8:00 AM PER DIEM Appointment Department of Radiology, [facility], in [place], [place] [address] [place] [phone] Oneal Garcia M.D. [address] [place] [phone] 10/20/2024 9:00 AM PER DIEM Appointment Department of Radiology, [facility] in [place], [place] [address] [place] [phone] Oneal Garcia M.D. [address] [place] [phone] 10/20/2024 10:15 AM PER DIEM Appointment Department of Radiology, [facility] in [place], [place] [address] [place] [phone] Oneal Garcia M.D. [address] [place] [phone] 10/20/2024 10:40 AM PER DIEM Lab Department of Laboratory Medicine and Pathology, [facility] in [place], [place] [address] [place] [phone] Oneal Garcia M.D. [address] [place] [phone] 10/20/2024 12:20 PM PER DIEM Ancillary Procedure Department of Cardiovascular Medicine in [place], [place] [address] [place] [phone] Aishwarya Macias MPAS, P.A.-C. [address] [place] [phone] 10/20/2024 1:00 PM PER DIEM Comprehensive Visit Preoperative Evaluation Center in [place], [place] [address] [place] [phone] Mic Ambrocio M.D. [address] [place] [phone] 10/20/2024 2:00 PM PER DIEM Office Visit Department of Orthopedic Surgery in [place], [place] [address] [place] [phone] Oneal Garcia M.D. [address] [place] [phone] Erin Cunningham R.N. 10/22/2024 7:50 AM PER DIEM Hospital Encounter Post Anesthesia Care Unit in [place], [place] [address] [place] [phone] Oneal Garcia M.D. [address] [place] [phone] 10/22/2024 7:50 AM PER DIEM - 10/22/2024 2:52 PM PER DIEM Surgery [facility] [address] [place] [phone] Oneal Garcia M.D. [address] [place] [phone] DECOMPRESSION POSTERIOR LUMBAR AND INSTRUMENTED FUSION L4-L5 Scheduled Procedures Name Priority Associated Diagnoses Date/Ti me DECOMPRESSION POSTERIOR LUMBAR AND INSTRUMENTED FUSION Stenosis Spinal Lumbar With Neurogenic Claudication 10/22/2024 7:50 AM PER DIEM documented as of this encounter Visit Diagnoses Not on filedocumented in this encounter
--- OUTSIDE RECORDS SUMMARY | 2024-08-10 12:47 | XMS_ITS | Encounter Summary ---
Author Organization [facility] Address [address] [place] [address] Care Team Providers Care Nurse'S Companion Name Role Phone Unavailable Primary Care Provider Unavailabl e Encounter Details Date Type Department Care Team (Late st Contact Info) Description 04/28/2024 Orders Only Division of Endocrinology in [place], [place] [address] [place] [phone] [facility], Provider, Type 2 diabetes mellitus Social History Tobacco Use Types Packs/Day Years Used Date Smoking Tobacco: Never Assessed Dental Answer Date Recorded Dental: Regular Dentist Unknown 09/05/20 23 Sex and Gender Information Value Date Recorded Sex Assigned at Male 07/30/2024 1:05 PM CDT Legal Sex Male 8:38 AM HABILITATION TRAINING SPECIALIST Gender Identity Male 07/30/2024 1:05 PM CDT Sexual Orientation Straight 07/30/2024 1: 05 PM CDT documented as of this encounter Plan of Treatment Upcoming Encounters Date Type Department Care Team (Latest Contact Info) Description 10/16/2024 9:15 AM HABILITATION TRAINING SPECIALIST Clinical Communication Virtual Review in [place], [place] 200 [place] [address] 10/16/2024 11:00 AM HABILITATION TRAINING SPECIALIST Virtual Visit Department of Social Work in [place], [place] [address] [place] [phone] Oneal Garcia M.D. [address] [place] [phone] 10/20/2024 8:00 AM HABILITATION TRAINING SPECIALIST Appointment Department of Radiology, [facility] in [place], [place] [address] [place] [address] Oneal Garcia M.D. [address] [place] [phone] 10/20/2024 9:00 AM HABILITATION TRAINING SPECIALIST Appointment Department of Radiology, [facility] in [place], [place] [address] [place] [phone] Oneal Garcia M.D. [address] [place] [phone] 10/20/2024 10:15 AM HABILITATION TRAINING SPECIALIST Appointment Department of Radiology, [facility] in [place], [place] [address] [place] [phone] Oneal Garcia M.D. [address] [place] [phone] 10/20/2024 10:40 AM HABILITATION TRAINING SPECIALIST Lab Department of Laboratory Medicine and Pathology, [facility] in [place], [place] [address] [place] [phone] Oneal Garcia M.D. [address] [place] [phone] 10/20/2024 12:20 PM HABILITATION TRAINING SPECIALIST Ancillary Procedure Department of Cardiovascular Medicine in [place], [place] [address] [place] [phone] Aishwarya Macias MPAS, P.A.-C. [address] [place] [phone] 10/20/2024 1:00 PM HABILITATION TRAINING SPECIALIST Comprehensive Visit Preoperative Evaluation Center in [place], [place] [address] [place] [phone] Mic Ambrocio M.D. [address] [place] [phone] 10/20/2024 2:00 PM HABILITATION TRAINING SPECIALIST Office Visit Department of Orthopedic Surgery in [place], [place] [address] [place] [phone] Oneal Garcia M.D. [address] [place] [phone] Erin Cunningham R.N. 10/22/2024 7:50 AM HABILITATION TRAINING SPECIALIST Hospital Encounter Post Anesthesia Care Unit in [place], [place] [address] [place] [phone] Oneal Garcia M.D. [address] [place] [phone] 10/22/2024 7:50 AM HABILITATION TRAINING SPECIALIST - 10/22/2024 2:52 PM HABILITATION TRAINING SPECIALIST Surgery [facility] MAIN OR [address] [place] [phone] Oneal Garcia M.D. [address] [place] [phone] DECOMPRESSION POSTERIOR LUMBAR AND INSTRUMENTED FUSION L4-L5 Scheduled Procedures Name Priority Associated Diagnoses Date/Ti me DECOMPRESSION POSTERIOR LUMBAR AND INSTRUMENTED FUSION Stenosis Spinal Lumbar With Neurogenic Claudication 10/22/2024 7:50 AM HABILITATION TRAINING SPECIALIST documented as of this encounter Visit Diagnoses Diagnosis Type 2 diabetes mellitus Stenosis Spinal Lumbar With Neurogenic Claudication documented in this encounter
== END 2024-08-10 12:44 | disposition home or self-care (01) ==
LOC: WOUND 12:43
PROVIDERS: PCP Family Medicine; Visit Provider Nurse Practitioner Family
DX: I87.333 Chronic venous hypertension (idiopathic) with ulcer and inflammation of bilateral lower extremity (principal); I89.0 Lymphedema, not elsewhere classified; L97.318 Non-pressure chronic ulcer of right ankle with other specified severity; L97.828 Non-pressure chronic ulcer of other part of left lower leg with other specified severity
CPT/HCPCS: 97602; G0463

== ENCOUNTER 2024-08-24 12:50 | Outpatient (CLI) | payer MEDICARE, SELFPAY ==
--- OUTSIDE RECORDS SUMMARY | 2024-08-24 12:52 | XMS_ITS | Clinical Summary ---
Author Organization [facility] Address [place], [place] [address] Care Team Providers Care Print Line Inspector Name Role Phone Christin Kelsey MD Primary [...] Description 06/05/2024 7:45 AM CDT Procedure Only [facility] [address] [place] [address] Jb Tapia MD Procedure (USGI for Rt Hip by Jose Wyatt... 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 Documentation performed by Trinidad Mckoy, , LAT, ATC based on my observation of services performed and provider statements to me. Carlos Marroquin MD 05/27/2024 Narrative 05/31/2024 8:47 AM CDT This radiology exam was performed at [facility] and interpreted by Carlos Marroquin MD HISTORY: [...] with no obvious evidence of loosening. Good sabianist of leg length, hip center and offset. No evidence of acute fracture or dislocation. Carlos Marroquin MD GENERAL IMAGIN G from Last 3 Months Care Teams Print Line Inspector Relationship Specialty Start Date End Date Christin Kelsey MD [address] [address] PCP - General Family Practice 11/14/23
--- OUTSIDE RECORDS SUMMARY | 2024-08-24 12:52 | XMS_ITS | Referral Summary ---
Author Organization [facility] Address [address] [place] [address] Care Team Providers Care Guide Escort Name Role Phone Unavailable Primary Care Provider Unavailabl e Source Comments Patient records contain information from all sites at [facility]. For routine questions regarding patient records, call [phone] during business hours, M-F 8:00 AM - 5:00 PM Central Time. Record requests for emergency care only can be directed to [phone] at any time.[facility] Encounters Date Type Department Care Team Description 08/07/2024 1:19 PM CDT - 08/07/2024 11:59 PM CDT Hospital Encounter Department of Radiology, [facility], in [place], [place] [address] [place] [phone] Mic Ambrocio M.D. Tiegs-Heiden, Christin A, M.D. Spondylolisthesis Lumbar Region Discharge Disposition: Home or Self Care 08/04/2024 Orders Only Department of Orthopedic Surgery in [place], [place] [address] [place] [phone] Oneal Garcia M.D. Spondylolisthesis Lumbar Region (Primary Dx); Stenosis Spinal Lumbar With Neurogenic Claudication; Radiculopathy Lumbar; Preoperative Exam 08/04/2024 4:30 PM CDT External Outreach Division of Nephrology and Hypertension in [place], [place] [address] [place] [phone] Humberto Cho Jr., D.O. Chronic Kidney Disease [...] CDT Comprehensive Visit Division of Endocrinology in [place], [place] [address] [place] [phone] Aniket Goldberg M.B.B.S. Diabetes Mellitus Type 2 (HCC) (Primary Dx) 08/03/2024 Orders Only Preoperative Evaluation Center in [place], [place] [address] [place] [phone] Aishwarya Macias MPAS, P.A.-C. Preanesthetic Medical Exam (Primary Dx); Diabetes Mellitus Type 2 With Diabetic Chronic Kidney Disease (HCC) 08/03/2024 6:30 AM CDT - 08/03/2024 11:59 PM CDT Hospital Encounter Department of Radiology, [facility] in [place], [place] [address] [place] [phone] Emerald Hand APRN, C.N.P., D.N.P., M.S.N. Pain Low Back Unspecified Discharge Disposition: Home or Self Care 08/03/2024 6:30 AM CDT - 08/03/2024 11:59 PM CDT Hospital Encounter Department of Radiology, [facility] in [place], [place] [address] [place] [phone] Emerald Hand APRN C.N.P., D.N.P., M.S.N. Pain Low Back Unspecified Discharge Disposition: Home or Self Care 08/03/2024 1:00 PM CDT Comprehensive Visit Department of Orthopedic Surgery in [address] [phone] Oneal Garcia M.D. Spondylolisthesis Lumbar Region (Primary Dx) 08/03/2024 9:00 AM CDT Comprehensive Visit Department of Spine in [place], [place] [address] [place] [phone] Mike Quintero D.O. Spondylolisthesis Lumbar Region (Primary Dx); Stenosis Spinal Lumbar With Neurogenic Claudication; Radiculopathy Lumbar; Pain In Right Lower Leg; Facet Syndrome; Pain Sacroiliac 07/30/2024 Orders Only Division of Endocrinology in [place], [place] [address] [place] [phone] [facility], MD Toya Type 2 diabetes mellitus 07/22/2024 11:45 AM CDT Clinical Communication Virtual Review in [place], [place] 200 [place] [phone] 07/21/2024 Documentation Division of Nephrology and Hypertension in [place], [place] [address] [place] [phone] Humberto Cho Jr., D.O. 07/21/2024 Orders Only Division of Nephrology and Hypertension in [place], [place] [address] [place] [phone] Humberto Cho Jr., D.O. from Last 3 Months Allergies Active Allergy [...] 3 3 09/29/20 24 Active potassium chloride (KLORCON/K-TAB) 10 mEq ER [...] Pharmacy select brand per patient insurance/prefer ence. 3 Active Additional Information Patient taking differently:20 [...] 500 mg by mouth daily. 3 Active xb-dhq-gpqnq-K1 -lycopen-lutein (Yakelin Mcgowan) 099-55-643-300 mcg tablet Take 1 tablet by mouth daily. 3 Active Active Problems Problem Noted Date Diagnosed [...] Date Smoking Tobacco: Never Smokeless Tobacco: Never [facility] [employer] Answer Date Recorded In the past 12 months has th e [employer], oil, or water [employer] threatened to shut off services in your [...] your living situation today? I have a [facility] place to live 07/30/2024 Sex and Gender Information Value Date Recorded Sex Assigned at Male 07/30/2024 1:05 PM CDT Legal Sex Male 8:38 AM CARDING DOUBLER Gender Identity Male 07/30/2024 1:05 PM CDT [...] (Latest Contact Info) Description 10/16/2024 9:15 AM CARDING DOUBLER Clinical Communication Virtual Review in [place], [place] 200 [place] [phone] 10/16/2024 11:00 AM CARDING DOUBLER Virtual Visit Department of Social Work in [place], [place] [address] [place] [phone] Oneal Garcia M.D. [address] [place] [phone] 10/20/2024 8:00 AM CARDING DOUBLER Appointment Department of Radiology, [facility], in [place], [place] [address] [place] [phone] Oneal Garcia M.D. [address] [place] [phone] 10/20/2024 9:00 AM CARDING DOUBLER [facility] [place] [place] [address] [place] [phone] Oneal Garcia M.D. [address] [place] [phone] 10/20/2024 10:15 AM CARDING DOUBLER Appointment Department of Radiology, [facility] in [place], [place] [address] [place] [phone] Oneal Garcia M.D. [address] [place] [phone] 10/20/2024 10:40 AM CARDING DOUBLER Lab Department of Laboratory Medicine and Pathology, [facility] in [place], [place] [address] [place] [phone] Oneal Garcia M.D. [address] [place] [phone] 10/20/2024 12:20 PM CARDING DOUBLER Ancillary Procedure Department of Cardiovascular Medicine in [place], [place] [address] [place] [phone] Aishwarya Macias MPAS, P.A.-C. [address] [place] [phone] 10/20/2024 1:00 PM CARDING DOUBLER Comprehensive Visit Preoperative Evaluation Center in [place], [place] [address] [place] [phone] Mic Ambrocio M.D. [address] [place] [phone] 10/20/2024 2:00 PM CARDING DOUBLER Office Visit Department of Orthopedic Surgery in [place], [place] [address] [place] [phone] Oneal Garcia M.D. [address] [place] [phone] Erin Cunningham R.N. 10/22/2024 7:50 AM CARDING DOUBLER Hospital Encounter Post Anesthesia Care Unit in [place], [place] [address] [place] [phone] Oneal Garcia M.D. [address] [place] [phone] 10/22/2024 7:50 AM CARDING DOUBLER - 10/22/2024 2:52 PM CARDING DOUBLER Surgery [facility] MAIN OR [address] [place] [phone] Oneal Garcia M.D. [address] [place] [phone] DECOMPRESSION POSTERIOR LUMBAR AND INSTRUMENTED FUSION L4-L5 Scheduled Procedures Name Priority Associated Diagnoses Date/Ti me DECOMPRESSION POSTERIOR LUMBAR AND INSTRUMENTED FUSION Stenosis Spinal Lumbar With Neurogenic Claudication 10/22/2024 7:50 AM CARDING DOUBLER Medical Devices Implanted Type Area Investigation Officer Device Identifier Shelf Expiration Date Model / [...] Injection Right (08/07/2024 2:34 PM CDT) Impressions [id number] - 08/07/2024 2:45 PM CDT Fluoroscopically-guided right L4 transforaminal epidural steroid injection. NR Narrative [id number] - 08/07/2024 2:45 PM CDT EXAM: [place] [...] pain pattern and imaging findings were [facility] 04/13/2024. He has a history of low back and bilaterallower extremity pain, worst in the right buttock. MRI demonstratesadvanced spinal canal stenosis at L4-5. Prior epidural steroid injections have had mixed success. Right [id number] epidural steroid injection was requested and performedtoday. [...] M.D. IMG FLUOROSCOPY PROCEDURES Fi nal Result [id number] NA * DX Lumbar Spine 4+ Views [...] Final Result from Last 3 Months Insurance [facility]
--- OUTSIDE RECORDS SUMMARY | 2024-08-24 12:52 | XMS_ITS | Encounter Summary ---
Author Organization [facility] Address [address] [place] [address] Care Team Providers Care Survey Engineer Name Role Phone Unavailable Primary Care Provider Unavailabl e Reason for Visit * Appointment Request (Routine) - Closed Specialty Diagnoses / Procedures Referred By Mireya garza Referred To Contact Nephrology and Hypertension Referral ID Status Reason Start Date Expiration Date Visits Re quested Visits Authorized [id number] Closed 07/31/2024 07/31/2025 1 1 Encounter Details Date Type Department Care Team (Latest Contact Info) Description 08/04/2024 4:30 PM CDT External Outreach Division of Nephrology and Hypertension in [place], [place] [address] [place] [phone] Humberto Cho Jr., D.O. [address] [place] [phone] Chronic Kidney Disease (CKD), Stage 3b Glomerular [...] Date Smoking Tobacco: Never Smokeless Tobacco: Never [facility] Utilities Answer Date Recorded In [...] your living situation today? I have a [facility] place to live 07/30/2024 Sex and Gender Information Value Date Recorded Sex Assigned at Male 07/30/2024 1:05 PM CDT Legal Sex Male 8:38 AM HEDGE FUND PRINCIPAL Gender Identity Male 07/30/2024 1:05 PM CDT [...] Low Roth IM SUBJECTIVE REASON FOR VISIT [facility] out reach CKD [facility] Follow-up regards CKD, diabetes mellitus, hypertension HISTORY OF PRESENT ILLNESS Mr. Damon is a 79 y.o. 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 I appreciate he is back from a 2 day visit down to [place] where [facility], endocrinology, and orthopedic surgery, and tentatively we will be scheduled for November 09, 2024 decompressive surgery. He has not had hypoglycemic events recently. He had a complete battery of testing done at [facility] on 07/23/2024, and note his creatinine level [...] at home and often has readings in [id number] over 70s, but recently has not been [...] not crush or chew., Disp: , Rfl: vj-ijf-qbazf-M6-lkajrbk-vuaioj (Centrum Silver Men) [id number] mcg tablet, Take 1 tablet by mouth [...] (Latest Contact Info) Description 10/16/2024 9:15 AM HEDGE FUND PRINCIPAL Clinical Communication Virtual Review in [address] [phone] 10/16/2024 11:00 AM HEDGE FUND PRINCIPAL Virtual Visit Department of Social Work in [address] [phone] Oneal Garcia M.D. [address] [place] [phone] 10/20/2024 8:00 AM HEDGE FUND PRINCIPAL Appointment Department of Radiology, [address] [phone] Oneal Garcia M.D. [address] [place] [phone] 10/20/2024 9:00 AM HEDGE FUND PRINCIPAL Appointment Department of Radiology, [facility] in [address] [phone] Oneal Garcia M.D. [address] [place] [phone] 10/20/2024 10:15 AM HEDGE FUND PRINCIPAL Appointment Department of Radiology, [facility] in [address] [phone] Oneal Garcia M.D. [address] [place] [phone] 10/20/2024 10:40 AM HEDGE FUND PRINCIPAL Lab Department of Laboratory Medicine and Pathology, [facility], in [place], [place] [address] [place] [phone] Oneal Garcia M.D. [address] [place] [phone] 10/20/2024 12:20 PM HEDGE FUND PRINCIPAL Ancillary Procedure Department of Cardiovascular Medicine in [place], [place] [address] [place] [phone] Aishwarya Macias MPAS, P.A.-CLex [address] [place] [phone] 10/20/2024 1:00 PM HEDGE FUND PRINCIPAL Comprehensive Visit Preoperative Evaluation Center in [place], [place] [address] [place] [phone] Mic Ambrocio M.D. [address] [place] [phone] 10/20/2024 2:00 PM HEDGE FUND PRINCIPAL Office Visit Department of Orthopedic Surgery in [place], [place] [address] [place] [phone] Oneal Garcia M.D. [address] [place] [phone] Erin Cunningahm, RLexNLex 10/22/2024 7:50 AM HEDGE FUND PRINCIPAL Hospital Encounter Post Anesthesia Care Unit in [place], [place] [address] [place] [phone] Oneal Garcia M.D. [address] [place] [phone] 10/22/2024 7:50 AM HEDGE FUND PRINCIPAL - 10/22/2024 2:52 PM HEDGE FUND PRINCIPAL Surgery [facility] MAIN OR [address] [place] [phone] Oneal Garcia M.D. [address] [place] [phone] DECOMPRESSION POSTERIOR LUMBAR AND INSTRUMENTED FUSION L4-L5 Scheduled Procedures Name Priority Associated Diagnoses Date/Ti me DECOMPRESSION POSTERIOR LUMBAR AND INSTRUMENTED FUSION Stenosis Spinal Lumbar With Neurogenic Claudication 10/22/2024 7:50 AM HEDGE FUND PRINCIPAL documented as of this encounter Visit Diagnoses [...]
--- OUTSIDE RECORDS SUMMARY | 2024-08-24 12:52 | XMS_ITS | Encounter Summary ---
Author Organization [facility] Address [address] [place] [address] Care Team Providers Care Seo Associate Name Role Phone Unavailable Primary Care Provider Unavailabl e Reason for Referral * Outpatient (Routine) - Closed Specialty Diagnoses / Procedures Referred By Contac t Referred To Contact Diagnoses Spondylolisthesis Lumbar Region Procedures FL Lumbar Spine Transforaminal Epidural Injection Right Mic Ambrocio M.D. 200 [place] [address] Phone: tel: fax: [facility] Referral ID Status Reason Start Date Expiration Date Visits Re quested Visits Authorized [id number] Closed 08/03/2024 08/03/2025 1 1 Reason for Visit * Outpatient (Routine) - Closed Specialty Diagnoses / Procedures Referred By Contac t Referred To Contact Diagnoses Spondylolisthesis Lumbar Region Procedures FL Lumbar Spine Transforaminal Epidural Injection Right Mic Ambrocio M.D. 200 [place] [address] Phone: tel: fax: [facility] Referral ID Status Reason Start Date Expiration Date Visits Re quested Visits Authorized [id number] Closed 08/03/2024 08/03/2025 1 1 Encounter Details Date Type Department Care Team (Latest Contact Info) Description 08/07/2024 1:19 PM CDT - 08/07/2024 11:59 PM CDT Hospital Encounter Department of Radiology, [facility] in [place], [place] [address] [place] [phone] Mic Ambrocio M.D. [address] [place] [phone] Mackenzie Norman M.D. 200 [place] [phone] Spondylolisthesis Lumbar Region Discharge Disposition: Home or Self Care Social History Tobacco Use Types Packs/Day Years Used Date Smoking Tobacco: Never Smokeless Tobacco: Never [facility] Utilities Answer Date Recorded In [...] your living situation today? I have a [facility] place to live 07/30/2024 Sex and Gender Information Value Date Recorded Sex Assigned at Male 07/30/2024 1:05 PM CDT Legal Sex Male 8:38 AM ORAL AND MAXILLOFACIAL SURGERY RESIDENT Gender Identity Male 07/30/2024 1:05 PM CDT [...] this encounter Medications at Time of Discharge Accu-Chek Barbara Plus test strp use to [...] 5 mg by mouth daily with breakfast. insulin glargine (Lantus Solostar U-100 Insulin) 100 unit/mL (3 mL) injection Inject 20 Units under the skin at bedtime. Pharmacy select brand per patient insurance/pref erence. 09/30/2023 levothyroxine 100 mcg tablet Take 100 mcg by mouth daily. losartan (Cozaar) 25 mg tablet Take 1 tablet (25 mg total) by mouth daily. 90 tablet 3 05/11/2024 05/11/2025 metFORMIN (Glucophage) 1,000 mg tablet Take 0.5 tablets (500 mg total) by mouth 2 (two) times a day with meals. 90 tablet 3 05/05/2024 05/05/2025 metoprolol succinate (Toprol XL) 50 mg 24 hr tablet Take 0.5 tablets (25 mg total) by mouth daily. Do not crush or chew. 05/11/2024 05/11/2025 ij-[id number]- lycopen-lutein (Centrum Silver Men) 616-05-605-300 mcg tablet Take 1 tablet by mouth [...] (Latest Contact Info) Description 10/16/2024 9:15 AM ORAL AND MAXILLOFACIAL SURGERY RESIDENT Clinical Communication Virtual Review in [place], [place] 200 [place] [phone] 10/16/2024 11:00 AM ORAL AND MAXILLOFACIAL SURGERY RESIDENT Virtual Visit Department of Social Work in [place], [place] [address] [place] [phone] Oneal Garcia M.D. [address] [place] [phone] 10/20/2024 8:00 AM ORAL AND MAXILLOFACIAL SURGERY RESIDENT Appointment Department of Radiology, [facility], in [place], [place] [address] [place] [phone] Oneal Garcia M.D. [address] [place] [phone] 10/20/2024 9:00 AM ORAL AND MAXILLOFACIAL SURGERY RESIDENT Appointment Department of Radiology, [facility] in [place], [place] [address] [place] [phone] Oneal Garcia M.D. [address] [place] [phone] 10/20/2024 10:15 AM ORAL AND MAXILLOFACIAL SURGERY RESIDENT Appointment Department of Radiology, [facility] in [place], [place] [address] [place] [phone] Oneal Garcia M.D. [address] [place] [phone] 10/20/2024 10:40 AM ORAL AND MAXILLOFACIAL SURGERY RESIDENT Lab Department of Laboratory Medicine and Pathology, [facility] in [place], [place] [address] [place] [phone] Oneal Garcia M.D. [address] [place] [phone] 10/20/2024 12:20 PM ORAL AND MAXILLOFACIAL SURGERY RESIDENT Ancillary Procedure Department of Cardiovascular Medicine in [place], [place] [address] [place] [phone] Aishwarya Macias MPAS, P.A.-C. [address] [place] [phone] 10/20/2024 1:00 PM ORAL AND MAXILLOFACIAL SURGERY RESIDENT Comprehensive Visit Preoperative Evaluation Center in [place], [place] [address] [place] [phone] Mic Ambrocio M.D. [address] [place] [phone] 10/20/2024 2:00 PM ORAL AND MAXILLOFACIAL SURGERY RESIDENT Office Visit Department of Orthopedic Surgery in [place], [place] [address] [place] [address] Oneal Garcia M.D. [address] [place] [phone] Erin Cunningham R.N. 10/22/2024 7:50 AM ORAL AND MAXILLOFACIAL SURGERY RESIDENT Hospital Encounter Post Anesthesia Care Unit in [place], [place] [address] [place] [phone] Oneal Garcia M.D. [address] [place] [phone] 10/22/2024 7:50 AM ORAL AND MAXILLOFACIAL SURGERY RESIDENT - 10/22/2024 2:52 PM ORAL AND MAXILLOFACIAL SURGERY RESIDENT Surgery [facility]ST ROMB MAIN OR [address] [place] [phone] Oneal Garcia M.D. [address] [place] [phone] DECOMPRESSION POSTERIOR LUMBAR AND INSTRUMENTED FUSION L4-L5 Scheduled Procedures Name Priority Associated Diagnoses Date/Ti me DECOMPRESSION POSTERIOR LUMBAR AND INSTRUMENTED FUSION Stenosis Spinal Lumbar With Neurogenic Claudication 10/22/2024 7:50 AM ORAL AND MAXILLOFACIAL SURGERY RESIDENT documented as of this encounter Procedures Procedure Name Priority Date/Time Associated Diagnosis Comments FL LUMBAR SPINE TRANSFORAMINAL EPIDURAL INJECTION RIGHT RAD - Routine (most inpatients and all outpatients) 08/07/2024 2:34 PM CDT Spondylolisthesi s Lumbar Region documented in this encounter Results * FL Lumbar Spine Transforaminal Epidural Injection Right (08/07/2024 2:34 PM CDT) Impressions [id number] - 08/07/2024 2:45 PM CDT Fluoroscopically-guided right L4 transforaminal epidural steroid injection. NR Narrative [id number] - 08/07/2024 2:45 PM CDT EXAM: FL [...] pain [facility] He has a history of low back and bilaterallower extremity pain, worst in the right buttock. MRI demonstratesadvanced spinal canal stenosis at L4-5. Prior epidural steroid injections have had mixed success. Right [id number] epidural steroid injection was requested and performedtoday. [...] M.D. IMG FLUOROSCOPY PROCEDURES Fi nal Result [id number] NA documented in this encounter Visit Diagnoses [...]
--- OUTSIDE RECORDS SUMMARY | 2024-08-24 12:52 | XMS_ITS | Encounter Summary ---
Author Organization [facility] Address [address] [place] [address] Care Team Providers Care Saddle Stitcher Name Role Phone Unavailable Primary Care Provider Unavailabl e Reason for Referral * Outpatient (Routine) - Authorized Specialty Diagnoses / Procedures Referred By Contac t Referred To Contact Social Work Diagnoses Spondylolisthesis Lumbar Region Stenosis Spinal Lumbar With Neurogenic Claudication Radiculopathy Lumbar Preoperative Exam Oneal Garcia M.D. [address] [place] [address] Phone: tel: fax: [facility] Referral ID Status Reason Start Date Expiration Date V isits Requested Visits Authorized [id number] Authorized 08/04/2024 02/03/2026 1 1 * Outpatient (Routine) - Authorized Specialty Diagnoses / Procedures Referred By Contac t Referred To Contact Orthopedic Surgery Oneal Garcia M.D. [address] [place] [phone] Phone: tel: fax: [facility] Referral ID Status Reason Start Date Expiration Date V isits Requested Visits Authorized [id number] Authorized 08/04/2024 02/03/2026 1 1 Scheduling Instructions Okay to schedule with Erin Cunningham RN * Outpatient (Routine) - Authorized Specialty Diagnoses / Procedures Referred By Contac t Referred To Contact Diagnoses Spondylolisthesis Lumbar Region Stenosis Spinal Lumbar With Neurogenic Claudication Radiculopathy Lumbar Preoperative Exam Procedures ORS Fitter Oneal Garcia M.D. [address] [place] [phone] Phone: tel: fax: [facility] Referral ID Status Reason Start Date Expiration Date V isits Requested Visits Authorized [id number] Authorized 08/04/2024 08/04/2025 1 1 * MRI/CAT/PET Scan (Routine) - Authorized Specialty Diagnoses / Procedures Referred By Contac t Referred To Contact Radiology Diagnoses Spondylolisthesis Lumbar Region Stenosis Spinal Lumbar With Neurogenic Claudication Radiculopathy Lumbar Preoperative Exam Procedures MR Lumbar Spine without IV Contrast Oneal Garcia M.D. [address] [place] [phone] Phone: tel: fax: [facility] Referral ID Status Reason Start Date Expiration Date V isits Requested Visits Authorized [id number] Authorized 08/04/2024 08/04/2025 1 1 * MRI/CAT/PET Scan (Routine) - Authorized Specialty Diagnoses / Procedures Referred By Contac t Referred To Contact Radiology Diagnoses Spondylolisthesis Lumbar Region Stenosis Spinal Lumbar With Neurogenic Claudication Radiculopathy Lumbar Preoperative Exam Procedures CT Lumbar Spine without IV Contrast Oneal Garcia M.D. [address] [place] [phone] Phone: tel: fax: [facility] Referral ID Status Reason Start Date Expiration Date V isits Requested Visits Authorized [id number] Authorized 08/04/2024 08/04/2025 1 1 * Outpatient (Routine) - Authorized Specialty Diagnoses / Procedures Referred By Mireya t Referred To Contact Diagnoses Spondylolisthesis Lumbar Region Stenosis Spinal Lumbar With Neurogenic Claudication Radiculopathy Lumbar Preoperative Exam Procedures BMD Bone Density Spine Hips Oneal Garcia M.D. [address] [place] [phone] Phone: tel: fax: [facility] Referral ID Status Reason Start Date Expiration Date V isits Requested Visits Authorized [id number] Authorized 08/04/2024 08/04/2025 1 1 Encounter Details Date Type Department Care Team (Latest Contact Info) Description 08/04/2024 Orders Only Department of Orthopedic Surgery in [place], [place] [address] [place] [phone] Oneal Garcia M.D. [address] [place] [phone] Spondylolisthesis Lumbar Region (Primary Dx); Stenosis Spinal Lumbar With Neurogenic Claudication; Radiculopathy Lumbar; Preoperative Exam Social History Tobacco Use Types Packs/Day Years Used Date Smoking Tobacco: Never Smokeless Tobacco: Never [employer] Utilities Answer Date Recorded In the past 12 months has th e [employer], gas, oil, or water [employer] threatened to shut off services in your [...] your living situation today? I have a [facility] place to live 07/30/2024 Sex and Gender Information Value Date Recorded Sex Assigned at Male 07/30/2024 1:05 PM CDT Legal Sex Male 8:38 AM RECREATIONAL RESORT MANAGER Gender Identity Male 07/30/2024 1:05 PM CDT Sexual Orientation Straight 07/30/2024 1: 05 PM CDT documented as of this encounter Plan of Treatment Upcoming Encounters Date Type Department Care Team (Latest Contact Info) Description 10/16/2024 9:15 AM RECREATIONAL RESORT MANAGER Clinical Communication Virtual Review in [place], [place] 200 [place] [phone] 10/16/2024 11:00 AM RECREATIONAL RESORT MANAGER Virtual Visit Department of Social Work in [place], [place] [address] [place] [phone] Oneal Garcia M.D. [address] [place] [phone] 10/20/2024 8:00 AM RECREATIONAL RESORT MANAGER Appointment Department of Radiology, [facility] in [place], [place] [address] [place] [phone] Oneal Garcia M.D. [address] [place] [phone] 10/20/2024 9:00 AM RECREATIONAL RESORT MANAGER Appointment Department of Radiology, [facility] in [place], [place] [address] [place] [phone] Oneal Garcia M.D. [address] [place] [phone] 10/20/2024 10:15 AM RECREATIONAL RESORT MANAGER Appointment Department of Radiology, [facility], in [place], [place] [address] [place] [address] Oneal Garcia M.D. [address] [place] [phone] 10/20/2024 10:40 AM RECREATIONAL RESORT MANAGER Lab Department of Laboratory Medicine and Pathology, [facility] in [place], [place] [address] [place] [phone] Oneal Garcia M.D. [address] [place] [phone] 10/20/2024 12:20 PM RECREATIONAL RESORT MANAGER Ancillary Procedure Department of Cardiovascular Medicine in [place], [place] [address] [place] [phone] Aishwarya Macias MPAS, P.A.-C. [address] [place] [phone] 10/20/2024 1:00 PM RECREATIONAL RESORT MANAGER Comprehensive Visit Preoperative Evaluation Center in [place], [place] [address] [place] [phone] Mic Ambrocio M.D. [address] [place] [phone] 10/20/2024 2:00 PM RECREATIONAL RESORT MANAGER Office Visit Department of Orthopedic Surgery in [place], [place] [address] [place] [phone] Oneal Garcia M.D. [address] [place] [phone] Erin Cunningham R.N. 10/22/2024 7:50 AM RECREATIONAL RESORT MANAGER Hospital Encounter Post Anesthesia Care Unit in [place], [place] [address] [place] [phone] Oneal Garcia M.D. [address] [place] [phone] 10/22/2024 7:50 AM RECREATIONAL RESORT MANAGER - 10/22/2024 2:52 PM RECREATIONAL RESORT MANAGER Surgery [facility]ST ROMB MAIN OR [address] [place] [phone] Oneal Garcia M.D. [address] [place] [phone] DECOMPRESSION POSTERIOR LUMBAR AND INSTRUMENTED FUSION L4-L5 [...] Lumbar With Neurogenic Claudication 10/22/2024 7:50 AM RECREATIONAL RESORT MANAGER Scheduled Referrals Name Type Priority Associated Diagnoses [...]
--- OUTSIDE RECORDS SUMMARY | 2024-08-24 12:52 | XMS_ITS ---
Author Organization [facility] Address [address] [place] [address] Care Team Providers Care Account Planner Name Role Phone Unavailable Unavailable Unavailable Surgery Details Not on file Complications Check Surgery Details section. Procedure Estimated Blood Loss Check Surgery Details section. Procedure Findings Check Surgery Details section. Procedure Specimens Taken Check Surgery Details section.
--- OUTSIDE RECORDS SUMMARY | 2024-08-24 12:52 | XMS_ITS | Clinical Summary ---
Author Organization [facility] Address [address] [place] [address] Care Team Providers Care Director Medicaid Name Role Phone Unavailable Primary Care Provider Unavailabl e Source Comments Patient records contain information from all sites at [facility]. For routine questions regarding patient records, call [phone] during business hours, M-F 8:00 AM - 5:00 PM Central Time. Record requests for emergency care only can be directed to [phone] at any time.[facility] Allergies Active Allergy Reactions Criticality Noted [...] 500 mg by mouth daily. 3 Active gs-trq-xedzm-K1 -lycopen-lutein (Centrum Gareth Men) 216-64-701-300 mcg tablet Take 1 tablet by mouth [...] PM CDT Hospital Encounter Department of Radiology, [facility] in [place], [place] [address] [place] [address] Mic Ambrocio M.D. Tiegs-Heiden, Christin A, M.D. Spondylolisthesis Lumbar Region Discharge Disposition: Home or Self Care 08/04/2024 4:30 PM CDT External Outreach Division of Nephrology and Hypertension in [place], [place] [address] [place] [address] Humberto Cho Jr., D.O. Chronic Kidney Disease [...] CDT Comprehensive Visit Division of Endocrinology in [place], [place] [address] [place] [address] Aniket Goldberg M.B.BSofia Diabetes Mellitus Type 2 (HCC) (Primary Dx) 08/04/2024 Orders Only Department of Orthopedic Surgery in [place], [place] [address] [place], [place] [phone] Oneal Garcia M.D. Spondylolisthesis Lumbar Region (Primary Dx); Stenosis Spinal Lumbar With Neurogenic Claudication; Radiculopathy Lumbar; Preoperative Exam 08/03/2024 1:00 PM CDT Comprehensive Visit Department of Orthopedic Surgery in [place], [place] [address] [place], [place] [phone] Oneal Garcia M.D. Spondylolisthesis Lumbar Region (Primary Dx) 08/03/2024 9:00 AM CDT Comprehensive Visit [place] [address] Mike Quintero D.O. Spondylolisthesis Lumbar Region (Primary Dx); Stenosis Spinal Lumbar With Neurogenic Claudication; Radiculopathy Lumbar; Pain In Right Lower Leg; Facet Syndrome; Pain Sacroiliac 08/03/2024 6:30 AM CDT - 08/03/2024 11:59 PM CDT Hospital Encounter Department of Radiology, [facility] in [place] [phone] Emerald Hand APRN, C.N.P., D.N.P., M.S.N. Pain Low Back Unspecified Discharge Disposition: Home or Self Care 08/03/2024 6:30 AM CDT - 08/03/2024 11:59 PM CDT Hospital Encounter Department of Radiology, [facility], in [place], [place] [address] [place] [phone] Emerald Hand APRN C.N.P., D.N.P., M.S.N. Pain Low Back Unspecified Discharge Disposition: Home or Self Care 08/03/2024 Orders Only Preoperative Evaluation Center in [place], [place] [address] [place] [phone] Aishwarya Macias MPAS, P.A.-C. Preanesthetic Medical Exam (Primary Dx); Diabetes Mellitus Type 2 With Diabetic Chronic Kidney Disease (HCC) 07/30/2024 Orders Only Division of Endocrinology in [place], [place] [address] [place] [address] [facility], MD Toya Type 2 diabetes mellitus 07/22/2024 11:45 AM CDT Clinical Communication Virtual Review in [place], [place] [address] [place] [phone] 07/21/2024 Documentation Division of Nephrology and Hypertension in [place], [place] [address] [place] [address] Humberto Cho Jr., D.O. 07/21/2024 Orders Only Division of Nephrology and Hypertension in [place], [place] [address] [place] [phone] Humberto Cho Jr., D.O. from Last 3 Months Social History Tobacco Use Types Packs/Day Years Used Date Smoking Tobacco: Never Smokeless Tobacco: Never [facility] Group[employer] Answer Date Recorded In the past 12 months has [employer], [employer], oil, or water [employer] threatened to shut off services in your [...] your living situation today? I have a [facility] place to live 07/30/2024 Sex and Gender Information Value Date Recorded Sex Assigned at Male 07/30/2024 1:05 PM CDT Legal Sex Male 8:38 AM SALES REPRESENTATIVE WIRE ROPE Gender Identity Male 07/30/2024 1:05 PM CDT [...] (Latest Contact Info) Description 10/16/2024 9:15 AM SALES REPRESENTATIVE WIRE ROPE Clinical Communication Virtual Review in [place], [place] [address] [place] [phone] 10/16/2024 11:00 AM SALES REPRESENTATIVE WIRE ROPE Virtual Visit Department of Social Work in [place], [place] [address] [place] [phone] Oneal Garcia M.D. [address] [place] [phone] 10/20/2024 8:00 AM SALES REPRESENTATIVE WIRE ROPE Appointment Department of Radiology, [facility], in [place], [place] [address] [place] [phone] Oneal Garcia M.D. [address] [place] [phone] 10/20/2024 9:00 AM SALES REPRESENTATIVE WIRE ROPE [facility] [place], [place] [address] [place] [phone] Oneal Garcia M.D. [address] [place] [phone] 10/20/2024 10:15 AM SALES REPRESENTATIVE WIRE ROPE Appointment Department of Radiology, [facility] in [place], [place] [address] [place] [phone] Oneal Garcia M.D. [address] [place] [phone] 10/20/2024 10:40 AM SALES REPRESENTATIVE WIRE ROPE Lab Department of Laboratory Medicine and Pathology, [facility] in [place], [place] [address] [place] [phone] Oneal Garcia M.D. [address] [place] [phone] 10/20/2024 12:20 PM SALES REPRESENTATIVE WIRE ROPE Ancillary Procedure Department of Cardiovascular Medicine in [place], [place] [address] [place] [phone] Aishwarya Macias MPAS, P.A.-C. [address] [place] [phone] 10/20/2024 1:00 PM SALES REPRESENTATIVE WIRE ROPE Comprehensive Visit Preoperative Evaluation Center in [place], [place] [address] [place] [phone] Mic Ambrocio M.D. [address] [place] [phone] 10/20/2024 2:00 PM SALES REPRESENTATIVE WIRE ROPE Office Visit Department of Orthopedic Surgery in [place], [place] [address] [place] [phone] Oneal Garcia M.D. [address] [place] [phone] Erin Cunnnigham R.N. 10/22/2024 7:50 AM SALES REPRESENTATIVE WIRE ROPE Hospital Encounter Post Anesthesia Care Unit in [place], [place] [address] [place] [phone] Oneal Garcia M.D. [address] [place] [phone] 10/22/2024 7:50 AM SALES REPRESENTATIVE WIRE ROPE - 10/22/2024 2:52 PM SALES REPRESENTATIVE WIRE ROPE Surgery [facility]IN OR [address] [place] [phone] Oneal Garcia M.D. [address] [place] [phone] DECOMPRESSION POSTERIOR LUMBAR AND INSTRUMENTED FUSION L4-L5 Scheduled Procedures Name Priority Associated Diagnoses Date/Ti me DECOMPRESSION POSTERIOR LUMBAR AND INSTRUMENTED FUSION Stenosis Spinal Lumbar With Neurogenic Claudication 10/22/2024 7:50 AM SALES REPRESENTATIVE WIRE ROPE Health Maintenance Due Date Last Done Comments Creatinine Level (Kidney Function Test) 1944 Diabetic Office Visit with Foot Exam 1944 Dilated Eye Exam 1944 Hemoglobin A1C 1944 Potassium Level 1944 Sodium Level 1944 Thyroid Stimulating Hormone (TSH) test for thyroid function 1944 Urine Albumin 1944 Hepatitis B Vaccines (1 of 3 - Risk 3-dose series) 2004 Zoster Vaccines (2 of 3) 06/05/2016 04/10/2016 RSV vaccine - (32-36 weeks) or 60+ years (1 - 1-dose 75+ series) 2019 Depression Screening (Annual PHQ-2) 10/21/2023 COVID-19 Vaccine ( season) 2024 07/20/2022, 01/04/2021, 12/14/2020 Office Visit for Blood Pressure Check / Re-check 11/04/2024 08/04/2024 DTaP,Tdap,and Td Vaccines (2 - Td or Tdap) 02/12/2026 02/13/2016 Pneumococcal vaccine (65+ years) Completed 08/14/2017, 11/30/2014 Influenza Vaccine Completed 07/23/2024, , 07/20/2022, Additional history exists Fall Risk Screen (Annual) Completed 08/07/2024 IPV Vaccines Aged Out No longer eligi ble based on patient's age to complete this topic Medical Devices Implanted Type Area [employer] Device Identifier Shelf Expiration Date Model / [...] Injection Right (08/07/2024 2:34 PM CDT) Impressions [id number] - 08/07/2024 2:45 PM CDT Fluoroscopically-guided right L4 transforaminal epidural steroid injection. NR Narrative [id number] - 08/07/2024 2:45 PM CDT EXAM: [place] [...] pattern and imaging [facility]. He has a history of low back and bilaterallower extremity pain, worst in the right buttock. MRI demonstratesadvanced spinal canal stenosis at L4-5. Prior epidural steroid injections have had mixed success. Right [id number] epidural steroid injection was requested and performedtoday. [...] Fluoroscopically-guided right L4 transforaminal epidural steroidinjection. NR Mic Ambrocio M.D. IMG FLUOROSCOPY PROCEDURES Fi nal Result [id number] NA * DX Lumbar Spine 4+ Views [...] Final Result from Last 3 Months Insurance [facility] MEDICARE
--- OUTSIDE RECORDS SUMMARY | 2024-08-24 12:53 | XMS_ITS | Encounter Summary ---
Author Organization [facility] Address [address] [place] [address] Care Team Providers Care Payer Specialist Name Role Phone Unavailable Primary Care Provider Unavailabl e Encounter Details Date Type Department Care Team (Late st Contact Info) Description 05/06/2024 Clinical Communication Department of Spine in [place], [place] [address] [place] [phone] Provider, Unknown Social History Tobacco Use Types Packs/Day Years Used Date Smoking Tobacco: Never Assessed Dental Answer Date Recorded Dental: Regular Dentist Unknown 09/05/20 23 Sex and Gender Information Value Date Recorded Sex Assigned at Male 07/30/2024 1:05 PM CDT Legal Sex Male 8:38 AM AIR SHOVEL OPERATOR Gender Identity Male 07/30/2024 1:05 PM CDT Sexual Orientation Straight 07/30/2024 1: 05 PM CDT documented as of this encounter Plan of Treatment Upcoming Encounters Date Type Department Care Team (Latest Contact Info) Description 10/16/2024 9:15 AM AIR SHOVEL OPERATOR Clinical Communication Virtual Review in [place], [place] [address] [place] [phone] 10/16/2024 11:00 AM AIR SHOVEL OPERATOR Virtual Visit Department of Social Work in [place], [place] [address] [place] [phone] Oneal Garcia M.D. [address] [place] [phone] 10/20/2024 8:00 AM AIR SHOVEL OPERATOR Appointment Department of Radiology, [facility], in [place], [place] [address] [place] [phone] Oneal Garcia M.D. [address] [place] [phone] 10/20/2024 9:00 AM AIR SHOVEL OPERATOR Appointment Department of Radiology, [facility] in [place], [place] [address] [place] [phone] Oneal Garcia M.D. [address] [place] [phone] 10/20/2024 10:15 AM AIR SHOVEL OPERATOR Appointment Department of Radiology, [facility] in [place], [place] [address] [place] [phone] Oneal Garcia M.D. [address] [place] [phone] 10/20/2024 10:40 AM AIR SHOVEL OPERATOR Lab Department of Laboratory Medicine and Pathology, [facility] in [place], [place] [address] [place] [phone] Oneal Garcia M.D. [address] [place] [phone] 10/20/2024 12:20 PM AIR SHOVEL OPERATOR Ancillary Procedure Department of Cardiovascular Medicine in [place], [place] [address] [place] [phone] Aishwarya Macias MPAS, P.A.-C. [address] [place] [phone] 10/20/2024 1:00 PM AIR SHOVEL OPERATOR Comprehensive Visit Preoperative Evaluation Center in [place], [place] [address] [place] [phone] Mic Ambrocio M.D. [address] [place] [phone] 10/20/2024 2:00 PM AIR SHOVEL OPERATOR Office Visit Department of Orthopedic Surgery in [place], [place] [address] [place] [phone] Oneal Garcia M.D. [address] [place] [phone] Erin Cunningham R.N. 10/22/2024 7:50 AM AIR SHOVEL OPERATOR Hospital Encounter Post Anesthesia Care Unit in [place], [place] [address] [place] [phone] Oneal Garcia M.D. [address] [place] [phone] 10/22/2024 7:50 AM AIR SHOVEL OPERATOR - 10/22/2024 2:52 PM AIR SHOVEL OPERATOR Surgery [facility] OR [address] [place] [phone] Oneal Garcia M.D. [address] [place] [phone] DECOMPRESSION POSTERIOR LUMBAR AND INSTRUMENTED FUSION L4-L5 Scheduled Procedures Name Priority Associated Diagnoses Date/Ti me DECOMPRESSION POSTERIOR LUMBAR AND INSTRUMENTED FUSION Stenosis Spinal Lumbar With Neurogenic Claudication 10/22/2024 7:50 AM AIR SHOVEL OPERATOR documented as of this encounter Visit Diagnoses Not on filedocumented in this encounter
--- OUTSIDE RECORDS SUMMARY | 2024-08-24 12:53 | XMS_ITS | Encounter Summary ---
Author Organization [facility] Address [address] [place] [address] Care Team Providers Care Charger Operator Name Role Phone Unavailable Primary Care Provider Unavailabl e Reason for Referral * Outpatient (Routine) - Authorized Specialty Diagnoses / Procedures Referred By Mireya garza Referred To Contact Diagnoses Preanesthetic Medical Exam Procedures ECG 12 Lead Aishwarya Macias MPAS, P.A.-CLex [address] [place] [phone] Phone: tel: fax: [facility] Referral ID Status Reason Start Date Expiration Date V isits Requested Visits Authorized [id number] Authorized 08/03/2024 08/03/2025 1 1 Encounter Details Date Type Department Care Team (Late st Contact Info) Description 08/03/2024 Orders Only Preoperative Evaluation Center in [place], [place] [address] [place] [phone] Aishwarya Macias MPAS, P.A.-CLex [address] [place] [phone] Preanesthetic Medical Exam (Primary Dx); Diabetes Mellitus Type 2 With Diabetic Chronic Kidney Disease (HCC) Social History Tobacco Use Types Packs/Day Years Used Date Smoking Tobacco: Never Smokeless Tobacco: Never [facility] Utilities Answer Date Recorded In the past 12 months has e [employer], gas, oil, or water [employer] threatened to shut off services in your [...] your living situation today? I have a [facility] place to live 07/30/2024 Sex and Gender Information Value Date Recorded Sex Assigned at Male 07/30/2024 1:05 PM CDT Legal Sex Male 8:38 AM MANAGER COSMETIC Gender Identity Male 07/30/2024 1:05 PM CDT Sexual Orientation Straight 07/30/2024 1: 05 PM CDT documented as of this encounter Plan of Treatment Upcoming Encounters Date Type Department Care Team (Latest Contact Info) Description 10/16/2024 9:15 AM MANAGER COSMETIC Clinical Communication Virtual Review in [place], [place] [address] [place] [phone] 10/16/2024 11:00 AM MANAGER COSMETIC Virtual Visit Department of Social Work in [place], [place] [address] [place] [phone] Oneal Garcia M.D. [address] [place] [phone] 10/20/2024 8:00 AM MANAGER COSMETIC [facility] [place], [place] [address] [place] [phone] Oneal Garcia M.D. [address] [place] [phone] 10/20/2024 9:00 AM MANAGER COSMETIC [facility] [place], [place] [address] [place] [phone] Oneal Garcia M.D. [address] [place] [phone] 10/20/2024 10:15 AM MANAGER COSMETIC Appointment Department of Radiology, [facility] in [place], [place] [address] [place] [phone] Oneal Garcia M.D. [address] [place] [phone] 10/20/2024 10:40 AM MANAGER COSMETIC Lab Department of Laboratory Medicine and Pathology, [facility] in [place], [place] [address] [place] [phone] Oneal Garcia M.D. [address] [place] [phone] 10/20/2024 12:20 PM MANAGER COSMETIC Ancillary Procedure Department of Cardiovascular Medicine in [place], [place] [address] [place] [phone] Aishwarya Macias, KYLEES, P.A.-C. [address] [place] [phone] 10/20/2024 1:00 PM MANAGER COSMETIC Comprehensive Visit Preoperative Evaluation Center in [place], [place] [address] [place] [phone] Mic Ambrocio M.D. [address] [place] [phone] 10/20/2024 2:00 PM MANAGER COSMETIC Office Visit Department of Orthopedic Surgery in [place], [place] [address] [place] [phone] Oneal Garcia M.D. [address] [place] [phone] Erin Cunningham, RVianca 10/22/2024 7:50 AM MANAGER COSMETIC Hospital Encounter Post Anesthesia Care Unit in [place], [place] [address] [place] [phone] Oneal Garcia M.D. [address] [place] [phone] 10/22/2024 7:50 AM MANAGER COSMETIC - 10/22/2024 2:52 PM MANAGER COSMETIC Surgery [facility] OR [address] [place] [phone] Oneal Garcia M.D. 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
--- OUTSIDE RECORDS SUMMARY | 2024-08-24 12:53 | XMS_ITS | Encounter Summary ---
Author Organization [facility] Address [address] [place] [address] Care Team Providers Care Motor Scooter Mechanic Name Role Phone Unavailable Primary Care Provider Unavailabl e Reason for Referral * Outpatient (Routine) - Authorized Specialty Diagnoses / Procedures Referred By Contac t Referred To Contact Anesthesiology Diagnoses Spondylolisthesis Lumbar Region Mic Ambrocio M.D. [address] [place] [address] Phone: tel: fax: [facility] Referral ID Status Reason Start Date Expiration Date V isits Requested Visits Authorized [id number] Authorized 08/03/2024 02/02/2026 1 1 * Outpatient (Routine) - Closed Specialty Diagnoses / Procedures Referred By Contac t Referred To Contact Diagnoses Spondylolisthesis Lumbar Region Procedures FL Lumbar Spine Transforaminal Epidural Injection Right Mic Ambrocio M.D. [address] [place] [address] Phone: tel: fax: [facility] Referral ID Status Reason Start Date Expiration Date Visits Re quested Visits Authorized [id number] Closed 08/03/2024 08/03/2025 1 1 Reason for Visit * Appointment Request (Routine) - Closed Specialty Diagnoses / Procedures Referred By Contac t Referred To Contact Spine Diagnoses Stenosis Spinal Lumbar Referral ID Status Reason Start Date Expiration Date Visits Re quested Visits Authorized [id number] Closed 04/25/2024 04/25/2025 2 2 Encounter Details Date Type Department Care Team (Latest Contact Info) Description 08/03/2024 1:00 PM CDT Comprehensive Visit Department of Orthopedic Surgery in [place], [place] [address] [place] [address] Oneal Garcia M.D. [address] [place] [address] Spondylolisthesis Lumbar Region (Primary Dx) Social History Tobacco Use Types Packs/Day Years Used Date Smoking Tobacco: Never Smokeless Tobacco: Never [facility] Utilities Answer Date Recorded In [...] PM CDT Legal Sex Male 8:38 AM HOME HEALTH OCCUPATIONAL THERAPIST Gender Identity Male 07/30/2024 1:05 PM CDT [...] is on Xarelto. 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 OBJECTIVE PHYSICAL EXAMINATION Musculoskeletal: Patient ambulates with [...] Oneal Garcia M.D. CT CT Job ID: [id number] documented in this encounter Plan of Treatment Upcoming Encounters Date Type Department Care Team (Latest Contact Info) Description 10/16/2024 9:15 AM HOME HEALTH OCCUPATIONAL THERAPIST Clinical Communication Virtual Review in [address] [phone] 10/16/2024 11:00 AM HOME HEALTH OCCUPATIONAL THERAPIST Virtual Visit Department of Social Work in [address] [phone] Oneal Garcia M.D. [address] [place] [phone] 10/20/2024 8:00 AM HOME HEALTH OCCUPATIONAL THERAPIST Appointment Department of Radiology, [facility], in [address] [phone] Oneal Garcia M.D. [address] [place] [phone] 10/20/2024 9:00 AM HOME HEALTH OCCUPATIONAL THERAPIST Appointment Department of Radiology, [facility] in [place], [place] [address] [place] [phone] Oneal Garcia M.D. [address] [place] [phone] 10/20/2024 10:15 AM HOME HEALTH OCCUPATIONAL THERAPIST Appointment Department of Radiology, [facility] in [place], [place] [address] [place] [phone] Oneal Garcia M.D. [address] [place] [phone] 10/20/2024 10:40 AM HOME HEALTH OCCUPATIONAL THERAPIST Lab Department of Laboratory Medicine and Pathology, [facility] in [place], [place] [address] [place] [phone] Oneal Garcia M.D. [address] [place] [phone] 10/20/2024 12:20 PM HOME HEALTH OCCUPATIONAL THERAPIST Ancillary Procedure Department of Cardiovascular Medicine in [address] [phone] Aishwarya Macias MPAS, P.A.-CLex [address] [place] [phone] 10/20/2024 1:00 PM HOME HEALTH OCCUPATIONAL THERAPIST Comprehensive Visit Preoperative Evaluation Center in [place], [place] [address] [place] [phone] Mic Ambrocio M.D. [address] [place] [phone] 10/20/2024 2:00 PM HOME HEALTH OCCUPATIONAL THERAPIST Office Visit Department of Orthopedic Surgery in [address] [phone] Oneal Garcia M.D. [address] [place] [phone] Erin Cunningham R.N. 10/22/2024 7:50 AM HOME HEALTH OCCUPATIONAL THERAPIST Hospital Encounter Post Anesthesia Care Unit in [place], [place] [address] [place] [phone] Oneal Garcia M.D. [address] [place] [phone] 10/22/2024 7:50 AM HOME HEALTH OCCUPATIONAL THERAPIST - 10/22/2024 2:52 PM HOME HEALTH OCCUPATIONAL THERAPIST Surgery [facility] MAIN OR [address] [place] [phone] Oneal Garcia M.D. [address] [place] [phone] DECOMPRESSION POSTERIOR LUMBAR AND INSTRUMENTED FUSION L4-L5 Scheduled Procedures Name Priority Associated Diagnoses Date/Ti me DECOMPRESSION POSTERIOR LUMBAR AND INSTRUMENTED FUSION Stenosis Spinal Lumbar With Neurogenic Claudication 10/22/2024 7:50 AM HOME HEALTH OCCUPATIONAL THERAPIST Scheduled Referrals Name Type Priority Associated Diagnoses Order Schedule Preoperative Evaluation MEI consult (clinic) Outpatient Referral Routine Spondylolisthesis Lumbar Region Expected: 08/03/2024, Expires: 11/03/2025 documented as of this encounter Results * FL Lumbar Spine Transforaminal Epidural Injection Right (08/07/2024 2:34 PM CDT) Impressions [id number] - 08/07/2024 2:45 PM CDT Fluoroscopically-guided right L4 transforaminal epidural steroid injection. NR Narrative [id number] - 08/07/2024 2:45 PM CDT EXAM: FL [...] pain pattern and imaging findings [facility] 04/13/2024. He has a history of low back and bilaterallower extremity pain, worst in the right buttock. MRI demonstratesadvanced spinal canal stenosis at L4-5. Prior epidural steroid injections have had mixed success. Right [id number] epidural steroid injection was requested and performedtoday. [...] PROCEDURES Fi nal Result Performing Organization Address City/State/[facility] Co de Phone Number [id number] NA documented in this encounter Visit Diagnoses Diagnosis Spondylolisthesis Lumbar Region- Primary Spondylolisthesis Lumbar Region Stenosis Spinal Lumbar With Neurogenic Claudication documented in this encounter
--- OUTSIDE RECORDS SUMMARY | 2024-08-24 12:53 | XMS_ITS | Encounter Summary ---
Author Organization [facility] Address [address] [place] [address] Care Team Providers Care Assembler Arranger Name Role Phone Unavailable Primary Care Provider Unavailabl e Reason for Referral * Outpatient (Routine) - Closed Specialty Diagnoses / Procedures Referred By Contac t Referred To Contact Diagnoses Pain Low Back Unspecified Procedures DX Entire Spine Scoliosis 2-3 Views Emerald Hand APRN C.N.P., D.N.P., M.S.N. Phone: tel: fax: [facility] Referral ID Status Reason Start Date Expiration Date Visits Re quested Visits Authorized [id number] Closed 05/14/2024 05/14/2025 1 1 Reason for Visit * Outpatient (Routine) - Closed Specialty Diagnoses / Procedures Referred By Contac t Referred To Contact Diagnoses Pain Low Back Unspecified Procedures DX Entire Spine Scoliosis 2-3 Views Emerald Hand APRN, C.N.P., D.N.P., M.S.N. Phone: tel: fax: [facility] Referral ID Status Reason Start Date Expiration Date Visits Re quested Visits Authorized [id number] Closed 05/14/2024 05/14/2025 1 1 Encounter Details Date Type Department Care Team (Latest Contact Info) Description 08/03/2024 6:30 AM CDT - 08/03/2024 11:59 PM CDT Hospital Encounter Department of Radiology, [facility], in [place], [place] [address] [place] [phone] Emerald Hand APRN, C.N.P., D.N.P., M.S.N. [address] [place] [phone] Pain Low Back Unspecified Discharge Disposition: Home or Self Care Social History Tobacco Use Types Packs/Day Years Used Date Smoking Tobacco: Never Smokeless Tobacco: Never [facility] Utilities Answer Date Recorded In [...] PM CDT Legal Sex Male 8:38 AM TOOL ENGINE LATHE SET UP OPERATOR Gender Identity Male 07/30/2024 1:05 PM [...] Do not crush or chew. 05/11/2024 05/11/2025 [id number]-[id number]- lycopen-lutein (Centrum Silver Men) [id number] mcg tablet Take 1 tablet by mouth [...] (Latest Contact Info) Description 10/16/2024 9:15 AM TOOL ENGINE LATHE SET UP OPERATOR Clinical Communication Virtual Review in [place], [place] [address] [place] [address] 10/16/2024 11:00 AM TOOL ENGINE LATHE SET UP OPERATOR Virtual Visit Department of Social Work in [address] [phone] Oneal Garcia M.D. [address] [place] [phone] 10/20/2024 8:00 AM TOOL ENGINE LATHE SET UP OPERATOR Appointment Department of Radiology, [facility] in [place], [place] [address] [place] [phone] Oneal Garcia M.D. [address] [place] [phone] 10/20/2024 9:00 AM TOOL ENGINE LATHE SET UP OPERATOR Appointment Department of Radiology, [facility] in [place], [place] [address] [place] [phone] Oneal Garcia M.D. [address] [place] [phone] 10/20/2024 10:15 AM TOOL ENGINE LATHE SET UP OPERATOR Appointment Department of Radiology, [facility] in [place], [place] [address] [place] [phone] Oneal Garcia M.D. [address] [place] [phone] 10/20/2024 10:40 AM TOOL ENGINE LATHE SET UP OPERATOR Lab Department of Laboratory Medicine and Pathology, [facility] in [place], [place] [address] [place] [phone] Oneal Garcia M.D. [address] [place] [phone] 10/20/2024 12:20 PM TOOL ENGINE LATHE SET UP OPERATOR Ancillary Procedure Department of Cardiovascular Medicine in [place], [place] [address] [place] [phone] Aishwarya Macias MPAS, P.A.-C. [address] [place] [phone] 10/20/2024 1:00 PM TOOL ENGINE LATHE SET UP OPERATOR Comprehensive Visit Preoperative Evaluation Center in [place], [place] [address] [place] [phone] Mic Ambrocio M.D. [address] [place] [phone] 10/20/2024 2:00 PM TOOL ENGINE LATHE SET UP OPERATOR Office Visit Department of Orthopedic Surgery in [place], [place] [address] [place] [phone] Oneal Garcia M.D. [address] [place] [phone] Erin Cunningham RVianca 10/22/2024 7:50 AM TOOL ENGINE LATHE SET UP OPERATOR Hospital Encounter Post Anesthesia Care Unit in [place], [place] [address] [place] [phone] Oneal Garcia M.D. [address] [place] [phone] 10/22/2024 7:50 AM TOOL ENGINE LATHE SET UP OPERATOR - 10/22/2024 2:52 PM TOOL ENGINE LATHE SET UP OPERATOR Surgery [facility] MAIN OR [address] [place] [phone] Oneal Garcia M.D. [address] [place] [phone] DECOMPRESSION POSTERIOR LUMBAR AND INSTRUMENTED FUSION L4-L5 Scheduled Procedures Name Priority Associated Diagnoses Date/Ti me DECOMPRESSION POSTERIOR LUMBAR AND INSTRUMENTED FUSION Stenosis Spinal Lumbar With Neurogenic Claudication 10/22/2024 7:50 AM TOOL ENGINE LATHE SET UP OPERATOR documented as of this encounter Procedures Procedure [...]
--- OUTSIDE RECORDS SUMMARY | 2024-08-24 12:53 | XMS_ITS | Encounter Summary ---
Author Organization [facility] Address [address] [place] [address] Care Team Providers Care Cell Lead Name Role Phone Unavailable Primary Care Provider Unavailabl e Encounter Details Date Type Department Care Team (Late st Contact Info) Description 07/21/2024 Orders Only Division of Nephrology and Hypertension in [place], [place] [address] [place] [phone] Humberto Cho Jr., D.O. [address] [place] [phone] Social History Tobacco Use Types Packs/Day Years Used Date Smoking Tobacco: Never Assessed Dental Answer Date Recorded Dental: Regular Dentist Unknown 09/05/20 23 Sex and Gender Information Value Date Recorded Sex Assigned at Male 07/30/2024 1:05 PM CDT Legal Sex Male 8:38 AM SHOVE UP Gender Identity Male 07/30/2024 1:05 PM CDT Sexual Orientation Straight 07/30/2024 1: 05 PM CDT documented as of this encounter Plan of Treatment Upcoming Encounters Date Type Department Care Team (Latest Contact Info) Description 10/16/2024 9:15 AM SHOVE UP Clinical Communication Virtual Review in [place], [place] 200 [place] [phone] 10/16/2024 11:00 AM SHOVE UP Virtual Visit Department of Social Work in [place], [place] [address] [place] [phone] Oneal Garcia M.D. [address] [place] [phone] 10/20/2024 8:00 AM SHOVE UP Appointment Department of Radiology, [facility] in [place], [place] [address] [place] [phone] Oneal Garcia M.D. [address] [place] [phone] 10/20/2024 9:00 AM SHOVE UP Appointment Department of Radiology, [facility] in [place], [place] [address] [place] [phone] Oneal Garcia M.D. [address] [place] [phone] 10/20/2024 10:15 AM SHOVE UP Appointment Department of Radiology, [facility] in [place], [place] [address] [place] [phone] Oneal Garcia M.D. [address] [place] [phone] 10/20/2024 10:40 AM SHOVE UP Lab Department of Laboratory Medicine and Pathology, [facility] in [place], [place] [address] [place] [phone] Oneal Garcia M.D. [address] [place] [phone] 10/20/2024 12:20 PM SHOVE UP Ancillary Procedure Department of Cardiovascular Medicine in [place], [place] [address] [place] [phone] Aishwarya Macias, KYLEES, P.A.-C. [address] [place] [phone] 10/20/2024 1:00 PM SHOVE UP Comprehensive Visit Preoperative Evaluation Center in [place], [place] [address] [place] [phone] Mic Ambrocio M.D. [address] [place] [phone] 10/20/2024 2:00 PM SHOVE UP Office Visit Department of Orthopedic Surgery in [place], [place] [address] [place] [phone] Oneal Garcia M.D. [address] [place] [phone] Erin Cunningham R.N. 10/22/2024 7:50 AM SHOVE UP Hospital Encounter Post Anesthesia Care Unit in [place] [address] [place] [phone] Oneal Garcia M.D. [address] [place] [phone] 10/22/2024 7:50 AM SHOVE UP - 10/22/2024 2:52 PM SHOVE UP Surgery [facility] MAIN OR [address] [place] [phone] Oneal Garcia M.D. [address] [place] [phone] DECOMPRESSION POSTERIOR LUMBAR AND INSTRUMENTED FUSION L4-L5 Scheduled Procedures Name Priority Associated Diagnoses Date/Ti me DECOMPRESSION POSTERIOR LUMBAR AND INSTRUMENTED FUSION Stenosis Spinal Lumbar With Neurogenic Claudication 10/22/2024 7:50 AM SHOVE UP documented as of this encounter Visit Diagnoses Not on filedocumented in this encounter
--- OUTSIDE RECORDS SUMMARY | 2024-08-24 12:53 | XMS_ITS | Encounter Summary ---
Author Organization [facility] Address [address] [place] [address] Care Team Providers Care Pediatric Cns Name Role Phone Unavailable Primary Care Provider Unavailabl e Encounter Details Date Type Department Care Team (Late st Contact Info) Description 07/21/2024 Documentation Division of Nephrology and Hypertension in [place], [place] [address] [place] [address] Humberto Cho Jr., D.O. [address] [place] [phone] Social History Tobacco Use Types Packs/Day Years Used Date Smoking Tobacco: Never Assessed Dental Answer Date Recorded Dental: Regular Dentist Unknown 09/05/20 23 Sex and Gender Information Value Date Recorded Sex Assigned at Male 07/30/2024 1:05 PM CDT Legal Sex Male 8:38 AM WINK CUTTER OPERATOR Gender Identity Male 07/30/2024 1:05 PM CDT Sexual Orientation Straight 07/30/2024 1: 05 PM CDT documented as of this encounter Progress Notes * Humberto Cho Jr., D.O. - 07/21/2024 10:50 AM CDT Care coordination- email from [facility] Thanks Please ask him to [...] (Latest Contact Info) Description 10/16/2024 9:15 AM WINK CUTTER OPERATOR Clinical Communication Virtual Review in [address] [phone] 10/16/2024 11:00 AM WINK CUTTER OPERATOR Virtual Visit Department of Social Work in [address] [phone] Oneal Garcia M.D. [address] [place] [phone] 10/20/2024 8:00 AM WINK CUTTER OPERATOR Appointment Department of Radiology[address] [phone] Oneal Garcia M.D. [address] [place] [phone] 10/20/2024 9:00 AM WINK CUTTER OPERATOR [facility] [address] [phone] Oneal Garcia M.D. [address] [place] [phone] 10/20/2024 10:15 AM WINK CUTTER OPERATOR Appointment Department of Radiology, [address] [phone] Oneal Garcia M.D. [address] [place] [phone] 10/20/2024 10:40 AM WINK CUTTER OPERATOR Lab Department of Laboratory Medicine and Pathology, [facility] in [place], [place] [address] [place] [phone] Oneal Garcia M.D. [address] [place] [phone] 10/20/2024 12:20 PM WINK CUTTER OPERATOR Ancillary Procedure Department of Cardiovascular Medicine in [place], [place] [address] [place] [phone] Aishwarya Macias MPAS, P.A.-C. [address] [place] [phone] 10/20/2024 1:00 PM WINK CUTTER OPERATOR Comprehensive Visit Preoperative Evaluation Center in [place], [place] [address] [place] [phone] Mic Ambrocio M.D. [address] [place] [phone] 10/20/2024 2:00 PM WINK CUTTER OPERATOR Office Visit Department of Orthopedic Surgery in [place], [place] [address] [place] [phone] Oneal Garcia M.D. [address] [place] [phone] Erin Cunningham, RLexNLex 10/22/2024 7:50 AM WINK CUTTER OPERATOR Hospital Encounter Post Anesthesia Care Unit in [place], [place] [address] [place] [phone] Oneal Garcia M.D. [address] [place] [phone] 10/22/2024 7:50 AM WINK CUTTER OPERATOR - 10/22/2024 2:52 PM WINK CUTTER OPERATOR Surgery [facility] MAIN OR [address] [place] [phone] Oneal Garcia M.D. [address] [place] [phone] DECOMPRESSION POSTERIOR LUMBAR AND INSTRUMENTED FUSION L4-L5 Scheduled Procedures Name Priority Associated Diagnoses Date/Ti me DECOMPRESSION POSTERIOR LUMBAR AND INSTRUMENTED FUSION Stenosis Spinal Lumbar With Neurogenic Claudication 10/22/2024 7:50 AM WINK CUTTER OPERATOR documented as of this encounter Visit Diagnoses Not on filedocumented in this encounter
--- OUTSIDE RECORDS SUMMARY | 2024-08-24 12:53 | XMS_ITS | Encounter Summary ---
Author Organization [facility] Address [address] [place] [address] Care Team Providers Care Chapter Relations Administrator Name Role Phone Unavailable Primary Care Provider Unavailabl e Encounter Details Date Type Department Care Team (Latest Contact Info) Description 07/22/2024 11:45 AM CDT Clinical Communication Virtual Review in [address] [phone] Social History Tobacco Use Types Packs/Day Years Used Date Smoking Tobacco: Never Smokeless Tobacco: Never Dental Answer Date Recorded Dental: Regular Dentist Unknown 09/05/20 23 Sex and Gender Information Value Date Recorded Sex Assigned at Male 07/30/2024 1:05 PM CDT Legal Sex Male 8:38 AM PROTECTION CHIEF INDUSTRIAL PLANT Gender Identity Male 07/30/2024 1:05 PM CDT Sexual Orientation Straight 07/30/2024 1: 05 PM CDT documented as of this encounter Plan of Treatment Upcoming Encounters Date Type Department Care Team (Latest Contact Info) Description 10/16/2024 9:15 AM PROTECTION CHIEF INDUSTRIAL PLANT Clinical Communication Virtual Review in [address] [phone] 10/16/2024 11:00 AM PROTECTION CHIEF INDUSTRIAL PLANT Virtual Visit Department of Social Work in [address] [phone] Oneal Garcia M.D. [address] [place] [phone] 10/20/2024 8:00 AM PROTECTION CHIEF INDUSTRIAL PLANT Appointment Department of Radiology, [facility] in [place], [place] [address] [place] [phone] Oneal Garcia M.D. [address] [place] [phone] 10/20/2024 9:00 AM PROTECTION CHIEF INDUSTRIAL PLANT Appointment Department of Radiology, [facility] in [place], [place] [address] [place] [phone] Oneal Garcia M.D. [address] [place] [phone] 10/20/2024 10:15 AM PROTECTION CHIEF INDUSTRIAL PLANT Appointment Department of Radiology, [facility] in [place], [place] [address] [place] [phone] Oneal Garcia M.D. [address] [place] [phone] 10/20/2024 10:40 AM PROTECTION CHIEF INDUSTRIAL PLANT Lab Department of Laboratory Medicine and Pathology, [facility] in [place], [place] [address] [place] [phone] Oneal Garcia M.D. [address] [place] [phone] 10/20/2024 12:20 PM PROTECTION CHIEF INDUSTRIAL PLANT Ancillary Procedure Department of Cardiovascular Medicine in [place], [place] [address] [place] [phone] Aishwarya Macias MPAS, P.A.-C. [address] [place] [phone] 10/20/2024 1:00 PM PROTECTION CHIEF INDUSTRIAL PLANT Comprehensive Visit Preoperative Evaluation Center in [place], [place] [address] [place] [phone] Mic Ambrocio M.D. [address] [place] [phone] 10/20/2024 2:00 PM PROTECTION CHIEF INDUSTRIAL PLANT Office Visit Department of Orthopedic Surgery in [place], [place] [address] [place] [phone] Oneal Garcia M.D. [address] [place] [phone] Erin Cunningham R.N. 10/22/2024 7:50 AM PROTECTION CHIEF INDUSTRIAL PLANT Hospital Encounter Post Anesthesia Care Unit in [place], [place] [address] [place] [phone] Oneal Garcia M.D. [address] [place] [phone] 10/22/2024 7:50 AM PROTECTION CHIEF INDUSTRIAL PLANT - 10/22/2024 2:52 PM PROTECTION CHIEF INDUSTRIAL PLANT Surgery [facility] MAIN OR [address] [place] [phone] Oneal Garcia M.D. [address] [place] [phone] DECOMPRESSION POSTERIOR LUMBAR AND INSTRUMENTED FUSION L4-L5 Scheduled Procedures Name Priority Associated Diagnoses Date/Ti me DECOMPRESSION POSTERIOR LUMBAR AND INSTRUMENTED FUSION Stenosis Spinal Lumbar With Neurogenic Claudication 10/22/2024 7:50 AM PROTECTION CHIEF INDUSTRIAL PLANT documented as of this encounter Visit Diagnoses Not on filedocumented in this encounter
--- OUTSIDE RECORDS SUMMARY | 2024-08-24 12:53 | XMS_ITS | Encounter Summary ---
Author Organization [facility] Address [address] [place] [address] Care Team Providers Care Doctor Osteopathic Name Role Phone Unavailable Primary Care Provider Unavailabl e Reason for Referral * Specialty Diagnoses / Procedures Referred By Contac t Referred To Contact Diagnoses Type 2 diabetes mellitus Toya Watson MD [facility] Referral ID Status Reason Start Date Expiration Date Visits Re quested Visits Authorized Encounter Details Date Type Department Care Team (Late st Contact Info) Description 07/30/2024 Orders Only Division of Endocrinology in [place], [place] [address] [place] [address] [facility] Type 2 diabetes mellitus Social History Tobacco Use Types Packs/Day Years Used Date Smoking Tobacco: Never Smokeless Tobacco: Never C Utilities Answer Date Recorded In the past 12 months has [facility] [employer], gas, oil, or water company threatened to [...] PM CDT Legal Sex Male 8:38 AM GROUND CONTROL APPROACH TECHNICIAN Gender Identity Male 07/30/2024 1:05 PM CDT Sexual Orientation Straight 07/30/2024 1: 05 PM CDT documented as of this encounter Plan of Treatment Upcoming Encounters Date Type Department Care Team (Latest Contact Info) Description 10/16/2024 9:15 AM GROUND CONTROL APPROACH TECHNICIAN Clinical Communication Virtual Review in [place], [place] 200 [place] [phone] 10/16/2024 11:00 AM GROUND CONTROL APPROACH TECHNICIAN Virtual Visit Department of Social Work in [place], [place] [address] [place] [phone] Oneal Garcia M.D. [address] [place] [phone] 10/20/2024 8:00 AM GROUND CONTROL APPROACH TECHNICIAN Appointment Department of Radiology, [facility], in [place], [place] [address] [place] [phone] Oneal Garcia M.D. [address] [place] [phone] 10/20/2024 9:00 AM GROUND CONTROL APPROACH TECHNICIAN Appointment Department of Radiology, [facility] in [place], [place] [address] [place] [phone] Oneal Garcia M.D. [address] [place] [phone] 10/20/2024 10:15 AM GROUND CONTROL APPROACH TECHNICIAN Appointment Department of Radiology, [facility] in [place], [place] [address] [place] [phone] Oneal Garcia M.D. [address] [place] [phone] 10/20/2024 10:40 AM GROUND CONTROL APPROACH TECHNICIAN Lab Department of Laboratory Medicine and Pathology, [facility] in [place], [place] [address] [place] [phone] Oneal Garcia M.D. [address] [place] [phone] 10/20/2024 12:20 PM GROUND CONTROL APPROACH TECHNICIAN Ancillary Procedure Department of Cardiovascular Medicine in [address] [phone] Aishwarya Macias MPAS, P.A.-CLex [address] [place] [phone] 10/20/2024 1:00 PM GROUND CONTROL APPROACH TECHNICIAN Comprehensive Visit Preoperative Evaluation Center in [place], [place] [address] [place] [phone] Mic Ambrocio M.D. [address] [place] [phone] 10/20/2024 2:00 PM GROUND CONTROL APPROACH TECHNICIAN Office Visit Department of Orthopedic Surgery in [address] [phone] Oneal Garcia M.D. [address] [place] [phone] Erin Cunningham R.N. 10/22/2024 7:50 AM GROUND CONTROL APPROACH TECHNICIAN Hospital Encounter Post Anesthesia Care Unit in [place], [place] [address] [place] [phone] Oneal Garcia M.D. [address] [place] [phone] 10/22/2024 7:50 AM GROUND CONTROL APPROACH TECHNICIAN - 10/22/2024 2:52 PM GROUND CONTROL APPROACH TECHNICIAN Surgery [facility] ROM[facility] MAIN OR [address] [place] [phone] Oneal Garcia M.D. [address] [place] [phone] DECOMPRESSION POSTERIOR LUMBAR AND INSTRUMENTED FUSION L4-L5 Scheduled Procedures Name Priority Associated Diagnoses Date/Ti me DECOMPRESSION POSTERIOR LUMBAR AND INSTRUMENTED FUSION Stenosis Spinal Lumbar With Neurogenic Claudication 10/22/2024 7:50 AM GROUND CONTROL APPROACH TECHNICIAN Scheduled Referrals Name Type Priority Associated Diagnoses Orde r Schedule Nutrition - check services clerk visit (clinic) Outpatient Referral Routine Type 2 diabetes mellitus Expected: 07/30/2024 (Approximate), Expires: 07/30/2025 documented as of this encounter Visit Diagnoses Diagnosis Type 2 diabetes mellitus Stenosis Spinal Lumbar With Neurogenic Claudication documented in this encounter
--- OUTSIDE RECORDS SUMMARY | 2024-08-24 12:53 | XMS_ITS | Encounter Summary ---
Author Organization [facility] Address [address] [place] [address] Care Team Providers Care Medical Supply Technician Name Role Phone Unavailable Primary Care Provider Unavailabl e Reason for Visit * Appointment Request (Routine) - Closed Specialty Diagnoses / Procedures Referred By Mireya garza Referred To Contact Endocrinology Referral ID Status Reason Start Date Expiration Date Visits Re quested Visits Authorized [id number] Closed 05/26/2024 05/26/2025 1 1 Encounter Details Date Type Department Care Team (Latest Contact Info) Description 08/04/2024 9:30 AM CDT Comprehensive Visit Division of Endocrinology in [place], [place] [address] [place] [address] Aniket Goldberg M.B.B.S. [address] [place] [address] Diabetes Mellitus Type 2 (HCC) (Primary Dx) Social History Tobacco Use Types Packs/Day Years Used Date Smoking Tobacco: Never Smokeless Tobacco: Never [facility] Utilities Answer Date Recorded In [...] your living situation today? I have a [facility] place to live 07/30/2024 Sex and Gender Information Value Date Recorded Sex Assigned at Male 07/30/2024 1:05 PM CDT Legal Sex Male 8:38 AM RECORDS COORDINATOR Gender Identity Male 07/30/2024 1:05 PM CDT [...] Goldberg M.B.B.S. - 08/04/2024 9:30 AM CDT [facility] Endocrinology, Diabetes, and Nutrition Metabolism Clinic Date of Visit: 08/04/2024 Supervising managing consultant clinical professor: Dr. Beard SUBJECTIVE Chief Complaint: Type 2 [...] testing. 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 ASSESSMENT/PLAN 1. Main [...] (Latest Contact Info) Description 10/16/2024 9:15 AM RECORDS COORDINATOR Clinical Communication Virtual Review in [place], [place] 200 [place] [address] 10/16/2024 11:00 AM RECORDS COORDINATOR Virtual Visit Department of Social Work in [place], [place] [address] [place] [phone] Oneal Garcia M.D. [address] [place] [phone] 10/20/2024 8:00 AM RECORDS COORDINATOR [facility] [place] [place] [address] [place] [phone] Oneal Garcia M.D. [address] [place] [phone] 10/20/2024 9:00 AM RECORDS COORDINATOR Appointment Department of Radiology[address] [phone] Oneal Garcia M.D. [address] [place] [phone] 10/20/2024 10:15 AM RECORDS COORDINATOR Appointment Department of Radiology, [place], [place] [address] [place] [phone] Oneal Garcia M.D. [address] [place] [phone] 10/20/2024 10:40 AM RECORDS COORDINATOR Lab Department of Laboratory Medicine and Pathology, [facility] in [place], [place] [address] [place] [phone] Oneal Garcia M.D. [address] [place] [phone] 10/20/2024 12:20 PM RECORDS COORDINATOR Ancillary Procedure Department of Cardiovascular Medicine in [place], [place] [address] [place] [phone] Aishwarya Macias MPAS, P.A.-CLex [address] [place] [phone] 10/20/2024 1:00 PM RECORDS COORDINATOR Comprehensive Visit Preoperative Evaluation Center in [place], [place] [address] [place] [phone] Mic Ambrocio M.D. [address] [place] [phone] 10/20/2024 2:00 PM RECORDS COORDINATOR Office Visit Department of Orthopedic Surgery in [place], [place] [address] [place] [phone] Oneal Garcia M.D. [address] [place] [phone] Erin Cunningham, RLexNLex 10/22/2024 7:50 AM RECORDS COORDINATOR Hospital Encounter Post Anesthesia Care Unit in [place] [address] [place] [phone] Oneal Garcia M.D. [address] [place] [phone] 10/22/2024 7:50 AM RECORDS COORDINATOR - 10/22/2024 2:52 PM RECORDS COORDINATOR Surgery [facility]ST ROMB MAIN OR [address] [place] [phone] Oneal Garcia M.D. [address] [place] [phone] DECOMPRESSION POSTERIOR LUMBAR AND INSTRUMENTED FUSION L4-L5 Scheduled Procedures Name Priority Associated Diagnoses Date/Ti me DECOMPRESSION POSTERIOR LUMBAR AND INSTRUMENTED FUSION Stenosis Spinal Lumbar With Neurogenic Claudication 10/22/2024 7:50 AM RECORDS COORDINATOR documented as of this encounter Visit Diagnoses Diagnosis Diabetes Mellitus Type 2 (HCC)- Primary Stenosis Spinal Lumbar With Neurogenic Claudication documented in this encounter
--- OUTSIDE RECORDS SUMMARY | 2024-08-24 12:53 | XMS_ITS | Encounter Summary ---
Author Organization [facility] Address [address] [place] [address] Care Team Providers Care Stonework Supervisor Name Role Phone Unavailable Primary Care Provider Unavailabl e Reason for Referral * Outpatient (Routine) - Closed Specialty Diagnoses / Procedures Referred By Contac t Referred To Contact Diagnoses Pain Low Back Unspecified Procedures DX Lumbar Spine 4+ Views Emerald Hand APRN C.N.P., Maximo.N.P., M.S.N. Phone: tel: fax: [facility] Referral ID Status Reason Start Date Expiration Date Visits Re quested Visits Authorized [id number] Closed 05/14/2024 05/14/2025 1 1 Reason for Visit * Outpatient (Routine) - Closed Specialty Diagnoses / Procedures Referred By Contac t Referred To Contact Diagnoses Pain Low Back Unspecified Procedures DX Lumbar Spine 4+ Views Emerald Hand APRN C.N.P., D.N.P., M.S.N. Phone: tel: fax: [facility] Referral ID Status Reason Start Date Expiration Date Visits Re quested Visits Authorized [id number] Closed 05/14/2024 05/14/2025 1 1 Encounter Details Date Type Department Care Team (Latest Contact Info) Description 08/03/2024 6:30 AM CDT - 08/03/2024 11:59 PM CDT Hospital Encounter Department of Radiology, [facility], in [place], [place] [address] [place] [phone] Emerald Hand APRN, C.N.P., Mario.P., M.S.N. [address] [place] [phone] Pain Low Back Unspecified Discharge Disposition: Home or Self Care Social History Tobacco Use Types Packs/Day Years Used Date Smoking Tobacco: Never Smokeless Tobacco: Never [facility] Utilities Answer Date Recorded In the [...] your living situation today? I have a [facility] place to live 07/30/2024 Sex and Gender Information Value Date Recorded Sex Assigned at Male 07/30/2024 1:05 PM CDT Legal Sex Male 8:38 AM AIRPLANE RENTAL CLERK Gender Identity Male 07/30/2024 1:05 PM CDT [...] Do not crush or chew. 05/11/2024 05/11/2025 vr-oow-wsenr-K1- lycopen-lutein (Centrum Silver Men) [id number] mcg tablet Take 1 tablet by mouth [...] (Latest Contact Info) Description 10/16/2024 9:15 AM AIRPLANE RENTAL CLERK Clinical Communication Virtual Review in [place], [place] 200 [place] [phone] 10/16/2024 11:00 AM AIRPLANE RENTAL CLERK Virtual Visit Department of Social Work in [place], [place] [address] [place] [phone] Oneal Garcai M.D. [address] [place] [phone] 10/20/2024 8:00 AM AIRPLANE RENTAL CLERK Appointment Department of Radiology, [facility] in [place], [place] [address] [place] [phone] Oneal Garcia M.D. [address] [place] [phone] 10/20/2024 9:00 AM AIRPLANE RENTAL CLERK Appointment Department of Radiology, [facility] in [place], [place] [address] [place] [phone] Oneal Garcia M.D. [address] [place] [phone] 10/20/2024 10:15 AM AIRPLANE RENTAL CLERK Appointment Department of Radiology, [facility], in [place], [place] [address] [place] [phone] Oneal Garcia M.D. [address] [place] [phone] 10/20/2024 10:40 AM AIRPLANE RENTAL CLERK Lab Department of Laboratory Medicine and Pathology, [facility] in [place], [place] [address] [place] [phone] Oneal Garcia M.D. [address] [place] [phone] 10/20/2024 12:20 PM AIRPLANE RENTAL CLERK Ancillary Procedure Department of Cardiovascular Medicine in [place], [place] [address] [place] [phone] Aishwarya Macias MPAS, P.A.-CLex [address] [place] [phone] 10/20/2024 1:00 PM AIRPLANE RENTAL CLERK Comprehensive Visit Preoperative Evaluation Center in [place], [place] [address] [place] [phone] Mic Ambrocio M.D. [address] [place] [phone] 10/20/2024 2:00 PM AIRPLANE RENTAL CLERK Office Visit Department of Orthopedic Surgery in [place], [place] [address] [place] [phone] Oneal Garcia M.D. [address] [place] [phone] Erin Cunningham RVianca 10/22/2024 7:50 AM AIRPLANE RENTAL CLERK Hospital Encounter Post Anesthesia Care Unit in [place], [place] [address] [place] [phone] Oneal Garcia M.D. [address] [place] [phone] 10/22/2024 7:50 AM AIRPLANE RENTAL CLERK - 10/22/2024 2:52 PM AIRPLANE RENTAL CLERK Surgery [facility]ST ROMB MAIN OR [address] [place] [phone] Oneal Garcia M.D. [address] [place] [address] DECOMPRESSION POSTERIOR LUMBAR AND INSTRUMENTED FUSION L4-L5 Scheduled Procedures Name Priority Associated Diagnoses Date/Ti me DECOMPRESSION POSTERIOR LUMBAR AND INSTRUMENTED FUSION Stenosis Spinal Lumbar With Neurogenic Claudication 10/22/2024 7:50 AM AIRPLANE RENTAL CLERK documented as of this encounter Procedures Procedure [...]
--- OUTSIDE RECORDS SUMMARY | 2024-08-24 12:53 | XMS_ITS | Encounter Summary ---
Author Organization [facility] Address [address] [place] [address] Care Team Providers Care Nurse Instructor Name Role Phone Unavailable Primary Care Provider Unavailabl e Encounter Details Date Type Department Care Team (Late st Contact Info) Description 04/28/2024 Orders Only Division of Endocrinology in [place], [place] [address] [place] [phone] [facility], Provider, Type 2 diabetes mellitus Social History Tobacco Use Types Packs/Day Years Used Date Smoking Tobacco: Never Assessed Dental Answer Date Recorded Dental: Regular Dentist Unknown 09/05/20 23 Sex and Gender Information Value Date Recorded Sex Assigned at Male 07/30/2024 1:05 PM CDT Legal Sex Male 8:38 AM FIELD SALES TRAINER Gender Identity Male 07/30/2024 1:05 PM CDT Sexual Orientation Straight 07/30/2024 1: 05 PM CDT documented as of this encounter Plan of Treatment Upcoming Encounters Date Type Department Care Team (Latest Contact Info) Description 10/16/2024 9:15 AM FIELD SALES TRAINER Clinical Communication Virtual Review in [place], [place] 200 [place] [phone] 10/16/2024 11:00 AM FIELD SALES TRAINER Virtual Visit Department of Social Work in [place], [place] [address] [place] [phone] Oneal Garcia M.D. [address] [place] [phone] 10/20/2024 8:00 AM FIELD SALES TRAINER Appointment Department of Radiology, [facility] in [place], [place] [address] [place] [phone] Oneal Garcia M.D. [address] [place] [phone] 10/20/2024 9:00 AM FIELD SALES TRAINER Appointment Department of Radiology, [facility] in [place], [place] [address] [place] [phone] Oneal Garcia M.D. [address] [place] [phone] 10/20/2024 10:15 AM FIELD SALES TRAINER Appointment Department of Radiology, [facility] in [place], [place] [address] [place] [phone] Oneal Garcia M.D. [address] [place] [phone] 10/20/2024 10:40 AM FIELD SALES TRAINER Lab Department of Laboratory Medicine and Pathology, [facility] in [place], [place] [address] [place] [phone] Oneal Garcia M.D. [address] [place] [phone] 10/20/2024 12:20 PM FIELD SALES TRAINER Ancillary Procedure Department of Cardiovascular Medicine in [place], [place] [address] [place] [phone] Aishwarya Macias MPAS, P.A.-C. [address] [place] [phone] 10/20/2024 1:00 PM FIELD SALES TRAINER Comprehensive Visit Preoperative Evaluation Center in [place], [place] [address] [place] [phone] Mic Ambrocio M.D. [address] [place] [phone] 10/20/2024 2:00 PM FIELD SALES TRAINER Office Visit Department of Orthopedic Surgery in [place], [place] [address] [place] [phone] Oneal Garcia M.D. [address] [place] [phone] Erin Cunningham R.N. 10/22/2024 7:50 AM FIELD SALES TRAINER Hospital Encounter Post Anesthesia Care Unit in [place], [place] [address] [place] [phone] Oneal Garcia M.D. [address] [place] [phone] 10/22/2024 7:50 AM FIELD SALES TRAINER - 10/22/2024 2:52 PM FIELD SALES TRAINER Surgery [facility] MAIN OR [address] [place] [phone] Oneal Garcia M.D. [address] [place] [phone] DECOMPRESSION POSTERIOR LUMBAR AND INSTRUMENTED FUSION L4-L5 Scheduled Procedures Name Priority Associated Diagnoses Date/Ti me DECOMPRESSION POSTERIOR LUMBAR AND INSTRUMENTED FUSION Stenosis Spinal Lumbar With Neurogenic Claudication 10/22/2024 7:50 AM FIELD SALES TRAINER documented as of this encounter Visit Diagnoses Diagnosis Type 2 diabetes mellitus Stenosis Spinal Lumbar With Neurogenic Claudication documented in this encounter
--- OUTSIDE RECORDS SUMMARY | 2024-08-24 12:53 | XMS_ITS | Encounter Summary ---
Author Organization [facility] Address [address] [place] [address] Care Team Providers Care Type Proof Reproducer Name Role Phone Unavailable Primary Care Provider Unavailabl e Reason for Visit * Appointment Request (Routine) - Closed Specialty Diagnoses / Procedures Referred By Contekaterina t Referred To Contact Spine Diagnoses Stenosis Spinal Lumbar Referral ID Status Reason Start Date Expiration Date Visits Re quested Visits Authorized [id number] Closed 04/25/2024 04/25/2025 2 2 Encounter Details Date Type Department Care Team (Latest Contact Info) Description 08/03/2024 9:00 AM CDT Comprehensive Visit Department of Spine in [place], [place] [address] [place] [phone] Mike Quintero D.O. [address] [place] [phone] Spondylolisthesis Lumbar Region (Primary Dx); Stenosis Spinal Lumbar With Neurogenic Claudication; Radiculopathy Lumbar; Pain In Right Lower Leg; Facet Syndrome; Pain Sacroiliac Social History Tobacco Use Types Packs/Day Years Used Date Smoking Tobacco: Never Smokeless Tobacco: Never [facility] Utilities Answer Date Recorded In the [...] your living situation today? I have a [facility] place to live 07/30/2024 Sex and Gender Information Value Date Recorded Sex Assigned at Male 07/30/2024 1:05 PM CDT Legal Sex Male 8:38 AM SAILING INSTRUCTOR Gender Identity Male 07/30/2024 1:05 PM CDT [...] establish care. 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 He was getting care from a pain clinic near [facility] where they were performing bilateral SI joint [...] Imaging Includes:MRI Are the images uploaded to [employer]? Yes Has the patient had any previous [...] both hips replaced. 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 Denies smoking and occasional alcohol use. Denies [...] done in the pain Medicine Clinic at [facility]. Red flags include progressive weakness or change [...] (Latest Contact Info) Description 10/16/2024 9:15 AM SAILING INSTRUCTOR Clinical Communication Virtual Review in [place], [place] 200 [place] [phone] 10/16/2024 11:00 AM SAILING INSTRUCTOR Virtual Visit Department of Social Work in [address] [phone] Oneal Garcia M.D. [address] [place] [phone] 10/20/2024 8:00 AM SAILING INSTRUCTOR Appointment Department of Radiology, [facility], in [address] [phone] Oneal Garcia M.D. [address] [place] [phone] 10/20/2024 9:00 AM SAILING INSTRUCTOR Appointment Department of Radiology, [facility] in [place], [place] [address] [place] [address] Oneal Garcia M.D. [address] [place] [phone] 10/20/2024 10:15 AM SAILING INSTRUCTOR Appointment Department of Radiology, [facility] in [place], [place] [address] [place] [phone] Oneal Garcia M.D. [address] [place] [phone] 10/20/2024 10:40 AM SAILING INSTRUCTOR Lab Department of Laboratory Medicine and Pathology, [facility] in [place], [place] [address] [place] [phone] Oneal Garcia M.D. [address] [place] [phone] 10/20/2024 12:20 PM SAILING INSTRUCTOR Ancillary Procedure Department of Cardiovascular Medicine in [place], [place] [address] [place] [phone] Aishwarya Macias MPAS, P.A.-C. [address] [place] [phone] 10/20/2024 1:00 PM SAILING INSTRUCTOR Comprehensive Visit Preoperative Evaluation Center in [place], [place] [address] [place] [phone] Mic Ambrocio M.D. [address] [place] [phone] 10/20/2024 2:00 PM SAILING INSTRUCTOR Office Visit Department of Orthopedic Surgery in [place], [place] [address] [place] [phone] Oneal Garcia M.D. [address] [place] [phone] Erin Cunningham R.N. 10/22/2024 7:50 AM SAILING INSTRUCTOR Hospital Encounter Post Anesthesia Care Unit in [place], [place] [address] [place] [phone] Oneal Garcia M.D. [address] [place] [phone] 10/22/2024 7:50 AM SAILING INSTRUCTOR - 10/22/2024 2:52 PM SAILING INSTRUCTOR Surgery [facility] ROM[facility] MAIN OR [address] [place] [phone] Oneal Garcia M.D. [address] [place] [phone] DECOMPRESSION POSTERIOR LUMBAR AND INSTRUMENTED FUSION L4-L5 Scheduled Procedures Name Priority Associated Diagnoses Date/Ti me DECOMPRESSION POSTERIOR LUMBAR AND INSTRUMENTED FUSION Stenosis Spinal Lumbar With Neurogenic Claudication 10/22/2024 7:50 AM SAILING INSTRUCTOR documented as of this encounter Visit Diagnoses Diagnosis Spondylolisthesis Lumbar Region- Primary Stenosis Spinal Lumbar With Neurogenic Claudication Radiculopathy Lumbar Pain In Right Lower Leg Facet Syndrome Pain Sacroiliac Stenosis Spinal Lumbar With Neurogenic Claudication documented in this encounter
== END 2024-08-24 12:51 | disposition home or self-care (01) ==
LOC: WOUND 12:50
PROVIDERS: PCP Family Medicine; Visit Provider Family Medicine
DX: I89.0 Lymphedema, not elsewhere classified (principal); E11.22 Type 2 diabetes mellitus with diabetic chronic kidney disease; N18.9 Chronic kidney disease, unspecified; Z79.4 Long term (current) use of insulin; Z79.84 Long term (current) use of oral hypoglycemic drugs
CPT/HCPCS: G0463

== ENCOUNTER 2025-02-02 07:46 | Outpatient (CLI) | payer MEDICARE, SELFPAY | END 2025-02-02 07:47 | disposition home or self-care (01) | LOC: NFLDREF 02-05 15:37 | PROVIDERS: PCP Family Medicine; Referring Provider Family Medicine; Visit Provider Family Medicine | DX: Z12.5 Encounter for screening for malignant neoplasm of prostate (principal); E03.9 Hypothyroidism, unspecified; E11.40 Type 2 diabetes mellitus with diabetic neuropathy, unspecified; E11.22 Type 2 diabetes mellitus with diabetic chronic kidney disease; N18.32 Chronic kidney disease, stage 3b; E78.5 Hyperlipidemia, unspecified; Z48.89 Encounter for other specified surgical aftercare; Z51.89 Encounter for other specified aftercare | CPT/HCPCS: 80053; 80061; 84443; G0103 ==

== ENCOUNTER 2025-03-30 14:04 | Outpatient (CLI) | payer MEDICARE, SELFPAY | END 2025-03-30 14:05 | disposition home or self-care (01) | LOC: WOUND 14:05 | PROVIDERS: PCP Family Medicine; Visit Provider Nurse Practitioner Family | DX: I87.311 Chronic venous hypertension (idiopathic) with ulcer of right lower extremity (principal); I89.0 Lymphedema, not elsewhere classified; E11.622 Type 2 diabetes mellitus with other skin ulcer; L97.812 Non-pressure chronic ulcer of other part of right lower leg with fat layer exposed; L97.312 Non-pressure chronic ulcer of right ankle with fat layer exposed; Z79.4 Long term (current) use of insulin; Z79.84 Long term (current) use of oral hypoglycemic drugs | CPT/HCPCS: 97597; G0463 ==

== ENCOUNTER 2025-04-06 09:47 | Outpatient (CLI) | payer MEDICARE, SELFPAY | END 2025-04-06 09:48 | disposition home or self-care (01) | LOC: WOUND 09:47 | PROVIDERS: PCP Family Medicine; Visit Provider Nurse Practitioner Family | DX: I87.311 Chronic venous hypertension (idiopathic) with ulcer of right lower extremity (principal); I89.0 Lymphedema, not elsewhere classified; E11.622 Type 2 diabetes mellitus with other skin ulcer; L97.312 Non-pressure chronic ulcer of right ankle with fat layer exposed; Z79.4 Long term (current) use of insulin; Z79.84 Long term (current) use of oral hypoglycemic drugs; E11.22 Type 2 diabetes mellitus with diabetic chronic kidney disease; N18.9 Chronic kidney disease, unspecified | CPT/HCPCS: 97597 ==

== ENCOUNTER 2025-04-06 13:00 | Outpatient (RCR) | payer MEDICARE, SELFPAY ==
--- NOTE | 2025-01-12 17:12 | PT.OPEX ---
[facility] Start: 01/12/25 16:16 Freq: Status: Active Protocol: Document 01/12/25 16:16 FIDEL (Rec: 01/12/25 17:08 FIDEL [id number]) E-signed By Shelly Melendez DPT Physical Therapy Outpatient Evaluation Insurance Information Recert Due Date 04/12/25 Insurance Name Medicare B Medical Diagnosis s/p lumbar spine surgery for decompression weakness, impaired balance, impaired mobility Treating Diagnosis s/p lumbar spine surgery with spinal fusion L4-L5 10/22/24 with LBP, core/hip/glut/LE weakness, limited tolerance for extended standing/walking, unsteady gait, hx of falls Patient currently restricted with spinal brace after fusion surgery (TLSO? - patient not wearing to PT today) and no bending/lifting/twisting. Subjective Subjective Patient reports having lumbar spinal surgery with spinal fusion L4-L5 on 10/22/24. States he was in the hospital 4 days and d/c to SNF for additional rehab prior to going home. He returned home around Nov 24. He was getting PT/OT at home for about 2-3 weeks and they recommended he go to OP PT for additional strengthening. Patient reports restrictions of no bending, lifting, twisting after surgery. He reports wearing a brace after surgery - described as TLSO style brace by patient but he is not wearing it to PT today. Patient states he had follow up with surgeon at about 6 weeks post op. Xrays looked good. Surgeon instruction at that follow up allowed for patient to remove his brace a couple of times a day for a couple of hours. Patient reports wearing the brace until about noon today. He forgot to put it back on before coming to PT - thought of it while in the car coming to PT. He does not have to wear the brace at night. He reports doing some home exercises, given to him by home care PT/OT. States he is getting them in once a day, sometimes twice. He is up walking with his walker around a loop in his house. Reports having the brace on most of the time when he is exercising . Patient reports 3 falls last year (prior to surgery). He started using a cane because of these falls and LBP /hip pain. He then switched to using a FWW last August. He feels more secure using the FWW and has been needing it after his back surgery as well. 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 Patient c/o some LBP but main c/o today is R hip/thigh pain. Pain is rated 6/10. He is using tylenol 3x/ day. Occasionally icing his LB/hip. Patient is unsure of his current lifting restrictions after surgery, maybe 5-10 pounds but he thought he saw [address] He is able to demonstrate/list his current home exercises. Patient has follow up with his [place] surgeon in early January (3 month post op). Patient states his surgeon has not mentioned referral to OP PT after his spinal fusion so he is unsure of his current strengthening/mobility restrictions. Date of Last Physician Visit 12/22/24 Date of Surgery (If applicable) 10/22/24 Current Work Status Retired Precautions Treatment Precautions/Contraindications s/p lumbar spinal surgery with fusion 10/22/24. No bending, lifting, twisting (BLT restrictions). Patient has been wearing a brace after surgery - not currently wearing it to PT today. He describes the brace as a TLSO style brace. He is to wear it when he is up moving during the day. He can take it off 2x/day for a couple of hours each time. Patient reports getting sore without the brace, ready to get it back on when he gets home today as it has been off for 3-4 hours now. Assessment Assessment/Impression Patient is an 79 year old male s/p lumbar spine surgery with spinal fusion L4-L5 10/22/24 with LBP, core/hip/glut/LE weakness, limited tolerance for extended standing/walking, unsteady gait, hx of falls. Patient reports current restrictions as: no bending, lifting, twisting (BLT restrictions). He is unsure of his current lifting restriction limit. Patient has been wearing a brace after surgery - not currently wearing it to PT today. He describes the brace as a TLSO style brace. He is to wear it when he is up moving during the day. He can take it off 2x/day for a couple of hours each time. Patient reports getting sore without the brace , ready to get it back on when he gets home today as it has been off for 3-4 hours now. States he is wearing the brace when doing his home exercises and walking with his FWW around the house. He d/c from the hospital to SNF for additional rehab to be able to return home. He also received 2-3 weeks of home care PT/OT. He reports getting around ok at home using his FWW. He is doing his seated/standing HEP once a day, sometimes 2x/day. LBP and R hip pain rated 6/10. He is using tylenol 3x/day. Icing on occasion. Reviewed his home exercises (verbal/ demonstration/performed), both seated and standing this session. Patient currently not wearing his back brace, unable to recall lifting restrictions (other than no BLT), and states [place] surgeon has not mentioned referral to OP PT for strengthening/ mobility after his spinal fusion surgery. PT session today limited as a result. Patient has follow up with his surgeon in early January. PT recommendation at this time is for patient to continue with his current HEP of seated/ standing exercises, progressing them up to 20 reps as able and performing them 2x/day. Also recommend he continue with regular walking using his FWW with patient increasing his walking time/ distances as tolerated. PT recommends he wear his back brace when doing his exercises and with walking. He expressed understanding. Patient will get additional instruction from his surgeon at his follow up appt in early January to guide the progression of PT. Patient is in agreement with plan. Patient would benefit from skilled PT for pain/sx management, core/hip/glut/LE strengthening, gait training, balance training, and establishment of HEP once cleared by surgeon. Plan of Care Rehabilitation Potential Good Physical Therapy Goals 1. Decrease LBP, R hip/thigh pain to less than/equal to 3/ 10 with daily activities and with the progression of PT activities over the next 6-8 weeks. 2. Patient will be educated on posture/body mechanics and pain management strategies over the next 6-8 weeks for decreased stress on LB and decreased LBP. 3. Improve core/hip/glut/LE strength over the next 12-16 weeks for weaning out of TLSO brace (as instructed by surgeon), improved gait, improved posture, decreased stress on LB, decreased LBP, and improved tolerance for extended sitting /standing/walking for daily activities. 4. Patient will be I with HEP within 12-16 weeks for progression toward above goals, ongoing self management of pain/sx, ongoing self improvements in core/hip/glut/LE strength, posture/body mechanics, and for improved tolerance for extended sitting /standing/walking activities per PLF. Note: PT goals pending approval of OP PT by [place] surgeon at upcoming appt in early January. Coordination/Communication With Referral Source Treatment Plan/Direct Interventions Gait Training,Therapeutic Activities Frequency/Duration 1x/week (pending approval of surgeon) Patient Will Be Discharged From Therapy Completion of LTG(s),Skills Plateau,Independent w/HEP, Independently Progressing Evaluation Billing Untimed Code Treatment Minutes 50 Complexity Moderate Certification Information Initial Certification Date 01/12/25 Ending Certification Date 04/12/25 Provider Signature Required Yes Provider Signature Shows Agreement With POC & Medical Necessity Physician NPI Number Write NPI# Here Physician Comment/Change : Physician Signature & Date Requested Please Sign/Date Here
== END 2025-08-04 23:59 | disposition home or self-care (01) ==
PROVIDERS: PCP Family Medicine; Visit Provider Family Medicine
DX: Z48.89 Encounter for other specified surgical aftercare (principal); Z98.1 Arthrodesis status; Z51.89 Encounter for other specified aftercare
CPT/HCPCS: 80053; 80061; 84443; 97110; 97162; G0103

== ENCOUNTER 2025-04-07 11:28 | Outpatient (CLI) | payer MEDICARE, SELFPAY | END 2025-04-07 11:29 | disposition home or self-care (01) | LOC: NFLDREF 11:28 | PROVIDERS: PCP Family Medicine; Visit Provider Family Medicine | DX: I10 Essential (primary) hypertension (principal) | CPT/HCPCS: 80048 ==

== ENCOUNTER 2025-04-12 14:45 | Outpatient (CLI) | payer MEDICARE, SELFPAY | END 2025-04-12 14:46 | disposition home or self-care (01) | LOC: WOUND 14:46 | PROVIDERS: PCP Family Medicine; Visit Provider Physician Assistant | DX: I87.311 Chronic venous hypertension (idiopathic) with ulcer of right lower extremity (principal); I89.0 Lymphedema, not elsewhere classified; E11.622 Type 2 diabetes mellitus with other skin ulcer; L97.812 Non-pressure chronic ulcer of other part of right lower leg with fat layer exposed; Z79.84 Long term (current) use of oral hypoglycemic drugs; E11.22 Type 2 diabetes mellitus with diabetic chronic kidney disease; N18.9 Chronic kidney disease, unspecified | CPT/HCPCS: 87070; 87186; 97597 ==

== ENCOUNTER 2025-04-20 13:31 | Outpatient (CLI) | payer MEDICARE, SELFPAY | END 2025-04-20 13:32 | disposition home or self-care (01) | LOC: WOUND 13:31 | PROVIDERS: PCP Family Medicine; Visit Provider Physician Assistant Surgical | DX: I87.311 Chronic venous hypertension (idiopathic) with ulcer of right lower extremity (principal); I89.0 Lymphedema, not elsewhere classified; E11.622 Type 2 diabetes mellitus with other skin ulcer; L97.312 Non-pressure chronic ulcer of right ankle with fat layer exposed; Z79.84 Long term (current) use of oral hypoglycemic drugs | CPT/HCPCS: 11042; 11045 ==

== ENCOUNTER 2025-04-27 11:47 | Outpatient (CLI) | payer MEDICARE, SELFPAY ==
--- NOTE | 2025-05-04 11:31 | W.PM.SLEEP ---
Sleep Study Details Details Interpreting Provider: Saravanan Date of Sleep Study: 04/27/25 Sleep Study Details: STUDY TYPE:? Home unattended ? BMI:? 27.6 ORDERING PROVIDER:? Saravanan INDICATION:? Concerned about sleep apnea ? SLEEP SUMMARY:? 399 minutes monitored RESPIRATORY SUMMARY:? AHI 40.2 per rule 1A, 36.3 per CMS guideline Central index 12.5 Low oxygen 82 20.3% of study oxygen less than 90% Snoring 98.8% PERIODIC LIMB MOVEMENTS OF SLEEP:? Not recorded CARDIAC:? Range 45-114, mean 68.4 beats per minute IMPRESSION:? Severe mixed sleep apnea with approximately 30% central apneas and significant desaturation. RECOMMENDATION: In-lab titration study.
== END 2025-04-27 11:48 | disposition home or self-care (01) ==
LOC: SLEEP 11:47
PROVIDERS: PCP Family Medicine; Visit Provider Otolaryngology
DX: G47.39 Other sleep apnea (principal); G47.31 Primary central sleep apnea
CPT/HCPCS: 95806

== ENCOUNTER 2025-04-27 13:29 | Outpatient (CLI) | payer MEDICARE, SELFPAY | END 2025-04-27 13:30 | disposition home or self-care (01) | LOC: WOUND 13:29 | PROVIDERS: PCP Family Medicine; Visit Provider Family Medicine | DX: I87.311 Chronic venous hypertension (idiopathic) with ulcer of right lower extremity (principal); I89.0 Lymphedema, not elsewhere classified; E11.622 Type 2 diabetes mellitus with other skin ulcer; L97.312 Non-pressure chronic ulcer of right ankle with fat layer exposed; E11.22 Type 2 diabetes mellitus with diabetic chronic kidney disease; N18.9 Chronic kidney disease, unspecified; Z79.4 Long term (current) use of insulin; Z79.84 Long term (current) use of oral hypoglycemic drugs; G47.39 Other sleep apnea; G47.31 Primary central sleep apnea | CPT/HCPCS: 11042; 95806 ==

== ENCOUNTER 2025-05-04 13:32 | Outpatient (CLI) | payer MEDICARE, SELFPAY | END 2025-05-04 13:33 | disposition home or self-care (01) | LOC: WOUND 13:33 | PROVIDERS: PCP Family Medicine; Visit Provider Nurse Practitioner Family | DX: I87.311 Chronic venous hypertension (idiopathic) with ulcer of right lower extremity (principal); E11.622 Type 2 diabetes mellitus with other skin ulcer; I89.0 Lymphedema, not elsewhere classified; L97.312 Non-pressure chronic ulcer of right ankle with fat layer exposed; Z79.4 Long term (current) use of insulin; Z79.84 Long term (current) use of oral hypoglycemic drugs; Z79.899 Other long term (current) drug therapy | CPT/HCPCS: 97597 ==

== ENCOUNTER 2025-05-11 13:30 | Outpatient (CLI) | payer MEDICARE, SELFPAY | END 2025-05-11 13:31 | disposition home or self-care (01) | LOC: WOUND 13:30 | PROVIDERS: PCP Family Medicine; Visit Provider Nurse Practitioner Family | DX: I87.311 Chronic venous hypertension (idiopathic) with ulcer of right lower extremity (principal); I89.0 Lymphedema, not elsewhere classified; E11.622 Type 2 diabetes mellitus with other skin ulcer; L97.812 Non-pressure chronic ulcer of other part of right lower leg with fat layer exposed; E11.22 Type 2 diabetes mellitus with diabetic chronic kidney disease; N18.9 Chronic kidney disease, unspecified; Z79.4 Long term (current) use of insulin; Z79.84 Long term (current) use of oral hypoglycemic drugs | CPT/HCPCS: 11042 ==

== ENCOUNTER 2025-05-18 13:33 | Outpatient (CLI) | payer MEDICARE, SELFPAY | END 2025-05-18 13:34 | disposition home or self-care (01) | LOC: WOUND 13:33 | PROVIDERS: PCP Family Medicine; Visit Provider Nurse Practitioner Family | DX: I87.313 Chronic venous hypertension (idiopathic) with ulcer of bilateral lower extremity (principal); I89.0 Lymphedema, not elsewhere classified; E11.622 Type 2 diabetes mellitus with other skin ulcer; L97.312 Non-pressure chronic ulcer of right ankle with fat layer exposed; L97.222 Non-pressure chronic ulcer of left calf with fat layer exposed; Z79.4 Long term (current) use of insulin; Z79.84 Long term (current) use of oral hypoglycemic drugs; E11.22 Type 2 diabetes mellitus with diabetic chronic kidney disease; N18.9 Chronic kidney disease, unspecified | CPT/HCPCS: 11042 ==

== ENCOUNTER 2025-05-25 13:36 | Outpatient (CLI) | payer MEDICARE, SELFPAY | END 2025-05-25 13:37 | disposition home or self-care (01) | LOC: WOUND 13:37 | PROVIDERS: PCP Family Medicine; Visit Provider Nurse Practitioner Family | DX: I87.311 Chronic venous hypertension (idiopathic) with ulcer of right lower extremity (principal); I89.0 Lymphedema, not elsewhere classified; E11.622 Type 2 diabetes mellitus with other skin ulcer; L97.812 Non-pressure chronic ulcer of other part of right lower leg with fat layer exposed; Z79.4 Long term (current) use of insulin; Z79.84 Long term (current) use of oral hypoglycemic drugs; E11.22 Type 2 diabetes mellitus with diabetic chronic kidney disease; N18.9 Chronic kidney disease, unspecified | CPT/HCPCS: 97597; G0463 ==

== ENCOUNTER 2025-06-01 10:28 | Outpatient (CLI) | payer MEDICARE, SELFPAY | END 2025-06-01 10:29 | disposition home or self-care (01) | LOC: WOUND 10:28 | PROVIDERS: PCP Family Medicine; Visit Provider Nurse Practitioner Family | DX: I87.313 Chronic venous hypertension (idiopathic) with ulcer of bilateral lower extremity (principal); E11.622 Type 2 diabetes mellitus with other skin ulcer; I89.0 Lymphedema, not elsewhere classified; L97.222 Non-pressure chronic ulcer of left calf with fat layer exposed; L97.812 Non-pressure chronic ulcer of other part of right lower leg with fat layer exposed; E11.22 Type 2 diabetes mellitus with diabetic chronic kidney disease; N18.9 Chronic kidney disease, unspecified; Z79.4 Long term (current) use of insulin; Z79.84 Long term (current) use of oral hypoglycemic drugs | CPT/HCPCS: 97597 ==

== ENCOUNTER 2025-06-08 10:50 | Outpatient (CLI) | payer MEDICARE, SELFPAY | END 2025-06-08 10:51 | disposition home or self-care (01) | LOC: WOUND 10:51 | PROVIDERS: PCP Family Medicine; Visit Provider Nurse Practitioner Family | DX: I87.313 Chronic venous hypertension (idiopathic) with ulcer of bilateral lower extremity (principal); I89.0 Lymphedema, not elsewhere classified; E11.622 Type 2 diabetes mellitus with other skin ulcer; L97.312 Non-pressure chronic ulcer of right ankle with fat layer exposed; L97.222 Non-pressure chronic ulcer of left calf with fat layer exposed; Z79.4 Long term (current) use of insulin; Z79.84 Long term (current) use of oral hypoglycemic drugs | CPT/HCPCS: 11042 ==

== ENCOUNTER 2025-06-15 10:40 | Outpatient (CLI) | payer MEDICARE, SELFPAY | END 2025-06-15 10:41 | disposition home or self-care (01) | LOC: WOUND 10:40 | PROVIDERS: PCP Family Medicine; Visit Provider Nurse Practitioner Family | DX: I87.313 Chronic venous hypertension (idiopathic) with ulcer of bilateral lower extremity (principal); I89.0 Lymphedema, not elsewhere classified; E11.622 Type 2 diabetes mellitus with other skin ulcer; L97.312 Non-pressure chronic ulcer of right ankle with fat layer exposed; L97.222 Non-pressure chronic ulcer of left calf with fat layer exposed; E11.22 Type 2 diabetes mellitus with diabetic chronic kidney disease; N18.9 Chronic kidney disease, unspecified; Z79.4 Long term (current) use of insulin; Z79.84 Long term (current) use of oral hypoglycemic drugs | CPT/HCPCS: 97597 ==

== ENCOUNTER 2025-06-22 10:39 | Outpatient (CLI) | payer MEDICARE, SELFPAY | END 2025-06-22 10:40 | disposition home or self-care (01) | LOC: WOUND 10:40 | PROVIDERS: PCP Family Medicine; Visit Provider Nurse Practitioner Family | DX: I89.0 Lymphedema, not elsewhere classified (principal); E11.622 Type 2 diabetes mellitus with other skin ulcer; L97.312 Non-pressure chronic ulcer of right ankle with fat layer exposed; L97.222 Non-pressure chronic ulcer of left calf with fat layer exposed; E11.22 Type 2 diabetes mellitus with diabetic chronic kidney disease; N18.9 Chronic kidney disease, unspecified; Z79.4 Long term (current) use of insulin; Z79.84 Long term (current) use of oral hypoglycemic drugs | CPT/HCPCS: 97597 ==

== ENCOUNTER 2025-06-29 10:32 | Outpatient (CLI) | payer MEDICARE, SELFPAY | END 2025-06-29 10:33 | disposition home or self-care (01) | LOC: WOUND 10:33 | PROVIDERS: PCP Family Medicine; Visit Provider Nurse Practitioner Family | DX: I87.312 Chronic venous hypertension (idiopathic) with ulcer of left lower extremity (principal); I89.0 Lymphedema, not elsewhere classified; E11.622 Type 2 diabetes mellitus with other skin ulcer; L97.222 Non-pressure chronic ulcer of left calf with fat layer exposed; Z79.4 Long term (current) use of insulin; Z79.84 Long term (current) use of oral hypoglycemic drugs | CPT/HCPCS: 11042 ==

== ENCOUNTER 2025-07-06 10:43 | Outpatient (CLI) | payer MEDICARE, SELFPAY | END 2025-07-06 10:44 | disposition home or self-care (01) | LOC: WOUND 10:43 | PROVIDERS: PCP Family Medicine; Visit Provider Nurse Practitioner Family | DX: I87.313 Chronic venous hypertension (idiopathic) with ulcer of bilateral lower extremity (principal); I89.0 Lymphedema, not elsewhere classified; E11.622 Type 2 diabetes mellitus with other skin ulcer; L97.222 Non-pressure chronic ulcer of left calf with fat layer exposed; L97.312 Non-pressure chronic ulcer of right ankle with fat layer exposed; E11.22 Type 2 diabetes mellitus with diabetic chronic kidney disease; N18.9 Chronic kidney disease, unspecified; Z79.4 Long term (current) use of insulin; Z79.84 Long term (current) use of oral hypoglycemic drugs | CPT/HCPCS: 97597 ==

== ENCOUNTER 2025-07-13 10:54 | Outpatient (CLI) | payer MEDICARE, SELFPAY | END 2025-07-13 10:55 | disposition home or self-care (01) | LOC: WOUND 10:55 | PROVIDERS: PCP Family Medicine; Visit Provider Nurse Practitioner Family | DX: I89.0 Lymphedema, not elsewhere classified (principal); E11.622 Type 2 diabetes mellitus with other skin ulcer; L97.822 Non-pressure chronic ulcer of other part of left lower leg with fat layer exposed; L97.222 Non-pressure chronic ulcer of left calf with fat layer exposed; L97.312 Non-pressure chronic ulcer of right ankle with fat layer exposed; A49.02 Methicillin resistant Staphylococcus aureus infection, unspecified site; E11.22 Type 2 diabetes mellitus with diabetic chronic kidney disease; Z79.84 Long term (current) use of oral hypoglycemic drugs; I87.313 Chronic venous hypertension (idiopathic) with ulcer of bilateral lower extremity | CPT/HCPCS: 11042; 87070; 87186; G0463 ==

== ENCOUNTER 2025-07-20 10:44 | Outpatient (CLI) | payer MEDICARE, SELFPAY | END 2025-07-20 10:45 | disposition home or self-care (01) | LOC: WOUND 10:45 | PROVIDERS: PCP Family Medicine; Visit Provider Nurse Practitioner Family | DX: I87.313 Chronic venous hypertension (idiopathic) with ulcer of bilateral lower extremity (principal); I89.0 Lymphedema, not elsewhere classified; E11.622 Type 2 diabetes mellitus with other skin ulcer; L97.312 Non-pressure chronic ulcer of right ankle with fat layer exposed; L97.222 Non-pressure chronic ulcer of left calf with fat layer exposed; L97.822 Non-pressure chronic ulcer of other part of left lower leg with fat layer exposed; E11.22 Type 2 diabetes mellitus with diabetic chronic kidney disease; N18.9 Chronic kidney disease, unspecified; Z79.4 Long term (current) use of insulin; Z79.84 Long term (current) use of oral hypoglycemic drugs | CPT/HCPCS: 11042; 11045 ==

== ENCOUNTER 2025-07-27 10:43 | Outpatient (CLI) | payer MEDICARE, SELFPAY | END 2025-07-27 10:44 | disposition home or self-care (01) | LOC: WOUND 10:44 | PROVIDERS: PCP Family Medicine; Visit Provider Nurse Practitioner Family | DX: I87.313 Chronic venous hypertension (idiopathic) with ulcer of bilateral lower extremity (principal); I89.0 Lymphedema, not elsewhere classified; E11.622 Type 2 diabetes mellitus with other skin ulcer; L97.312 Non-pressure chronic ulcer of right ankle with fat layer exposed; L97.222 Non-pressure chronic ulcer of left calf with fat layer exposed; E11.22 Type 2 diabetes mellitus with diabetic chronic kidney disease; N18.9 Chronic kidney disease, unspecified; Z79.4 Long term (current) use of insulin; Z79.84 Long term (current) use of oral hypoglycemic drugs | CPT/HCPCS: 11042 ==

== ENCOUNTER 2025-08-03 10:48 | Outpatient (CLI) | payer MEDICARE, SELFPAY | END 2025-08-03 10:49 | disposition home or self-care (01) | LOC: WOUND 10:49 | PROVIDERS: PCP Family Medicine; Visit Provider Nurse Practitioner Family | DX: I87.313 Chronic venous hypertension (idiopathic) with ulcer of bilateral lower extremity (principal); E11.622 Type 2 diabetes mellitus with other skin ulcer; L97.312 Non-pressure chronic ulcer of right ankle with fat layer exposed; L97.222 Non-pressure chronic ulcer of left calf with fat layer exposed; E11.22 Type 2 diabetes mellitus with diabetic chronic kidney disease; N18.9 Chronic kidney disease, unspecified; Z79.4 Long term (current) use of insulin; Z79.84 Long term (current) use of oral hypoglycemic drugs | CPT/HCPCS: 11042; 11045 ==

== ENCOUNTER 2025-08-06 08:35 | Outpatient (CLI) | payer MEDICARE, SELFPAY | END 2025-08-06 08:36 | disposition home or self-care (01) | LOC: NFLDREF 08-12 12:46 | PROVIDERS: PCP Family Medicine; Referring Provider Family Medicine; Visit Provider Family Medicine | DX: E11.42 Type 2 diabetes mellitus with diabetic polyneuropathy (principal); E11.22 Type 2 diabetes mellitus with diabetic chronic kidney disease; N18.32 Chronic kidney disease, stage 3b; E03.2 Hypothyroidism due to medicaments and other exogenous substances; R80.1 Persistent proteinuria, unspecified; Z79.4 Long term (current) use of insulin | CPT/HCPCS: 80053; 80061; 82043; 82570; 82607; 84439; 84443 ==

== ENCOUNTER 2025-08-10 10:34 | Outpatient (CLI) | payer MEDICARE, SELFPAY | END 2025-08-10 10:35 | disposition home or self-care (01) | LOC: WOUND 10:35 | PROVIDERS: PCP Family Medicine; Visit Provider Nurse Practitioner Family | DX: I87.313 Chronic venous hypertension (idiopathic) with ulcer of bilateral lower extremity (principal); E11.622 Type 2 diabetes mellitus with other skin ulcer; L97.222 Non-pressure chronic ulcer of left calf with fat layer exposed; L97.312 Non-pressure chronic ulcer of right ankle with fat layer exposed; E11.22 Type 2 diabetes mellitus with diabetic chronic kidney disease; N18.9 Chronic kidney disease, unspecified; Z79.4 Long term (current) use of insulin; Z79.84 Long term (current) use of oral hypoglycemic drugs | CPT/HCPCS: 11042 ==

== ENCOUNTER 2025-08-17 10:44 | Outpatient (CLI) | payer MEDICARE, SELFPAY | END 2025-08-17 10:45 | disposition home or self-care (01) | LOC: WOUND 10:45 | PROVIDERS: PCP Family Medicine; Visit Provider Nurse Practitioner Family | DX: I87.313 Chronic venous hypertension (idiopathic) with ulcer of bilateral lower extremity (principal); E11.622 Type 2 diabetes mellitus with other skin ulcer; L97.222 Non-pressure chronic ulcer of left calf with fat layer exposed; L97.312 Non-pressure chronic ulcer of right ankle with fat layer exposed; L97.822 Non-pressure chronic ulcer of other part of left lower leg with fat layer exposed; E11.22 Type 2 diabetes mellitus with diabetic chronic kidney disease; N18.9 Chronic kidney disease, unspecified; Z79.4 Long term (current) use of insulin; Z79.84 Long term (current) use of oral hypoglycemic drugs | CPT/HCPCS: 11042 ==

== ENCOUNTER 2025-08-24 10:44 | Outpatient (CLI) | payer MEDICARE, SELFPAY | END 2025-08-24 10:45 | disposition home or self-care (01) | LOC: WOUND 10:45 | PROVIDERS: PCP Family Medicine; Visit Provider Nurse Practitioner Family | DX: I87.313 Chronic venous hypertension (idiopathic) with ulcer of bilateral lower extremity (principal); E11.622 Type 2 diabetes mellitus with other skin ulcer; L97.822 Non-pressure chronic ulcer of other part of left lower leg with fat layer exposed; L97.312 Non-pressure chronic ulcer of right ankle with fat layer exposed; E11.22 Type 2 diabetes mellitus with diabetic chronic kidney disease; N18.9 Chronic kidney disease, unspecified; Z79.4 Long term (current) use of insulin; Z79.84 Long term (current) use of oral hypoglycemic drugs | CPT/HCPCS: 11042 ==

== ENCOUNTER 2025-08-31 10:43 | Outpatient (CLI) | payer MEDICARE, SELFPAY | END 2025-08-31 10:44 | disposition home or self-care (01) | LOC: WOUND 10:44 | PROVIDERS: PCP Family Medicine; Visit Provider Nurse Practitioner Family | DX: I87.313 Chronic venous hypertension (idiopathic) with ulcer of bilateral lower extremity (principal); E11.622 Type 2 diabetes mellitus with other skin ulcer; L97.822 Non-pressure chronic ulcer of other part of left lower leg with fat layer exposed; L97.312 Non-pressure chronic ulcer of right ankle with fat layer exposed; E11.22 Type 2 diabetes mellitus with diabetic chronic kidney disease; N18.9 Chronic kidney disease, unspecified; Z79.4 Long term (current) use of insulin; Z79.84 Long term (current) use of oral hypoglycemic drugs | CPT/HCPCS: 11042 ==

== ENCOUNTER 2025-09-08 13:03 | Outpatient (CLI) | payer MEDICARE, SELFPAY | END 2025-09-08 13:04 | disposition home or self-care (01) | LOC: WOUND 13:03 | PROVIDERS: PCP Family Medicine; Visit Provider Surgery | DX: I87.311 Chronic venous hypertension (idiopathic) with ulcer of right lower extremity (principal); I89.0 Lymphedema, not elsewhere classified; E11.622 Type 2 diabetes mellitus with other skin ulcer; L97.312 Non-pressure chronic ulcer of right ankle with fat layer exposed; Z79.4 Long term (current) use of insulin; Z79.84 Long term (current) use of oral hypoglycemic drugs; E11.22 Type 2 diabetes mellitus with diabetic chronic kidney disease; N18.9 Chronic kidney disease, unspecified | CPT/HCPCS: 11042 ==

== ENCOUNTER 2025-09-14 10:39 | Outpatient (CLI) | payer MEDICARE, SELFPAY | END 2025-09-14 10:40 | disposition home or self-care (01) | LOC: WOUND 10:40 | PROVIDERS: PCP Family Medicine; Visit Provider Nurse Practitioner Family | DX: I87.311 Chronic venous hypertension (idiopathic) with ulcer of right lower extremity (principal); I89.0 Lymphedema, not elsewhere classified; E11.622 Type 2 diabetes mellitus with other skin ulcer; L97.312 Non-pressure chronic ulcer of right ankle with fat layer exposed; Z79.4 Long term (current) use of insulin; Z79.84 Long term (current) use of oral hypoglycemic drugs; S80.811A Abrasion, right lower leg, initial encounter; E11.22 Type 2 diabetes mellitus with diabetic chronic kidney disease; N18.9 Chronic kidney disease, unspecified | CPT/HCPCS: 97597; G0463 ==

== ENCOUNTER 2025-09-21 10:47 | Outpatient (CLI) | payer MEDICARE, SELFPAY | END 2025-09-21 10:48 | disposition home or self-care (01) | LOC: WOUND 10:48 | PROVIDERS: PCP Family Medicine; Visit Provider Nurse Practitioner Family | DX: I87.311 Chronic venous hypertension (idiopathic) with ulcer of right lower extremity (principal); I89.0 Lymphedema, not elsewhere classified; E11.622 Type 2 diabetes mellitus with other skin ulcer; L97.312 Non-pressure chronic ulcer of right ankle with fat layer exposed; E11.22 Type 2 diabetes mellitus with diabetic chronic kidney disease; N18.9 Chronic kidney disease, unspecified; Z79.4 Long term (current) use of insulin; Z79.84 Long term (current) use of oral hypoglycemic drugs | CPT/HCPCS: 11042 ==

== ENCOUNTER 2025-10-01 08:06 | Outpatient (CLI) | payer MEDICARE, SELFPAY | END 2025-10-01 08:07 | disposition home or self-care (01) | LOC: NFLDREF 10-06 15:28 | PROVIDERS: PCP Family Medicine; Referring Provider Family Medicine; Visit Provider Family Medicine | DX: E11.42 Type 2 diabetes mellitus with diabetic polyneuropathy (principal); N18.32 Chronic kidney disease, stage 3b; E11.22 Type 2 diabetes mellitus with diabetic chronic kidney disease; E03.2 Hypothyroidism due to medicaments and other exogenous substances; Z79.4 Long term (current) use of insulin; I12.9 Hypertensive chronic kidney disease with stage 1 through stage 4 chronic kidney disease, or unspecified chronic kidney disease | CPT/HCPCS: 80053; 82043; 82570; 84439; 84443; 84550 ==